=== PATIENT | female | born 1960 | race Caucasian/White ===

== ENCOUNTER → 2016-09-06 | Outpatient (CLI) | payer BC ==
[~2016-09-06] MED LIST: *PREMTA OR; AUGM500T34 PO; BACL10TA2 PO; BENT20TA OR; BUPIVACAINE HCL 0.25% 30 ML VIAL As Ordered ONE; CALC600T10 PO; CRES20TA PO; DEXILANT PO; DRIS50002 PO; ESTR3TA OR; ESTR3TA PO; EVIS1TAB PO; FLAG250T PO; FLUC10TA PO; GLUC500T3 OR; HYDR-3781 PO; ISOVUE-M 300 61% 15ML VIAL (Q9967) As Ordered ONE; LIDOCAINE 1% SDV INJ 30 ML VIAL As Ordered ONE; MAGN400T2 PO; METO10TA2 OR; OMEP40CA2 PO; ROSU10TA PO; SERT-141 PO; TOPA100T8 PO; TOPA50TA7 PO; TOPI50TA OR; TRIAMCINOLONE ACETONIDE SUSP 40 MG/ML VIAL (J3301) As Ordered ONE; TYLE325T5 PO; VICO5TAB OR; ZOLO25TA OR; diazePAM 5 MG TAB As Ordered ONE; oxyCODONE 5MG TAB As Ordered ONE
--- NOTE | 2016-09-06 17:35 | REP ---
FLUOROSCOPIC GUIDANCE: The images were reviewed with Dr. Wallace. The patient has a history of back pain. The portable C-ARM was provided in the OR by Dr. Mcghee for fluoroscopic guidance. 4 intraoperative fluoroscopic spot films were obtained for needle placement verification for left SI joint injection. The films are on the PACS system and are available for review. 9 seconds of fluoroscopic time was utilized for this procedure. Reviewed by AKBAR Meehan 09/07/2016 09:06 AEdited and Signed by Juliano Wallace MD 09/07/2016 03:18 P
--- NOTE | 2016-09-11 00:29 | ECWPNPC ---
PATIENT NAME: ANDI SEXTON : 1960 GENDER: FEMALE VISIT DATE: 09/06/2016 DISCHARGE DATE: 09/06/16 1140 VISIT LOCKED DATE TIME: PHYSICIAN: FROY PAYAN RESOURCE: FROY PAYAN REASON FOR APPOINTMENT 1. SIJ-LEFT HIP HISTORY OF PRESENT ILLNESS HISTORY OF PRESENT ILLNESS: PAIN THE PATIENT DESCRIBES THE PAIN... FALL RISK SCREENING: SCREENING :NO FALLS IN THE PAST YEAR CURRENT MEDICATIONS TAKING CRESTOR 20 MG TABLET 1 TABLET ORALLY ONCE A DAY, NOTES: 09-05-161899 TAKING PREMARIN 0.3 MG TABLET 1 TABLET ORALLY DAILY FOR THREE WEEKS, 1 WEEK OFF, NOTES: 09-06-16399 TAKING SERTRALINE HCL 50 MG TABLET 1 TABLET ORALLY ONCE A DAY, NOTES: 09-06-16399 TAKING BACLOFEN 10 MG TABLET NEEDED ORALLY THREE TIMES A DAY, NOTES: 09-06-16399 TAKING TOPIRAMATE 50 MG TABLET 1 TAB IN THE AM AND 2 TAB AT BEDTIME ORALLY TWICE A DAY, NOTES: 09-06-16399 TAKING MAXALT 10 MG TABLET 1 TABLET NEEDED ONE TIME ORALLY ONCE A DAY, NOTES: 09-05-16 1000 TAKING MAGNESIUM 400 MG CAPSULE ORALLY DAILY, NOTES: 09-05-161899 TAKING CALCIUM 1200+D3 600-40-500 MG-MG-UNIT TABLET EXTENDED RELEASE 24 HOUR ORALLY , NOTES: 09-05-161899 TAKING OMEPRAZOLE 40 MG CAPSULE DELAYED RELEASE 1 CAPSULE ORALLY TWICE A DAY, NOTES: 09-06-16399 TAKING VITAMIN D (ERGOCALCIFEROL) 36260 UNIT CAPSULE 1 CAPSULE ORALLY ONCE A MONTH, NOTES: 09-04-16 TAKING EVISTA 60 MG TABLET 1 TABLET ORALLY ONCE A DAY, NOTES: 09-05-161899 TAKING ROPINIROLE HCL 5 MG TABLET 1 TABLET ORALLY TWO TIMES A DAY, NOTES: 09-05-161899 TAKING ONDANSETRON 4 MG TABLET DISPERSIBLE 1 TABLET ON THE TONGUE AND ALLOW TO DISSOLVE ORALLY EVERY 8 HRS NEEDED, NOTES: 09-04-16 TAKING NORCO 10-325 MG TABLET 1 /2 TO 1 TABLET ORALLY EVERY 6 HRS PRN PAIN MDD=3 CHRONIC PAIN, NOTES: 09-05-16 2300 TAKING TRAMADOL HCL 50 MG TABLET 1 TAB ORALLY Q 6 HRS PRN PAIN MDD=4, NOTES: 09-05-16 0800 NOT-TAKING AMBIEN 10 MG TABLET 1 TABLET AT BEDTIME NEEDED ORALLY ONCE A DAY, NOTES: 05-22-16 PM NOT-TAKING NORCO 5-325 MG TABLET 1 TABLET NEEDED ORALLY EVERY 6 HRS, NOTES: FROM MARCH 24 ER VISIT MEDICATION LIST REVIEWED AND RECONCILED WITH THE PATIENT PAST MEDICAL HISTORY ANDREWS-MIGRAINES LEFT SHOULDER PAIN DIVERTICULOSIS- DIVERTICULITIS NUMBNESS AND TINGLING TO FINGERS AND TOES DUE TO TOPAMAX IS CONTROLLED WITH MAGNESIUM ALLERGIES COMPAZINE: BENJAMIN: ALLERGY PAMELOR: CONTRAINDICATION SURGICAL HISTORY SIGMOID COLECTOMY 01-14-16 RIGHT FOOT SURGERY KNEE SURGERY HYSTERECTOMY GALL BLADDER APPENDIX LEFT BREAST LUMPECTOMY SCOLIOSIS DEGENERATIVE DISEASE DISEASE OSTEO ARTHRITIS BUNIONECTOMY BONE FUSION RT FOOT 06-09-2016 SOCIAL HISTORY TOBACCO USE ARE YOU A:NONSMOKER LEARNING 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 NEW PATIENT PAIN DIARY TODAY'S VISITNOTES FROM 0-10, WHAT LEVEL IS YOUR PAIN TODAY?0 PAIN CLINIC PFS, CLERGY, PUBLIC HEALTH REFERRALS PFS REFERRAL NEEDED?NO CLERGY REFERRAL NEEDED?NO PUBLIC HEALTH REFERRAL NEEDED?NO WAS THE PROVIDER NOTIFIED OF ANY PERTINENT INFO?NO PFS REFERRAL NEEDED?NO CLERGY REFERRAL NEEDED?NO PUBLIC HEALTH REFERRAL NEEDED?NO WAS THE PROVIDER NOTIFIED OF ANY PERTINENT INFO?NO HOSPITALIZATION/MAJOR DIAGNOSTIC PROCEDURE DIVERTICULITIS SEVERAL TIMES 01/2017 BOWEL OBSTRUCTION REVIEW OF SYSTEMS CONSTITUTIONAL: ANY CHANGE IN YOUR MEDICAL CONDITION? NO . CHILLS NO . FEVER NO . INFECTION: DO YOU HAVE NEW INFECTIONS? NO . DO YOU HAVE HISTORY OF MRSA? NO . MUSCULOSKELETAL: ANY NEW PATTERNS OF PAIN OR NUMBNESS? NO . GASTROENTEROLOGY: ANY NEW CHANGE IN BOWEL CONTROL? NO . GENITOURINARY: ANY NEW CHANGE IN BLADDER CONTROL? NO . IS THERE A CHANCE YOU COULD BE ? NO . HEMATOLOGY/LYMPH: DO YOU TAKE ANY BLOOD THINNERS? (FOR EXAMPLE- COUMADIN, PLAVIX, AGGRENOX, PLATEL, PRADAXA, OR XARELTO) NO . WHEN WAS YOUR LAST DOSE? DATE: TIME: . NEUROLOGY: HAVE YOU FALLEN IN THE PAST 6 MONTHS? NO . ANY NEW EXTREMITY NUMBNESS OR WEAKNESS? NO . CARDIOLOGY: DO YOU HAVE A PACEMAKER OR DEFIBRILLATOR? NO . RESPIRATORY: HAVE YOU BEEN SICK IN THE PAST WEEK? NO . FEVER NO . FLU LIKE SYMPTOMS? NO . COUGH NO . INTEGUMENTARY: DO YOU HAVE ANY RASHES OR OPEN SORES? NO . ALLERGIC/IMMUNO: ARE YOU ALLERGIC TO SHELLFISH OR IV DYE? NO . ANY NEW ALLERGIES? NO . PSYCHIATRIC: DO YOU HAVE THOUGHTS OF HURTING YOURSELF OR SOMEONE ELSE? NO . ARE YOU ABUSED, NEGLECTED, OR IN AN UNSAFE ENVIRONMENT? NO . ENDOCRINOLOGY: ARE YOU DIABETIC? NO . OTHER: DO YOU NEED ANY PRESCRIPTIONS? NO . IF YES, PLEASE LIST: ____ . ANY NEW PROBLEMS WITH YOUR MEDICATIONS? NO . WHEN DID YOU LAST EAT? 0 . WHEN DID YOU LAST DRINK? 2299 . WHAT DID YOU LAST DRINK? COKE . NAME OF PERSON DRIVING YOU HOME? RODRIGUEZ . DO YOU HAVE ANY OTHER QUESTIONS OR CONCERNS NO . REVIEWED BY: PROVIDER: . VITAL SIGNS WT 105 LBS, HT 60 IN, BMI 20.50 INDEX, BP 127/60 MM HG, HR 69 /MIN, RR 16 /MIN, TEMP 97.0 F, OXYGEN SAT % 98, NA INITIALS TL 0943, REVIEWED BY: LS. ASSESSMENTS SACROILIITIS, NOT ELSEWHERE CLASSIFIED - M46.1 (PRIMARY) PROCEDURES PN SI PRE PROCEDURE DIAGNOSIS SACROILIITIS, SACROILIAC JOINT DYSFUNCTION POST PROCEDURE DIAGNOSIS SACROILIITIS, SACROILIAC JOINT DYSFUNCTION PROCEDURE LEFT SACROILIAC JOINT BLOCK SURGEON DR. 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 I EVALUATED THE PATIENT AND REVIEWED THE CHART. I WENT OVER THE RISKS, ALTERNATIVES, AND BENEFITS ASSOCIATED WITH THIS PROCEDURE. THE PATIENT WOULD LIKE TO PROCEED AND GAVE CONSENT TO PERFORM THE PROCEDURE. THE PATIENT DENIES UNEXPLAINABLE WEIGHT LOSS, FEVER, CHILLS, OR NEW CHANGES IN URINARY OR BOWEL CONTROL DESCRIPTION OF PROCEDURE THE PATIENT WAS BROUGHT TO THE PROCEDURE ROOM AND PLACED IN THE PRONE POSITION. THE LUMBOSACRAL AREA WAS CLEANED WITH CHLORAPREP SOLUTION AND DRAPED ASEPTICALLY. THE PROCEDURE WAS DONE UNDER STERILE CONDITIONS. I CHECKED LATERALITY AND THE LEVEL WHERE THE PROCEDURE WAS GOING TO BE PERFORMED WITH THE PATIENT AND THE SUPPORTING STAFF AT THE MOMENT OF THE TIME OUT IN THE PROCEDURE ROOM. UNDER FLUOROSCOPIC GUIDANCE, TARGET POINT WAS SELECTED AT THE LOWER BORDER OF THE LEFT SACROILIAC JOINT. TARGET POINT WAS SELECTED AFTER MEDIAL ROTATION AND TILT OF THE MAGNIFIER OF THE C-ARM. LIDOCAINE WAS USED TO NUMB THE SKIN AND SUBCUTANEOUS TISSUE BELOW IT. A SPINAL NEEDLE, 22-GAUGE, WAS ADVANCED UNDER FLUOROSCOPIC GUIDANCE AND FOLLOWING PATIENT FEEDBACK UNTIL THE TARGET AREA WAS TOUCHED. THE POSITION OF THE NEEDLE WAS VERIFIED WITH AP AND LATERAL VIEWS. AFTER PROPER POSITION OF THE NEEDLE WAS ACHIEVED, ISOVUE M DYE 30%, 0.25 ML, WAS INJECTED SHOWING SPREAD OF THE DYE. THEN, A SOLUTION OF 20 MG OF KENALOG WAS INJECTED IN RIGHT JOINT WITH 3 ML OF BUPIVACAINE 0.125%. THERE WAS NO EVIDENCE OF BLOOD, PARESTHESIA OR CEREBROSPINAL FLUID DURING THE PROCEDURE. THE PATIENT WAS SENT TO THE RECOVERY ROOM. THE PATIENT WAS MOVING THE EXTREMITIES AND DOING WELL. THERE WAS NO COMPLICATION DURING THE PROCEDURE. FLUOROSCOPY TIME WAS 9 SECONDS POST PROCEDURE NOTE THE PATIENT WILL BE SEEN IN A FOLLOW UP IN THE NEXT FEW WEEKS. INSTRUCTIONS WERE GIVEN, QUESTIONS WERE ANSWERED, AND THE PATIENT EXPRESSED UNDERSTANDING AND AGREED WITH THE PLAN. I, JAYME FONTENOT, DOCUMENTED THE ABOVE INFORMATION ACTING A SCRIBE FOR DR. PAYAN. I, DR. PAYAN, HAVE REVIEWED THE ABOVE DOCUMENT, SCRIBED BY JAYME FONTENOT, AND I VERIFY THAT IT IS ACCURATE DIAGNOSTIC IMAGING [facility] FLUORO GUIDANCE (PAIN)[id number] PROCEDURE CODES 48585 INJECT SACROILIAC JOINT 6045F RADXPS IN END [id number] PXD FOLLOW UP 3 WEEKS ELECTRONICALLY SIGNED BY FROY PAYAN MD ON 09/10/2016 AT 11:39 PM EST DISCLAIMER : THIS IS A VISIT SUMMARY EXTRACTED FROM THE [employer] CHART. IT IS NOT A COPY OF THE [employer] PROGRESS NOTE. MTDD
== END ==
LOC: M PAIN 09:40
PROVIDERS: ATTEND Anesthesiology
DX: M46.1 Sacroiliitis, not elsewhere classified (principal); M54.5 Low back pain; G89.29 Other chronic pain; Z79.899 Other long term (current) drug therapy; Z88.8 Allergy status to other drugs, medicaments and biological substances
CPT/HCPCS: 76000; G0260; J3301; Q9967

== ENCOUNTER → 2016-09-27 | Outpatient (CLI) | payer BC ==
[~2016-09-27] MED LIST changes: -BUPIVACAINE HCL 0.25% 30 ML VIAL As Ordered ONE; +COLE1TAB PO; +GABA-279 PO; -ISOVUE-M 300 61% 15ML VIAL (Q9967) As Ordered ONE; -LIDOCAINE 1% SDV INJ 30 ML VIAL As Ordered ONE; -TRIAMCINOLONE ACETONIDE SUSP 40 MG/ML VIAL (J3301) As Ordered ONE; -diazePAM 5 MG TAB As Ordered ONE; -oxyCODONE 5MG TAB As Ordered ONE
--- NOTE | 2016-10-14 00:20 | ECWPNPC ---
PATIENT NAME: ANDI SEXTON : 1960 GENDER: FEMALE VISIT DATE: 09/27/2016 DISCHARGE DATE: 09/27/16 1018 VISIT LOCKED DATE TIME: PHYSICIAN: LESLI CANNON RESOURCE: LESLI CANNON REASON FOR APPOINTMENT 1. POST PROCEDURE HISTORY OF PRESENT ILLNESS HISTORY OF PRESENT ILLNESS: PAIN THE PATIENT DESCRIBES THE PAIN... FALL RISK SCREENING: SCREENING :NO FALLS IN THE PAST YEAR TODAY'S VISIT: NOTES: RATES PAIN TODAY 7/10NOTES NECK FEELS BETTER BUT IS STILL HAVING PAIN IN LEFT BUTTUCK, HIP AND INTO LEFT GROIN AND LATERAL LEFT THIGH. SIJ INJECTION PRODUCED RELIEF ONLY WITH LIDO INJECTION BUT PAIN RETUNRED WHEN THIS RESOLVED WITHIN 24 HOURS. EXTREMELY PAINFUL TO SIT. ACTIONS WHERE TWISTING, OR EXTENDING OUT THE LEFT LEG ARE EXCRUITING.. CURRENT MEDICATIONS TAKING CRESTOR 20 MG TABLET 1 TABLET ORALLY ONCE A DAY TAKING PREMARIN 0.3 MG TABLET 1 TABLET ORALLY DAILY FOR THREE WEEKS, 1 WEEK OFF TAKING SERTRALINE HCL 50 MG TABLET 1 TABLET ORALLY ONCE A DAY TAKING BACLOFEN 10 MG TABLET NEEDED ORALLY THREE TIMES A DAY TAKING TOPIRAMATE 50 MG TABLET 1 TAB IN THE AM AND 2 TAB AT BEDTIME ORALLY TWICE A DAY TAKING MAXALT 10 MG TABLET 1 TABLET NEEDED ONE TIME ORALLY ONCE A DAY TAKING MAGNESIUM 400 MG CAPSULE ORALLY DAILY TAKING CALCIUM 1200+D3 600-40-500 MG-MG-UNIT TABLET EXTENDED RELEASE 24 HOUR ORALLY TAKING OMEPRAZOLE 40 MG CAPSULE DELAYED RELEASE 1 CAPSULE ORALLY TWICE A DAY TAKING VITAMIN D (ERGOCALCIFEROL) 89460 UNIT CAPSULE 1 CAPSULE ORALLY ONCE A MONTH TAKING EVISTA 60 MG TABLET 1 TABLET ORALLY ONCE A DAY TAKING ROPINIROLE HCL 5 MG TABLET 1 TABLET ORALLY TWO TIMES A DAY TAKING ONDANSETRON 4 MG TABLET DISPERSIBLE 1 TABLET ON THE TONGUE AND ALLOW TO DISSOLVE ORALLY EVERY 8 HRS NEEDED TAKING NORCO 10-325 MG TABLET 1 /2 TO 1 TABLET ORALLY EVERY 6 HRS PRN PAIN MDD=3 CHRONIC PAIN TAKING TRAMADOL HCL 50 MG TABLET 1 TAB ORALLY Q 6 HRS PRN PAIN MDD=4 TAKING COLESTIPOL HCL 1 GM TABLET 2 TABLETS ORALLY ONCE A DAY NOT-TAKING AMBIEN 10 MG TABLET 1 TABLET AT BEDTIME NEEDED ORALLY ONCE A DAY, NOTES: 19-16 PM NOT-TAKING NORCO 5-325 MG TABLET 1 TABLET NEEDED ORALLY EVERY 6 HRS, NOTES: FROM MARCH 24 ER VISIT MEDICATION LIST REVIEWED AND RECONCILED WITH THE PATIENT PAST MEDICAL HISTORY ANDREWS-MIGRAINES LEFT SHOULDER PAIN DIVERTICULOSIS- DIVERTICULITIS NUMBNESS AND TINGLING TO FINGERS AND TOES DUE TO TOPAMAX IS CONTROLLED WITH MAGNESIUM ALLERGIES COMPAZINE: JASMINEW: ALLERGY PAMELOR: CONTRAINDICATION SOCIAL HISTORY GENERAL: TOBACCO USE ARE YOU A:NONSMOKER LEARNING 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 NEW PATIENT PAIN DIARY TODAY'S VISITNOTES FROM 0-10, WHAT LEVEL IS YOUR PAIN TODAY?0 PAIN CLINIC PFS, CLERGY, PUBLIC HEALTH REFERRALS PFS REFERRAL NEEDED?NO CLERGY REFERRAL NEEDED?NO PUBLIC HEALTH REFERRAL NEEDED?NO WAS THE PROVIDER NOTIFIED OF ANY PERTINENT INFO?NO PFS REFERRAL NEEDED?NO CLERGY REFERRAL NEEDED?NO PUBLIC HEALTH REFERRAL NEEDED?NO WAS THE PROVIDER NOTIFIED OF ANY PERTINENT INFO?NO REVIEW OF SYSTEMS CONSTITUTIONAL: ANY CHANGE IN YOUR MEDICAL CONDITION? NO . CHILLS NO . FEVER NO . INFECTION: DO YOU HAVE NEW INFECTIONS? NO . DO YOU HAVE HISTORY OF MRSA? NO . MUSCULOSKELETAL: ANY NEW PATTERNS OF PAIN OR NUMBNESS? NO . GASTROENTEROLOGY: ANY NEW CHANGE IN BOWEL CONTROL? NO . GENITOURINARY: ANY NEW CHANGE IN BLADDER CONTROL? NO . IS THERE A CHANCE YOU COULD BE ? NO . HEMATOLOGY/LYMPH: DO YOU TAKE ANY BLOOD THINNERS? (FOR EXAMPLE- COUMADIN, PLAVIX, AGGRENOX, PLATEL, PRADAXA, OR XARELTO) NO . WHEN WAS YOUR LAST DOSE? DATE: TIME: . NEUROLOGY: HAVE YOU FALLEN IN THE PAST 6 MONTHS? NO . ANY NEW EXTREMITY NUMBNESS OR WEAKNESS? NO . CARDIOLOGY: DO YOU HAVE A PACEMAKER OR DEFIBRILLATOR? NO . RESPIRATORY: HAVE YOU BEEN SICK IN THE PAST WEEK? NO . FEVER NO . FLU LIKE SYMPTOMS? NO . COUGH NO . INTEGUMENTARY: DO YOU HAVE ANY RASHES OR OPEN SORES? NO . ALLERGIC/IMMUNO: ARE YOU ALLERGIC TO SHELLFISH OR IV DYE? NO . ANY NEW ALLERGIES? NO . PSYCHIATRIC: DO YOU HAVE THOUGHTS OF HURTING YOURSELF OR SOMEONE ELSE? NO . ARE YOU ABUSED, NEGLECTED, OR IN AN UNSAFE ENVIRONMENT? NO . ENDOCRINOLOGY: ARE YOU DIABETIC? NO . OTHER: DO YOU NEED ANY PRESCRIPTIONS? NO . IF YES, PLEASE LIST: ____ . ANY NEW PROBLEMS WITH YOUR MEDICATIONS? NO . WHEN DID YOU LAST EAT? ____ . WHEN DID YOU LAST DRINK? ____ . WHAT DID YOU LAST DRINK? ____ . NAME OF PERSON DRIVING YOU HOME? ____ . DO YOU HAVE ANY OTHER QUESTIONS OR CONCERNS NO . REVIEWED BY: PROVIDER: LESLI SALINAS . VITAL SIGNS WT 106 LBS, HT 60 IN, BMI 20.70 INDEX, BP 147/65 MM HG, HR 78 /MIN, RR 16 /MIN, TEMP 97.9 F, OXYGEN SAT % 99%, NA INITIALS SC 09:33, REVIEWED BY: KG. EXAMINATION GENERAL EXAMINATION: PSYCHALERT , ORIENTED X 3 , APPROPRIATE MOOD AND AFFECT . LUNGS:CLEAR TO AUSCULTATION BILATERALLY. HEART: S1, S2, , HEART RATE REGULAR. MUSCULOSKELETAL:EXQUISITE TENDERNESS OVER LUMBOSACRAL AXIS AND OVER LEFT SACRALILIAC JOINT. POSITIVE STEVEN SIGN LEFT SIDE. SLOW TO RISE TO STANDING POSITION. GAIT WIDEBASED, WITH LEFT LEG LIMP NOTED. EXQUISITE TENDERNESS WITH PALPATION OVER LEFT TROCANTER. . NEUROLOGIC EXAM:DTR'S 2+ DEA LOWER EXTREMITIES. NO SENSORY DEFICEIT. ASSESSMENTS LUMBAR DISC DISPLACEMENT WITHOUT MYELOPATHY - M51.26 (PRIMARY) LUMBAR RADICULOPATHY - M54.16 SACROILIITIS - M46.1 LEFT HIP PAIN - M25.552 TREATMENT LUMBAR DISC DISPLACEMENT WITHOUT MYELOPATHY REFILL NORCO TABLET, 10-325 MG, 1 /2 TO 1 TABLET, ORALLY, EVERY 6 HRS PRN PAIN MDD=3 CHRONIC PAIN, 30 DAY(S), 90, REFILLS 0 START GABAPENTIN CAPSULE, 100 MG, 2 CAP, ORALLY, 3 TIMES A DAY, 30 DAY(S), 180 CAPSULE, REFILLS 1 [facility] HIP WITHOUT [id number],SUSAN M 09/27/2016 10:02:58 AM > LOSS OF RANGE OF LESLI THIBODEAUX 09/27/2016 10:02:58 AM > LOSS OF RANGE OF LESLI THIBODEAUX 09/29/2016 8:30:52 AM > LEFT HIP NOTES: HAS BEEN TREATED WITH MULTIPLE TYPES OF NSAIDS, NEUROPATHIC PAIN MEDS AND OPIODS WITH CONTINUED PAIN IN LEFT HIP/TROCANTER WITH RADIATION TO GROIN ON ROTATION OF THE HIP. HAS ATTENDED PHYSICAL THERAPY FOR GREATER THAN 4 WEEKS WITHOUT IMPROVEMENT. PREVENTIVE MEDICINE PAIN CLINIC TEACHING: MEDICATIONS NEURONTIN EDUCATION PROVIDED TO PATIENT/WITH INSTRUCTIONS TO SLOWING INCREASE MED. PROCEDURE CODES FA211 ESTABILISHED PATIENT [facility] CHARGE FOLLOW UP 1 MONTH (REASON: CHECK AUTH FOR MRI OF HIP) ELECTRONICALLY SIGNED BY CLARK MERCADO ON 10/13/2016 AT 05:04 PM EST DISCLAIMER : THIS IS A VISIT SUMMARY EXTRACTED FROM THE [employer] CHART. IT IS NOT A COPY OF THE [employer] PROGRESS NOTE. [id number]
== END ==
LOC: M PAIN 09:20
PROVIDERS: ATTEND Nurse Practitioner Family
DX: Z09 Encounter for follow-up examination after completed treatment for conditions other than malignant neoplasm (principal); G89.29 Other chronic pain; M51.26 Other intervertebral disc displacement, lumbar region; M54.16 Radiculopathy, lumbar region; M46.1 Sacroiliitis, not elsewhere classified; M25.552 Pain in left hip; R51 Headache; Z88.8 Allergy status to other drugs, medicaments and biological substances; Z79.891 Long term (current) use of opiate analgesic; Z79.899 Other long term (current) drug therapy

== ENCOUNTER → 2016-09-30 | Outpatient (CLI) | payer BC ==
[~2016-09-30] MED LIST changes: -COLE1TAB PO; -GABA-279 PO
--- NOTE | 2016-10-02 11:53 | REP ---
MRI LEFT HIP WITHOUT CONTRAST: HISTORY: Left hip pain radiating to the foot. Comparison is made with images from CT study of the abdomen and pelvis dated November 11, 2015. TECHNIQUE: Axial, coronal and sagittal imaging planes are utilized for T1 and T2-weighted scans obtained in the usual fashion with without fat saturation. MRI FINDINGS: Cortical and medullary bone signal intensity is normal in both proximal femurs. There is no evidence of avascular necrosis. Visualized bony pelvic ring is intact. Minimal spurring is seen at the symphysis pubis. No inguinal or pelvic adenopathy or mass lesion is seen. No free fluid is noted. No abdominal wall defect is seen. The patient status post hysterectomy. There is no evidence of significant hip joint effusion on either side. No periarticular bursal fluid collection is seen. No cartilaginous labral tear is seen. Ligamentum teres is intact. Head and neck junction morphology is normal. No vascular abnormality is seen. There is minimal superior acetabular spurring. No other abnormality. IMPRESSION: Minimal superior acetabular spurring. There is mild superior spurring at the symphysis pubis as well. Otherwise, negative MRI study of the left hip without contrast. Signed by Nicola Mistry MD 10/02/2016 12:16 P
== END ==
LOC: M RAD 10:24
PROVIDERS: ATTEND Nurse Practitioner Family
DX: M51.26 Other intervertebral disc displacement, lumbar region (principal)

== ENCOUNTER → 2016-10-02 | Outpatient (CLI) | payer BC ==
[~2016-10-02] MED LIST changes: +E-Z-GAS II EFFERVESCENT PACKET (SODIUM BICARB./CITRIC ACID/SIMETHICONE) As Ordered ONE; +E-Z-HD 98% w/w 340GM SUSP BTL As Ordered ONE; +E-Z-PAQUE 96% w/w SUSP 176GM BTL As Ordered ONE
--- NOTE | 2016-10-02 16:33 | REP ---
UPPER GI AIR CONTRAST AND SMALL BOWEL FOLLOW-THROUGH: The procedure was performed under the direct supervision of Dr. Mistry. The images were reviewed with Dr. Mistry. The metal wire coating operator film shows no organomegaly or pathological masses. The intestinal gas pattern is nonspecific. There are surgical clips noted in the right upper quadrant. There are bowel sutures noted in the pelvis. Liquid barium and gas producing granules were given in the erect position as well as liquid barium in the prone oblique position in order to perform a double contrast upper GI examination. Additionally liquid barium was given at the end of the examination in order to perform a small bowel follow-through. The oral and pharyngeal stages of deglutition are unremarkable. Esophageal transport is prompt and efficient and there is no esophagitis, stricture or mucosal ring. There is a sliding type hiatal hernia present. There is mild gastroesophageal reflux demonstrated to below the level of the burton. The stomach mackenzie are normally outlined. The rugal folds are smooth and regular. There is no gastritis, neoplasm or ulcer disease. The duodenal mackenzie are normally outlined. The mucosal folds are smooth and regular. There is no duodenitis, pancreatitis, peptic ulcer disease, or neoplasm. The visualized portion of the proximal small bowel appears normal in course and caliber. The barium column was followed through the small bowel to the level of the terminal ileum. Small bowel transit time is approximately 90 minutes. During fluoroscopy gentle palpation shows all loops are freely movable and pliable. There are no fixed or angulated loops. The small bowel mucosal pattern is normal in course and caliber. There is no transition to suggest a partial small bowel obstruction. The cecum lies deep within the pelvis and is difficult to visualize due to overlapping bowel however there is no separation of loops. There are no fistulous tracts identified. IMPRESSION: There is a small sliding type hiatal hernia present. There is mild gastroesophageal reflux demonstrated to below the level of the burton. 3 minutes and 29 seconds of fluoroscopy time was utilized for this procedure. Reviewed by AKBAR Meehan 10/02/2016 04:56 PEdited and Signed by Nicola Mistry MD 10/02/2016 05:02 P
== END ==
LOC: M RAD 08:34
PROVIDERS: ATTEND Surgery
DX: R19.7 Diarrhea, unspecified (principal); K44.9 Diaphragmatic hernia without obstruction or gangrene

== ENCOUNTER → 2016-10-12 | Outpatient (CLI) | payer BC ==
[~2016-10-12] VITALS: Ht 152.4 cm; Wt 47.6 kg
[~2016-10-12] MED LIST changes: +COLE1TAB PO; -E-Z-GAS II EFFERVESCENT PACKET (SODIUM BICARB./CITRIC ACID/SIMETHICONE) As Ordered ONE; -E-Z-HD 98% w/w 340GM SUSP BTL As Ordered ONE; -E-Z-PAQUE 96% w/w SUSP 176GM BTL As Ordered ONE; +GABA-279 PO; +LIDOCAINE 2% INJ 100 MG/5 ML SDV (FOR ANES.) As Ordered ONE; +NS 1,000 ML IV SCH; +PROPOFOL 200 MG/20 ML VIAL As Ordered ONE
--- NOTE | 2016-10-12 12:04 | ROOR ---
Patient Name: Skip Manzo Procedure Date: 10/12/2016 11:17 AM Date of : 1960 Age: 56 Room: [facility] Gender: Female Note Status: Finalized Procedure: Upper GI endoscopy Indications: Nausea with vomiting Providers: Nacho Kan Jr, MD Referring MD: KARINE MILLAN MD Requesting Provider: Medicines: Propofol per Anesthesia Complications: No immediate complications. Procedure: Pre-Anesthesia Assessment: - Prior to the procedure, a History and Physical was performed, and patient medications and allergies were reviewed. The patient is competent. The risks and benefits of the procedure and the sedation options and risks were discussed with the patient. All questions were answered and informed consent was obtained. Patient identification and proposed procedure were verified by the physician and the nurse in the pre-procedure area and in the procedure room. Mental Status Examination: alert and oriented. Airway Examination: normal oropharyngeal airway and neck mobility. Respiratory Examination: clear to auscultation. CV Examination: normal. ASA Grade Assessment: II - A patient with mild systemic disease. After reviewing the risks and benefits, the patient was deemed in satisfactory condition to undergo the procedure. The anesthesia plan was to use moderate sedation / analgesia (conscious sedation). Immediately prior to administration of medications, the patient was re-assessed for adequacy to receive sedatives. The heart rate, respiratory rate, oxygen saturations, blood pressure, adequacy of pulmonary ventilation, and response to care were monitored throughout the procedure. The physical status of the patient was re-assessed after the procedure. The Endoscope was introduced through the mouth, and advanced to the second part of duodenum. The upper GI endoscopy was accomplished without difficulty. The patient tolerated the procedure well. Findings: The upper third of the esophagus, middle third of the esophagus and lower third of the esophagus were normal. The gastroesophageal junction was normal. The cardia, gastric fundus, gastric body, gastric antrum and pylorus were normal. Patchy mildly erythematous mucosa without bleeding was found in the prepyloric region of the stomach. Biopsies were taken with a cold forceps for histology. The duodenal bulb, first portion of the duodenum and second portion of the duodenum were normal. Impression: - Normal upper third of esophagus, middle third of esophagus and lower third of esophagus. - Normal gastroesophageal junction. - Normal cardia, gastric fundus, gastric body, antrum and pylorus. - Erythematous mucosa in the prepyloric region of the stomach. Biopsied. - Normal duodenal bulb, first portion of the duodenum and second portion of the duodenum. Recommendation: - Discharge patient to home (ambulatory). - Return to my office in 2 weeks. Nacho Kan MD Nacho Kan Jr, MD 10/12/2016 12:04:29 PM This report has been signed electronically. Number of Addenda: 0 Note Initiated On: 10/12/2016 11:17 AM Estimated Blood Loss: Estimated blood loss: none.
[2016-10-12 12:29] VITALS: BP 133/68
== END | disposition home or self-care (01) ==
LOC: M OPP 11:00
PROVIDERS: ATTEND Surgery
DX: K31.89 Other diseases of stomach and duodenum (principal); E78.00 Pure hypercholesterolemia, unspecified; I05.9 Rheumatic mitral valve disease, unspecified; K21.9 Gastro-esophageal reflux disease without esophagitis; K57.92 Diverticulitis of intestine, part unspecified, without perforation or abscess without bleeding; M19.90 Unspecified osteoarthritis, unspecified site; M51.9 Unspecified thoracic, thoracolumbar and lumbosacral intervertebral disc disorder; M41.9 Scoliosis, unspecified; M81.0 Age-related osteoporosis without current pathological fracture; F33.0 Major depressive disorder, recurrent, mild; F17.200 Nicotine dependence, unspecified, uncomplicated; F17.228 Nicotine dependence, chewing tobacco, with other nicotine-induced disorders; Z97.2 Presence of dental prosthetic device (complete) (partial); Z79.899 Other long term (current) drug therapy; Z79.891 Long term (current) use of opiate analgesic; Z79.890 Hormone replacement therapy; Z88.8 Allergy status to other drugs, medicaments and biological substances

== ENCOUNTER → 2016-10-20 | Outpatient (REF) | payer BC ==
[~2016-10-20] MED LIST changes: -LIDOCAINE 2% INJ 100 MG/5 ML SDV (FOR ANES.) As Ordered ONE; -NS 1,000 ML IV SCH; -PROPOFOL 200 MG/20 ML VIAL As Ordered ONE
[2016-10-20 11:46] LABS: MEAN CORPUSCULAR HEMOGLOBIN 30.4 pg (27.0-33.0); MEAN CORPUSCULAR HGB CONC 32.4 g/dl (32.0-36.5); MEAN CORPUSCULAR VOLUME 93.8 fl (80.0-96.0); RED CELL DISTRIBUTION WIDTH 12.6 % (11.5-14.5); WHITE BLOOD COUNT 11.3 K/mm3 (4.0-10.0)
[2016-10-20 12:12] LABS: ALBUMIN 3.5 GM/DL (3.2-5.2); ALBUMIN/GLOBULIN RATIO 1.25 (1.00-1.93); ALKALINE PHOSPHATASE 79 U/L (45-117); ALT/SGPT 17 U/L (12-78); ANION GAP 11 MEQ/L (8-16); AST/SGOT 11 U/L (15-37); BILIRUBIN,TOTAL 0.3 MG/DL (0.2-1.0); BLOOD UREA NITROGEN 4 MG/DL (7-18); CALCIUM LEVEL 9.3 MG/DL (8.5-10.1); CARBON DIOXIDE LEVEL 24 MEQ/L (21-32); CHLORIDE LEVEL 109 MEQ/L (98-107); CHOLESTEROL LEVEL 187 MG/DL (<200); CREATININE FOR GFR 0.77 MG/DL (0.55-1.02); GLOMERULAR FILTRATION RATE > 60.0 (>51); GLUCOSE, FASTING 90 MG/DL (70-105); SODIUM LEVEL 144 MEQ/L (136-145); TOTAL PROTEIN 6.3 GM/DL (6.4-8.2); TRIGLYCERIDES LEVEL 115 MG/DL (<150)
== END ==
LOC: M LABDRAW1 11:30
PROVIDERS: ATTEND Nurse Practitioner Family
DX: E78.5 Hyperlipidemia, unspecified (principal); I10 Essential (primary) hypertension; D53.9 Nutritional anemia, unspecified; E55.9 Vitamin D deficiency, unspecified

== ENCOUNTER → 2016-10-30 | Outpatient (CLI) | payer BC ==
--- NOTE | 2016-10-30 23:42 | ECWPNPC ---
PATIENT NAME: ANDI SEXTON : 1960 GENDER: FEMALE VISIT DATE: 10/30/2016 DISCHARGE DATE: 10/30/16 1436 VISIT LOCKED DATE TIME: PHYSICIAN: LESLI CANNON RESOURCE: LESLI CANNON REASON FOR APPOINTMENT 1. REVIEW MRI HISTORY OF PRESENT ILLNESS HISTORY OF PRESENT ILLNESS: PAIN THE PATIENT DESCRIBES THE PAIN... FALL RISK SCREENING: SCREENING :NO FALLS IN THE PAST YEAR TODAY'S VISIT: NOTES: RATES PAIN TODAY 02/10. PAIN REMAINS CENTERED IN LEFT HIP AND SACRUM WITH THE MOST CURRENTLY IN THE HIP. CURRENT MEDICATIONS TAKING CRESTOR 20 MG TABLET 1 TABLET ORALLY ONCE A DAY TAKING PREMARIN 0.3 MG TABLET 1 TABLET ORALLY DAILY FOR THREE WEEKS, 1 WEEK OFF TAKING SERTRALINE HCL 100 MG TABLET 1 TABLET ORALLY ONCE A DAY TAKING BACLOFEN 10 MG TABLET NEEDED ORALLY THREE TIMES A DAY TAKING TOPIRAMATE 50 MG TABLET 1 TAB ORALLY TWICE A DAY TAKING MAXALT 10 MG TABLET 1 TABLET NEEDED ONE TIME ORALLY ONCE A DAY TAKING MAGNESIUM 400 MG CAPSULE ORALLY DAILY TAKING CALCIUM 1200+D3 600-40-500 MG-MG-UNIT TABLET EXTENDED RELEASE 24 HOUR ORALLY TAKING OMEPRAZOLE 40 MG CAPSULE DELAYED RELEASE 1 CAPSULE ORALLY DAILY TAKING VITAMIN D (ERGOCALCIFEROL) 42844 UNIT CAPSULE 1 CAPSULE ORALLY ONCE A MONTH TAKING EVISTA 60 MG TABLET 1 TABLET ORALLY ONCE A DAY TAKING ROPINIROLE HCL 5 MG TABLET 1 TABLET ORALLY TWO TIMES A DAY TAKING TRAMADOL HCL 50 MG TABLET 1 TAB ORALLY Q 6 HRS PRN PAIN MDD=4 TAKING NORCO 10-325 MG TABLET 1 /2 TO 1 TABLET ORALLY EVERY 6 HRS PRN PAIN MDD=3 CHRONIC PAIN TAKING GABAPENTIN 100 MG CAPSULE 2 CAP ORALLY 3 TIMES A DAY NOT-TAKING ONDANSETRON 4 MG TABLET DISPERSIBLE 1 TABLET ON THE TONGUE AND ALLOW TO DISSOLVE ORALLY EVERY 8 HRS NEEDED NOT-TAKING COLESTIPOL HCL 1 GM TABLET 2 TABLETS ORALLY ONCE A DAY NOT-TAKING AMBIEN 10 MG TABLET 1 TABLET AT BEDTIME NEEDED ORALLY ONCE A DAY, NOTES: 05-22-16 PM NOT-TAKING NORCO 5-325 MG TABLET 1 TABLET NEEDED ORALLY EVERY 6 HRS, NOTES: FROM MARCH 24 ER VISIT MEDICATION LIST REVIEWED AND RECONCILED WITH THE PATIENT PAST MEDICAL HISTORY ANDREWS-MIGRAINES LEFT SHOULDER PAIN DIVERTICULOSIS- DIVERTICULITIS NUMBNESS AND TINGLING TO FINGERS AND TOES DUE TO TOPAMAX IS CONTROLLED WITH MAGNESIUM ALLERGIES COMPAZINE: JASMINEW: ALLERGY PAMELOR: CONTRAINDICATION SOCIAL HISTORY GENERAL: TOBACCO USE ARE YOU A:NONSMOKER LEARNING 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 NEW PATIENT PAIN DIARY TODAY'S VISITNOTES FROM 0-10, WHAT LEVEL IS YOUR PAIN TODAY?0 PAIN CLINIC PFS, CLERGY, PUBLIC HEALTH REFERRALS PFS REFERRAL NEEDED?NO CLERGY REFERRAL NEEDED?NO PUBLIC HEALTH REFERRAL NEEDED?NO WAS THE PROVIDER NOTIFIED OF ANY PERTINENT INFO?NO PFS REFERRAL NEEDED?NO CLERGY REFERRAL NEEDED?NO PUBLIC HEALTH REFERRAL NEEDED?NO WAS THE PROVIDER NOTIFIED OF ANY PERTINENT INFO?NO REVIEW OF SYSTEMS CONSTITUTIONAL: ANY CHANGE IN YOUR MEDICAL CONDITION? NO . CHILLS NO . FEVER NO . INFECTION: DO YOU HAVE NEW INFECTIONS? NO . DO YOU HAVE HISTORY OF MRSA? NO . MUSCULOSKELETAL: ANY NEW PATTERNS OF PAIN OR NUMBNESS? NO . GASTROENTEROLOGY: ANY NEW CHANGE IN BOWEL CONTROL? NO . GENITOURINARY: ANY NEW CHANGE IN BLADDER CONTROL? NO . IS THERE A CHANCE YOU COULD BE ? NO . HEMATOLOGY/LYMPH: DO YOU TAKE ANY BLOOD THINNERS? (FOR EXAMPLE- COUMADIN, PLAVIX, AGGRENOX, PLATEL, PRADAXA, OR XARELTO) NO . WHEN WAS YOUR LAST DOSE? DATE: TIME: . NEUROLOGY: HAVE YOU FALLEN IN THE PAST 6 MONTHS? NO . ANY NEW EXTREMITY NUMBNESS OR WEAKNESS? NO . CARDIOLOGY: DO YOU HAVE A PACEMAKER OR DEFIBRILLATOR? NO . RESPIRATORY: HAVE YOU BEEN SICK IN THE PAST WEEK? NO . FEVER NO . FLU LIKE SYMPTOMS? NO . COUGH NO . INTEGUMENTARY: DO YOU HAVE ANY RASHES OR OPEN SORES? NO . ALLERGIC/IMMUNO: ARE YOU ALLERGIC TO SHELLFISH OR IV DYE? NO . ANY NEW ALLERGIES? NO . PSYCHIATRIC: DO YOU HAVE THOUGHTS OF HURTING YOURSELF OR SOMEONE ELSE? NO . ARE YOU ABUSED, NEGLECTED, OR IN AN UNSAFE ENVIRONMENT? NO . ENDOCRINOLOGY: ARE YOU DIABETIC? NO . OTHER: DO YOU NEED ANY PRESCRIPTIONS? NO . IF YES, PLEASE LIST: ____ . ANY NEW PROBLEMS WITH YOUR MEDICATIONS? NO . WHEN DID YOU LAST EAT? ____ . WHEN DID YOU LAST DRINK? ____ . WHAT DID YOU LAST DRINK? ____ . NAME OF PERSON DRIVING YOU HOME? ____ . DO YOU HAVE ANY OTHER QUESTIONS OR CONCERNS NO . REVIEWED BY: PROVIDER: LESLI SALINAS . VITAL SIGNS WT 107 LBS, HT 60 IN, BMI 20.89 INDEX, BP 127/78 MM HG, HR 88 /MIN, RR 16 /MIN, TEMP 98.7 F, OXYGEN SAT % 98%, NA INITIALS SC 13:58, REVIEWED BY: KG. EXAMINATION GENERAL EXAMINATION: PSYCHALERT , ORIENTED X 3 , APPROPRIATE MOOD AND AFFECT . LUNGS:CLEAR TO AUSCULTATION BILATERALLY. HEART: S1, S2, , HEART RATE REGULAR. MUSCULOSKELETAL:EXQUISITE TENDERNESS OVER LUMBOSACRAL AXIS.POINT TENDERNESS OVER LEFT TROCANTER. NEGATIVE STEVEN SIGN TODAY. SLOW TO RISE TO STANDING POSITION. GAIT ANTALGIC.. NEUROLOGIC EXAM:DTR'S 2+ DEA LOWER EXTREMITIES. NO SENSORY DEFICEIT. DIAGNOSTIC TESTS REVIEWEDMRI OF LEFT HIP COMPLETED ON 09/30/16.DEMONSTRATES MINIMAL SUPERIOR ACETABULAR SPURRING AND MILD SUPERIOR SPURRING AT THE SYMPHYSIS PUBIS. NO EVIDENCE OF AVASCULAR NECROSISNO LARTILAGINOUS LABRAL TEAR IS SEEN.. ASSESSMENTS SACROILIITIS - M46.1 (PRIMARY) LEFT HIP PAIN - M25.552 TREATMENT SACROILIITIS REFILL NORCO TABLET, 10-325 MG, 1 /2 TO 1 TABLET, ORALLY, EVERY 6 HRS PRN PAIN MDD=3 CHRONIC PAIN, 30 DAY(S), 90, REFILLS 0 LAB: ERYTHROCYTE SEDIMENTATION RATE LAB: LUPUS TYPE ANTICOAGULANT SCREE LAB: LYME DISEASE SCRN WITH CONFIRM LAB: RHEUMATOID FACTOR QUANT LAB: HANSEL TITER & PATTERN ARTHROCENTESIS INJECTION LARGE JOINT ([id number])LESLI CANNON 10/30/2016 2:17:58 PM > LEFT HIP JOINT INJECTION NOTES: WILL REVIEW LABS AND THEN IDSCUSS REFERRAL TO RHEUMATOLOGY. WALK TOLERATED. CLINICAL NOTES: ISTOP REGISTRY REVIEWED AND DEMNOSTRATES COMPLLIANCE. BRINGS IN MEDICATIONS WHICH IS APPROPRIATE FOR WHAT WAS DISPENSED. RECENT URINE TOXICOLOGY REVIEWED. NO UNAUTHORIZED MEDICATIONS. NO ILLICIT SUBSTANCES AND PRESCRIBED MEDICATIONS WERE PRESENT. PROCEDURE CODES FA211 ESTABILISHED PATIENT [facility] CHARGE DISPOSITION & COMMUNICATION FOLLOW UP REASON: CHECK AUTH FOR LEFT HIP JOINT INJECTION ELECTRONICALLY SIGNED BY CLARK MERCADO ON 10/30/2016 AT 05:00 PM EST DISCLAIMER : THIS IS A VISIT SUMMARY EXTRACTED FROM THE [employer] CHART. IT IS NOT A COPY OF THE [employer] PROGRESS NOTE. IFTIKHAR
== END ==
LOC: M PAIN 14:00
PROVIDERS: ATTEND Nurse Practitioner Family
DX: Z09 Encounter for follow-up examination after completed treatment for conditions other than malignant neoplasm (principal); G89.29 Other chronic pain; M46.1 Sacroiliitis, not elsewhere classified; M25.552 Pain in left hip; Z86.69 Personal history of other diseases of the nervous system and sense organs; M51.26 Other intervertebral disc displacement, lumbar region; M54.16 Radiculopathy, lumbar region; M47.812 Spondylosis without myelopathy or radiculopathy, cervical region; Z88.8 Allergy status to other drugs, medicaments and biological substances; Z79.891 Long term (current) use of opiate analgesic; Z79.899 Other long term (current) drug therapy

== ENCOUNTER → 2016-10-31 | Outpatient (REF) | payer BC ==
[2016-11-03 00:06] LABS: Lyme Disease IgG/IgM Antibodie <0.91 ISR (0.00-0.90); Lyme Disease IgM Ab Quantitati <0.80 index (0.00-0.79)
== END ==
LOC: M LABDRAW1 15:34
PROVIDERS: ATTEND Nurse Practitioner Family
DX: M46.1 Sacroiliitis, not elsewhere classified (principal)

== ENCOUNTER 2016-11-12 19:20 | Emergency (ER) | payer BC ==
[~2016-11-12] VITALS: Ht 152.4 cm; Wt 48.1 kg
[~2016-11-12 19:20] MED LIST changes: -SERT-141 PO; +SERT50TA PO
[2016-11-12] MEDS ORDERED: DIVA125C5 PO (19:35)
[2016-11-12] MEDS ORDERED: ONDANSETRON 4MG/2ML VIAL (J2405) IV ONE (20:15)
[2016-11-12] MEDS ORDERED: NS 1,000 ML IV ONE (20:15)
[2016-11-12 20:58] LABS: BASO # 0.1 K/mm3 (0.0-0.2); EOS # 0.2 K/mm3 (0.0-0.50); EOS % 1.9 % (0.0-3.0); LARGE UNSTAINED CELL # 0.2 K/mm3 (0.0-0.4); LARGE UNSTAINED CELL % 1.9 % (0.0-4.0); LYMPH # 3.8 K/mm3 (1.5-4.5); LYMPH % 45.5 % (24.0-44.0); MEAN CORPUSCULAR HEMOGLOBIN 30.7 pg (27.0-33.0); MEAN CORPUSCULAR HGB CONC 32.7 g/dl (32.0-36.5); MEAN CORPUSCULAR VOLUME 93.8 fl (80.0-96.0); MONO # 0.4 K/mm3 (0.0-0.8); MONO % 5.2 % (0.0-5.0); NEUTROPHILS # 3.7 K/mm3 (1.8-7.7); NEUTROPHILS % 44.5 % (36.0-66.0); PLATELET COUNT, AUTOMATED 455 k/mm3 (150-450); RED CELL DISTRIBUTION WIDTH 12.3 % (11.5-14.5); WHITE BLOOD COUNT 8.3 K/mm3 (4.0-10.0)
[2016-11-12 21:23] LABS: ALBUMIN 3.5 GM/DL (3.2-5.2); ALBUMIN/GLOBULIN RATIO 1.21 (1.00-1.93); ALKALINE PHOSPHATASE 69 U/L (45-117); ALT/SGPT 9 U/L (12-78); ANION GAP 6 MEQ/L (8-16); AST/SGOT 12 U/L (15-37); BILIRUBIN,DIRECT < 0.1 MG/DL (0.0-0.2); BILIRUBIN,TOTAL 0.2 MG/DL (0.2-1.0); BLOOD UREA NITROGEN 6 MG/DL (7-18); CALCIUM LEVEL 8.3 MG/DL (8.5-10.1); CARBON DIOXIDE LEVEL 28 MEQ/L (21-32); CHLORIDE LEVEL 110 MEQ/L (98-107); CREATININE FOR GFR 0.77 MG/DL (0.55-1.02); GLOMERULAR FILTRATION RATE > 60.0 (>51); GLUCOSE, FASTING 99 MG/DL (70-105); SODIUM LEVEL 144 MEQ/L (136-145); TOTAL PROTEIN 6.4 GM/DL (6.4-8.2)
[2016-11-12] MEDS ORDERED: MECLIZINE 25 MG TABLET PO ONE (21:30)
[2016-11-12] MEDS ORDERED: ZOFR4TAB3 PO (22:21)
[2016-11-12] MEDS ORDERED: MECL-68 PO (22:21)
[2016-11-12 22:26] VITALS: BP 133/66
--- NOTE | 2016-11-13 12:30 | ECGEPIP ---
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
== END 2016-11-12 22:36 | disposition home or self-care (01) ==
LOC: M ED 20:37
DX: H81.399 Other peripheral vertigo, unspecified ear (principal); H93.19 Tinnitus, unspecified ear; R11.2 Nausea with vomiting, unspecified; M54.6 Pain in thoracic spine; E78.9 Disorder of lipoprotein metabolism, unspecified; M19.90 Unspecified osteoarthritis, unspecified site; G43.909 Migraine, unspecified, not intractable, without status migrainosus; R00.2 Palpitations; F32.9 Major depressive disorder, single episode, unspecified; Z87.891 Personal history of nicotine dependence; Z88.8 Allergy status to other drugs, medicaments and biological substances; Z79.899 Other long term (current) drug therapy
CPT/HCPCS: 36415; 80048; 80076; 81001; 82550; 82553; 83690; 84443; 85025; 86140; 93005; 96374; 99284; J2405

== ENCOUNTER → 2016-11-22 | Outpatient (CLI) | payer BC ==
[~2016-11-22] MED LIST changes: +BUPIVACAINE HCL 0.25% 30 ML VIAL As Ordered ONE; +CRES10TA32 PO; +DIVA125C5 PO; +ISOVUE-M 300 61% 15ML VIAL (Q9967) As Ordered ONE; +LIDOCAINE 1% SDV INJ 30 ML VIAL As Ordered ONE; +MECL-68 PO; -ROSU10TA PO; +TRIAMCINOLONE ACETONIDE SUSP 40 MG/ML VIAL (J3301) As Ordered ONE; +ZOFR4TAB3 PO; +diazePAM 5 MG TAB As Ordered ONE; +oxyCODONE 5MG TAB As Ordered ONE
--- NOTE | 2016-11-22 16:19 | REP ---
Partial left hip series: Eight views: History: Left hip injection for pain. 5 seconds of fluoroscopy time is reported. Findings: A sequence of eight fluoroscopically obtained intraprocedural spot radiographs in the lateral projection document various needle positions and contrast injections associated with hip injection procedure. Signed by Nicola Mistry MD 11/22/2016 04:33 P
--- NOTE | 2016-11-28 02:10 | ECWPNPC ---
PATIENT NAME: ANDI SEXTON : 1960 GENDER: FEMALE VISIT DATE: 11/22/2016 DISCHARGE DATE: 11/22/16 1523 VISIT LOCKED DATE TIME: PHYSICIAN: FROY PAYAN RESOURCE: FROY PAYAN REASON FOR APPOINTMENT 1. HIP INJECTION, L HIP CURRENT MEDICATIONS TAKING CRESTOR 20 MG TABLET 1 TABLET ORALLY ONCE A DAY, NOTES: 11-21-162099 TAKING PREMARIN 0.3 MG TABLET 1 TABLET ORALLY DAILY FOR THREE WEEKS, 1 WEEK OFF, NOTES: 11-21-16 AM TAKING SERTRALINE HCL 100 MG TABLET 1 TABLET ORALLY ONCE A DAY, NOTES: 11-21-16 AM TAKING BACLOFEN 10 MG TABLET NEEDED ORALLY THREE TIMES A DAY, NOTES: 11-21-162099 TAKING TOPIRAMATE 50 MG TABLET 1 TAB ORALLY TWICE A DAY, NOTES: 11-21-162099 TAKING MAXALT 10 MG TABLET 1 TABLET NEEDED ONE TIME ORALLY ONCE A DAY, NOTES: NONE TAKING MAGNESIUM 400 MG CAPSULE ORALLY DAILY, NOTES: 11-21-16 AM TAKING OMEPRAZOLE 40 MG CAPSULE DELAYED RELEASE 1 CAPSULE ORALLY DAILY, NOTES: 11-22-16 0600 TAKING VITAMIN D (ERGOCALCIFEROL) 15116 UNIT CAPSULE 1 CAPSULE ORALLY ONCE A MONTH, NOTES: NOT STARTED YET TAKING EVISTA 60 MG TABLET 1 TABLET ORALLY ONCE A DAY, NOTES: 11-21-162099 TAKING ROPINIROLE HCL 5 MG TABLET 1 TABLET ORALLY TWO TIMES A DAY, NOTES: 11-21-162099 TAKING TRAMADOL HCL 50 MG TABLET 1 TAB ORALLY Q 6 HRS PRN PAIN MDD=4, NOTES: 11-22-16 06 TAKING GABAPENTIN 100 MG CAPSULE 1 CAP ORALLY 2 TIMES A DAY, NOTES: 11-21-162099 TAKING NORCO 10-325 MG TABLET 1 /2 TO 1 TABLET ORALLY EVERY 6 HRS PRN PAIN MDD=3 CHRONIC PAIN, NOTES: 11-21-162099 TAKING MECLIZINE HCL 25 MG TABLET 1 TABLET NEEDED ORALLY Q8 HR NEEDED, NOTES: 2 DAYS AGO NOT-TAKING ONDANSETRON 4 MG TABLET DISPERSIBLE 1 TABLET ON THE TONGUE AND ALLOW TO DISSOLVE ORALLY EVERY 8 HRS NEEDED, NOTES: 11-21-16 NOT-TAKING COLESTIPOL HCL 1 GM TABLET 2 TABLETS ORALLY ONCE A DAY DISCONTINUED CALCIUM 1200+D3 600-40-500 MG-MG-UNIT TABLET EXTENDED RELEASE 24 HOUR ORALLY DISCONTINUED AMBIEN 10 MG TABLET 1 TABLET AT BEDTIME NEEDED ORALLY ONCE A DAY, NOTES: 05-22-16 PM DISCONTINUED NORCO 5-325 MG TABLET 1 TABLET NEEDED ORALLY EVERY 6 HRS, NOTES: FROM MARCH 24 ER VISIT MEDICATION LIST REVIEWED AND RECONCILED WITH THE PATIENT PAST MEDICAL HISTORY ANDREWS-MIGRAINES LEFT SHOULDER PAIN DIVERTICULOSIS- DIVERTICULITIS NUMBNESS AND TINGLING TO FINGERS AND TOES DUE TO TOPAMAX IS CONTROLLED WITH MAGNESIUM ALLERGIES COMPAZINE: LOCKJAW: ALLERGY PAMELOR: CONTRAINDICATION VITAL SIGNS WT 104.8 LBS, HT 60 IN, BMI 20.47 INDEX, BP 124/57 MM HG, HR 104 /MIN, RR 16 /MIN, TEMP 99.5 F, OXYGEN SAT % 98%, NA INITIALS [id number]. 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 TROCHANTERIC BURSITIS, LEFT HIP PREPROCEDURE DIAGNOSIS: BURSITIS AT THE LEFT GREATER TROCHANTER OF THE FEMUR. POSTPROCEDURE DIAGNOSIS: BURSITIS AT THE LEFT GREATER TROCHANTER OF THE FEMUR. PROCEDURE: INJECTION AT THE BURSA OF THE OF THE LEFT GREATER TROCHANTER OF THE FEMUR UNDER FLUOROSCOPIC GUIDANCE. SURGEON: DR. FROY PAYAN BEE ROBBER: NONEANESTHESIA: LOCAL. PREOPERATIVE NOTE: THE PATIENT HAS A HISTORY OF LEFT HIP PAIN. I EVALUATED THE PATIENT AND REVIEWED THE CHART. WE BOTH AGREE ON INJECTING OVER THE BURSA OF THE LEFT GREATER TROCHANTER OF THE FEMUR. I WENT THROUGH THE RISKS, ALTERNATIVES, AND BENEFITS ASSOCIATED WITH THIS PROCEDURE. THE PATIENT WOULD LIKE TO PROCEED AND GIVE CONSENT TO PERFORMED THE PROCEDURE. THE PATIENT DENIES UNEXPLAINABLE WEIGHT LOSS, FEVERS, CHILLS, OR CHANGES IN HIS URINARY OR BOWEL CONTROL. DESCRIPTION OF PROCEDURE: AFTER CONSENT WAS TAKEN, THE PATIENT WAS BROUGHT TO THE PROCEDURE ROOM AND PLACED IN THE RIGHT LATERAL DECUBITUS POSITION. THE LEFT HIP AREA WAS CLEANED WITH CHLORAPREP SOLUTION AND DRAPED ASEPTICALLY. THE PROCEDURE WAS DONE UNDER STERILE CONDITIONS. I CHECKED LATERALITY WITH THE PATIENT AND THE STAFF IN THE PROCEDURE ROOM AT THE MOMENT OF THE TIME OUT. UNDER FLUOROSCOPIC GUIDANCE, TARGET WAS SELECTED AT THE [DEFAULT VALUE] GREATER TROCHANTER OF THE FEMUR. LIDOCAINE WAS USED TO NUMB THE SKIN AND THE SUBCUTANEOUS TISSUE BELOW IT. SPINAL NEEDLE, 22-GAUGE WAS ADVANCED UNDER FLUOROSCOPIC GUIDANCE AND FOLLOWING PATIENT FEEDBACK UNTIL THE TARGET WAS TOUCHED. POSITION OF THE NEEDLE WAS VERIFIED WITH AP AND LATERAL VIEWS. AFTER PROPER POSITION OF THE NEEDLE WAS ACHIEVED, ISOVUE M DYE, 30%, 0.25 ML WAS INJECTED SHOWING ADEQUATE SPREAD OF THE DYE. THEN A SOLUTION OF 20 ML OF BUPIVACAINE 0.25% AND KENALOG 40 MG WAS INJECTED. THERE WAS NO EVIDENCE OF BLOOD, PARESTHESIA, OR CEREBROSPINAL FLUID. THE PATIENT WAS SENT TO THE RECOVERY ROOM. THE PATIENT WAS MOVING THE EXTREMITIES AND DOING WELL. THERE WERE NO COMPLICATIONS DURING THE PROCEDURE. FLUOROSCOPIC TIME WAS 5 SECONDS.POSTOPERATIVE NOTE: THE PATIENT WILL BE SEEN IN A FOLLOW UP IN THE NEXT FEW WEEKS. I AM LOOKING FOR LONG-LASTING PAIN RELIEF WITH THIS INTERVENTION. INSTRUCTIONS WERE GIVEN, QUESTIONS WERE ANSWERED, PATIENT REPORTS UNDERSTANDING AND AGREES WITH THE PLAN. I, MANDO URIBE, DOCUMENTED THE ABOVE INFORMATION ACTING A SCRIBE FOR DR. PAYAN. I HAVE REVIEWED THE ABOVE DOCUMENT, WRITTEN BY MANDO URIBE SCRIBE AND I VERIFY THAT IT IS ACCURATE. PROCEDURE CODES 12981 DRAIN/INJ JOINT/BURSA W/[place] [address] NEEDLE LOCALIZATION BY ARNIE [id number] RADX[employer] IN END [id number] PXD DISPOSITION & COMMUNICATION FOLLOW UP 3 WEEKS ELECTRONICALLY SIGNED BY FROY PAYAN MD ON 11/27/2016 AT 05:17 PM EDT DISCLAIMER : THIS IS A VISIT SUMMARY EXTRACTED FROM THE [employer] CHART. IT IS NOT A COPY OF THE [employer] PROGRESS NOTE. IFTIKHAR
== END ==
LOC: M PAIN 11:40
PROVIDERS: ATTEND Anesthesiology
DX: M70.62 Trochanteric bursitis, left hip (principal); Z79.891 Long term (current) use of opiate analgesic; Z79.899 Other long term (current) drug therapy; Z88.8 Allergy status to other drugs, medicaments and biological substances
CPT/HCPCS: 20610; 77002; J3301; Q9967

== ENCOUNTER → 2016-12-13 | Outpatient (CLI) | payer BC ==
[~2016-12-13] MED LIST changes: -BUPIVACAINE HCL 0.25% 30 ML VIAL As Ordered ONE; -ISOVUE-M 300 61% 15ML VIAL (Q9967) As Ordered ONE; -LIDOCAINE 1% SDV INJ 30 ML VIAL As Ordered ONE; -TRIAMCINOLONE ACETONIDE SUSP 40 MG/ML VIAL (J3301) As Ordered ONE; -diazePAM 5 MG TAB As Ordered ONE; -oxyCODONE 5MG TAB As Ordered ONE
--- NOTE | 2016-12-14 00:45 | ECWPNPC ---
PATIENT NAME: ANDI SEXTON : 1960 GENDER: FEMALE VISIT DATE: 12/13/2016 DISCHARGE DATE: 12/13/16 1259 VISIT LOCKED DATE TIME: PHYSICIAN: LESLI CANNON RESOURCE: LESLI CANNON REASON FOR APPOINTMENT 1. POST PROC HISTORY OF PRESENT ILLNESS HISTORY OF PRESENT ILLNESS: PAIN THE PATIENT DESCRIBES THE PAIN... FALL RISK SCREENING: SCREENING :NO FALLS IN THE PAST YEAR TODAY'S VISIT: NOTES: S/P LEFT HIP BURSA INJECTION COMPLETED ON 11/22/16.PAIN PRIOR TO THE INJECTION WAS 6/10 - FOLLOWING INJECTION PAIN WAS 1-3/10 X 3 WEEKS. CURRENTLY PAIN IS INCREASED WITH DAMP WEATHER. IS NOTING ALL JOINTS INCLUDING THE RIBS OVER THE RIGHT ANTERIOR CHEST WALL. TODAY ALSO IS NOTING TENDERNESS OVER LEFT SACRUM AND HIP/BUTTUCK. REPORTS TWITCHING AND TREMOR HAS RETURNED. . CURRENT MEDICATIONS TAKING CRESTOR 20 MG TABLET 1 TABLET ORALLY ONCE A DAY TAKING PREMARIN 0.3 MG TABLET 1 TABLET ORALLY DAILY FOR THREE WEEKS, 1 WEEK OFF TAKING SERTRALINE HCL 100 MG TABLET 1 TABLET ORALLY ONCE A DAY TAKING MAXALT 10 MG TABLET 1 TABLET NEEDED ONE TIME ORALLY ONCE A DAY, NOTES: NONE TAKING OMEPRAZOLE 40 MG CAPSULE DELAYED RELEASE 1 CAPSULE ORALLY DAILY TAKING VITAMIN D (ERGOCALCIFEROL) 75816 UNIT CAPSULE 1 CAPSULE ORALLY ONCE A MONTH, NOTES: NOT STARTED YET TAKING EVISTA 60 MG TABLET 1 TABLET ORALLY ONCE A DAY TAKING ROPINIROLE HCL 5 MG TABLET 1 TABLET ORALLY TWO TIMES A DAY TAKING TRAMADOL HCL 50 MG TABLET 1 TAB ORALLY Q 6 HRS PRN PAIN MDD=4 TAKING GABAPENTIN 100 MG CAPSULE 1 CAP ORALLY 3 TIMES A DAY TAKING NORCO 10-325 MG TABLET 1 /2 TO 1 TABLET ORALLY EVERY 6 HRS PRN PAIN MDD=3 CHRONIC PAIN TAKING MECLIZINE HCL 25 MG TABLET 1 TABLET NEEDED ORALLY Q8 HR NEEDED TAKING SERTRALINE HCL 100 MG TABLET 1 TABLET ORALLY ONCE A DAY TAKING TIZANIDINE HCL 2 MG TABLET 1 TABLET NEEDED ORALLY THREE TIMES A DAY NOT-TAKING BACLOFEN 10 MG TABLET NEEDED ORALLY THREE TIMES A DAY NOT-TAKING TOPIRAMATE 50 MG TABLET 1 TAB ORALLY TWICE A DAY NOT-TAKING MAGNESIUM 400 MG CAPSULE ORALLY DAILY, NOTES: 11-21-16 AM NOT-TAKING ONDANSETRON 4 MG TABLET DISPERSIBLE 1 TABLET ON THE TONGUE AND ALLOW TO DISSOLVE ORALLY EVERY 8 HRS NEEDED, NOTES: 11-21-16 NOT-TAKING COLESTIPOL HCL 1 GM TABLET 2 TABLETS ORALLY ONCE A DAY MEDICATION LIST REVIEWED AND RECONCILED WITH THE PATIENT PAST MEDICAL HISTORY ANDREWS-MIGRAINES LEFT SHOULDER PAIN DIVERTICULOSIS- DIVERTICULITIS NUMBNESS AND TINGLING TO FINGERS AND TOES DUE TO TOPAMAX IS CONTROLLED WITH MAGNESIUM ALLERGIES COMPAZINE: LOCKJAW: ALLERGY PAMELOR: CONTRAINDICATION SOCIAL HISTORY GENERAL: PAIN CLINIC PFS, CLERGY, PUBLIC HEALTH REFERRALS CLERGY REFERRAL NEEDED?NO WAS THE PROVIDER NOTIFIED OF ANY PERTINENT INFO?NO PFS REFERRAL NEEDED?NO PUBLIC HEALTH REFERRAL NEEDED?NO PATIENT: ____. REVIEW OF SYSTEMS CONSTITUTIONAL: ANY CHANGE IN YOUR MEDICAL CONDITION? NO . CHILLS NO . FEVER NO . INFECTION: DO YOU HAVE NEW INFECTIONS? NO . DO YOU HAVE HISTORY OF MRSA? NO . MUSCULOSKELETAL: ANY NEW PATTERNS OF PAIN OR NUMBNESS? NO . GASTROENTEROLOGY: ANY NEW CHANGE IN BOWEL CONTROL? NO . GENITOURINARY: ANY NEW CHANGE IN BLADDER CONTROL? NO . IS THERE A CHANCE YOU COULD BE ? NO . HEMATOLOGY/LYMPH: DO YOU TAKE ANY BLOOD THINNERS? (FOR EXAMPLE- COUMADIN, PLAVIX, AGGRENOX, PLATEL, PRADAXA, OR XARELTO) NO . WHEN WAS YOUR LAST DOSE? DATE: TIME: . NEUROLOGY: HAVE YOU FALLEN IN THE PAST 6 MONTHS? NO . ANY NEW EXTREMITY NUMBNESS OR WEAKNESS? NO . TREMOR HAS RETURNED . VERTIGO SEVERE VERTIGO AFTER NEW START OF DEPAKOTE. HAS STOPPED DEPAKOTE. USING MECLIZINE PRN . CARDIOLOGY: DO YOU HAVE A PACEMAKER OR DEFIBRILLATOR? NO . RESPIRATORY: HAVE YOU BEEN SICK IN THE PAST WEEK? NO . FEVER NO . FLU LIKE SYMPTOMS? NO . COUGH NO . INTEGUMENTARY: DO YOU HAVE ANY RASHES OR OPEN SORES? NO . ALLERGIC/IMMUNO: ARE YOU ALLERGIC TO SHELLFISH OR IV DYE? NO . ANY NEW ALLERGIES? NO . PSYCHIATRIC: DO YOU HAVE THOUGHTS OF HURTING YOURSELF OR SOMEONE ELSE? NO . ARE YOU ABUSED, NEGLECTED, OR IN AN UNSAFE ENVIRONMENT? NO . ENDOCRINOLOGY: ARE YOU DIABETIC? NO . OTHER: DO YOU NEED ANY PRESCRIPTIONS? NO . IF YES, PLEASE LIST: ____ . ANY NEW PROBLEMS WITH YOUR MEDICATIONS? NO . WHEN DID YOU LAST EAT? ____ . WHEN DID YOU LAST DRINK? ____ . WHAT DID YOU LAST DRINK? ____ . NAME OF PERSON DRIVING YOU HOME? ____ . DO YOU HAVE ANY OTHER QUESTIONS OR CONCERNS NO . REVIEWED BY: PROVIDER: LESLI SALINAS . VITAL SIGNS WT 106 LBS, HT 60 IN, BMI 20.70 INDEX, BP 152/72 MM HG, HR 111 /MIN, RR 16 /MIN, TEMP 99.6 F, OXYGEN SAT % 97%, NA INITIALS SC 12:18, REVIEWED BY: NL. EXAMINATION GENERAL EXAMINATION: PSYCHALERT , ORIENTED X 3 , APPROPRIATE MOOD AND AFFECT . LUNGS:CLEAR TO AUSCULTATION BILATERALLY. HEART:S1, S2, , HEART RATE REGULAR AND RAPID. MUSCULOSKELETAL:EXQUISITE TENDERNESS OVER LUMBOSACRAL AXIS.POINT TENDERNESS OVER LEFT TROCANTER. NEGATIVE STEVEN SIGN TODAY. SLOW TO RISE TO STANDING POSITION. GAIT ANTALGIC.. NEUROLOGIC EXAM:DTR'S 2+ DEA LOWER EXTREMITIES. NO SENSORY DEFICEIT. TWITCHES AND HIGH FREQ TREMOR NOTED IN BOTH UPPER EXTREMITIES. LAB TESTS REVIEWEDLAB REVIEWED WITH PATIENT. 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 TALK TO PRIMARY ABOUT DARK SKIN SPOTS ON BACK AND BLEEDING ONE ON ANKLE. TALK TO PRIMARY ABOUT ELAVATED PLATELETSEXERCISES FOR VERTIGO - EPPLY EXERCISES. PREVENTIVE MEDICINE DISCUSSED NARCOTIC AGREEMENT WITH PT AND SHE UNDERSTANDS EXPECTATIONS AND TOOK COPY HOME. PROCEDURE CODES FA211 ESTABILISHED PATIENT [facility] CHARGE DISPOSITION & COMMUNICATION FOLLOW UP MID FEBRUARY ELECTRONICALLY SIGNED BY CLARK MERCADO ON 12/13/2016 AT 02:18 PM EDT DISCLAIMER : THIS IS A VISIT SUMMARY EXTRACTED FROM THE [employer] CHART. IT IS NOT A COPY OF THE [employer] PROGRESS NOTE. IFTIKHAR
== END ==
LOC: M PAIN 10:40
PROVIDERS: ATTEND Nurse Practitioner Family
DX: Z09 Encounter for follow-up examination after completed treatment for conditions other than malignant neoplasm (principal); G89.29 Other chronic pain; M70.62 Trochanteric bursitis, left hip; M46.1 Sacroiliitis, not elsewhere classified; M25.552 Pain in left hip; G43.909 Migraine, unspecified, not intractable, without status migrainosus; Z88.8 Allergy status to other drugs, medicaments and biological substances; Z79.891 Long term (current) use of opiate analgesic; Z79.899 Other long term (current) drug therapy

== ENCOUNTER → 2017-03-14 | Outpatient (CLI) | payer BC ==
[~2017-03-14] MED LIST changes: -CALC600T10 PO; +CALC600T31 PO; +TOPA100T12 PO; -TOPA100T8 PO; -TOPA50TA7 PO; +TOPA50TA8 PO
--- NOTE | 2017-04-07 00:48 | ECWPNPC ---
PATIENT NAME: ANDI SEXTON : 1960 GENDER: FEMALE VISIT DATE: 03/14/2017 DISCHARGE DATE: 03/14/17 1159 VISIT LOCKED DATE TIME: PHYSICIAN: LESLI CANNON RESOURCE: LESLI CANNON REASON FOR APPOINTMENT 1. HIP/BACK HISTORY OF PRESENT ILLNESS HISTORY OF PRESENT ILLNESS: PAIN THE PATIENT DESCRIBES THE PAIN... FALL RISK SCREENING: SCREENING :NO FALLS IN THE PAST YEAR TODAY'S VISIT: NOTES: RATES PAIN TODAYA S 02/10. DESCRIBES PAIN CONSTANT, SHARP, TENDER, AND THROBBING. NOTES WORST OF PAIN IN THE CENTER LOW BACK AND LEFT BUTTUCK AND SACRUM.. CURRENT MEDICATIONS TAKING CRESTOR 20 MG TABLET 1 TABLET ORALLY ONCE A DAY TAKING PREMARIN 0.3 MG TABLET 1 TABLET ORALLY DAILY FOR THREE WEEKS, 1 WEEK OFF TAKING SERTRALINE HCL 100 MG TABLET 1 TABLET ORALLY ONCE A DAY TAKING MAXALT 10 MG TABLET 1 TABLET NEEDED ONE TIME ORALLY ONCE A DAY, NOTES: NONE TAKING OMEPRAZOLE 40 MG CAPSULE DELAYED RELEASE 1 CAPSULE ORALLY DAILY TAKING EVISTA 60 MG TABLET 1 TABLET ORALLY ONCE A DAY TAKING ROPINIROLE HCL 5 MG TABLET 1 TABLET ORALLY TWO TIMES A DAY TAKING MECLIZINE HCL 25 MG TABLET 1 TABLET NEEDED ORALLY Q8 HR NEEDED TAKING TIZANIDINE HCL 2 MG TABLET 1 TABLET NEEDED ORALLY THREE TIMES A DAY TAKING TRAMADOL HCL 50 MG TABLET 1 TAB ORALLY Q 6 HRS PRN PAIN MDD=4 TAKING NORCO 10-325 MG TABLET 1 /2 TO 1 TABLET ORALLY EVERY 6 HRS PRN PAIN MDD=3 CHRONIC PAIN TAKING ZOFRAN 4 MG TABLET 1 TAB ORALLY EVERY 4 HOURS NEEDED NOT-TAKING VITAMIN D (ERGOCALCIFEROL) 78812 UNIT CAPSULE 1 CAPSULE ORALLY ONCE A MONTH, NOTES: NOT STARTED YET NOT-TAKING BACLOFEN 10 MG TABLET NEEDED ORALLY THREE TIMES A DAY NOT-TAKING TOPIRAMATE 50 MG TABLET 1 TAB ORALLY TWICE A DAY NOT-TAKING MAGNESIUM 400 MG CAPSULE ORALLY DAILY, NOTES: 11-21-16 AM NOT-TAKING ONDANSETRON 4 MG TABLET DISPERSIBLE 1 TABLET ON THE TONGUE AND ALLOW TO DISSOLVE ORALLY EVERY 8 HRS NEEDED, NOTES: 11-21-16 NOT-TAKING COLESTIPOL HCL 1 GM TABLET 2 TABLETS ORALLY ONCE A DAY DISCONTINUED GABAPENTIN 100 MG CAPSULE 1 CAP ORALLY 3 TIMES A DAY DISCONTINUED SERTRALINE HCL 100 MG TABLET 1 TABLET ORALLY ONCE A DAY MEDICATION LIST REVIEWED AND RECONCILED WITH THE PATIENT PAST MEDICAL HISTORY ANDREWS-MIGRAINES LEFT SHOULDER PAIN DIVERTICULOSIS- DIVERTICULITIS NUMBNESS AND TINGLING TO FINGERS AND TOES DUE TO TOPAMAX IS CONTROLLED WITH MAGNESIUM ALLERGIES COMPAZINE: BENJAMIN: ALLERGY PAMELOR: CONTRAINDICATION SOCIAL HISTORY GENERAL: TOBACCO USE ARE YOU A:CURRENT SMOKER HOW MANY CIGARETTES A DAY DO YOU SMOKE? 1/2 PACK DAY PATIENT COUNSELED ON THE DANGERS OF TOBACCO USE AND URGED TO QUIT:03/14/2017 ARE YOU INTERESTED IN QUITTING?THINKING ABOUT QUITTING COUNSELED THE PATIENT ON SMOKING CESSATION, EDUCATION [id number]/12/2017 ADDITIONAL FINDINGS: TOBACCO USERMODERATE CIGARETTE SMOKER (10-19 CIGS/DAY) RECREATIONAL DRUG USE: NEVER DRUG USE? NO. CAFFEINE: YES CAFFEINE USE?YES HOW OFTEN AND HOW MUCH? DAILY BASIS LEARNING BARRIERS / SPECIAL NEEDS ABILITY TO UNDERSTAND VERBAL INSTRUCTIONS AVERAGE, ABILITY TO UNDERSTAND WRITTEN INSTRUCTIONS AVERAGE, KNOWLEDGE OF EDUCATIONAL NEEDS/TREATMENT PLAN AVERAGE, LEARNING PREFERENCE NO PREFERENCE, ORIENTED TO PLAN OF CARE: PATIENT, PAIN MANAGEMENT PATIENT. PSYCHOLOGICAL HX TREATMENT NO . NEW PATIENT PAIN DIARY DO YOU TAKE ANY BLOOD THINNERS?NO ANY CHANGE IN BOWEL OR BLADDER CONTROL?YES HAS DIARRHEA FROM DIVERTICULOSIS ARE YOU ALLERGIC TO SHELLFISH OR IV DYE?NO ARE YOU DIABETIC?NO DO YOU HAVE A PACEMAKER OR DEFIBRILLATOR?NO ANY NEW PROBLEMS WITH MEDICINES OR NEW ALLERGIESNO HAVE YOU FALLEN IN THE LAST 6 MONTHS?YES TRIPPED LAST NIGHT NOT SURE WHAT HAPPENED. SLIPPED AND FELL ONTO KNEES DO YOU USE ANY TYPE OF TOBACCO (SMOKE, SMOKELESS, CHEW, ETC.)YES ARE YOU ABUSED, NEGLECTED, OR IN AN UNSAFE ENVIRONMENT?NO DO YOU HAVE THOUGHTS OF HURTING YOURSELF OR SOMEONE ELSE?NO PAIN CLINIC PFS, CLERGY, PUBLIC HEALTH REFERRALS PFS REFERRAL NEEDED? NO , CLERGY REFERRAL NEEDED? NO , PUBLIC HEALTH REFERRAL NEEDED? NO , WAS THE PROVIDER NOTIFIED OF ANY PERTINENT INFO? NO . PATIENT: ____. ADVANCE DIRECTIVES HEALTH CARE PROXY?YES NAME OF HCP RODRIGUEZ - POWER OF MANAGER BUILDING?NO REVIEW OF SYSTEMS REVIEWED BY: PROVIDER: LESLI SALINAS . CONSTITUTIONAL: ANY CHANGE IN YOUR MEDICAL CONDITION? NO . CHILLS NO . FEVER NO . INFECTION: DO YOU HAVE NEW INFECTIONS? NO . DO YOU HAVE HISTORY OF MRSA? NO . MUSCULOSKELETAL: ANY NEW PATTERNS OF PAIN OR NUMBNESS? NO . GASTROENTEROLOGY: ANY NEW CHANGE IN BOWEL CONTROL? NO . GENITOURINARY: ANY NEW CHANGE IN BLADDER CONTROL? NO . IS THERE A CHANCE YOU COULD BE ? NO . HEMATOLOGY/LYMPH: DO YOU TAKE ANY BLOOD THINNERS? (FOR EXAMPLE- COUMADIN, PLAVIX, AGGRENOX, PLATEL, PRADAXA, OR XARELTO) NO . WHEN WAS YOUR LAST DOSE? DATE: TIME: . NEUROLOGY: HAVE YOU FALLEN IN THE PAST 6 MONTHS? NO . ANY NEW EXTREMITY NUMBNESS OR WEAKNESS? NO . CARDIOLOGY: DO YOU HAVE A PACEMAKER OR DEFIBRILLATOR? NO . RESPIRATORY: HAVE YOU BEEN SICK IN THE PAST WEEK? NO . FEVER NO . FLU LIKE SYMPTOMS? NO . COUGH NO . INTEGUMENTARY: DO YOU HAVE ANY RASHES OR OPEN SORES? NO . ALLERGIC/IMMUNO: ARE YOU ALLERGIC TO SHELLFISH OR IV DYE? NO . ANY NEW ALLERGIES? NO . PSYCHIATRIC: DO YOU HAVE THOUGHTS OF HURTING YOURSELF OR SOMEONE ELSE? NO . ARE YOU ABUSED, NEGLECTED, OR IN AN UNSAFE ENVIRONMENT? NO . ENDOCRINOLOGY: ARE YOU DIABETIC? NO . OTHER: DO YOU NEED ANY PRESCRIPTIONS? NO . IF YES, PLEASE LIST: ____ . ANY NEW PROBLEMS WITH YOUR MEDICATIONS? NO . WHEN DID YOU LAST EAT? ____ . WHEN DID YOU LAST DRINK? ____ . WHAT DID YOU LAST DRINK? ____ . NAME OF PERSON DRIVING YOU HOME? ____ . DO YOU HAVE ANY OTHER QUESTIONS OR CONCERNS NO . VITAL SIGNS WT 123.6 LBS, HT 60 IN, BMI 24.14 INDEX, BP 154/83 MM HG, HR 107 /MIN, RR 16 /MIN, TEMP 98.5 F, OXYGEN SAT % 97%, NA INITIALS TL 1120, REVIEWED BY: VD. EXAMINATION GENERAL EXAMINATION: PSYCHALERT , ORIENTED X 3 , APPROPRIATE MOOD AND AFFECT . LUNGS:CLEAR TO AUSCULTATION BILATERALLY. HEART:S1, S2, , HEART RATE REGULAR AND RAPID. MUSCULOSKELETAL:EXQUISITE TENDERNESS OVER LUMBOSACRAL AXIS.POINT TENDERNESS OVER LEFT TROCANTER. SLOW TO RISE TO STANDING POSITION. GAIT ANTALGIC.. NEUROLOGIC EXAM:DTR'S 2+ DEA LOWER EXTREMITIES. NO SENSORY DEFICEIT. TWITCHES AND HIGH FREQ TREMOR NOTED IN BOTH UPPER EXTREMITIES. 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 HOLD ON CHIROPRACTIC FOR 2 WEEKS. OTHERS NOTES: SEE DERMATOLOGY SCHEDULED. POINT OUT SKIN LESIONS ON ARMS. KEEP APPOINTMENT WITH Poppy MILLAN SCHEDULED. LAST PLATELET COUNT WAS 500. PROCEDURE CODES FA211 ESTABILISHED PATIENT [facility] CHARGE DISPOSITION & COMMUNICATION FOLLOW UP LAST WEEK IN APRIL (REASON: BACK/HIP PAIN) ELECTRONICALLY SIGNED BY CLARK MERCADO ON 04/06/2017 AT 05:23 PM EDT DISCLAIMER : THIS IS A VISIT SUMMARY EXTRACTED FROM THE [employer] CHART. IT IS NOT A COPY OF THE [employer] PROGRESS NOTE. IFTIKHAR
== END ==
LOC: M PAIN 11:20
PROVIDERS: ATTEND Nurse Practitioner Family
DX: M47.892 Other spondylosis, cervical region (principal); M46.1 Sacroiliitis, not elsewhere classified; M70.62 Trochanteric bursitis, left hip; Z79.891 Long term (current) use of opiate analgesic; Z79.899 Other long term (current) drug therapy; Z88.8 Allergy status to other drugs, medicaments and biological substances; F17.210 Nicotine dependence, cigarettes, uncomplicated

== ENCOUNTER → 2017-03-30 | Outpatient (REF) | payer BC ==
[2017-03-30 11:36] LABS: BASO # 0.1 K/mm3 (0.0-0.2); EOS # 0.2 K/mm3 (0.0-0.50); EOS % 2.1 % (0.0-3.0); LARGE UNSTAINED CELL # 0.1 K/mm3 (0.0-0.4); LARGE UNSTAINED CELL % 1.2 % (0.0-4.0); LYMPH # 2.8 K/mm3 (1.5-4.5); LYMPH % 34.4 % (24.0-44.0); MEAN CORPUSCULAR HEMOGLOBIN 30.1 pg (27.0-33.0); MEAN CORPUSCULAR HGB CONC 32.8 g/dl (32.0-36.5); MEAN CORPUSCULAR VOLUME 91.6 fl (80.0-96.0); MONO # 0.3 K/mm3 (0.0-0.8); MONO % 4.3 % (0.0-5.0); NEUTROPHILS # 4.5 K/mm3 (1.8-7.7); PLATELET COUNT, AUTOMATED 454 k/mm3 (150-450); WHITE BLOOD COUNT 7.9 K/mm3 (4.0-10.0)
[2017-03-30 12:23] LABS: ALBUMIN 3.5 GM/DL (3.2-5.2); ALKALINE PHOSPHATASE 85 U/L (45-117); ALT/SGPT 19 U/L (12-78); ANION GAP 11 MEQ/L (8-16); AST/SGOT 20 U/L (15-37); BILIRUBIN,TOTAL 0.4 MG/DL (0.2-1.0); BLOOD UREA NITROGEN 6 MG/DL (7-18); CALCIUM LEVEL 8.6 MG/DL (8.5-10.1); CARBON DIOXIDE LEVEL 26 MEQ/L (21-32); CHLORIDE LEVEL 104 MEQ/L (98-107); CHOLESTEROL LEVEL 199 MG/DL (<200); CREATININE FOR GFR 0.81 MG/DL (0.55-1.02); FREE T4 1.03 NG/DL (0.76-1.46); GLOMERULAR FILTRATION RATE > 60.0 (>51); GLUCOSE, FASTING 97 MG/DL (70-105); POTASSIUM SERUM 4.1 MEQ/L (3.5-5.1); SODIUM LEVEL 141 MEQ/L (136-145); TOTAL PROTEIN 6.2 GM/DL (6.4-8.2); TRIGLYCERIDES LEVEL 143 MG/DL (<150)
== END ==
LOC: M LABDRAW1 11:03
PROVIDERS: ATTEND Nurse Practitioner Family
DX: E55.9 Vitamin D deficiency, unspecified (principal); E83.51 Hypocalcemia; E78.5 Hyperlipidemia, unspecified; Z79.899 Other long term (current) drug therapy

== ENCOUNTER → 2017-05-01 | Outpatient (CLI) | payer BC ==
--- NOTE | 2017-05-11 01:32 | ECWPNPC ---
PATIENT NAME: ANDI SEXTON : 1960 GENDER: FEMALE VISIT DATE: 05/01/2017 DISCHARGE DATE: 05/01/17913 VISIT LOCKED DATE TIME: PHYSICIAN: LESLI CANNON RESOURCE: LESLI CANNON REASON FOR APPOINTMENT 1. HIPS HISTORY OF PRESENT ILLNESS HISTORY OF PRESENT ILLNESS: PAIN THE PATIENT DESCRIBES THE PAIN... FALL RISK SCREENING: SCREENING :NO FALLS IN THE PAST YEAR TODAY'S VISIT: NOTES: RATES PAIN TODAY 6/10, NOTES PAIN IS CONSTANT, ACHING, AND SHARP. SAW Poppy BARKER PA-C AT [facility] AND SHE HAS DIAGNOSED HER WITH NEUROLOGY. . CURRENT MEDICATIONS TAKING CRESTOR 20 MG TABLET 1 TABLET ORALLY ONCE A DAY TAKING PREMARIN 0.3 MG TABLET 1 TABLET ORALLY DAILY FOR THREE WEEKS, 1 WEEK OFF TAKING SERTRALINE HCL 100 MG TABLET 1 TABLET ORALLY ONCE A DAY TAKING MAXALT 10 MG TABLET 1 TABLET NEEDED ONE TIME ORALLY ONCE A DAY, NOTES: NONE TAKING OMEPRAZOLE 40 MG CAPSULE DELAYED RELEASE 1 CAPSULE ORALLY DAILY TAKING EVISTA 60 MG TABLET 1 TABLET ORALLY ONCE A DAY TAKING ROPINIROLE HCL 5 MG TABLET 1 TABLET ORALLY TWO TIMES A DAY TAKING MECLIZINE HCL 25 MG TABLET 1 TABLET NEEDED ORALLY Q8 HR NEEDED TAKING TIZANIDINE HCL 2 MG TABLET 1 TABLET NEEDED ORALLY THREE TIMES A DAY TAKING TRAMADOL HCL 50 MG TABLET 1 TAB ORALLY Q 6 HRS PRN PAIN MDD=4 TAKING ZOFRAN 4 MG TABLET 1 TAB ORALLY EVERY 4 HOURS NEEDED TAKING INDOMETHACIN 50 MG CAPSULE 1 CAPSULE WITH FOOD OR MILK ORALLY TWICE A DAY TAKING NORCO 10-325 MG TABLET 1 /2 TO 1 TABLET ORALLY EVERY 6 HRS PRN PAIN MDD=3 CHRONIC PAIN TAKING GABAPENTIN 300 MG CAPSULE 1 CAPSULE ORALLY THREE TIMES A DAY TAKING CLOBETASOL PROPIONATE 0.05 % SOLUTION 1 APPLICATION TO AFFECTED AREA EXTERNALLY TWICE A DAY NOT-TAKING VITAMIN D (ERGOCALCIFEROL) 41260 UNIT CAPSULE 1 CAPSULE ORALLY ONCE A MONTH, NOTES: NOT STARTED YET NOT-TAKING BACLOFEN 10 MG TABLET NEEDED ORALLY THREE TIMES A DAY NOT-TAKING TOPIRAMATE 50 MG TABLET 1 TAB ORALLY TWICE A DAY NOT-TAKING MAGNESIUM 400 MG CAPSULE ORALLY DAILY, NOTES: 11-21-16 AM NOT-TAKING ONDANSETRON 4 MG TABLET DISPERSIBLE 1 TABLET ON THE TONGUE AND ALLOW TO DISSOLVE ORALLY EVERY 8 HRS NEEDED, NOTES: 11-21-16 NOT-TAKING COLESTIPOL HCL 1 GM TABLET 2 TABLETS ORALLY BEFORE BEDTIME MEDICATION LIST REVIEWED AND RECONCILED WITH THE PATIENT PAST MEDICAL HISTORY ANDREWS-MIGRAINES LEFT SHOULDER PAIN DIVERTICULOSIS- DIVERTICULITIS NUMBNESS AND TINGLING TO FINGERS AND TOES DUE TO TOPAMAX IS CONTROLLED WITH 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 1/2 PACK DAY PATIENT COUNSELED ON THE DANGERS OF TOBACCO USE AND URGED TO QUIT:03/14/2017 ARE YOU INTERESTED IN QUITTING?THINKING ABOUT QUITTING COUNSELED THE PATIENT ON SMOKING CESSATION, EDUCATION [id number]/12/2017 ADDITIONAL FINDINGS: TOBACCO USERMODERATE CIGARETTE SMOKER (10-19 CIGS/DAY) RECREATIONAL DRUG USE: NEVER DRUG USE? NO. CAFFEINE: YES CAFFEINE USE?YES HOW OFTEN AND HOW MUCH? DAILY BASIS LEARNING BARRIERS / SPECIAL NEEDS ABILITY TO UNDERSTAND VERBAL INSTRUCTIONS AVERAGE, ABILITY TO UNDERSTAND WRITTEN INSTRUCTIONS AVERAGE, KNOWLEDGE OF EDUCATIONAL NEEDS/TREATMENT PLAN AVERAGE, LEARNING PREFERENCE NO PREFERENCE, ORIENTED TO PLAN OF CARE: PATIENT, PAIN MANAGEMENT PATIENT. PSYCHOLOGICAL HX TREATMENT NO . NEW PATIENT PAIN DIARY DO YOU TAKE ANY BLOOD THINNERS?NO ANY CHANGE IN BOWEL OR BLADDER CONTROL?YES HAS DIARRHEA FROM DIVERTICULOSIS ARE YOU ALLERGIC TO SHELLFISH OR IV DYE?NO ARE YOU DIABETIC?NO DO YOU HAVE A PACEMAKER OR DEFIBRILLATOR?NO ANY NEW PROBLEMS WITH MEDICINES OR NEW ALLERGIESNO HAVE YOU FALLEN IN THE LAST 6 MONTHS?YES TRIPPED LAST NIGHT NOT SURE WHAT HAPPENED. SLIPPED AND FELL ONTO KNEES DO YOU USE ANY TYPE OF TOBACCO (SMOKE, SMOKELESS, CHEW, ETC.)YES ARE YOU ABUSED, NEGLECTED, OR IN AN UNSAFE ENVIRONMENT?NO DO YOU HAVE THOUGHTS OF HURTING YOURSELF OR SOMEONE ELSE?NO PAIN CLINIC PFS, CLERGY, PUBLIC HEALTH REFERRALS PFS REFERRAL NEEDED? NO , CLERGY REFERRAL NEEDED? NO , PUBLIC HEALTH REFERRAL NEEDED? NO , WAS THE PROVIDER NOTIFIED OF ANY PERTINENT INFO? NO . PATIENT: ____. ADVANCE DIRECTIVES HEALTH CARE PROXY?YES NAME OF HCP RODRIGUEZ - POWER OF VEHICLE BODY MAKER?NO HOSPITALIZATION/MAJOR DIAGNOSTIC PROCEDURE DIVERTICULITIS SEVERAL TIMES 01/2017 BOWEL OBSTRUCTION REVIEW OF SYSTEMS REVIEWED BY: PROVIDER: LESLI CANNON SAND SHOVELER . CONSTITUTIONAL: ANY CHANGE IN YOUR MEDICAL CONDITION? YES, RECENTLY DX WITH FIBROMYALGIA BY NEUROLOGIST AND NEWLY DX'D SKIN CONDITIONS ABOVE&NBSP;. CHILLS &NBSP;&NBSP; NO&NBSP;. FEVER &NBSP;&NBSP; NO&NBSP;. INFECTION: DO YOU HAVE NEW INFECTIONS? NO . DO YOU HAVE HISTORY OF MRSA? NO . MUSCULOSKELETAL: ANY NEW PATTERNS OF PAIN OR NUMBNESS? NO . GASTROENTEROLOGY: ANY NEW CHANGE IN BOWEL CONTROL? NO . GENITOURINARY: ANY NEW CHANGE IN BLADDER CONTROL? NO . IS THERE A CHANCE YOU COULD BE ? NO . HEMATOLOGY/LYMPH: DO YOU TAKE ANY BLOOD THINNERS? (FOR EXAMPLE- COUMADIN, PLAVIX, AGGRENOX, PLATEL, PRADAXA, OR XARELTO) NO . WHEN WAS YOUR LAST DOSE? DATE: TIME: . NEUROLOGY: HAVE YOU FALLEN IN THE PAST 6 MONTHS? YES, PT STATES SHE LOST BALANCE AND FELL OVER COFFEE TABLE, PT DENIES MAJOR INJURIES REQUIRING MEDICAL [place] . ANY NEW EXTREMITY NUMBNESS OR WEAKNESS? NO . DIZZINESS NEW ONSET WITH POSITION CHANGE . CARDIOLOGY: DO YOU HAVE A PACEMAKER OR DEFIBRILLATOR? NO . RESPIRATORY: HAVE YOU BEEN SICK IN THE PAST WEEK? NO . FEVER NO . FLU LIKE SYMPTOMS? NO . COUGH NO . INTEGUMENTARY: DO YOU HAVE ANY RASHES OR OPEN SORES? YES, MOLES REMOVED YESTERDAY FROM RIGHT LOWER LEG AND RIGHT NARES . ALLERGIC/IMMUNO: ARE YOU ALLERGIC TO SHELLFISH OR IV DYE? NO . ANY NEW ALLERGIES? NO . PSYCHIATRIC: DO YOU HAVE THOUGHTS OF HURTING YOURSELF OR SOMEONE ELSE? NO . ARE YOU ABUSED, NEGLECTED, OR IN AN UNSAFE ENVIRONMENT? NO . ENDOCRINOLOGY: ARE YOU DIABETIC? NO . OTHER: DO YOU NEED ANY PRESCRIPTIONS? NO . IF YES, PLEASE LIST: ____ . ANY NEW PROBLEMS WITH YOUR MEDICATIONS? NO . WHEN DID YOU LAST EAT? ____ . WHEN DID YOU LAST DRINK? ____ . WHAT DID YOU LAST DRINK? ____ . NAME OF PERSON DRIVING YOU HOME? ____ . DO YOU HAVE ANY OTHER QUESTIONS OR CONCERNS NO . VITAL SIGNS WT 131 LBS, HT 60 IN, BMI 25.58 INDEX, BP 168/81 MM HG, HR 77 /MIN, RR 18 /MIN, TEMP 98.7 F, OXYGEN SAT % 99, REVIEWED BY: ARTIS. EXAMINATION GENERAL EXAMINATION: PSYCHALERT , ORIENTED X 3 , APPROPRIATE MOOD AND AFFECT . LUNGS:CLEAR TO AUSCULTATION BILATERALLY. HEART:S1, S2, , HEART RATE REGULAR AND RAPID. MUSCULOSKELETAL:EXQUISITE TENDERNESS OVER LUMBOSACRAL AXIS.POINT TENDERNESS OVER LEFT TROCANTER. SLOW TO RISE TO STANDING POSITION. GAIT ANTALGIC.. EXTREMITIES:SMALL PETECHAEI NOTED OVER SMALL LEFT FOREARM. NEUROLOGIC EXAM:DTR'S 2+ DEA LOWER EXTREMITIES. NO SENSORY DEFICEIT. TWITCHES AND HIGH FREQ TREMOR NOTED IN BOTH UPPER EXTREMITIES. 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 USE ICE/HEAT NEEDED TO LEFT HIP/LEG AREA. CALL IF SCRIPTS NEEDED. PROCEDURE CODES FA211 ESTABILISHED PATIENT [facility] CHARGE DISPOSITION & COMMUNICATION FOLLOW UP 2 MONTH (REASON: BACK/LEG PAIN) ELECTRONICALLY SIGNED BY CLARK MERCADO ON 05/10/2017 AT 09:42 AM EDT DISCLAIMER : THIS IS A VISIT SUMMARY EXTRACTED FROM THE [employer] CHART. IT IS NOT A COPY OF THE [employer] PROGRESS NOTE. IFTIKHAR
== END ==
LOC: M PAIN 08:40
PROVIDERS: ATTEND Nurse Practitioner Family
DX: M47.892 Other spondylosis, cervical region (principal); M46.1 Sacroiliitis, not elsewhere classified; M70.62 Trochanteric bursitis, left hip; M79.7 Fibromyalgia; F17.210 Nicotine dependence, cigarettes, uncomplicated; Z79.891 Long term (current) use of opiate analgesic; Z79.899 Other long term (current) drug therapy; Z88.8 Allergy status to other drugs, medicaments and biological substances

== ENCOUNTER → 2017-05-21 | Outpatient (REF) | payer BC ==
[2017-05-21 10:29] LABS: INR 0.91
== END ==
LOC: M LAB REF 10:09
PROVIDERS: ATTEND Internal Medicine Medical Oncology
DX: D68.9 Coagulation defect, unspecified (principal)

== ENCOUNTER → 2017-07-02 | Outpatient (CLI) | payer BC ==
--- NOTE | 2017-07-03 01:42 | ECWPNPC ---
PATIENT NAME: ANDI SEXTON : 1960 GENDER: FEMALE VISIT DATE: 07/02/2017 DISCHARGE DATE: 07/02/17 1134 VISIT LOCKED DATE TIME: PHYSICIAN: LESLI CANNON RESOURCE: LESLI CANNON REASON FOR APPOINTMENT 1. BACK/LEG PAIN HISTORY OF PRESENT ILLNESS HISTORY OF PRESENT ILLNESS: PAIN THE PATIENT DESCRIBES THE PAIN... FALL RISK SCREENING: SCREENING :NO FALLS IN THE PAST YEAR TODAY'S VISIT: NOTES: RATES PAIN LEVEL TODAYA S 03/12. DESCRIBES PAIN CONSTANT, THROBBING, AND STABBING. GABAPENTIN INCREASE HAS HELPED OVERALL. HAS CERVICAL MRI WHICH DEMONSTRATES NERVE BLOCAGE. OCCIPITAL INJECTIONS WERE HELPFUL. . CURRENT MEDICATIONS TAKING CRESTOR 20 MG TABLET 1 TABLET ORALLY ONCE A DAY TAKING SERTRALINE HCL 100 MG TABLET 1 TABLET ORALLY ONCE A DAY TAKING MAXALT 10 MG TABLET 1 TABLET NEEDED ONE TIME ORALLY ONCE A DAY, NOTES: NONE TAKING OMEPRAZOLE 40 MG CAPSULE DELAYED RELEASE 1 CAPSULE ORALLY DAILY TAKING EVISTA 60 MG TABLET 1 TABLET ORALLY ONCE A DAY TAKING ROPINIROLE HCL 5 MG TABLET 1 TABLET ORALLY TWO TIMES A DAY TAKING MECLIZINE HCL 25 MG TABLET 1 TABLET NEEDED ORALLY Q8 HR NEEDED TAKING TIZANIDINE HCL 2 MG TABLET 1 TABLET NEEDED ORALLY THREE TIMES A DAY TAKING ZOFRAN 4 MG TABLET 1 TAB ORALLY EVERY 4 HOURS NEEDED TAKING GABAPENTIN 600 MG TABLET 1 CAPSULE ORALLY THREE TIMES A DAY TAKING NORCO 10-325 MG TABLET 1 /2 TO 1 TABLET ORALLY EVERY 6 HRS PRN PAIN MDD=3 CHRONIC PAIN TAKING TRAMADOL HCL 50 MG TABLET 1 TAB ORALLY Q 6 HRS PRN PAIN MDD=4 TAKING VITAMIN D (ERGOCALCIFEROL) 75626 UNIT CAPSULE 1 CAPSULE ORALLY ONCE A MONTH, NOTES: NOT STARTED YET DISCONTINUED PREMARIN 0.3 MG TABLET 1 TABLET ORALLY DAILY FOR THREE WEEKS, 1 WEEK OFF DISCONTINUED INDOMETHACIN 50 MG CAPSULE 1 CAPSULE WITH FOOD OR MILK ORALLY TWICE A DAY DISCONTINUED CLOBETASOL PROPIONATE 0.05 % SOLUTION 1 APPLICATION TO AFFECTED AREA EXTERNALLY TWICE A DAY DISCONTINUED BACLOFEN 10 MG TABLET NEEDED ORALLY THREE TIMES A DAY DISCONTINUED TOPIRAMATE 50 MG TABLET 1 TAB ORALLY TWICE A DAY DISCONTINUED MAGNESIUM 400 MG CAPSULE ORALLY DAILY DISCONTINUED ONDANSETRON 4 MG TABLET DISPERSIBLE 1 TABLET ON THE TONGUE AND ALLOW TO DISSOLVE ORALLY EVERY 8 HRS NEEDED DISCONTINUED COLESTIPOL HCL 1 GM TABLET 2 TABLETS ORALLY BEFORE BEDTIME MEDICATION LIST REVIEWED AND RECONCILED WITH THE PATIENT PAST MEDICAL HISTORY ANDREWS-MIGRAINES LEFT SHOULDER PAIN DIVERTICULOSIS- DIVERTICULITIS NUMBNESS AND TINGLING TO FINGERS AND TOES DUE TO TOPAMAX IS CONTROLLED WITH 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 FIBROMYALGIA ALLERGIES COMPAZINE: JASMINEW: ALLERGY PAMELOR: CONTRAINDICATION SOCIAL HISTORY GENERAL: TOBACCO USE ARE YOU A:CURRENT SMOKER HOW MANY CIGARETTES A DAY DO YOU SMOKE?6-10 1/2 PACK DAY PATIENT COUNSELED ON THE DANGERS OF TOBACCO USE AND URGED TO QUIT:07/02/2017 ARE YOU INTERESTED IN QUITTING?THINKING ABOUT QUITTING COUNSELED THE PATIENT ON SMOKING CESSATION, EDUCATION [id number]/30/2017 ADDITIONAL FINDINGS: TOBACCO USERMODERATE CIGARETTE SMOKER (10-19 CIGS/DAY) SMOKING CESSATION INFORMATION GIVEN07/02/2017 PATIENT ALREADY HAS INFORMATION HOW SOON AFTER YOU WAKE UP DO YOU SMOKE YOUR FIRST CIGARETTE?6-30 MIN HOW OFTEN DO YOU SMOKE CIGARETTES?EVERY DAY PREVIOUS QUIT ATTEMPTS?NO. VAPORNO E-CIGARETTENO ASSIST (PHARMACOTHERAPY AND COUNSELING)PATIENT WAS COUNSELLED ON PROPER USE AND SIDE EFFECTS. RECREATIONAL DRUG USE: NEVER DRUG USE? NO. CAFFEINE: YES CAFFEINE USE?YES HOW OFTEN AND HOW MUCH? DAILY BASIS LEARNING BARRIERS / SPECIAL NEEDS ABILITY TO UNDERSTAND VERBAL INSTRUCTIONS AVERAGE, ABILITY TO UNDERSTAND WRITTEN INSTRUCTIONS AVERAGE, KNOWLEDGE OF EDUCATIONAL NEEDS/TREATMENT PLAN AVERAGE, LEARNING PREFERENCE NO PREFERENCE, ORIENTED TO PLAN OF CARE: PATIENT, PAIN MANAGEMENT PATIENT. PSYCHOLOGICAL HX TREATMENT NO . NEW PATIENT PAIN DIARY DO YOU TAKE ANY BLOOD THINNERS?NO ANY CHANGE IN BOWEL OR BLADDER CONTROL?YES HAS DIARRHEA FROM DIVERTICULOSIS ARE YOU ALLERGIC TO SHELLFISH OR IV DYE?NO ARE YOU DIABETIC?NO DO YOU HAVE A PACEMAKER OR DEFIBRILLATOR?NO ANY NEW PROBLEMS WITH MEDICINES OR NEW ALLERGIESNO HAVE YOU FALLEN IN THE LAST 6 MONTHS?YES TRIPPED LAST NIGHT NOT SURE WHAT HAPPENED. SLIPPED AND FELL ONTO KNEES DO YOU USE ANY TYPE OF TOBACCO (SMOKE, SMOKELESS, CHEW, ETC.)YES ARE YOU ABUSED, NEGLECTED, OR IN AN UNSAFE ENVIRONMENT?NO DO YOU HAVE THOUGHTS OF HURTING YOURSELF OR SOMEONE ELSE?NO PAIN CLINIC PFS, CLERGY, PUBLIC HEALTH REFERRALS HAS THE PATIENT BEEN EDUCATED REGARDING HIS/HER PLAN OF CARE?YES HAS THE PATIENT BEEN EDUCATED REGARDING PAIN, THE RISK FOR PAIN, THE IMPORTANCE OF EFFECTIVE PAIN MANAGEMENT, AND THE PAIN ASSESSMENT PROCESS?YES PATIENT: ____. ADVANCE DIRECTIVES HEALTH CARE PROXY?YES NAME OF HCP RODRIGUEZ - POWER OF PATTERN DUPLICATOR?NO REVIEW OF SYSTEMS REVIEWED BY: PROVIDER: LESLI SALINAS . CONSTITUTIONAL: ANY CHANGE IN YOUR MEDICAL CONDITION? NO . CHILLS NO . FEVER NO . INFECTION: DO YOU HAVE NEW INFECTIONS? NO . DO YOU HAVE HISTORY OF MRSA? NO . MUSCULOSKELETAL: ANY NEW PATTERNS OF PAIN OR NUMBNESS? NO . GASTROENTEROLOGY: ANY NEW CHANGE IN BOWEL CONTROL? NO . GENITOURINARY: ANY NEW CHANGE IN BLADDER CONTROL? NO . IS THERE A CHANCE YOU COULD BE ? NO . HEMATOLOGY/LYMPH: DO YOU TAKE ANY BLOOD THINNERS? (FOR EXAMPLE- COUMADIN, PLAVIX, AGGRENOX, PLATEL, PRADAXA, OR XARELTO) NO . WHEN WAS YOUR LAST DOSE? DATE: TIME: . NEUROLOGY: HAVE YOU FALLEN IN THE PAST 6 MONTHS? NO . ANY NEW EXTREMITY NUMBNESS OR WEAKNESS? NO . CARDIOLOGY: DO YOU HAVE A PACEMAKER OR DEFIBRILLATOR? NO . RESPIRATORY: HAVE YOU BEEN SICK IN THE PAST WEEK? NO . FEVER NO . FLU LIKE SYMPTOMS? NO . COUGH NO . INTEGUMENTARY: DO YOU HAVE ANY RASHES OR OPEN SORES? NO . ALLERGIC/IMMUNO: ARE YOU ALLERGIC TO SHELLFISH OR IV DYE? NO . ANY NEW ALLERGIES? NO . PSYCHIATRIC: DO YOU HAVE THOUGHTS OF HURTING YOURSELF OR SOMEONE ELSE? NO . ARE YOU ABUSED, NEGLECTED, OR IN AN UNSAFE ENVIRONMENT? NO . ENDOCRINOLOGY: ARE YOU DIABETIC? NO . OTHER: DO YOU NEED ANY PRESCRIPTIONS? YES . IF YES, PLEASE LIST: HYDROCODONE 10/325MG . ANY NEW PROBLEMS WITH YOUR MEDICATIONS? NO . WHEN DID YOU LAST EAT? ____ . WHEN DID YOU LAST DRINK? ____ . WHAT DID YOU LAST DRINK? ____ . NAME OF PERSON DRIVING YOU HOME? ____ . DO YOU HAVE ANY OTHER QUESTIONS OR CONCERNS NO . VITAL SIGNS WT 130.0 LBS, HT 60 IN, BMI 25.39 INDEX, BP 146/68 MM HG, HR 85 /MIN, RR 16 /MIN, TEMP 98.0 F, OXYGEN SAT % 98%, NA INITIALS TL 1036, REVIEWED BY: CM. EXAMINATION GENERAL EXAMINATION: PSYCHALERT , ORIENTED X 3 , APPROPRIATE MOOD AND AFFECT . LUNGS:CLEAR TO AUSCULTATION BILATERALLY. HEART:S1, S2, , HEART RATE REGULAR AND RAPID. MUSCULOSKELETAL:EXQUISITE TENDERNESS OVER LUMBOSACRAL AXIS.POINT TENDERNESS OVER LEFT TROCANTER. SLOW TO RISE TO STANDING POSITION. GAIT ANTALGIC.. NEUROLOGIC EXAM:DTR'S 2+ DEA LOWER EXTREMITIES. NO SENSORY DEFICEIT. TWITCHES AND HIGH FREQ TREMOR NOTED IN BOTH UPPER EXTREMITIES. 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 PROCEDURE CODES FA211 ESTABILISHED PATIENT [facility] FACILITY CHARGE DISPOSITION & COMMUNICATION FOLLOW UP 1 MONTH (REASON: BACK/LEG PAIN) ELECTRONICALLY SIGNED BY CLARK MERCADO ON 07/02/2017 AT 10:33 PM EDT DISCLAIMER : THIS IS A VISIT SUMMARY EXTRACTED FROM THE [employer] CHART. IT IS NOT A COPY OF THE [employer] PROGRESS NOTE. [id number]
== END ==
LOC: M PAIN 10:30
PROVIDERS: ATTEND Nurse Practitioner Family
DX: G89.29 Other chronic pain (principal); M47.892 Other spondylosis, cervical region; M46.1 Sacroiliitis, not elsewhere classified; M70.62 Trochanteric bursitis, left hip; M79.7 Fibromyalgia; G43.909 Migraine, unspecified, not intractable, without status migrainosus; F17.210 Nicotine dependence, cigarettes, uncomplicated; Z88.8 Allergy status to other drugs, medicaments and biological substances; Z79.891 Long term (current) use of opiate analgesic; Z79.899 Other long term (current) drug therapy

== ENCOUNTER → 2017-08-07 | Outpatient (REF) | payer BC ==
[~2017-08-07] MED LIST changes: +MAXA10TA14 PO; +TIZA2CAP3 PO; +TRAM50TA2 PO
== END ==
LOC: M LAB REF 13:47
PROVIDERS: ATTEND Internal Medicine Medical Oncology
DX: D68.9 Coagulation defect, unspecified (principal)

== ENCOUNTER 2017-08-14 12:13 | Emergency (ER) | payer BC ==
[~2017-08-14] VITALS: Ht 152.4 cm; Wt 57.3 kg
[2017-08-14 12:13] VITALS: BP 137/82
[~2017-08-14 12:13] MED LIST changes: -MAXA10TA14 PO; -TIZA2CAP3 PO; -TRAM50TA2 PO
[2017-08-14] MEDS ORDERED: TRAM50TA2 PO (12:22)
[2017-08-14] MEDS ORDERED: MAXA10TA14 PO (12:22)
[2017-08-14] MEDS ORDERED: TIZA2CAP3 PO (12:22)
== END 2017-08-14 13:14 | disposition home or self-care (01) ==
LOC: M ED 12:13
DX: G89.29 Other chronic pain (principal); F33.9 Major depressive disorder, recurrent, unspecified; M79.7 Fibromyalgia; M25.531 Pain in right wrist; M25.532 Pain in left wrist; Z79.899 Other long term (current) drug therapy; Z88.8 Allergy status to other drugs, medicaments and biological substances; F17.210 Nicotine dependence, cigarettes, uncomplicated

== ENCOUNTER → 2017-08-21 | Outpatient (CLI) | payer BC ==
[~2017-08-21] MED LIST changes: +MAXA10TA14 PO; +TIZA2CAP3 PO; +TRAM50TA2 PO
--- NOTE | 2017-08-23 00:18 | ECWPNPC ---
PATIENT NAME: ANDI SEXTON : 1960 GENDER: FEMALE VISIT DATE: 08/21/2017 DISCHARGE DATE: 08/21/17 1440 VISIT LOCKED DATE TIME: PHYSICIAN: LESLI CANNON RESOURCE: LESLI CANNON REASON FOR APPOINTMENT 1. BACK/LEG PAIN HISTORY OF PRESENT ILLNESS HISTORY OF PRESENT ILLNESS: PAIN THE PATIENT DESCRIBES THE PAIN... FALL RISK SCREENING: SCREENING :NO FALLS IN THE PAST YEAR TODAY'S VISIT: NOTES: RATES PAIN TODAY 6/10. DESCRIBES PAIN CONSTANT, ACHING, TENDER, SHARP AND STABBING. PAIN IS CENTERED IN LOW BACK WITH RADIATION TO LEFT HIP. IS CONTINUING TO HAVE ISSUES WITH BOWEL AND BLADDER CONTROL. NO FALLS SINCE LAST VISIT. SLEEP IS VERY POOR - DISRUPTED. . CURRENT MEDICATIONS TAKING SERTRALINE HCL 100 MG TABLET 1 TABLET ORALLY ONCE A DAY TAKING MAXALT 10 MG TABLET 1 TABLET NEEDED ONE TIME ORALLY ONCE A DAY, NOTES: NONE TAKING OMEPRAZOLE 40 MG CAPSULE DELAYED RELEASE 1 CAPSULE ORALLY DAILY TAKING EVISTA 60 MG TABLET 1 TABLET ORALLY ONCE A DAY TAKING ROPINIROLE HCL 5 MG TABLET 1 TABLET ORALLY TWO TIMES A DAY TAKING MECLIZINE HCL 25 MG TABLET 1 TABLET NEEDED ORALLY Q8 HR NEEDED TAKING TIZANIDINE HCL 2 MG TABLET 1 TABLET NEEDED ORALLY THREE TIMES A DAY TAKING ZOFRAN 4 MG TABLET 1 TAB ORALLY EVERY 4 HOURS NEEDED TAKING GABAPENTIN 600 MG TABLET 1 CAPSULE ORALLY THREE TIMES A DAY TAKING TRAMADOL HCL 50 MG TABLET 1 TAB ORALLY Q 6 HRS PRN PAIN MDD=4 TAKING VITAMIN D (ERGOCALCIFEROL) 33292 UNIT CAPSULE 1 CAPSULE ORALLY ONCE A MONTH, NOTES: NOT STARTED YET TAKING NORCO 10-325 MG TABLET 1 /2 TO 1 TABLET ORALLY EVERY 6 HRS PRN PAIN MDD=3 CHRONIC PAIN NOT-TAKING CRESTOR 20 MG TABLET 1 TABLET ORALLY ONCE A DAY MEDICATION LIST REVIEWED AND RECONCILED WITH THE PATIENT PAST MEDICAL HISTORY ANDREWS-MIGRAINES LEFT SHOULDER PAIN DIVERTICULOSIS- DIVERTICULITIS NUMBNESS AND TINGLING TO FINGERS AND TOES DUE TO TOPAMAX 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 1/2 PACK DAY PATIENT COUNSELED ON THE DANGERS OF TOBACCO USE AND URGED TO QUIT:08/21/2017 ADDITIONAL FINDINGS: TOBACCO USERMODERATE CIGARETTE SMOKER (10-19 CIGS/DAY) ALCOHOL SCREENING POINTS0 INTERPRETATIONNEGATIVE RECREATIONAL DRUG USE: NEVER DRUG USE? NO. CAFFEINE: YES CAFFEINE USE?YES HOW OFTEN AND HOW MUCH? DAILY [employer] [id number] ANGLICAN LEARNING BARRIERS / SPECIAL NEEDS ABILITY TO UNDERSTAND VERBAL INSTRUCTIONS AVERAGE, ABILITY TO UNDERSTAND WRITTEN INSTRUCTIONS AVERAGE, KNOWLEDGE OF EDUCATIONAL NEEDS/TREATMENT PLAN AVERAGE, LEARNING PREFERENCE NO PREFERENCE, ORIENTED TO PLAN OF CARE: PATIENT, PAIN MANAGEMENT PATIENT. PSYCHOLOGICAL HX TREATMENT NO . NEW PATIENT PAIN DIARY DO YOU TAKE ANY BLOOD THINNERS?NO ANY CHANGE IN BOWEL OR BLADDER CONTROL?YES HAS DIARRHEA FROM DIVERTICULOSIS ARE YOU ALLERGIC TO SHELLFISH OR IV DYE?NO ARE YOU DIABETIC?NO DO YOU HAVE A PACEMAKER OR DEFIBRILLATOR?NO ANY NEW PROBLEMS WITH MEDICINES OR NEW ALLERGIESNO HAVE YOU FALLEN IN THE LAST 6 MONTHS?YES TRIPPED LAST NIGHT NOT SURE WHAT HAPPENED. SLIPPED AND FELL ONTO KNEES DO YOU USE ANY TYPE OF TOBACCO (SMOKE, SMOKELESS, CHEW, ETC.)YES ARE YOU ABUSED, NEGLECTED, OR IN AN UNSAFE ENVIRONMENT?NO DO YOU HAVE THOUGHTS OF HURTING YOURSELF OR SOMEONE ELSE?NO PAIN CLINIC PFS, CLERGY, PUBLIC HEALTH REFERRALS HAS THE PATIENT BEEN EDUCATED REGARDING HIS/HER PLAN OF CARE?YES HAS THE PATIENT BEEN EDUCATED REGARDING PAIN, THE RISK FOR PAIN, THE IMPORTANCE OF EFFECTIVE PAIN MANAGEMENT, AND THE PAIN ASSESSMENT PROCESS?YES PATIENT: ____. ADVANCE DIRECTIVES HEALTH CARE PROXY?YES NAME OF HCP RODRIGUEZ - CONTACT # FOR HCP [phone] DO YOU HAVE A DNR?NO WOULD YOU LIKE MORE INFORMATION?NO LIVING WILL?NO WOULD YOU LIKE MORE INFORMATION?NO POWER OF FARM AGENT?NO WOULD YOU LIKE MORE INFORMATION?NO HOSPITALIZATION/MAJOR DIAGNOSTIC PROCEDURE DIVERTICULITIS SEVERAL TIMES 01/2017 BOWEL OBSTRUCTION REVIEW OF SYSTEMS FOLLOW-UP ROS: PSYCHOLOGY: POSITIVE FOR, DEPRESSED MOOD. DENIES ACTIVE SUICIDAL THOUGHTS BUT DOES STATE SHE FEELS WORTHLESS AT HOME AND THAT SHE IS A BURDEN TO HER FAMILY. HAS APPT WITH [facility] 09/04/17. HAS CRISIS INTERVENTION NUMBER. STATES SHE HAS A POSITIVE SUPPORT SYTEM . REVIEWED BY: PROVIDER: . CONSTITUTIONAL: ANY CHANGE IN YOUR MEDICAL CONDITION? NO . CHILLS NO . FEVER NO . INFECTION: DO YOU HAVE NEW INFECTIONS? NO . DO YOU HAVE HISTORY OF MRSA? NO . MUSCULOSKELETAL: ANY NEW PATTERNS OF PAIN OR NUMBNESS? NO . GASTROENTEROLOGY: ANY NEW CHANGE IN BOWEL CONTROL? NO . GENITOURINARY: ANY NEW CHANGE IN BLADDER CONTROL? NO . IS THERE A CHANCE YOU COULD BE ? NO . HEMATOLOGY/LYMPH: DO YOU TAKE ANY BLOOD THINNERS? (FOR EXAMPLE- COUMADIN, PLAVIX, AGGRENOX, PLATEL, PRADAXA, OR XARELTO) NO . WHEN WAS YOUR LAST DOSE? DATE: TIME: . NEUROLOGY: HAVE YOU FALLEN IN THE PAST 6 MONTHS? NO . ANY NEW EXTREMITY NUMBNESS OR WEAKNESS? NO . CARDIOLOGY: DO YOU HAVE A PACEMAKER OR DEFIBRILLATOR? NO . RESPIRATORY: HAVE YOU BEEN SICK IN THE PAST WEEK? NO . FEVER NO . FLU LIKE SYMPTOMS? NO . COUGH NO . INTEGUMENTARY: DO YOU HAVE ANY RASHES OR OPEN SORES? NO . ALLERGIC/IMMUNO: ARE YOU ALLERGIC TO SHELLFISH OR IV DYE? NO . ANY NEW ALLERGIES? NO . PSYCHIATRIC: DO YOU HAVE THOUGHTS OF HURTING YOURSELF OR SOMEONE ELSE? NO . ARE YOU ABUSED, NEGLECTED, OR IN AN UNSAFE ENVIRONMENT? NO . ENDOCRINOLOGY: ARE YOU DIABETIC? NO . OTHER: DO YOU NEED ANY PRESCRIPTIONS? YES . IF YES, PLEASE LIST: ____ . ANY NEW PROBLEMS WITH YOUR MEDICATIONS? NO . WHEN DID YOU LAST EAT? ____ . WHEN DID YOU LAST DRINK? ____ . WHAT DID YOU LAST DRINK? ____ . NAME OF PERSON DRIVING YOU HOME? ____ . DO YOU HAVE ANY OTHER QUESTIONS OR CONCERNS NO . VITAL SIGNS WT 132 LBS, HT 60 IN, BMI 25.78 INDEX, BP 145/71 MM HG, HR 98 /MIN, RR 18 /MIN, TEMP 97.8 F, OXYGEN SAT % 98%, NA INITIALS SC 13:15, REVIEWED BY: ARDEN. EXAMINATION GENERAL EXAMINATION: PSYCHALERT , ORIENTED X 3 , AFFECT FLAT, GOOD EYE CONTACT, APPEARS SAD. LUNGS:CLEAR TO AUSCULTATION BILATERALLY. HEART:HEART RATE REGULAR. MUSCULOSKELETAL:EXQUISITE TENDERNESS OVER LEFT PIRIFORMIS AND LEFT SACRALCOCCYGEAL LIGAMNET . TENDER TO PALPATION OVER LUMOSACRAL AXIS. SLOW TO RISE TO STANDING POSIITON. LEFT LEG LIMP NOTED. MINIMAL TENDERNESS OVER LEFT TROCANTERIC BURSA. EXTREMITIES:NO EDEMA. 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 NARCOTIC AGREEMENT TODAY. KEEP CARTHAGE APPOINTMENT Sep. CLINICAL NOTES: ISTOP REGISTRY REVIEWED AND DEMNOSTRATES COMPLLIANCE. (REF #[id number]). , RISKS AND BENEFITS OF NARCOTIC/OPIOD MEDICATIONS WERE REVIEWED WITH PATIENT - THIS INCLUDES BUT IS NOT LIMITED TO RISK OF DEPENDANCE/DEVELOPMENT OF ADDICTION, MOOD DISTURBANCE AND DEPRESSION, OSTEOPOROSIS, HORMONAL AND LABIDAL CHANGES, RESPIRATORY DEPRESSION AND . PATIENT IS ADVISED NOT TO DRIVE WHILE ON THESE MEDICATIONS. PROCEDURE CODES FA211 ESTABILISHED PATIENT [facility] FACILITY CHARGE DISPOSITION & COMMUNICATION FOLLOW UP AFTER INJECTION (REASON: JANE DR BLACKMAN'S NOTES FROM JUL - AUG. CHECK AUTH FOR SACRAL COCCYGEAL LIGAMENT INJ LEFT) ELECTRONICALLY SIGNED BY CLARK MERCADO ON 08/22/2017 AT 06:33 PM EST DISCLAIMER : THIS IS A VISIT SUMMARY EXTRACTED FROM THE [employer] CHART. IT IS NOT A COPY OF THE [employer] PROGRESS NOTE. MTDD
== END ==
LOC: M PAIN 13:15
PROVIDERS: ATTEND Nurse Practitioner Family
DX: G89.29 Other chronic pain (principal); M47.892 Other spondylosis, cervical region; M46.1 Sacroiliitis, not elsewhere classified; M70.62 Trochanteric bursitis, left hip; M79.7 Fibromyalgia; G43.909 Migraine, unspecified, not intractable, without status migrainosus; F17.210 Nicotine dependence, cigarettes, uncomplicated; Z88.8 Allergy status to other drugs, medicaments and biological substances; F32.9 Major depressive disorder, single episode, unspecified; Z79.891 Long term (current) use of opiate analgesic; Z79.899 Other long term (current) drug therapy

== ENCOUNTER → 2017-09-12 | Outpatient (CLI) | payer BC ==
[~2017-09-12] MED LIST changes: -*PREMTA OR; -AUGM500T34 PO; -BACL10TA2 PO; -BENT20TA OR; +BUPIVACAINE HCL 0.25% 30 ML VIAL As Ordered; -CALC600T31 PO; -COLE1TAB PO; -CRES10TA32 PO; -CRES20TA PO; -DEXILANT PO; -DIVA125C5 PO; -DRIS50002 PO; -ESTR3TA OR; -ESTR3TA PO; -EVIS1TAB PO; -FLAG250T PO; -FLUC10TA PO; -GABA-279 PO; -GLUC500T3 OR; -HYDR-3781 PO; +ISOVUE-M 300 61% 15ML VIAL (Q9967) As Ordered; +LIDOCAINE 1% SDV INJ 30 ML VIAL As Ordered; -MAGN400T2 PO; -MAXA10TA14 PO; -MECL-68 PO; -METO10TA2 OR; -OMEP40CA2 PO; -SERT50TA PO; -TIZA2CAP3 PO; -TOPA100T12 PO; -TOPA50TA8 PO; -TOPI50TA OR; -TRAM50TA2 PO; +TRIAMCINOLONE ACETONIDE SUSP 40 MG/ML VIAL (J3301) As Ordered; -TYLE325T5 PO; -VICO5TAB OR; -ZOFR4TAB3 PO; -ZOLO25TA OR; +diazePAM 5 MG TAB As Ordered; +oxyCODONE 5MG TAB As Ordered
== END ==
LOC: M PAIN 10:45
DX: M70.62 Trochanteric bursitis, left hip (principal); G43.909 Migraine, unspecified, not intractable, without status migrainosus; M79.7 Fibromyalgia; Z88.8 Allergy status to other drugs, medicaments and biological substances; Z79.891 Long term (current) use of opiate analgesic; Z79.899 Other long term (current) drug therapy
CPT/HCPCS: J3301

== ENCOUNTER → 2017-09-28 | Outpatient (CLI) | payer BC | LOC: M PAIN 09:00 | DX: M70.61 Trochanteric bursitis, right hip (principal); M70.62 Trochanteric bursitis, left hip; M47.892 Other spondylosis, cervical region; G43.909 Migraine, unspecified, not intractable, without status migrainosus; L28.1 Prurigo nodularis; F17.210 Nicotine dependence, cigarettes, uncomplicated; Z88.8 Allergy status to other drugs, medicaments and biological substances; Z79.891 Long term (current) use of opiate analgesic; Z79.899 Other long term (current) drug therapy | CPT/HCPCS: G0463 ==

== ENCOUNTER → 2017-10-16 | Outpatient (CLI) | payer BC | LOC: M PAIN 10:15 | DX: M70.62 Trochanteric bursitis, left hip (principal); G43.909 Migraine, unspecified, not intractable, without status migrainosus; L28.1 Prurigo nodularis; M79.7 Fibromyalgia; F17.210 Nicotine dependence, cigarettes, uncomplicated; Z79.891 Long term (current) use of opiate analgesic; Z79.899 Other long term (current) drug therapy; Z88.8 Allergy status to other drugs, medicaments and biological substances | CPT/HCPCS: J3301 ==

== ENCOUNTER → 2017-11-21 | Outpatient (CLI) | payer BC | LOC: M PAIN 10:00 | DX: M70.62 Trochanteric bursitis, left hip (principal); M47.892 Other spondylosis, cervical region; G57.02 Lesion of sciatic nerve, left lower limb; F17.210 Nicotine dependence, cigarettes, uncomplicated; Z79.891 Long term (current) use of opiate analgesic; Z79.899 Other long term (current) drug therapy; Z88.8 Allergy status to other drugs, medicaments and biological substances | CPT/HCPCS: G0463 ==

== ENCOUNTER → 2017-12-18 | Outpatient (CLI) | payer BC | LOC: M PAIN 10:00 | DX: G57.02 Lesion of sciatic nerve, left lower limb (principal); M51.26 Other intervertebral disc displacement, lumbar region; G43.909 Migraine, unspecified, not intractable, without status migrainosus; M79.7 Fibromyalgia; F17.210 Nicotine dependence, cigarettes, uncomplicated; Z79.891 Long term (current) use of opiate analgesic; Z79.899 Other long term (current) drug therapy; Z88.8 Allergy status to other drugs, medicaments and biological substances | CPT/HCPCS: G0463 ==

== ENCOUNTER → 2018-01-01 | Outpatient (CLI) | payer BC ==
[~2018-01-01] MED LIST changes: -BUPIVACAINE HCL 0.25% 30 ML VIAL As Ordered; -TRIAMCINOLONE ACETONIDE SUSP 40 MG/ML VIAL (J3301) As Ordered; +methylPREDNISolone SUSP 40 MG/ML (DEPO-medrol) VIAL (J1030) As Ordered
== END ==
LOC: M PAIN 08:45
DX: G89.29 Other chronic pain (principal); M51.16 Intervertebral disc disorders with radiculopathy, lumbar region; G43.909 Migraine, unspecified, not intractable, without status migrainosus; M25.512 Pain in left shoulder; M79.7 Fibromyalgia; L28.1 Prurigo nodularis; F17.210 Nicotine dependence, cigarettes, uncomplicated; M41.9 Scoliosis, unspecified; Z79.891 Long term (current) use of opiate analgesic; Z79.899 Other long term (current) drug therapy; Z88.8 Allergy status to other drugs, medicaments and biological substances; Z85.828 Personal history of other malignant neoplasm of skin
CPT/HCPCS: J1030

== ENCOUNTER → 2018-01-15 | Outpatient (CLI) | payer BC | LOC: M PAIN 09:00 | DX: G57.02 Lesion of sciatic nerve, left lower limb (principal); M51.26 Other intervertebral disc displacement, lumbar region; M46.1 Sacroiliitis, not elsewhere classified; G43.909 Migraine, unspecified, not intractable, without status migrainosus; M19.90 Unspecified osteoarthritis, unspecified site; M41.9 Scoliosis, unspecified; F17.210 Nicotine dependence, cigarettes, uncomplicated; L28.1 Prurigo nodularis; Z79.891 Long term (current) use of opiate analgesic; Z79.899 Other long term (current) drug therapy | CPT/HCPCS: G0463 ==

== ENCOUNTER → 2018-01-29 | Outpatient (CLI) | payer BC ==
[~2018-01-29] MED LIST changes: +BUPIVACAINE HCL 0.25% 30 ML VIAL As Ordered; +TRIAMCINOLONE ACETONIDE SUSP 40 MG/ML VIAL (J3301) As Ordered; -methylPREDNISolone SUSP 40 MG/ML (DEPO-medrol) VIAL (J1030) As Ordered
== END ==
LOC: M PAIN 08:45
DX: G89.29 Other chronic pain (principal); M46.1 Sacroiliitis, not elsewhere classified; M53.88 Other specified dorsopathies, sacral and sacrococcygeal region; G43.909 Migraine, unspecified, not intractable, without status migrainosus; M79.7 Fibromyalgia; M19.90 Unspecified osteoarthritis, unspecified site; F17.210 Nicotine dependence, cigarettes, uncomplicated; Z79.891 Long term (current) use of opiate analgesic; Z79.899 Other long term (current) drug therapy; Z88.8 Allergy status to other drugs, medicaments and biological substances
CPT/HCPCS: J3301

== ENCOUNTER → 2018-02-13 | Outpatient (CLI) | payer BC | LOC: M PAIN 10:15 | DX: G57.02 Lesion of sciatic nerve, left lower limb (principal); M51.26 Other intervertebral disc displacement, lumbar region; M46.1 Sacroiliitis, not elsewhere classified; G43.909 Migraine, unspecified, not intractable, without status migrainosus; F17.210 Nicotine dependence, cigarettes, uncomplicated; Z79.891 Long term (current) use of opiate analgesic; Z79.899 Other long term (current) drug therapy; Z88.8 Allergy status to other drugs, medicaments and biological substances | CPT/HCPCS: G0463 ==

== ENCOUNTER → 2018-02-27 | Outpatient (CLI) | payer BC | LOC: M RAD 14:40 | DX: M48.061 Spinal stenosis, lumbar region without neurogenic claudication (principal); M51.36 Other intervertebral disc degeneration, lumbar region | CPT/HCPCS: 72148 ==

== ENCOUNTER → 2018-03-18 | Outpatient (CLI) | payer BC | LOC: M PAIN 09:45 | DX: G57.02 Lesion of sciatic nerve, left lower limb (principal); M51.26 Other intervertebral disc displacement, lumbar region; G43.909 Migraine, unspecified, not intractable, without status migrainosus; L28.1 Prurigo nodularis; M79.7 Fibromyalgia; M41.9 Scoliosis, unspecified; M19.90 Unspecified osteoarthritis, unspecified site; K57.90 Diverticulosis of intestine, part unspecified, without perforation or abscess without bleeding; M25.512 Pain in left shoulder; F17.210 Nicotine dependence, cigarettes, uncomplicated; Z79.891 Long term (current) use of opiate analgesic; Z85.828 Personal history of other malignant neoplasm of skin; Z79.899 Other long term (current) drug therapy; Z90.49 Acquired absence of other specified parts of digestive tract; Z88.8 Allergy status to other drugs, medicaments and biological substances | CPT/HCPCS: G0463 ==

== ENCOUNTER → 2018-03-20 | Outpatient (CLI) | payer BC ==
[~2018-03-20] MED LIST changes: -BUPIVACAINE HCL 0.25% 30 ML VIAL As Ordered; -TRIAMCINOLONE ACETONIDE SUSP 40 MG/ML VIAL (J3301) As Ordered; +methylPREDNISolone SUSP 40 MG/ML (DEPO-medrol) VIAL (J1030) As Ordered
== END ==
LOC: M PAIN 10:45
DX: G89.29 Other chronic pain (principal); M51.16 Intervertebral disc disorders with radiculopathy, lumbar region; G43.909 Migraine, unspecified, not intractable, without status migrainosus; M79.7 Fibromyalgia; L28.1 Prurigo nodularis; Z79.891 Long term (current) use of opiate analgesic; Z79.899 Other long term (current) drug therapy; Z88.8 Allergy status to other drugs, medicaments and biological substances
CPT/HCPCS: J1030

== ENCOUNTER → 2018-04-04 | Outpatient (CLI) | payer BC | LOC: M PAIN 10:30 | DX: G57.02 Lesion of sciatic nerve, left lower limb (principal); M51.26 Other intervertebral disc displacement, lumbar region; G43.909 Migraine, unspecified, not intractable, without status migrainosus; M79.7 Fibromyalgia; M19.90 Unspecified osteoarthritis, unspecified site; F17.210 Nicotine dependence, cigarettes, uncomplicated; Z79.891 Long term (current) use of opiate analgesic; Z79.899 Other long term (current) drug therapy; Z88.8 Allergy status to other drugs, medicaments and biological substances | CPT/HCPCS: G0463 ==

== ENCOUNTER → 2018-05-07 | Outpatient (CLI) | payer BC | LOC: M PAIN 10:30 | DX: G57.02 Lesion of sciatic nerve, left lower limb (principal); M51.26 Other intervertebral disc displacement, lumbar region; G43.909 Migraine, unspecified, not intractable, without status migrainosus; M79.7 Fibromyalgia; M19.90 Unspecified osteoarthritis, unspecified site; M41.9 Scoliosis, unspecified; Z79.891 Long term (current) use of opiate analgesic; Z79.899 Other long term (current) drug therapy; Z88.8 Allergy status to other drugs, medicaments and biological substances; Z87.891 Personal history of nicotine dependence | CPT/HCPCS: G0463 ==

== ENCOUNTER → 2018-08-14 | Outpatient (CLI) | payer BC ==
[~2018-08-14] MED LIST changes: +*PREMTA OR; +AUGM500T34 PO; +BACL10TA2 PO; +BENT20TA OR; +CALC600T31 PO; +COLE1TAB PO; +CRES10TA32 PO; +CRES20TA PO; +DEXILANT PO; +DIVA1CAP PO; +DRIS50003 PO; +ESTR3TA OR; +ESTR3TA PO; +EVIS1TAB PO; +FLAG250T PO; +FLUC10TA PO; +GABA-1171 PO; +GLUC500T3 OR; +HYDR-3781 PO; -ISOVUE-M 300 61% 15ML VIAL (Q9967) As Ordered; -LIDOCAINE 1% SDV INJ 30 ML VIAL As Ordered; +MAGN400T2 PO; +MAXA10TA14 PO; +MECL-68 PO; +METO10TA2 OR; +OMEP40CA2 PO; +SERT50TA PO; +TIZA2CAP PO; +TOPA100T12 PO; +TOPA50TA8 PO; +TOPI50TA OR; +TRAM50TA2 PO; +TYLE325T5 PO; +VICO5TAB OR; +ZOFR4TAB14 PO; +ZOLO25TA OR; -diazePAM 5 MG TAB As Ordered; -methylPREDNISolone SUSP 40 MG/ML (DEPO-medrol) VIAL (J1030) As Ordered; -oxyCODONE 5MG TAB As Ordered
--- NOTE | 2018-09-05 00:53 | ECWPNPC ---
PATIENT NAME: ANDI SEXTON : 1960 GENDER: FEMALE VISIT DATE: 08/14/2018 DISCHARGE DATE: 08/14/18 1551 VISIT LOCKED DATE TIME: PHYSICIAN: LINDA KRAFT RESOURCE: LINDA KRAFT REASON FOR APPOINTMENT 1. SW PT. BACK/SCIATIC PAIN HISTORY OF PRESENT ILLNESS DEPRESSION SCREENING: PHQ-2 IN LAST TWO WEEKS HAVE YOU BEEN BOTHERED BY LITTLE INTEREST OR PLEASURE IN DOING THINGSNO FEELING DOWN, DEPRESSED, OR HOPELESSNO HISTORY OF PRESENT ILLNESS: HERE FOR F/U OF CHRONIC LOW BACK PAIN AND NECK PAIN.HAD LOW BACK SURGERY IN JUNE AND IS DOING WELL.STATES LOW /CENTRAL LOW BACK PAIN IS BETTER.WORSE AREA OF PAIN IS SACRAL REGION WITH RADIATION INTO THIGHS.CURRENTLY USING TRAMADOL 50MG PRN FOR SEVERE PAIN AND THIS DOESNT SEEM TO BE EFFECTIVE ANYMORE.DISCUSSED MEDICATION. PAIN THE PATIENT DESCRIBES THE PAIN... FALL RISK SCREENING: SCREENING :NO FALLS IN THE PAST YEAR CURRENT MEDICATIONS TAKING MAXALT 10 MG TABLET 1 TABLET NEEDED ONE TIME ORALLY ONCE A DAY TAKING OMEPRAZOLE 40 MG CAPSULE DELAYED RELEASE 1 CAPSULE ORALLY DAILY TAKING ROPINIROLE HCL 5 MG TABLET 1 TABLET ORALLY TWO TIMES A DAY TAKING MECLIZINE HCL 25 MG TABLET 1 TABLET NEEDED ORALLY Q8 HR NEEDED TAKING TIZANIDINE HCL 2 MG TABLET 1 TABLET NEEDED ORALLY THREE TIMES A DAY TAKING ZOFRAN 4 MG TABLET 1 TAB ORALLY EVERY 4 HOURS NEEDED TAKING GABAPENTIN 600 MG TABLET 1 CAPSULE ORALLY THREE TIMES A DAY TAKING SERTRALINE HCL 100 MG TABLET 2 TABLET ORALLY ONCE A DAY TAKING HYDROXYZINE HCL 50 MG TABLET -2 TABLET ORALLY BEFORE BEDTIME PRN TAKING MAY USE [facility] DAILY TAKING HYDROCODONE-ACETAMINOPHEN 10-325 MG TABLET 1 TABLET NEEDED ORALLY EVERY 8 HRS PRN PAIN MDD=3 TAKING TRAMADOL HCL 50 MG TABLET 1 TAB ORALLY Q 6 HRS PRN PAIN MDD=4 TAKING VITAMIN D (ERGOCALCIFEROL) 50159 UNIT CAPSULE 1 CAPSULE ORALLY TAKING WELLBUTRIN XL 150 MG TABLET EXTENDED RELEASE 24 HOUR 1 TABLET IN THE MORNING ORALLY ONCE A DAY NOT-TAKING MELOXICAM 15 MG TABLET 1 TABLET ORALLY ONCE A DAY MEDICATION LIST REVIEWED AND RECONCILED WITH THE PATIENT PAST MEDICAL HISTORY ANDREWS-MIGRAINES LEFT SHOULDER PAIN DIVERTICULOSIS- DIVERTICULITIS NUMBNESS AND TINGLING TO FINGERS AND TOES DUE TO TOPAMAX 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 SOCIAL HISTORY GENERAL: TOBACCO USE ARE YOU A:FORMER SMOKER HOW LONG HAS IT BEEN SINCE YOU LAST SMOKED?3-6 MONTHS APRIL 19, 2018 ALCOHOL SCREENING DID YOU HAVE A DRINK CONTAINING ALCOHOL IN THE PAST YEAR?NO POINTS0 INTERPRETATIONNEGATIVE RECREATIONAL DRUG USE: NEVER DRUG USE? NO. CAFFEINE: YES CAFFEINE USE?YES HOW OFTEN AND HOW MUCH? 2 CUPS COFFEE, 2 LITERS COKE/DAY EPISCOPAL [id number] [employer] LANGUAGE LANGUAGES SPOKEN:KHMER LEARNING BARRIERS / SPECIAL NEEDS ABILITY TO UNDERSTAND VERBAL INSTRUCTIONS AVERAGE, ABILITY TO UNDERSTAND WRITTEN INSTRUCTIONS AVERAGE, KNOWLEDGE OF EDUCATIONAL NEEDS/TREATMENT PLAN AVERAGE, LEARNING PREFERENCE NO PREFERENCE, ORIENTED TO PLAN OF CARE: PATIENT, PAIN MANAGEMENT PATIENT. DOMESTIC VIOLENCE DO YOU FEEL SAFE IN YOUR ENVIRONMENT?YES NEW PATIENT PAIN DIARY DO YOU TAKE ANY BLOOD THINNERS?NO ANY CHANGE IN BOWEL OR BLADDER CONTROL?YES HAS DIARRHEA FROM DIVERTICULOSIS ARE YOU ALLERGIC TO SHELLFISH OR IV DYE?NO ARE YOU DIABETIC?NO DO YOU HAVE A PACEMAKER OR DEFIBRILLATOR?NO ANY NEW PROBLEMS WITH MEDICINES OR NEW ALLERGIESNO HAVE YOU FALLEN IN THE LAST 6 MONTHS?YES TRIPPED LAST NIGHT NOT SURE WHAT HAPPENED. SLIPPED AND FELL ONTO KNEES DO YOU USE ANY TYPE OF TOBACCO (SMOKE, SMOKELESS, CHEW, ETC.)YES ARE YOU ABUSED, NEGLECTED, OR IN AN UNSAFE ENVIRONMENT?NO DO YOU HAVE THOUGHTS OF HURTING YOURSELF OR SOMEONE ELSE?NO PAIN CLINIC PFS, CLERGY, PUBLIC HEALTH REFERRALS PFS REFERRAL NEEDED?NO CLERGY REFERRAL NEEDED?NO PUBLIC HEALTH REFERRAL NEEDED?NO HAS THE PATIENT BEEN EDUCATED REGARDING HIS/HER PLAN OF CARE?YES HAS THE PATIENT BEEN EDUCATED REGARDING PAIN, THE RISK FOR PAIN, THE IMPORTANCE OF EFFECTIVE PAIN MANAGEMENT, AND THE PAIN ASSESSMENT PROCESS?YES ADVANCE DIRECTIVE ADVANCE DIRECTIVE DISCUSSED WITH PATIENT:YES HCP-- , RODRIGUEZ REVIEWED WITH PT 08/14/18 1525 LAS. HOSPITALIZATION/MAJOR DIAGNOSTIC PROCEDURE DIVERTICULITIS SEVERAL TIMES 01/2017 BOWEL OBSTRUCTION BACK SURGERY 06/20 REVIEW OF SYSTEMS REVIEWED BY: PROVIDER: LINDA SALINAS . CONSTITUTIONAL: ANY CHANGE IN YOUR MEDICAL CONDITION? NO . CHILLS NO . FEVER NO . INFECTION: DO YOU HAVE NEW INFECTIONS? NO . DO YOU HAVE HISTORY OF MRSA? NO . MUSCULOSKELETAL: ANY NEW PATTERNS OF PAIN OR NUMBNESS? NO . GASTROENTEROLOGY: ANY NEW CHANGE IN BOWEL CONTROL? NO . GENITOURINARY: ANY NEW CHANGE IN BLADDER CONTROL? NO . IS THERE A CHANCE YOU COULD BE ? NO . HEMATOLOGY/LYMPH: DO YOU TAKE ANY BLOOD THINNERS? (FOR EXAMPLE- COUMADIN, PLAVIX, AGGRENOX, PLATEL, PRADAXA, OR XARELTO) NO . WHEN WAS YOUR LAST DOSE? DATE: TIME: . NEUROLOGY: HAVE YOU FALLEN IN THE PAST 6 MONTHS? YES PT REPORTS SHE SLIPPED ON TILE IN BATHROOM, FELL RIGHT ONTO HER BACK/HEAD. REPORTS LOSS OF CONSCIOUSNESS, UNKNOWN FOR HOW LONG. DID NOT GO TO ER, DID CALL HER BACK SURGEON, HAD XRAYS LATER THAT WEEK AT [facility] PER PT. . ANY NEW EXTREMITY NUMBNESS OR WEAKNESS? NO . CARDIOLOGY: DO YOU HAVE A PACEMAKER OR DEFIBRILLATOR? NO . RESPIRATORY: HAVE YOU BEEN SICK IN THE PAST WEEK? NO . FEVER NO . FLU LIKE SYMPTOMS? NO . COUGH NO . INTEGUMENTARY: DO YOU HAVE ANY RASHES OR OPEN SORES? NO . ALLERGIC/IMMUNO: ARE YOU ALLERGIC TO SHELLFISH OR IV DYE? NO . ANY NEW ALLERGIES? NO . PSYCHIATRIC: DO YOU HAVE THOUGHTS OF HURTING YOURSELF OR SOMEONE ELSE? NO . ARE YOU ABUSED, NEGLECTED, OR IN AN UNSAFE ENVIRONMENT? NO . ENDOCRINOLOGY: ARE YOU DIABETIC? NO . OTHER: DO YOU NEED ANY PRESCRIPTIONS? YES . IF YES, PLEASE LIST: ____HYDROCODONE . ANY NEW PROBLEMS WITH YOUR MEDICATIONS? NO . WHEN DID YOU LAST EAT? ____ . WHEN DID YOU LAST DRINK? ____ . WHAT DID YOU LAST DRINK? ____ . NAME OF PERSON DRIVING YOU HOME? ____ . DO YOU HAVE ANY OTHER QUESTIONS OR CONCERNS NO . VITAL SIGNS WT 134.6 LBS, HT 60 IN, BMI 26.28 INDEX, BP 140/76 MM HG, HR 113 /MIN, RR 18 /MIN, TEMP 97.8 F, OXYGEN SAT % 97%, NA INITIALS SC 14:53. EXAMINATION GENERAL EXAMINATION: GENERAL APPEARANCE:AWAKE,ALERT ,PLEAASANT . PSYCHAFFECT NORMAL . LUNGS:LUNG BERMUDEZ ARE CLEAR TO AUSCULTATION BILATERALLY. GOOD MOVEMENT OF AIR . HEART:S1, S2 IN A REGULAR RATE AND RHYTHM. NO SIGNIFICANT MURMURS, RUBS OR GALLOPS NOTED . ASSESSMENTS LUMBAR DISC DISPLACEMENT WITHOUT MYELOPATHY - M51.26 (PRIMARY) TREATMENT LUMBAR DISC DISPLACEMENT WITHOUT MYELOPATHY REFILL HYDROCODONE-ACETAMINOPHEN TABLET, 10-325 MG, 1 TABLET NEEDED, ORALLY, Q8H PRN MDD3 #45 TAB SHOULD LAST 30 DAYS, 30 DAY(S), 45, REFILLS 0 STOP TRAMADOL HCL TABLET, 50 MG, 1 TAB, ORALLY, Q 6 HRS PRN PAIN MDD=4 NOTES: ISTOP REGISTRY REVIEWED AND DEMONSTRATES COMPLLIANCE. (REF #[id number] ) RECENT URINE TOXICOLOGY REVIEWED. NO UNAUTHORIZED MEDICATIONS. NO ILLICIT SUBSTANCES AND PRESCRIBED MEDICATIONS WERE PRESENT. , RISKS AND BENEFITS OF NARCOTIC/OPIOD MEDICATIONS WERE REVIEWED WITH PATIENT - THIS INCLUDES BUT IS NOT LIMITED TO RISK OF DEPENDANCE/DEVELOPMENT OF ADDICTION, MOOD DISTURBANCE AND DEPRESSION, OSTEOPOROSIS, HORMONAL AND LABIDAL CHANGES, RESPIRATORY DEPRESSION AND . PATIENT IS ADVISED NOT TO DRIVE OR DRINK ALCOHOL WHILE ON THESE MEDICATIONS. PREVENTIVE MEDICINE PAIN CLINIC TEACHING: MEDICATIONS MEDICATION CHANGES REVIEWED WITH PT, PT VERBALIZES UNDERSTANDING. [facility] 08/14/18 1550. DISPOSITION & COMMUNICATION FOLLOW UP 2 MONTHS ELECTRONICALLY SIGNED BY BRAD BERTRAND ON 09/04/2018 AT 04:27 PM EST DISCLAIMER : THIS IS A VISIT SUMMARY EXTRACTED FROM THE [employer] CHART. IT IS NOT A COPY OF THE [employer] PROGRESS NOTE. IFTIKHAR
== END ==
LOC: M PAIN 14:45
PROVIDERS: ATTEND Nurse Practitioner Family
DX: M51.26 Other intervertebral disc displacement, lumbar region (principal); G43.909 Migraine, unspecified, not intractable, without status migrainosus; M25.512 Pain in left shoulder; K57.90 Diverticulosis of intestine, part unspecified, without perforation or abscess without bleeding; M79.7 Fibromyalgia; L28.1 Prurigo nodularis; Z85.828 Personal history of other malignant neoplasm of skin; M41.9 Scoliosis, unspecified; M19.90 Unspecified osteoarthritis, unspecified site; Z87.891 Personal history of nicotine dependence; Z90.49 Acquired absence of other specified parts of digestive tract; Z98.1 Arthrodesis status; Z79.899 Other long term (current) drug therapy; Z88.8 Allergy status to other drugs, medicaments and biological substances

== ENCOUNTER → 2018-10-01 | Outpatient (CLI) | payer BC ==
[~2018-10-01] MED LIST changes: -HYDR-3781 PO; +HYDR2.5T34 PO
--- NOTE | 2018-10-01 15:45 | REP ---
CAROTID ULTRASOUND: Real-time ultrasound evaluation and duplex Doppler interrogation of the extracranial carotid vasculature is performed. There is mild plaquing and narrowing in both carotid bulbs extending into the internal and external carotid arteries. Luminal narrowing is less than 50%. There is no evidence of hemodynamically significant stenosis of either internal carotid artery. Normal flow velocities are seen. The vertebral arteries demonstrate normal direction of flow. RIGHT LEFT Peak systolic velocity ICA 78.1 cm/s 84.8 cm/s End diastolic velocity ICA 31.8 cm/s 28.3 cm/s Peak systolic velocity CCA 160 cm/s 132.5 cm/s Peak systolic velocity ECA 75.6 cm/s 142.8 cm/s ICA/CCA ratio 0.49 0.64 IMPRESSION: Bilateral luminal narrowing of the internal carotid arteries less than 50%. No evidence of hemodynamically significant stenosis. Electronically Signed by Juliano Wallace MD 10/01/2018 03:37 P
== END ==
LOC: M RAD 14:28
PROVIDERS: ATTEND Physician Assistant Medical
DX: H53.8 Other visual disturbances (principal); R42 Dizziness and giddiness; I65.23 Occlusion and stenosis of bilateral carotid arteries

== ENCOUNTER → 2018-10-12 | Outpatient (CLI) | payer BC ==
[~2018-10-12] MED LIST changes: +BUPR15TA PO
--- NOTE | 2018-10-14 12:29 | REP ---
MR CERVICAL SPINE WITHOUT CONTRAST: HISTORY: Cervicalgia. Facet hypertrophy is present on the right at the C3-4 level. This produces mild narrowing of the right C4 neural foramen. The left C3 neural foramen is patent. A disc bulge with associate osteophyte formation is present at the C4-5 level. There is mild effacement of the thecal sac without spinal cord compression. Left uncinate process and right facet hypertrophy are present. These findings produce minimal and moderate narrowing of the right and left C4 neural foramina, respectively. A disc bulge with associate osteophyte formation is present at the C5-6 level. There is moderate effacement of the thecal sac without spinal cord compression. Bilateral uncinate process hypertrophy is present. This produces moderate narrowing of the C5 neural foramina. A disc bulge with associate osteophyte formation is present at the C6-7 level. There is moderate effacement of the thecal sac without spinal cord compression. Bilateral uncinate process hypertrophy is present. This produces moderate narrowing of the C6 neural foramina. There is no other disc bulge or herniation. The remaining neural foramina are patent. The spinal cord is normal is signal intensity. The C4-5 through C6-7 intervertebral discs are decreased in height consistent with disc degeneration. Normal signal intensity is present in the cervical vertebral bodies. IMPRESSION: There is cervical spondylosis at the C3-4 through C6-7 levels without spinal cord compression. Electronically Signed by Bobby Cannon MD 10/14/2018 12:33 P
== END ==
LOC: M RAD 13:07
PROVIDERS: ATTEND Physician Assistant Medical
DX: M50.221 Other cervical disc displacement at C4-C5 level (principal); M47.892 Other spondylosis, cervical region; R20.2 Paresthesia of skin; M50.222 Other cervical disc displacement at C5-C6 level; M50.223 Other cervical disc displacement at C6-C7 level

== ENCOUNTER → 2018-10-22 | Outpatient (CLI) | payer BC ==
--- NOTE | 2018-11-04 01:01 | ECWPNPC ---
PATIENT NAME: ANDI SEXTON : 1960 GENDER: FEMALE VISIT DATE: 10/22/2018 DISCHARGE DATE: 10/22/18 1542 VISIT LOCKED DATE TIME: PHYSICIAN: LINDA KRAFT RESOURCE: LINDA KRAFT REASON FOR APPOINTMENT 1. BACK/SCIATIC PAIN HISTORY OF PRESENT ILLNESS HISTORY OF PRESENT ILLNESS: HERE FOR F/U OF CHRONIC LOW BACK PAIN WITH HISTORY OF LUMBAR SURGERY JUNE 2018.CONTINUES WITH EPISODES OF SEVERE LOW BACK PAIN ECSPECIALLY AFTER EXCERSISING.FINDS HYDROCODONE SOMEWHAT HELPFUL.WORSE AREA OF PAIN IS LOW BACK AND BILATERAL HIPS L>R. PAIN THE PATIENT DESCRIBES THE PAIN... FALL RISK SCREENING: SCREENING : NO FALLS IN THE PAST YEAR. CURRENT MEDICATIONS TAKING MAXALT 10 MG TABLET 1 TABLET NEEDED ONE TIME ORALLY ONCE A DAY TAKING OMEPRAZOLE 40 MG CAPSULE DELAYED RELEASE 1 CAPSULE ORALLY DAILY TAKING ROPINIROLE HCL 5 MG TABLET 1 TABLET ORALLY TWO TIMES A DAY TAKING MECLIZINE HCL 25 MG TABLET 1 TABLET NEEDED ORALLY Q8 HR NEEDED TAKING TIZANIDINE HCL 2 MG TABLET 1 TABLET NEEDED ORALLY THREE TIMES A DAY TAKING ZOFRAN 4 MG TABLET 1 TAB ORALLY EVERY 4 HOURS NEEDED TAKING GABAPENTIN 600 MG TABLET 1 CAPSULE ORALLY THREE TIMES A DAY TAKING SERTRALINE HCL 100 MG TABLET 2 TABLET ORALLY ONCE A DAY TAKING HYDROXYZINE HCL 50 MG TABLET -2 TABLET ORALLY BEFORE BEDTIME PRN TAKING MAY USE [facility] DAILY TAKING VITAMIN D (ERGOCALCIFEROL) 77754 UNIT CAPSULE 1 CAPSULE ORALLY TAKING WELLBUTRIN XL 150 MG TABLET EXTENDED RELEASE 24 HOUR 1 TABLET IN THE MORNING ORALLY ONCE A DAY TAKING HYDROCODONE-ACETAMINOPHEN 10-325 MG TABLET 1 TABLET NEEDED ORALLY Q8H PRN MDD3 #45 TAB SHOULD LAST 30 DAYS TAKING TRAMADOL HCL 50 MG TABLET ORALLY DAILY NOT-TAKING MELOXICAM 15 MG TABLET 1 TABLET ORALLY ONCE A DAY MEDICATION LIST REVIEWED AND RECONCILED WITH THE PATIENT PAST MEDICAL HISTORY ANDREWS-MIGRAINES LEFT SHOULDER PAIN DIVERTICULOSIS- DIVERTICULITIS NUMBNESS AND TINGLING TO FINGERS AND TOES DUE TO TOPAMAX 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 SOCIAL HISTORY GENERAL: TOBACCO USE ARE YOU A:FORMER SMOKER HOW LONG HAS IT BEEN SINCE YOU LAST SMOKED?3-6 MONTHS APRIL 19, 2018 ALCOHOL SCREENING DID YOU HAVE A DRINK CONTAINING ALCOHOL IN THE PAST YEAR?NO POINTS0 INTERPRETATIONNEGATIVE RECREATIONAL DRUG USE: NEVER DRUG USE? NO. CAFFEINE: YES CAFFEINE USE?YES HOW OFTEN AND HOW MUCH? 2 CUPS COFFEE, 2 LITERS COKE/DAY BUDDHIST [id number] YAZIDISM LANGUAGE LANGUAGES SPOKEN:TONGAN LEARNING BARRIERS / SPECIAL NEEDS ABILITY TO UNDERSTAND VERBAL INSTRUCTIONS AVERAGE, ABILITY TO UNDERSTAND WRITTEN INSTRUCTIONS AVERAGE, KNOWLEDGE OF EDUCATIONAL NEEDS/TREATMENT PLAN AVERAGE, LEARNING PREFERENCE NO PREFERENCE, ORIENTED TO PLAN OF CARE: PATIENT, PAIN MANAGEMENT PATIENT. DOMESTIC VIOLENCE DO YOU FEEL SAFE IN YOUR ENVIRONMENT?YES NEW PATIENT PAIN DIARY DO YOU TAKE ANY BLOOD THINNERS?NO ANY CHANGE IN BOWEL OR BLADDER CONTROL?YES HAS DIARRHEA FROM DIVERTICULOSIS ARE YOU ALLERGIC TO SHELLFISH OR IV DYE?NO ARE YOU DIABETIC?NO DO YOU HAVE A PACEMAKER OR DEFIBRILLATOR?NO ANY NEW PROBLEMS WITH MEDICINES OR NEW ALLERGIESNO HAVE YOU FALLEN IN THE LAST 6 MONTHS?YES TRIPPED LAST NIGHT NOT SURE WHAT HAPPENED. SLIPPED AND FELL ONTO KNEES DO YOU USE ANY TYPE OF TOBACCO (SMOKE, SMOKELESS, CHEW, ETC.)YES ARE YOU ABUSED, NEGLECTED, OR IN AN UNSAFE ENVIRONMENT?NO DO YOU HAVE THOUGHTS OF HURTING YOURSELF OR SOMEONE ELSE?NO PAIN CLINIC PFS, CLERGY, PUBLIC HEALTH REFERRALS PFS REFERRAL NEEDED?NO CLERGY REFERRAL NEEDED?NO PUBLIC HEALTH REFERRAL NEEDED?NO HAS THE PATIENT BEEN EDUCATED REGARDING HIS/HER PLAN OF CARE?YES HAS THE PATIENT BEEN EDUCATED REGARDING PAIN, THE RISK FOR PAIN, THE IMPORTANCE OF EFFECTIVE PAIN MANAGEMENT, AND THE PAIN ASSESSMENT PROCESS?YES REVIEWED WITH PT 08/14/18 7768 LAS. HOSPITALIZATION/MAJOR DIAGNOSTIC PROCEDURE DIVERTICULITIS SEVERAL TIMES 01/2017 BOWEL OBSTRUCTION BACK SURGERY 06/20 REVIEW OF SYSTEMS REVIEWED BY: PROVIDER: LINDA SALINAS . CONSTITUTIONAL: ANY CHANGE IN YOUR MEDICAL CONDITION? NO . CHILLS NO . FEVER NO . INFECTION: DO YOU HAVE NEW INFECTIONS? NO . DO YOU HAVE HISTORY OF MRSA? NO . MUSCULOSKELETAL: ANY NEW PATTERNS OF PAIN OR NUMBNESS? NO . GASTROENTEROLOGY: ANY NEW CHANGE IN BOWEL CONTROL? NO . GENITOURINARY: ANY NEW CHANGE IN BLADDER CONTROL? NO . IS THERE A CHANCE YOU COULD BE ? NO . HEMATOLOGY/LYMPH: DO YOU TAKE ANY BLOOD THINNERS? (FOR EXAMPLE- COUMADIN, PLAVIX, AGGRENOX, PLATEL, PRADAXA, OR XARELTO) NO . WHEN WAS YOUR LAST DOSE? DATE: TIME: . NEUROLOGY: HAVE YOU FALLEN IN THE PAST 12 MONTHS? YES, PRIOR TO LAST VISIT . ANY NEW EXTREMITY NUMBNESS OR WEAKNESS? NO . CARDIOLOGY: DO YOU HAVE A PACEMAKER OR DEFIBRILLATOR? NO . RESPIRATORY: HAVE YOU BEEN SICK IN THE PAST WEEK? YES . FEVER NO . FLU LIKE SYMPTOMS? NO . COUGH YES, NON-PRODUCTIVE . INTEGUMENTARY: DO YOU HAVE ANY RASHES OR OPEN SORES? NO . ALLERGIC/IMMUNO: ARE YOU ALLERGIC TO IV DYE? NO . ANY NEW ALLERGIES? NO . PSYCHIATRIC: DO YOU HAVE THOUGHTS OF HURTING YOURSELF OR SOMEONE ELSE? NO . ARE YOU ABUSED, NEGLECTED, OR IN AN UNSAFE ENVIRONMENT? NO . ENDOCRINOLOGY: ARE YOU DIABETIC? NO . OTHER: DO YOU NEED ANY PRESCRIPTIONS? YES, NORCO . IF YES, PLEASE LIST: ____ . ANY NEW PROBLEMS WITH YOUR MEDICATIONS? NO . WHEN DID YOU LAST EAT? ____ . WHEN DID YOU LAST DRINK? ____ . WHAT DID YOU LAST DRINK? ____ . NAME OF PERSON DRIVING YOU HOME? ____ . DO YOU HAVE ANY OTHER QUESTIONS OR CONCERNS NO . VITAL SIGNS WT 142 LBS, HT 60 IN, BMI 27.73 INDEX, BP 117/80 MM HG, HR 83 /MIN, RR 16 /MIN, TEMP 98.8 F, OXYGEN SAT % 97, REVIEWED BY: EM. EXAMINATION GENERAL EXAMINATION: GENERAL APPEARANCE:AWAKE,ALERT ,PLEAASANT . PSYCHAFFECT NORMAL . LUNGS:LUNG BERMUDEZ ARE CLEAR TO AUSCULTATION BILATERALLY. GOOD MOVEMENT OF AIR . HEART:S1, S2 IN A REGULAR RATE AND RHYTHM. NO SIGNIFICANT MURMURS, RUBS OR GALLOPS NOTED . HIP / THIGH: HIP:BILATERAL. INSPECTION:NO EFFUSION, ECCHYMOSIS OR DEFORMITIES. PALPATION:TENDERNESS OVER TROCHANTERIC BURSA. ASSESSMENTS LUMBAR DISC DISPLACEMENT WITHOUT MYELOPATHY - M51.26 (PRIMARY) TREATMENT LUMBAR DISC DISPLACEMENT WITHOUT MYELOPATHY REFILL HYDROCODONE-ACETAMINOPHEN TABLET, 10-325 MG, 1 TABLET NEEDED, ORALLY, Q8H PRN MDD3 #45 TAB SHOULD LAST 30 DAYS, 30 DAY(S), 45, REFILLS 0 CONTINUE TRAMADOL HCL TABLET, 50 MG, ORALLY, DAILY MARIBEL HIPS BILAT 2VIEW W/AP [id number] NOTES: ISTOP REGISTRY REVIEWED AND DEMONSTRATES COMPLLIANCE. BRINGS IN MEDICATIONS WHICH IS APPROPRIATE FOR WHAT WAS DISPENSED. RECENT URINE TOXICOLOGY REVIEWED. NO UNAUTHORIZED MEDICATIONS. NO ILLICIT SUBSTANCES AND PRESCRIBED MEDICATIONS WERE PRESENT. , RISKS AND BENEFITS OF NARCOTIC/OPIOD MEDICATIONS WERE REVIEWED WITH PATIENT - THIS INCLUDES BUT IS NOT LIMITED TO RISK OF DEPENDANCE/DEVELOPMENT OF ADDICTION, MOOD DISTURBANCE AND DEPRESSION, OSTEOPOROSIS, HORMONAL AND LABIDAL CHANGES, RESPIRATORY DEPRESSION AND . PATIENT IS ADVISED NOT TO DRIVE OR DRINK ALCOHOL WHILE ON THESE MEDICATIONS. PROCEDURE CODES FA211 ESTABILISHED PATIENT [facility] CHARGE DISPOSITION & COMMUNICATION FOLLOW UP 2 MONTHS ELECTRONICALLY SIGNED BY LINDA SALINAS, BRAD ON 11/03/2018 AT 04:13 PM EST DISCLAIMER : THIS IS A VISIT SUMMARY EXTRACTED FROM THE [employer] CHART. IT IS NOT A COPY OF THE [employer] [place] PROGRESS NOTE. IFTIKHAR
== END ==
LOC: M PAIN 14:15
PROVIDERS: ATTEND Nurse Practitioner Family
DX: M51.26 Other intervertebral disc displacement, lumbar region (principal); G43.909 Migraine, unspecified, not intractable, without status migrainosus; M25.512 Pain in left shoulder; K57.90 Diverticulosis of intestine, part unspecified, without perforation or abscess without bleeding; Z85.820 Personal history of malignant melanoma of skin; L28.1 Prurigo nodularis; M79.7 Fibromyalgia; M41.9 Scoliosis, unspecified; M19.90 Unspecified osteoarthritis, unspecified site; Z90.49 Acquired absence of other specified parts of digestive tract; Z98.1 Arthrodesis status; Z87.891 Personal history of nicotine dependence; Z79.899 Other long term (current) drug therapy; Z88.8 Allergy status to other drugs, medicaments and biological substances

== ENCOUNTER → 2018-11-26 | Outpatient (CLI) | payer BC ==
[~2018-11-26] MED LIST changes: +ROPI1TAB PO; +SERT-138 PO; +VITA50005 PO
--- NOTE | 2018-11-26 11:52 | REP ---
BILATERAL HIP STUDY: Five views. HISTORY: Lumbar disc displacement without myelopathy. Comparison radiographs are from February 10, 2004. FINDINGS: The patient is status post lumbosacral spine fusion. Anastomotic sutures are seen in the central pelvis. The bony pelvic ring is intact. Minimal degenerative sclerosis is seen at the SI joints. Femoral heads are smooth and rounded bilaterally. Hip joint spaces are preserved. Periarticular soft tissues are unremarkable. IMPRESSION: Negative radiographs of the hips bilaterally. No evidence of arthropathy. Status post lumbar spine fusion. Electronically Signed by Nicola Mistry MD 11/26/2018 02:59 P
== END ==
LOC: M RAD 08:22
PROVIDERS: ATTEND Nurse Practitioner Family
DX: M51.26 Other intervertebral disc displacement, lumbar region (principal); Z98.1 Arthrodesis status

== ENCOUNTER → 2018-11-26 | Outpatient (CLI) | payer BC ==
--- NOTE | 2018-11-26 13:49 | REP ---
BILATERAL HAND SERIES: Nine views. HISTORY: Question rheumatoid arthritis. FINDINGS: There is diffuse osteopenia. There are osteoarthritic changes at the 1st carpometacarpal articulation on the right side. There is mild osteoarthritic narrowing and spur formation at the DIP joints of the index and small finger on the right well as the long finger DIP. No erosive change i seen. On the left, there is moderate osteoarthritis at the first carpometacarpal articulation as well. Osteoarthritic spurs are seen at the index DIP, the long finger DIP, and spurring and joint space narrowing are seen at the small finger DIP. There is soft tissue swelling about the DIP joint of the small finger. Some central erosions are seen at the DIP joint of the small finger consistent with erosive osteoarthritis. No marginal erosions are seen. IMPRESSION: Osteoporosis. Osteoarthritic changes as noted above. There are erosive osteoarthritic changes involving the DIP joint and the small finger on the left. No compelling evidence of rheumatoid arthritis. Electronically Signed by Nicola Mistry MD 11/26/2018 03:04 P
== END ==
LOC: M RAD 08:16
PROVIDERS: ATTEND Internal Medicine Hematology & Oncology
DX: D47.3 Essential (hemorrhagic) thrombocythemia (principal); M19.041 Primary osteoarthritis, right hand; M19.042 Primary osteoarthritis, left hand; M81.0 Age-related osteoporosis without current pathological fracture; M85.841 Other specified disorders of bone density and structure, right hand; M85.842 Other specified disorders of bone density and structure, left hand

== ENCOUNTER → 2018-12-02 | Outpatient (CLI) | payer BC ==
--- NOTE | 2018-12-02 10:34 | REP ---
Noncontrast chest CT: Low-dose screening exam. History: Tobacco use. [place] chest CT images are from August 24, 2015. Findings: There are a few peripheral bullae in the right lung apex which are unchanged. There is a stable 5 mm pleural-based nodule in the right lower lobe on page 67 of 103 of today's study. No new solid nodule is seen. There are however two new ground-glass opacities. One is an elongate ground-glass opacity in the left lower lobe measuring 21 by 6 mm. This is seen on page 49. The other ground-glass opacity is in the posterior segment right upper lobe seen on page 29. This measures 11 mm in greatest diameter. There is a tiny granulomatous calcification in the right lower lobe on page 44 which is unchanged. No other significant pulmonary opacity is seen. No other significant finding. Impression: Lung RADS category three screening study. 6-month follow-up CT study recommended. Two new ground-glass opacities one of which measures greater than 20 mm. Electronically Signed by Nicloa Mistry MD 12/02/2018 11:04 A
== END ==
LOC: M RAD 08:56
PROVIDERS: ATTEND Internal Medicine Hematology & Oncology
DX: D69.6 Thrombocytopenia, unspecified (principal); R41.840 Attention and concentration deficit; F17.210 Nicotine dependence, cigarettes, uncomplicated

== ENCOUNTER → 2018-12-20 | Outpatient (CLI) | payer BC, MEDICARE ==
[~2018-12-20] MED LIST changes: +CRES10TA PO; -CRES10TA32 PO; -CRES20TA PO; +CRES20TA2 PO; +GABA600T4 PO; +SERT-141 PO; -SERT50TA PO
--- NOTE | 2019-01-08 01:37 | ECWPNPC ---
PATIENT NAME: ANDI SEXTON : 1960 GENDER: FEMALE VISIT DATE: 12/20/2018 DISCHARGE DATE: 12/20/18 1021 VISIT LOCKED DATE TIME: PHYSICIAN: LINDA KRAFT RESOURCE: LINDA KRAFT REASON FOR APPOINTMENT 1. BACK/SCIATIC PAIN HISTORY OF PRESENT ILLNESS HISTORY OF PRESENT ILLNESS: HERE FOR F/U OF CHRONIC LOW BACK PAIN WITH RADIATION INTO LEFT POSTERIOR THIGH.TODAY SHE REPORTS THAT SHE HAS BEEN HAVING EPISODES OF URINARY AND BOWEL INCONTINENCE OVER THE PAST 6 MONTHS.DENIES WEIGHT LOSS .FOLLOWS WITH ONCOLOGY FOR ELEVATED WHITE COUNT.CURRENTLY WITHOUT PRIMARY CARE PROVIDER.RATING PAIN VAS 5/10. PAIN THE PATIENT DESCRIBES THE PAIN... FALL RISK SCREENING: SCREENING :NO FALLS REPORTED IN THE LAST YEAR CURRENT MEDICATIONS TAKING MAXALT 10 MG TABLET 1 TABLET NEEDED ONE TIME ORALLY ONCE A DAY TAKING OMEPRAZOLE 40 MG CAPSULE DELAYED RELEASE 1 CAPSULE ORALLY DAILY TAKING ROPINIROLE HCL 5 MG TABLET 1 TABLET ORALLY TWO TIMES A DAY TAKING MECLIZINE HCL 25 MG TABLET 1 TABLET NEEDED ORALLY Q8 HR NEEDED TAKING TIZANIDINE HCL 2 MG TABLET 1 TABLET NEEDED ORALLY THREE TIMES A DAY TAKING ZOFRAN 4 MG TABLET 1 TAB ORALLY EVERY 4 HOURS NEEDED TAKING GABAPENTIN 600 MG TABLET 1 CAPSULE ORALLY THREE TIMES A DAY TAKING SERTRALINE HCL 100 MG TABLET 2 TABLET ORALLY ONCE A DAY TAKING HYDROXYZINE HCL 50 MG TABLET -2 TABLET ORALLY BEFORE BEDTIME PRN TAKING MAY USE [facility]ICAL [facility] DAILY TAKING VITAMIN D (ERGOCALCIFEROL) 19942 UNIT CAPSULE 1 CAPSULE ORALLY TAKING WELLBUTRIN XL 150 MG TABLET EXTENDED RELEASE 24 HOUR 1 TABLET IN THE MORNING ORALLY ONCE A DAY TAKING HYDROCODONE-ACETAMINOPHEN 10-325 MG TABLET 1 TABLET NEEDED ORALLY Q8H PRN MDD3 #45 TAB SHOULD LAST 30 DAYS TAKING TRAMADOL HCL 50 MG TABLET ORALLY DAILY NOT-TAKING MELOXICAM 15 MG TABLET 1 TABLET ORALLY ONCE A DAY MEDICATION LIST REVIEWED AND RECONCILED WITH THE PATIENT PAST MEDICAL HISTORY ANDREWS-MIGRAINES LEFT SHOULDER PAIN DIVERTICULOSIS- DIVERTICULITIS NUMBNESS AND TINGLING TO FINGERS AND TOES DUE TO TOPAMAX 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 SOCIAL HISTORY GENERAL: TOBACCO USE ARE YOU A:FORMER SMOKER HOW LONG HAS IT BEEN SINCE YOU LAST SMOKED?3-6 MONTHS APRIL 19, 2018 LATEX QUESTIONNAIRE LATEX ALLERGY : HAVE YOU EVER DEVELOPED ANY TYPE OF REACTION AFTER HANDLING LATEX PRODUCTS SUCH RUBBER GLOVES, CONDOMS, DIAPHRAGMS, BALLOONS, SOCKS, OR UNDERWEAR?NO LATEX ALLERGY : HAVE YOU EVER DEVELOPED ANY TYPE OF REACTION DURING OR AFTER DENTAL APPOINTMENT, VAGINAL/RECTAL EXAMINATION, SURGICAL PROCEDURE, OR ANY OTHER EXPOSURE?NO LATEX RISK : HAVE YOU EVER HAD ANY DIFFICULTY BREATHING OR HIVES AFTER EATING OR HANDLING ANY FRUITS, OR VEGETABLES; SUCH KIWI, BANANAS, STONE FRUITS, OR CHESTNUTSNO LATEX RISK : DO YOU HAVE A PREVIOUS PERSONAL HISTORY OF MORE THAN NINE SURGERIES, SPINA BIFIDA, OR REPEATED CATHERTIZATIONS? YES - PLEASE INDICATE : > 9 SURGERIES LATEX RISK : ARE YOU FREQUENTLY EXPOSED TO LATEX PRODUCTS IN YOUR OCCUPATION?NO DATE ASKED : 12/20/2018 ALCOHOL SCREENING DID YOU HAVE A DRINK CONTAINING ALCOHOL IN THE PAST YEAR?NO POINTS0 INTERPRETATIONNEGATIVE RECREATIONAL DRUG USE: NEVER DRUG USE? NO. CAFFEINE: YES CAFFEINE USE?YES HOW OFTEN AND HOW MUCH? 2 CUPS COFFEE, 2 LITERS COKE/DAY RELIGIOUS [id number] YAZIDISM LANGUAGE LANGUAGES SPOKEN:MALTESE LEARNING BARRIERS / SPECIAL NEEDS ABILITY TO UNDERSTAND VERBAL INSTRUCTIONS AVERAGE, ABILITY TO UNDERSTAND WRITTEN INSTRUCTIONS AVERAGE, KNOWLEDGE OF EDUCATIONAL NEEDS/TREATMENT PLAN AVERAGE, LEARNING PREFERENCE NO PREFERENCE, ORIENTED TO PLAN OF CARE: PATIENT, PAIN MANAGEMENT PATIENT. DOMESTIC VIOLENCE DO YOU FEEL SAFE IN YOUR ENVIRONMENT?YES NEW PATIENT PAIN DIARY DO YOU TAKE ANY BLOOD THINNERS?NO ANY CHANGE IN BOWEL OR BLADDER CONTROL?YES HAS DIARRHEA FROM DIVERTICULOSIS ARE YOU ALLERGIC TO SHELLFISH OR IV DYE?NO ARE YOU DIABETIC?NO DO YOU HAVE A PACEMAKER OR DEFIBRILLATOR?NO ANY NEW PROBLEMS WITH MEDICINES OR NEW ALLERGIESNO HAVE YOU FALLEN IN THE LAST 6 MONTHS?YES TRIPPED LAST NIGHT NOT SURE WHAT HAPPENED. SLIPPED AND FELL ONTO KNEES DO YOU USE ANY TYPE OF TOBACCO (SMOKE, SMOKELESS, CHEW, ETC.)YES ARE YOU ABUSED, NEGLECTED, OR IN AN UNSAFE ENVIRONMENT?NO DO YOU HAVE THOUGHTS OF HURTING YOURSELF OR SOMEONE ELSE?NO PAIN CLINIC PFS, CLERGY, PUBLIC HEALTH REFERRALS PFS REFERRAL NEEDED?NO CLERGY REFERRAL NEEDED?NO PUBLIC HEALTH REFERRAL NEEDED?NO WAS THE PROVIDER NOTIFIED OF ANY PERTINENT INFO?YES HAS THE PATIENT BEEN EDUCATED REGARDING HIS/HER PLAN OF CARE?YES HAS THE PATIENT BEEN EDUCATED REGARDING PAIN, THE RISK FOR PAIN, THE IMPORTANCE OF EFFECTIVE PAIN MANAGEMENT, AND THE PAIN ASSESSMENT PROCESS?YES ADVANCE DIRECTIVE ADVANCE DIRECTIVE DISCUSSED WITH PATIENT:YES HCP-- , RODRIGUEZ REVIEWED WITH PT 08/14/18 1525 LAS. HOSPITALIZATION/MAJOR DIAGNOSTIC PROCEDURE DIVERTICULITIS SEVERAL TIMES 01/2017 BOWEL OBSTRUCTION BACK SURGERY 06/20 REVIEW OF SYSTEMS REVIEWED BY: PROVIDER: LINDA SALINAS . CONSTITUTIONAL: ANY CHANGE IN YOUR MEDICAL CONDITION? NO . CHILLS NO . FEVER NO . INFECTION: DO YOU HAVE NEW INFECTIONS? NO . DO YOU HAVE HISTORY OF MRSA? YES . MUSCULOSKELETAL: ANY NEW PATTERNS OF PAIN OR NUMBNESS? NO . GASTROENTEROLOGY: ANY NEW CHANGE IN BOWEL CONTROL? YES, PT FEELS IT IS RELATED TO SCIATIC PAIN . GENITOURINARY: ANY NEW CHANGE IN BLADDER CONTROL? YES . IS THERE A CHANCE YOU COULD BE ? NO . HEMATOLOGY/LYMPH: DO YOU TAKE ANY BLOOD THINNERS? (FOR EXAMPLE- COUMADIN, PLAVIX, AGGRENOX, PLATEL, PRADAXA, OR XARELTO) NO . WHEN WAS YOUR LAST DOSE? DATE: TIME: . NEUROLOGY: HAVE YOU FALLEN IN THE PAST 12 MONTHS? YES, PT STATES THAT SHE WAS HOME, HIT HEAD, LOST CONSCIOUSNESS, DID NOT REPORT TO ED. HAS DONE TESTING MRI/MRA SINCE FALL, NO NOTED ISSUES. DS . ANY NEW EXTREMITY NUMBNESS OR WEAKNESS? NO . CARDIOLOGY: DO YOU HAVE A PACEMAKER OR DEFIBRILLATOR? NO . RESPIRATORY: HAVE YOU BEEN SICK IN THE PAST WEEK? NO . FEVER NO . FLU LIKE SYMPTOMS? NO . COUGH NO . INTEGUMENTARY: DO YOU HAVE ANY RASHES OR OPEN SORES? NO . ALLERGIC/IMMUNO: ARE YOU ALLERGIC TO IV DYE? NO . ANY NEW ALLERGIES? NO . PSYCHIATRIC: DO YOU HAVE THOUGHTS OF HURTING YOURSELF OR SOMEONE ELSE? NO . ARE YOU ABUSED, NEGLECTED, OR IN AN UNSAFE ENVIRONMENT? NO . ENDOCRINOLOGY: ARE YOU DIABETIC? NO . OTHER: DO YOU NEED ANY PRESCRIPTIONS? YES, HYDROCODONE . IF YES, PLEASE LIST: ____ . ANY NEW PROBLEMS WITH YOUR MEDICATIONS? NO . WHEN DID YOU LAST EAT? ____ . WHEN DID YOU LAST DRINK? ____ . WHAT DID YOU LAST DRINK? ____ . NAME OF PERSON DRIVING YOU HOME? ____ . DO YOU HAVE ANY OTHER QUESTIONS OR CONCERNS NO . VITAL SIGNS WT 138 LBS, HT 60 IN, BMI 26.95 INDEX, BP 147/85 MM HG, HR 86 /MIN, RR 16 /MIN, TEMP 98.3 F, OXYGEN SAT % 98%, SAFE IN ENV? (Y/N) Y, NA INITIALS AW 0926, REVIEWED BY: SUBHASH. EXAMINATION GENERAL EXAMINATION: GENERAL APPEARANCE:AWAKE,ALERT ,PLEAASANT . PSYCHAFFECT NORMAL . LUNGS:LUNG BERMUDEZ ARE CLEAR TO AUSCULTATION BILATERALLY. GOOD MOVEMENT OF AIR . HEART:S1, S2 IN A REGULAR RATE AND RHYTHM. NO SIGNIFICANT MURMURS, RUBS OR GALLOPS NOTED . MUSCULOSKELETAL:WEAK OVER RIGHT LEG. LUMBAR SACRAL SPINEPALPATION: + FOR PAIN OVER L/S SPINE. + FOR PAIN OVER L/S PARASPINALS. NEUROLOGIC EXAM:NORMAL SENSATION LIGHT TOUCH BILAT. LOWER EXTREMITIES. ASSESSMENTS LUMBAR DISC DISPLACEMENT WITHOUT MYELOPATHY - M51.26 (PRIMARY) TREATMENT LUMBAR DISC DISPLACEMENT WITHOUT MYELOPATHY CONTINUE TIZANIDINE HCL TABLET, 2 MG, 1 TABLET NEEDED, ORALLY, THREE TIMES A DAY REFILL HYDROCODONE-ACETAMINOPHEN TABLET, 10-325 MG, 1 TABLET NEEDED, ORALLY, Q8H PRN MDD3 #45 TAB SHOULD LAST 30 DAYS, 30 DAY(S), 45, REFILLS 0 REFILL TRAMADOL HCL TABLET, 50 MG, 1 CAP, ORALLY, Q6H PRN PAIN MDD4, 30 DAY(S), 100, REFILLS 2 CONTINUE MELOXICAM TABLET, 15 MG, 1 TABLET, ORALLY, ONCE A DAY [facility] MRI SPINE, L.S. WITHOUT [id number] NOTES: ISTOP REGISTRY REVIEWED AND DEMONSTRATES COMPLLIANCE. BRINGS IN MEDICATIONS WHICH IS APPROPRIATE FOR WHAT WAS DISPENSED. RECENT URINE TOXICOLOGY REVIEWED. NO UNAUTHORIZED MEDICATIONS. NO ILLICIT SUBSTANCES AND PRESCRIBED MEDICATIONS WERE PRESENT. PROCEDURE CODES FA211 ESTABILISHED PATIENT [facility] CHARGE DISPOSITION & COMMUNICATION FOLLOW UP 2 MONTHS ELECTRONICALLY SIGNED BY BRAD BERTRAND ON 01/06/2019 AT 09:10 AM EDT DISCLAIMER : THIS IS A VISIT SUMMARY EXTRACTED FROM THE [employer] CHART. IT IS NOT A COPY OF THE [employer] PROGRESS NOTE. IFTIKHAR
== END ==
LOC: M PAIN 09:00
PROVIDERS: ATTEND Nurse Practitioner Family
DX: M51.26 Other intervertebral disc displacement, lumbar region (principal); G89.29 Other chronic pain; G43.909 Migraine, unspecified, not intractable, without status migrainosus; M79.7 Fibromyalgia; M19.90 Unspecified osteoarthritis, unspecified site; Z87.891 Personal history of nicotine dependence; Z88.8 Allergy status to other drugs, medicaments and biological substances; Z86.14 Personal history of Methicillin resistant Staphylococcus aureus infection; Z79.891 Long term (current) use of opiate analgesic; Z79.899 Other long term (current) drug therapy

== ENCOUNTER → 2018-12-27 | Outpatient (CLI) | payer BC, MEDICARE ==
[~2018-12-27] MED LIST changes: +PROHANCE 279.3MG/ML 15ML VIAL (A9576) As Ordered ONE
--- NOTE | 2018-12-27 10:35 | REP ---
MR LUMBAR SPINE WITHOUT AND WITH CONTRAST: HISTORY: Disc displacement. CONTRAST: ProHance 12.4 mL. Comparison: 02/27/2018 The examination is limited due to artifact from metal hardware. The posterior vertebral bodies, neural foramina, spinal canal, and neural arch are not seen from L3 to L5. The patient is status post L3-S1 posterior spinal fusion and L4-5 laminectomy. Decreased signal intensity on T2-weighted images is present in the L2-3 through L5-S1 intervertebral disc. The disc is decreased in height. These findings are consistent with disc degeneration. There is no disc bulge or herniation at the L1-2 level. The L1 nerves exit the neural foramina without compression. A diffuse disc bulge is present at the L2-3 level. There is hypertrophy of the ligamenta flava and posterior articulating facets. These findings produce minimal central canal stenosis. The L2 nerves exit the neural foramina without compression. There is no disc bulge or herniation at the L4-5 level. The neural foramina are not seen. A diffuse disc bulge and small central disc extrusion are present at the L5-S1 level. The disc extrusion abuts the thecal sac. The L5 nerves exit the neural foramina without compression. The conus medullaris is normal in appearance terminating at the level of the L1-2 intervertebral disc. A hemangioma is present in the L1 vertebral body. Normal signal intensity is present in the remaining visualized lumbar vertebral bodies. IMPRESSION: 1. Minimal central canal stenosis at the L2-3 level secondary to disc bulge, ligamentous, and facet hypertrophy. This is a new finding. 2. The patient is status post L3 to S1 posterior spinal fusion and L4-5 laminectomy. There is anatomic alignment. This is a new finding. 3. Diffuse disc bulge and small central disc extrusion at the L5-S1 level. The disc extrusion abuts the thecal sac. There is no other significant change. Electronically Signed by Bobby Cannon MD 12/27/2018 10:48 A
== END ==
LOC: M RAD 08:37
PROVIDERS: ATTEND Nurse Practitioner Family
DX: M51.26 Other intervertebral disc displacement, lumbar region (principal); M51.27 Other intervertebral disc displacement, lumbosacral region; Z98.1 Arthrodesis status; M48.061 Spinal stenosis, lumbar region without neurogenic claudication
CPT/HCPCS: 72158; A9576

== ENCOUNTER → 2019-01-14 | Outpatient (REF) | payer BC ==
[~2019-01-14] MED LIST changes: +HYDR-4517 PO; -PROHANCE 279.3MG/ML 15ML VIAL (A9576) As Ordered ONE
[2019-01-14 12:26] LABS: BASO # 0.1 10^3/uL (0.0-0.2); EOS # 0.2 10^3/uL (0.0-0.50); EOS % 2.8 % (0.0-3.0); HEMOGLOBIN 12.2 g/dl (12.0-15.5); LYMPH # 2.8 10^3/uL (1.5-4.5); LYMPH % 33.7 % (24.0-44.0); MEAN CORPUSCULAR HEMOGLOBIN 26.2 pg (27.0-33.0); MEAN CORPUSCULAR HGB CONC 32.1 g/dl (32.0-36.5); MEAN CORPUSCULAR VOLUME 81.5 fl (80.0-96.0); MONO # 0.5 10^3/uL (0.0-0.8); MONO % 6.1 % (0.0-5.0); NEUTROPHILS # 4.6 10^3/uL (1.8-7.7); PLATELET COUNT, AUTOMATED 509 10^3/uL (150-450); RED BLOOD COUNT 4.66 10^6/uL (4.00-5.40); WHITE BLOOD COUNT 8.2 10^3/uL (4.0-10.0)
[2019-01-14 13:03] LABS: ALBUMIN 3.4 GM/DL (3.2-5.2); ALT/SGPT 14 U/L (12-78); BILIRUBIN,TOTAL 0.1 MG/DL (0.2-1.0); BLOOD UREA NITROGEN 8 MG/DL (7-18); CALCIUM LEVEL 9.2 MG/DL (8.8-10.2); CARBON DIOXIDE LEVEL 27 MEQ/L (21-32); CHLORIDE LEVEL 105 MEQ/L (98-107); CHOLESTEROL LEVEL 321 MG/DL (<200); CHOLESTEROL RISK RATIO 8.025 (<5); CREATININE FOR GFR 0.91 MG/DL (0.55-1.30); FREE T4 0.83 NG/DL (0.76-1.46); GLOMERULAR FILTRATION RATE > 60.0 (>45); GLUCOSE, FASTING 90 MG/DL (70-100); HDL CHOLESTEROL 40 MG/DL (>40); LDL CHOLESTEROL 210 MG/DL (<100); NON-HDL-C 281 MG/DL; POTASSIUM SERUM 4.3 MEQ/L (3.5-5.1); PTH INTACT 56.7 PG/ML (18.5-88.0); SODIUM LEVEL 138 MEQ/L (136-145); TOTAL 25(OH) VITAMIN D 23.7 NG/ML (30.0-100.0); TOTAL PROTEIN 7.1 GM/DL (6.4-8.2); TRIGLYCERIDES LEVEL 354 MG/DL (<150)
== END ==
LOC: M LABDRAW1 11:50
PROVIDERS: ATTEND Physician Assistant Medical
DX: Z13.220 Encounter for screening for lipoid disorders (principal); K21.9 Gastro-esophageal reflux disease without esophagitis; E55.9 Vitamin D deficiency, unspecified; F33.0 Major depressive disorder, recurrent, mild

== ENCOUNTER → 2019-01-17 | Outpatient (CLI) | payer BC ==
--- NOTE | 2019-01-17 15:50 | REPMRS ---
Patient History The patient states she has not had a clinical breast exam in over a year. Patient is postmenopausal and has history of cervical cancer at age 20. Family history of breast cancer under age 50 in maternal aunt, breast cancer under age 50 in maternal aunt. Benign excisional biopsy of the left breast, 2007. Digital Woman Screen Mammo: January 17, 2019 - Exam #: [id number] Bilateral CC and MLO view(s) were taken. Technologist: Marline Fraser, Technologist Prior study comparison: 2016, bilateral digital mammo screening bilat, performed at [facility]. January 29, 2015, bilateral digital woman screen mammo, performed at [facility]. December 08, 2011, bilateral digital woman screen mammo, performed at [facility]. FINDINGS: The breast tissue is heterogeneously dense. This may lower the sensitivity of mammography. There is a moderate amount of heterogeneously dense fibroglandular tissue which is fairly symmetric. There is no interval development of dominant mass, architectural distortion, or clustered microcalcification typical of malignancy. There has been no change in the appearance of the mammogram from the prior studies. 3-D tomosynthesis shows no additional findings. Assessment: BI-RADS/ACR category 1 mammogram. Negative Mammogram. Recommendation Routine screening mammogram of both breasts in 1 year (for women over age 40). This patient's Lifetime Breast Cancer RIsk is estimated at 3.7 %. This mammogram was interpreted with the aid of an FDA-approved computer-aided dectection system. Electronically Signed By: Chong Mistry MD 01/17/19 [id number]
== END ==
LOC: M WHC 10:49
PROVIDERS: ATTEND Physician Assistant Medical
DX: Z12.31 Encounter for screening mammogram for malignant neoplasm of breast (principal); Z78.0 Asymptomatic menopausal state; Z85.41 Personal history of malignant neoplasm of cervix uteri

== ENCOUNTER 2019-02-13 08:46 | Day surgery (SDC) | payer BC ==
[~2019-02-13] VITALS: Ht 152.4 cm; Wt 60.3 kg
[~2019-02-13 08:46] MED LIST changes: +CBD OIL; +CVS2500C PO; +LIPI10TA PO; +NICO14DI3 TD; +NS 1,000 ML IV ONE; +ZOFR4TAB16 PO
[2019-02-13] MEDS ORDERED: LIDOCAINE 2% INJ 100 MG/5 ML SDV (FOR ANES.) As Ordered ONE (10:10)
[2019-02-13] MEDS ORDERED: PROPOFOL 200 MG/20 ML VIAL As Ordered ONE (10:10)
--- NOTE | 2019-02-13 10:19 | ROOR ---
Patient Name: Skip Manzo Procedure Date: 02/13/2019 10:07 AM Date of : 1960 Age: 58 Room: [facility], [facility] Gender: Female Note Status: Finalized Procedure: Upper GI endoscopy Indications: Suspected esophageal reflux Providers: Nacho Kan Jr, MD Referring MD: KARINE MILLAN NP Requesting Provider: Medicines: Propofol per Anesthesia Complications: No immediate complications. Procedure: Pre-Anesthesia Assessment: - Prior to the procedure, a History and Physical was performed, and patient medications and allergies were reviewed. The patient is competent. The risks and benefits of the procedure and the sedation options and risks were discussed with the patient. All questions were answered and informed consent was obtained. Patient identification and proposed procedure were verified by the physician and the nurse in the pre-procedure area and in the procedure room. Mental Status Examination: alert and oriented. Airway Examination: normal oropharyngeal airway and neck mobility. Respiratory Examination: clear to auscultation. CV Examination: normal. ASA Grade Assessment: II - A patient with mild systemic disease. After reviewing the risks and benefits, the patient was deemed in satisfactory condition to undergo the procedure. The anesthesia plan was to use moderate sedation / analgesia (conscious sedation). Immediately prior to administration of medications, the patient was re-assessed for adequacy to receive sedatives. The heart rate, respiratory rate, oxygen saturations, blood pressure, adequacy of pulmonary ventilation, and response to care were monitored throughout the procedure. The physical status of the patient was re-assessed after the procedure. The Endoscope was introduced through the mouth, and advanced to the second part of duodenum. The upper GI endoscopy was accomplished without difficulty. The patient tolerated the procedure well. Findings: The upper third of the esophagus, middle third of the esophagus and lower third of the esophagus were normal. A small hiatal hernia was present. The cardia, gastric fundus, gastric body, gastric antrum, prepyloric region of the stomach and pylorus were normal. The duodenal bulb, first portion of the duodenum and second portion of the duodenum were normal. Impression: - Normal upper third of esophagus, middle third of esophagus and lower third of esophagus. - Small hiatal hernia. - Normal cardia, gastric fundus, gastric body, antrum, prepyloric region of the stomach and pylorus. - Normal duodenal bulb, first portion of the duodenum and second portion of the duodenum. - No specimens collected. Recommendation: - Discharge patient to home (ambulatory). - Return to my office as previously scheduled. Nacho Kan MD Nacho Kan Jr, MD 02/13/2019 10:18:54 AM Electronically signed by Nacho Kan Jr, MD Number of Addenda: 0 Note Initiated On: 02/13/2019 10:07 AM Estimated Blood Loss: Estimated blood loss: none.
--- NOTE | 2019-02-13 10:46 | ROOR ---
Patient Name: Skip Manzo Procedure Date: 02/13/2019 10:08 AM Date of : 1960 Age: 58 Room: [facility] Gender: Female Note Status: Finalized Procedure: Colonoscopy Indications: Clinically significant diarrhea of unexplained origin Providers: Nacho Kan Jr, MD Referring MD: KARINE MILLAN NP Requesting Provider: Medicines: Propofol per Anesthesia Complications: No immediate complications. Procedure: Pre-Anesthesia Assessment: - Prior to the procedure, a History and Physical was performed, and patient medications and allergies were reviewed. The patient is competent. The risks and benefits of the procedure and the sedation options and risks were discussed with the patient. All questions were answered and informed consent was obtained. Patient identification and proposed procedure were verified by the physician and the nurse in the pre-procedure area and in the procedure room. Mental Status Examination: alert and oriented. Airway Examination: normal oropharyngeal airway and neck mobility. Respiratory Examination: clear to auscultation. CV Examination: normal. ASA Grade Assessment: II - A patient with mild systemic disease. After reviewing the risks and benefits, the patient was deemed in satisfactory condition to undergo the procedure. The anesthesia plan was to use moderate sedation / analgesia (conscious sedation). Immediately prior to administration of medications, the patient was re-assessed for adequacy to receive sedatives. The heart rate, respiratory rate, oxygen saturations, blood pressure, adequacy of pulmonary ventilation, and response to care were monitored throughout the procedure. The physical status of the patient was re-assessed after the procedure. The Colonoscope was introduced through the anus and advanced to the cecum, identified by appendiceal orifice and ileocecal valve. The colonoscopy was performed without difficulty. The patient tolerated the procedure well. The quality of the bowel preparation was adequate. Findings: The rectum, descending colon and anastomosis appeared normal. A few small and large-mouthed diverticula were found in the anastomosis. Six polyps were found in the transverse colon, ascending colon and cecum. The polyps were small in size. These polyps were removed with a hot snare. Resection was complete, but the polyp tissue was only partially retrieved. A medium polyp was found in the cecum. The polyp was sessile. The polyp was removed with a hot snare. Resection was complete, but the polyp tissue was only partially retrieved. Impression: - The rectum, descending colon and colonic anastomosis are normal. - Diverticulosis at the colonic anastomosis. - Six small polyps in the transverse colon, in the ascending colon and in the cecum, removed with a hot snare. Complete resection. Partial retrieval. - One medium polyp in the cecum, removed with a hot snare. Complete resection. Partial retrieval. Recommendation: - Repeat colonoscopy in 3 years for surveillance. Nacho Kan MD Nacho Kan Jr, MD 02/13/2019 10:45:59 AM Electronically signed by Nacho Kan Jr, MD Number of Addenda: 0 Note Initiated On: 02/13/2019 10:08 AM Estimated Blood Loss: Estimated blood loss: none.
[2019-02-13 11:14] VITALS: BP 131/67
[2019-02-26] MEDS ORDERED: PROBCAP14 PO (08:49)
== END 2019-02-13 12:07 | disposition home or self-care (01) ==
LOC: M OPP 08:46
PROVIDERS: ATTEND Surgery
DX: D12.0 Benign neoplasm of cecum (principal); D12.2 Benign neoplasm of ascending colon; D12.3 Benign neoplasm of transverse colon; K57.30 Diverticulosis of large intestine without perforation or abscess without bleeding; R19.7 Diarrhea, unspecified; K44.9 Diaphragmatic hernia without obstruction or gangrene; Z98.0 Intestinal bypass and anastomosis status

== ENCOUNTER → 2019-02-27 | Outpatient (CLI) | payer BC ==
[~2019-02-27] MED LIST changes: +BUPIVACAINE HCL 0.25% 30 ML VIAL As Ordered ONE; +ISOVUE-M 300 61% 15ML VIAL (Q9967) As Ordered ONE; +LIDOCAINE 1% SDV INJ 30 ML VIAL As Ordered ONE; +MIDAZOLAM INJ 2 MG/2 ML VIAL (J2250) As Ordered ONE; -NS 1,000 ML IV ONE; +PROBCAP14 PO; +TRIAMCINOLONE ACETONIDE SUSP 40 MG/ML VIAL (J3301) As Ordered ONE; +diazePAM 5 MG TAB As Ordered ONE; +oxyCODONE 5MG TAB As Ordered ONE
--- NOTE | 2019-02-27 16:18 | REP ---
Cervical spine: Limited study two views. History: Bilateral cervical facet block for pain. 9 seconds of fluoroscopy time is reported. Findings: A sequence of two last image fluoroscopically obtained spot radiographs of the cervical spine document various needle positions and contrast injections associated with bilateral cervical spine injection procedure. Electronically Signed by Nicola Mistry MD 02/27/2019 04:43 P
--- NOTE | 2019-03-06 00:51 | ECWPNPC ---
PATIENT NAME: ANDI SEXTON : 1960 GENDER: FEMALE VISIT DATE: 02/27/2019 DISCHARGE DATE: 02/27/19 1229 VISIT LOCKED DATE TIME: PHYSICIAN: FROY PAYAN MD RESOURCE: FROY PAYAN MD REASON FOR APPOINTMENT 1. BILAT CFB THERAPEUTIC HISTORY OF PRESENT ILLNESS HISTORY OF PRESENT ILLNESS: PAIN THE PATIENT DESCRIBES THE PAIN... FALL RISK SCREENING: SCREENING :NO FALLS REPORTED IN THE LAST YEAR CURRENT MEDICATIONS TAKING PROBIOTIC - CAPSULE DIRECTED ORALLY , NOTES: 02-26-19899 TAKING VITAMIN B 12 100 MCG LOZENGE DIRECTED ORALLY TAKING SERTRALINE HCL 100 MG TABLET 2 TABLET ORALLY ONCE A DAY, NOTES: 02-26-19799 TAKING HYDROXYZINE HCL 50 MG TABLET -2 TABLET ORALLY BEFORE BEDTIME PRN, NOTES: 02-25-19899 TAKING WELLBUTRIN XL 150 MG TABLET EXTENDED RELEASE 24 HOUR 1 TABLET IN THE MORNING ORALLY ONCE A DAY, NOTES: 02-26-19799 TAKING DRISDOL 99107 UNIT CAPSULE 1 CAPSULE ORALLY EVERY OTHER WEEK, NOTES: SUNDAY TAKING ATORVASTATIN CALCIUM 40 MG TABLET 1 TABLET ORALLY ONCE A DAY, NOTES: 02-26-192099 TAKING OMEPRAZOLE 40 MG CAPSULE DELAYED RELEASE 1 CAPSULE ORALLY BID, NOTES: 599 TAKING ZOFRAN 4 MG TABLET 1 TABLET ORALLY ONCE A DAY, NOTES: 02-26-19899 TAKING MAXALT 10 MG TABLET 1 TABLET NEEDED ONE TIME ORALLY ONCE A DAY, NOTES: NOT LATELY TAKING ROPINIROLE HCL 5 MG TABLET 1 TABLET ORALLY TWO TIMES A DAY, NOTES: 02-26-192099 TAKING MECLIZINE HCL 25 MG TABLET 1 TABLET NEEDED ORALLY Q8 HR NEEDED, NOTES: NOT LATELY TAKING GABAPENTIN 600 MG TABLET 1 CAPSULE ORALLY THREE TIMES A DAY, NOTES: 02-26-192099 TAKING MAY USE MEDICAL MARAJUANA DAILY, NOTES: 02-26-19799 TAKING TIZANIDINE HCL 2 MG TABLET 1 TABLET NEEDED ORALLY THREE TIMES A DAY, NOTES: 02-26-192099 TAKING HYDROCODONE-ACETAMINOPHEN 10-325 MG TABLET 1 TABLET NEEDED ORALLY Q8H PRN MDD3 #45 TAB SHOULD LAST 30 DAYS, NOTES: 02-26-19899 TAKING TRAMADOL HCL 50 MG TABLET 1 CAP ORALLY Q6H PRN PAIN MDD4, NOTES: 02-26-19 0800 TAKING CALCIUM + D3 600-800 MG-UNIT TABLET 1 TABLET WITH A MEAL ORALLY BID, NOTES: 02-26-19 NOT-TAKING NICODERM CQ 14 MG/24HR PATCH 24 HOUR 1 PATCH TO SKIN TRANSDERMAL ONCE A DAY, NOTES: NOT ON NOT-TAKING ZOFRAN 4 MG TABLET 1 TAB ORALLY EVERY 4 HOURS NEEDED NOT-TAKING VITAMIN D (ERGOCALCIFEROL) 89871 UNIT CAPSULE 1 CAPSULE ORALLY EVERY OTHER WEEK MEDICATION LIST REVIEWED AND RECONCILED WITH THE PATIENT PAST MEDICAL HISTORY ANDREWS-MIGRAINES H/O DIVERTICULOSIS- DIVERTICULITIS NUMBNESS AND TINGLING TO FINGERS AND TOES DUE TO TOPAMAX 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 ARTHROSCOPIC TWICE ON L HYSTERECTOMY, PARTIAL & TOTAL; BLADDER REPAIR C 1ST ONE S/P LAP. CHOLECYSTECTOMY() S/P APPENDECTOMY BUNIONECTOMY BONE FUSION ON RT. 06-09-2016 LUMBAR SPINE FUSION S1-T12 06/17/18 S/P LUMPECTOMY LEFT BREAST 1995 MULTIPLE D&C'S, LAPAROSCOPIES FOR ENDOMETRIOSIS FAMILY HISTORY FATHER: ALIVE, DIAGNOSED WITH STROKE, HYPERTENSION MOTHER: ALIVE, DIABETES 2 SON(S) - HEALTHY. HOSPITALIZATION/MAJOR DIAGNOSTIC PROCEDURE DIVERTICULITIS SEVERAL TIMES 01/2017 BOWEL OBSTRUCTION BACK SURGERY 06/20 REVIEW OF SYSTEMS REVIEWED BY: PROVIDER: . CONSTITUTIONAL: ANY CHANGE IN YOUR MEDICAL CONDITION? NO . CHILLS NO . FEVER NO . INFECTION: DO YOU HAVE NEW INFECTIONS? NO . DO YOU HAVE HISTORY OF MRSA? YES . MUSCULOSKELETAL: ANY NEW PATTERNS OF PAIN OR NUMBNESS? NO . GASTROENTEROLOGY: ANY NEW CHANGE IN BOWEL CONTROL? NO . GENITOURINARY: ANY NEW CHANGE IN BLADDER CONTROL? NO . IS THERE A CHANCE YOU COULD BE ? NO . HEMATOLOGY/LYMPH: DO YOU TAKE ANY BLOOD THINNERS? (FOR EXAMPLE- COUMADIN, PLAVIX, AGGRENOX, PLATEL, PRADAXA, OR XARELTO) NO . WHEN WAS YOUR LAST DOSE? DATE: TIME: . NEUROLOGY: HAVE YOU FALLEN IN THE PAST 12 MONTHS? YES . ANY NEW EXTREMITY NUMBNESS OR WEAKNESS? NO . CARDIOLOGY: DO YOU HAVE A PACEMAKER OR DEFIBRILLATOR? NO . RESPIRATORY: HAVE YOU BEEN SICK IN THE PAST WEEK? NO . FEVER NO . FLU LIKE SYMPTOMS? NO . COUGH NO . INTEGUMENTARY: DO YOU HAVE ANY RASHES OR OPEN SORES? NO . ALLERGIC/IMMUNO: ARE YOU ALLERGIC TO IV DYE? NO . ANY NEW ALLERGIES? NO . PSYCHIATRIC: DO YOU HAVE THOUGHTS OF HURTING YOURSELF OR SOMEONE ELSE? NO . ARE YOU ABUSED, NEGLECTED, OR IN AN UNSAFE ENVIRONMENT? NO . ENDOCRINOLOGY: ARE YOU DIABETIC? NO . OTHER: DO YOU NEED ANY PRESCRIPTIONS? NO . IF YES, PLEASE LIST: ____ . ANY NEW PROBLEMS WITH YOUR MEDICATIONS? NO . WHEN DID YOU LAST EAT? ____LAST NIGHT 7 PM . WHEN DID YOU LAST DRINK? ____THIS MORNING AT 6 AM . WHAT DID YOU LAST DRINK? ____WATER . NAME OF PERSON DRIVING YOU HOME? ____JUNG MARQUES . DO YOU HAVE ANY OTHER QUESTIONS OR CONCERNS NO . VITAL SIGNS WT 134.4 LBS, HT 60 IN, BMI 26.25 INDEX, BP 142/79 MM HG, HR 74 /MIN, RR 18 /MIN, TEMP 98.4 F, OXYGEN SAT % 97%, NA INITIALS SC 10:51. ASSESSMENTS SPONDYLOSIS OF CERVICAL REGION WITHOUT MYELOPATHY OR RADICULOPATHY - M47.812 (PRIMARY) PROCEDURES PN CERVICAL FACET BLOCK LOW BILATERAL CERVICAL PRE PROCEDURE DIAGNOSIS CERVICAL SPONDYLOSIS POST PROCEDURE DIAGNOSIS CERVICAL SPONDYLOSIS PROCEDURE BILATERAL C2-C3 AND BILATERAL C3-C4 CERVICAL FACET BLOCK SURGEON DR. 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 I EVALUATE THE PATIENT AND REVIEWED THE CHART. I WENT OVER THE RISKS, ALTERNATIVES, AND BENEFITS ASSOCIATED WITH THIS PROCEDURE. THE PATIENT WOULD LIKE TO PROCEED AND GIVE CONSENT TO PERFORMED THE PROCEDURE. THE PATIENT DENIES UNEXPLAINABLE WEIGHT LOSS, FEVER, CHILLS, OR NEW CHANGES IN URINARY OR BOWEL CONTROL. DESCRIPTION OF PROCEDURE THE PATIENT WAS BROUGHT TO THE PROCEDURE ROOM AND PLACED IN THE PRONE POSITION. THE CERVICOTHORACIC AREA WAS CLEANED WITH CHLORAPREP SOLUTION AND DRAPED ASEPTICALLY. THE PROCEDURE WAS DONE UNDER STERILE CONDITIONS. I CHECKED LATERALITY AND THE LEVEL WHERE THE PROCEDURE WAS GOING TO BE PERFORMED WITH THE PATIENT AND THE SUPPORTING STAFF AT THE MOMENT OF THE TIME OUT IN THE PROCEDURE ROOM. UNDER FLUOROSCOPIC GUIDANCE, TARGET POINT WAS SELECTED AT THE RIGHT AND LEFT C2-C3 AND RIGHT AND LEFT C3-C4 CERVICAL FACET JOINT. TARGET POINTS WERE SELECTED AFTER LATERAL ROTATION AND TILT OF THE MAGNIFIER OF THE C-ARM. LIDOCAINE 0.5% WAS USED TO NUMB THE SKIN AND THE SUBCUTANEOUS TISSUE BELOW IT. SPINAL NEEDLES, 22-GAUGE, WERE ADVANCED UNDER FLUOROSCOPIC GUIDANCE AND FOLLOWING PATIENT FEEDBACK UNTIL THE TARGETS WERE TOUCHED. THE POSITION OF THE NEEDLES WAS VERIFIED WITH AP AND LATERAL VIEWS. AFTER PROPER POSITION OF THE NEEDLES WAS ACHIEVED, ISOVUE M DYE 30, 0.1 ML WAS INJECTED SHOWING SPREAD OF THE DYE. THEN A SOLUTION OF 0.9 ML OF BUPIVACAINE 0.125% AND KENALOG 10 MG WAS INJECTED AT EACH SITE. THERE WAS NO EVIDENCE OF BLOOD, PARESTHESIA OR CEREBROSPINAL FLUID DURING THE PROCEDURE. THE PATIENT WAS SENT TO THE RECOVERY ROOM. THE PATIENT WAS MOVING THE EXTREMITIES AND DOING WELL. THERE WAS NO COMPLICATION DURING THE PROCEDURE. FLUOROSCOPY TIME WAS 9 SECONDS POST PROCEDURE NOTE THE PATIENT WILL BE SEEN IN A FOLLOW UP IN THE NEXT FEW WEEKS. INSTRUCTIONS WERE GIVEN, QUESTIONS WERE ANSWERED, AND THE PATIENT EXPRESSED UNDERSTANDING AND AGREES WITH THE PLAN. I, MILI DONATO, DOCUMENTED THE ABOVE INFORMATION ACTING A SCRIBE FOR DR. PAYAN. I HAVE REVIEWED THE ABOVE DOCUMENT, WRITTEN BY MILI MANUEL AND I VERIFY THAT IT IS ACCURATE. DIAGNOSTIC IMAGING [facility] FACET BLOCK (PAIN)[id number] PROCEDURE CODES 6045F RADXPS IN END [id number] PXD 97771 INJ PARAVERT F JNT C/T 1 LEV, MODIFIERS: 50 07009 INJ PARAVERT F JNT C/T 2 LEV, MODIFIERS: 50 DISPOSITION & COMMUNICATION FOLLOW UP 3 WEEKS ELECTRONICALLY SIGNED BY FROY PAYAN MD, MD ON 03/05/2019 AT 01:20 PM EDT DISCLAIMER : THIS IS A VISIT SUMMARY EXTRACTED FROM THE [facility] CHART. IT IS NOT A COPY OF THE [facility] PROGRESS NOTE. MTDD
== END ==
LOC: M PAIN 10:45
PROVIDERS: ATTEND Anesthesiology
DX: M47.812 Spondylosis without myelopathy or radiculopathy, cervical region (principal); G43.909 Migraine, unspecified, not intractable, without status migrainosus; R20.0 Anesthesia of skin; M79.7 Fibromyalgia; M41.9 Scoliosis, unspecified; L28.1 Prurigo nodularis; K21.9 Gastro-esophageal reflux disease without esophagitis; F32.9 Major depressive disorder, single episode, unspecified; M81.0 Age-related osteoporosis without current pathological fracture; J43.9 Emphysema, unspecified; Z85.828 Personal history of other malignant neoplasm of skin; Z88.8 Allergy status to other drugs, medicaments and biological substances; Z79.891 Long term (current) use of opiate analgesic; Z79.899 Other long term (current) drug therapy
CPT/HCPCS: 64490; 64491; J3301; Q9967

== ENCOUNTER 2019-04-25 13:26 | Emergency (ER) | payer BC, MEDICARE ==
[~2019-04-25] VITALS: Ht 152.4 cm; Wt 55.5 kg
[~2019-04-25 13:26] MED LIST changes: -BUPIVACAINE HCL 0.25% 30 ML VIAL As Ordered ONE; -ISOVUE-M 300 61% 15ML VIAL (Q9967) As Ordered ONE; -LIDOCAINE 1% SDV INJ 30 ML VIAL As Ordered ONE; -MIDAZOLAM INJ 2 MG/2 ML VIAL (J2250) As Ordered ONE; -TRIAMCINOLONE ACETONIDE SUSP 40 MG/ML VIAL (J3301) As Ordered ONE; -diazePAM 5 MG TAB As Ordered ONE; -oxyCODONE 5MG TAB As Ordered ONE
[2019-04-25] MEDS ORDERED: METR-265 (13:43)
[2019-04-25] MEDS ORDERED: KLOR10TA76 PO (13:43)
[2019-04-25] MEDS ORDERED: CIPR500T3 (13:43)
[2019-04-25] MEDS ORDERED: NS 1,000 ML IV ONE (15:15)
[2019-04-25] MEDS ORDERED: ONDANSETRON 4MG/2ML VIAL (J2405) IV ONE (15:15)
[2019-04-25 16:45] LABS: BASO # 0.1 10^3/uL (0.0-0.2); EOS # 0.2 10^3/uL (0.0-0.50); EOS % 1.8 % (0.0-3.0); HEMOGLOBIN 13.3 g/dl (12.0-15.5); LYMPH # 3.3 10^3/uL (1.5-4.5); LYMPH % 36.9 % (24.0-44.0); MEAN CORPUSCULAR HEMOGLOBIN 28.5 pg (27.0-33.0); MEAN CORPUSCULAR HGB CONC 33.3 g/dl (32.0-36.5); MEAN CORPUSCULAR VOLUME 85.8 fl (80.0-96.0); MONO # 0.6 10^3/uL (0.0-0.8); NEUTROPHILS # 4.7 10^3/uL (1.8-7.7); NEUTROPHILS % 52.6 % (36.0-66.0); PLATELET COUNT, AUTOMATED 451 10^3/uL (150-450); RED BLOOD COUNT 4.66 10^6/uL (4.00-5.40); WHITE BLOOD COUNT 8.9 10^3/uL (4.0-10.0)
[2019-04-25 17:05] VITALS: BP 133/63
[2019-04-25 17:06] LABS: ALBUMIN 3.1 GM/DL (3.2-5.2); ALT/SGPT 34 U/L (12-78); AMYLASE 35 U/L (25-115); BILIRUBIN,DIRECT < 0.1 MG/DL (0.0-0.2); BILIRUBIN,TOTAL 0.2 MG/DL (0.2-1.0); BLOOD UREA NITROGEN 6 MG/DL (7-18); CALCIUM LEVEL 8.3 MG/DL (8.8-10.2); CARBON DIOXIDE LEVEL 26 MEQ/L (21-32); CHLORIDE LEVEL 106 MEQ/L (98-107); CREATININE FOR GFR 0.82 MG/DL (0.55-1.30); GLOMERULAR FILTRATION RATE > 60.0 (>45); GLUCOSE, FASTING 112 MG/DL (70-100); LIPASE 247 U/L (73-393); POTASSIUM SERUM 3.1 MEQ/L (3.5-5.1); SODIUM LEVEL 141 MEQ/L (136-145); TOTAL PROTEIN 5.8 GM/DL (6.4-8.2)
[2019-04-25] MEDS ORDERED: VANC125C3 PO (17:35)
[2019-04-25] MEDS ORDERED: PEPC1TAB5 PO (17:54)
[2019-04-25] MEDS ORDERED: HYDR25OIN TOP (17:54)
[2019-04-25] MEDS ORDERED: POTA20TA6 PO (17:56)
--- NOTE | 2019-04-25 23:49 | ECGEPIP ---
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 Order Number: [id number] Reading MD: Aleksandr French Measurements Intervals Ong Rate: 77 P: 46 OR: 137 QRS: 24 QRSD: 89 T: -37 QT: 427 QTc: 486 Interpretive Statements SINUS RHYTHM WITH SINUS ARRHYTHMIA LEFT VENTRICULAR HYPERTROPHY AND ST-T CHANGE Prolonged QTc interval Electronically Signed on 04-25-2019 23:48:44 EDT by Aleksandr French
== END 2019-04-25 18:17 | disposition home or self-care (01) ==
LOC: M ED 13:26
DX: A04.72 Enterocolitis due to Clostridium difficile, not specified as recurrent (principal); R21 Rash and other nonspecific skin eruption; Z72.0 Tobacco use; R51 Headache; R07.9 Chest pain, unspecified; E78.00 Pure hypercholesterolemia, unspecified; J44.9 Chronic obstructive pulmonary disease, unspecified; J43.9 Emphysema, unspecified; K21.9 Gastro-esophageal reflux disease without esophagitis; K57.32 Diverticulitis of large intestine without perforation or abscess without bleeding; Z87.442 Personal history of urinary calculi; Z87.448 Personal history of other diseases of urinary system; M54.9 Dorsalgia, unspecified; M81.0 Age-related osteoporosis without current pathological fracture; F32.9 Major depressive disorder, single episode, unspecified
CPT/HCPCS: 36415; 80048; 80076; 82150; 83690; 85025; 93005; 96361; 96374; 99284; J2405

== ENCOUNTER → 2019-04-28 | Outpatient (REF) | payer BC, MEDICARE ==
[~2019-04-28] MED LIST changes: +CIPR500T3; +DITR5TAB PO; +HYDR25OIN TOP; +KLOR10TA76 PO; -MECL-68 PO; +MECL1TAB31 PO; +METR-265; -OMEP40CA2 PO; +OMEP40CA97 PO; +PEPC1TAB5 PO; +POTA20TA6 PO; +VANC125C3 PO
[2019-04-28 17:41] LABS: BASO # 0.1 10^3/uL (0.0-0.2); BASO % 0.8 % (0.0-1.0); EOS # 0.2 10^3/uL (0.0-0.50); EOS % 1.9 % (0.0-3.0); HEMATOCRIT 45.9 % (36.0-47.0); HEMOGLOBIN 15.1 g/dl (12.0-15.5); LYMPH # 3.9 10^3/uL (1.5-4.5); LYMPH % 40.7 % (24.0-44.0); MEAN CORPUSCULAR HEMOGLOBIN 28.8 pg (27.0-33.0); MEAN CORPUSCULAR HGB CONC 32.9 g/dl (32.0-36.5); MEAN CORPUSCULAR VOLUME 87.6 fl (80.0-96.0); MONO # 0.5 10^3/uL (0.0-0.8); MONO % 5.5 % (0.0-5.0); NEUTROPHILS # 4.8 10^3/uL (1.8-7.7); NEUTROPHILS % 50.6 % (36.0-66.0); PLATELET COUNT, AUTOMATED 551 10^3/uL (150-450); RED BLOOD COUNT 5.24 10^6/uL (4.00-5.40); WHITE BLOOD COUNT 9.5 10^3/uL (4.0-10.0)
[2019-04-28 17:58] LABS: ALBUMIN 3.8 GM/DL (3.2-5.2); ALT/SGPT 26 U/L (12-78); BILIRUBIN,TOTAL 0.3 MG/DL (0.2-1.0); BLOOD UREA NITROGEN 5 MG/DL (7-18); CALCIUM LEVEL 9.6 MG/DL (8.8-10.2); CARBON DIOXIDE LEVEL 31 MEQ/L (21-32); CHLORIDE LEVEL 104 MEQ/L (98-107); CREATININE FOR GFR 0.77 MG/DL (0.55-1.30); GLOMERULAR FILTRATION RATE > 60.0 (>45); GLUCOSE, FASTING 85 MG/DL (70-100); POTASSIUM SERUM 4.3 MEQ/L (3.5-5.1); SODIUM LEVEL 140 MEQ/L (136-145); TOTAL PROTEIN 7.2 GM/DL (6.4-8.2)
== END ==
LOC: M SFHCPLAZ 15:34
PROVIDERS: ATTEND Physician Assistant Medical
DX: A04.72 Enterocolitis due to Clostridium difficile, not specified as recurrent (principal)

== ENCOUNTER → 2019-05-08 | Outpatient (REF) | payer BC, MEDICARE ==
[2019-05-08 13:28] LABS: ALBUMIN 3.9 GM/DL (3.2-5.2); ALT/SGPT 19 U/L (12-78); BILIRUBIN,TOTAL 0.3 MG/DL (0.2-1.0); BLOOD UREA NITROGEN 6 MG/DL (7-18); CALCIUM LEVEL 10.3 MG/DL (8.8-10.2); CARBON DIOXIDE LEVEL 28 MEQ/L (21-32); CHLORIDE LEVEL 103 MEQ/L (98-107); GLOMERULAR FILTRATION RATE > 60.0 (>45); GLUCOSE, FASTING 89 MG/DL (70-100); POTASSIUM SERUM 4.1 MEQ/L (3.5-5.1); SODIUM LEVEL 139 MEQ/L (136-145); TOTAL PROTEIN 7.7 GM/DL (6.4-8.2)
== END ==
LOC: M SFHCPLAZ 09:10
PROVIDERS: ATTEND Physician Assistant Medical
DX: A04.72 Enterocolitis due to Clostridium difficile, not specified as recurrent (principal)

== ENCOUNTER → 2019-05-21 | Outpatient (REF) | payer BC, MEDICARE ==
[~2019-05-21] MED LIST changes: -DITR5TAB PO; +MECL-68 PO; -MECL1TAB31 PO; +OMEP40CA2 PO; -OMEP40CA97 PO
== END ==
LOC: M SFHCPLAZ 05-20 11:27
PROVIDERS: ATTEND Physician Assistant Medical
DX: A04.72 Enterocolitis due to Clostridium difficile, not specified as recurrent (principal)

== ENCOUNTER → 2019-05-28 | Outpatient (CLI) | payer BC, MEDICARE ==
[~2019-05-28] MED LIST changes: +DITR5TAB PO; -MECL-68 PO; +MECL1TAB31 PO; -OMEP40CA2 PO; +OMEP40CA97 PO
--- NOTE | 2019-06-23 11:37 | ECWPNPC ---
PATIENT NAME: ANDI SEXTON : 1960 GENDER: FEMALE VISIT DATE: 05/28/2019 DISCHARGE DATE: 05/28/19 1154 VISIT LOCKED DATE TIME: PHYSICIAN: LINDA KRAFT RESOURCE: LINDA KRAFT REASON FOR APPOINTMENT 1. POST PROC HISTORY OF PRESENT ILLNESS HISTORY OF PRESENT ILLNESS: HERE FOR F/U OF CHRONIC NECK AND LBP.HAD BILAT.CFBT ON 02/27/19,REPORTING APPROX 1 WEEK IMPROVEMENT.WORSE AREA OF PAIN IS LOW BACK AND GROIN.HX OF SCOLIOSIS AND LUMBAR FUSION W HARDWARE 2018.RATING PAIN VAS 6-8/10.REPORTING POOR SLEEP DUE TO PAIN. PAIN THE PATIENT DESCRIBES THE PAIN... FALL RISK SCREENING: SCREENING :NO FALLS REPORTED IN THE LAST YEAR CURRENT MEDICATIONS TAKING PROBIOTIC - CAPSULE DIRECTED ORALLY TAKING VITAMIN B 12 100 MCG LOZENGE DIRECTED ORALLY TAKING SERTRALINE HCL 100 MG TABLET 2 TABLET ORALLY ONCE A DAY TAKING ZOFRAN 4 MG TABLET 1 TABLET ORALLY ONCE A DAY TAKING MAXALT 10 MG TABLET 1 TABLET NEEDED ONE TIME ORALLY ONCE A DAY TAKING ROPINIROLE HCL 5 MG TABLET 1 TABLET ORALLY TWO TIMES A DAY TAKING MECLIZINE HCL 25 MG TABLET 1 TABLET NEEDED ORALLY Q8 HR NEEDED TAKING MAY USE MEDICAL MARAJUANA DAILY TAKING DRISDOL 23922 UNIT CAPSULE 1 CAPSULE ORALLY EVERY OTHER WEEK TAKING CALCIUM + D3 600-800 MG-UNIT TABLET 1 TABLET WITH A MEAL ORALLY BID TAKING GABAPENTIN 600 MG TABLET 1 TABLET ORALLY DAILY TAKING TRAMADOL HCL 50 MG TABLET 1 TABLET NEEDED ORALLY Q6 HRS PRN MDD 4 TAKING NORCO 10-325 MG TABLET 1 TABLET NEEDED ORALLY EVERY 8 HRS PRN MDD 3 TAKING RANITIDINE 1 TAB ORAL NOT-TAKING RECLAST 5 MG/100ML SOLUTION DIRECTED INTRAVENOUS YEARLY DISCONTINUED FAMOTIDINE 20 MG TABLET 1 TABLET NEEDED ORALLY BID DISCONTINUED TERBINAFINE HCL 1 % CREAM 1 APPLICATION TO CHEST EXTERNALLY TWICE A DAY DISCONTINUED DIFLUCAN 10 MG/ML SUSPENSION RECONSTITUTED 5 ML SWISH & SWALLOW ORALLY EVERY 6 HOURS NEEDED MEDICATION LIST REVIEWED AND RECONCILED WITH THE PATIENT PAST MEDICAL HISTORY ANDREWS-MIGRAINES H/O DIVERTICULOSIS- DIVERTICULITIS NUMBNESS AND TINGLING TO FINGERS AND TOES DUE TO TOPAMAX 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 ARTHROSCOPIC TWICE ON L HYSTERECTOMY, PARTIAL & TOTAL; BLADDER REPAIR C 1ST ONE S/P LAP. CHOLECYSTECTOMY(-1999) S/P APPENDECTOMY BUNIONECTOMY BONE FUSION ON RT. 06-09-2016 LUMBAR SPINE FUSION S1-T12 06/17/18 S/P LUMPECTOMY LEFT BREAST 1994 MULTIPLE D&C'S, LAPAROSCOPIES FOR ENDOMETRIOSIS FAMILY HISTORY FATHER: ALIVE, DIAGNOSED WITH HYPERTENSION, UNSPECIFIED CEREBRAL ARTERY OCCLUSION WITH CEREBRAL INFARCTION MOTHER: ALIVE, DIABETES 2 SON(S) - HEALTHY. SOCIAL HISTORY GENERAL: TOBACCO USE ARE YOU A:CURRENT SMOKER ARE YOU INTERESTED IN QUITTING?READY TO QUIT COUNSELED THE PATIENT ON TOBACCO USE, CESSATION [id number]/25/2019 HOW MANY CIGARETTES A DAY DO YOU SMOKE?6-10 PATIENT COUNSELED ON THE DANGERS OF TOBACCO USE AND URGED TO QUIT:04/28/2019 HIV / HEP-C SCREENING HIV TEST OFFERED TO PATIENT:YES DATE OFFERED:01/09/2019 TEST ACCEPTED:NO HEP-C TEST OFFERED TO PATIENT:YES DATE OFFERED:01/09/2019 REASON:PATIENT DECLINED TEST ACCEPTED:NO REASON:PATIENT DECLINED BROCHURE PROVIDED TO PATIENTYES OTHERS AT HOME: SPOUSE, SON. LANGUAGE LANGUAGES SPOKEN:THAI DOMESTIC VIOLENCE DO YOU FEEL SAFE IN YOUR ENVIRONMENT?YES NEW PATIENT PAIN DIARY DO YOU TAKE ANY BLOOD THINNERS?NO ANY CHANGE IN BOWEL OR BLADDER CONTROL?YES HAS DIARRHEA FROM DIVERTICULOSIS ARE YOU ALLERGIC TO SHELLFISH OR IV DYE?NO ARE YOU DIABETIC?NO DO YOU HAVE A PACEMAKER OR DEFIBRILLATOR?NO ANY NEW PROBLEMS WITH MEDICINES OR NEW ALLERGIESNO HAVE YOU FALLEN IN THE LAST 6 MONTHS?YES TRIPPED LAST NIGHT NOT SURE WHAT HAPPENED. SLIPPED AND FELL ONTO KNEES DO YOU USE ANY TYPE OF TOBACCO (SMOKE, SMOKELESS, CHEW, ETC.)YES ARE YOU ABUSED, NEGLECTED, OR IN AN UNSAFE ENVIRONMENT?NO DO YOU HAVE THOUGHTS OF HURTING YOURSELF OR SOMEONE ELSE?NO RECREATIONAL DRUG USE: NEVER DRUG USE? NO. LEARNING BARRIERS / SPECIAL NEEDS CHANGE FROM LAST VISIT?NO BARRIERS TO LEARNING?NO HEARING IMPAIRED?NO VISION IMPAIRED?YES COGNITIVELY IMPAIRED?NO :CORRECTIVE LENSES READINESS TO LEARN?YES LEARNING PREFERENCES?NO LEARNING CAPABILITIES PRESENT?YES EMOTIONAL BARRIERS?NO SPECIAL DEVICES?YES HAS DENTURES TOP/BOTTOM PAINTER SUPERVISOR NEEDED?NO PAIN CLINIC PFS, CLERGY, PUBLIC HEALTH REFERRALS PFS REFERRAL NEEDED?NO CLERGY REFERRAL NEEDED?NO PUBLIC HEALTH REFERRAL NEEDED?NO WAS THE PROVIDER NOTIFIED OF ANY PERTINENT INFO?YES HAS THE PATIENT BEEN EDUCATED REGARDING HIS/HER PLAN OF CARE?YES HAS THE PATIENT BEEN EDUCATED REGARDING PAIN, THE RISK FOR PAIN, THE IMPORTANCE OF EFFECTIVE PAIN MANAGEMENT, AND THE PAIN ASSESSMENT PROCESS?YES LATEX QUESTIONNAIRE LATEX ALLERGY : HAVE YOU EVER DEVELOPED ANY TYPE OF REACTION AFTER HANDLING LATEX PRODUCTS SUCH RUBBER GLOVES, CONDOMS, DIAPHRAGMS, BALLOONS, SOCKS, OR UNDERWEAR?NO LATEX ALLERGY : HAVE YOU EVER DEVELOPED ANY TYPE OF REACTION DURING OR AFTER DENTAL APPOINTMENT, VAGINAL/RECTAL EXAMINATION, SURGICAL PROCEDURE, OR ANY OTHER EXPOSURE?NO DATE ASKED : 01/08/2019 LATEX RISK : HAVE YOU EVER HAD ANY DIFFICULTY BREATHING OR HIVES AFTER EATING OR HANDLING ANY FRUITS, OR VEGETABLES; SUCH KIWI, BANANAS, STONE FRUITS, OR CHESTNUTSNO LATEX RISK : DO YOU HAVE A PREVIOUS PERSONAL HISTORY OF MORE THAN NINE SURGERIES, SPINA BIFIDA, OR REPEATED CATHERIZATIONS? YES - PLEASE INDICATE : > 9 SURGERIES LATEX RISK : ARE YOU FREQUENTLY EXPOSED TO LATEX PRODUCTS IN YOUR OCCUPATION?NO CAFFEINE: YES CAFFEINE USE?YES HOW OFTEN AND HOW MUCH? 2 CUPS COFFEE, 2 LITERS COKE/DAY ADVANCE DIRECTIVE ADVANCE DIRECTIVE DISCUSSED WITH PATIENT:YES HCP-- , RODRIGUEZ [facility] [id number] RELIGIOUS MARITAL STATUS: . ALCOHOL SCREENING DID YOU HAVE A DRINK CONTAINING ALCOHOL IN THE PAST YEAR?NO POINTS0 INTERPRETATIONNEGATIVE OCCUPATION: DISABLED. SEXUAL HX HAD SEX IN THE LAST 12 MONTHS (VAGINAL, ORAL, OR ANAL)?NO HAVE YOU EVER HAD AN STD?NO REVIEWED WITH PT 08/14/18 1525 LAS. HOSPITALIZATION/MAJOR DIAGNOSTIC PROCEDURE DIVERTICULITIS SEVERAL TIMES 01/2017 BOWEL OBSTRUCTION BACK SURGERY 06/20 REVIEW OF SYSTEMS REVIEWED BY: PROVIDER: LINDA SALINAS . CONSTITUTIONAL: ANY CHANGE IN YOUR MEDICAL CONDITION? NO . CHILLS NO . FEVER NO . INFECTION: DO YOU HAVE NEW INFECTIONS? YES, C-DIFF RESOLVED . DO YOU HAVE HISTORY OF MRSA? YES, NASAL . MUSCULOSKELETAL: ANY NEW PATTERNS OF PAIN OR NUMBNESS? NO . GASTROENTEROLOGY: ANY NEW CHANGE IN BOWEL CONTROL? YES, C-DIFF RESOLVED . GENITOURINARY: ANY NEW CHANGE IN BLADDER CONTROL? NO . IS THERE A CHANCE YOU COULD BE ? NO . HEMATOLOGY/LYMPH: DO YOU TAKE ANY BLOOD THINNERS? (FOR EXAMPLE- COUMADIN, PLAVIX, AGGRENOX, PLATEL, PRADAXA, OR XARELTO) NO . WHEN WAS YOUR LAST DOSE? DATE: TIME: . NEUROLOGY: HAVE YOU FALLEN IN THE PAST 12 MONTHS? YES, PRIOR TO LAST VISIT . ANY NEW EXTREMITY NUMBNESS OR WEAKNESS? NO . CARDIOLOGY: DO YOU HAVE A PACEMAKER OR DEFIBRILLATOR? NO . RESPIRATORY: HAVE YOU BEEN SICK IN THE PAST WEEK? YES, C-DIFF RESOLVED . FEVER NO . FLU LIKE SYMPTOMS? NO . COUGH YES, PRODUCTIVE WHITE MUCOUS . INTEGUMENTARY: DO YOU HAVE ANY RASHES OR OPEN SORES? YES, RASH ON CHEST FUNGAL INFECTION RESOLVING . ALLERGIC/IMMUNO: ARE YOU ALLERGIC TO IV DYE? NO . ANY NEW ALLERGIES? NO . PSYCHIATRIC: DO YOU HAVE THOUGHTS OF HURTING YOURSELF OR SOMEONE ELSE? NO . ARE YOU ABUSED, NEGLECTED, OR IN AN UNSAFE ENVIRONMENT? NO . ENDOCRINOLOGY: ARE YOU DIABETIC? NO . OTHER: DO YOU NEED ANY PRESCRIPTIONS? YES, TRAMADOL, NORCO . IF YES, PLEASE LIST: ____ . ANY NEW PROBLEMS WITH YOUR MEDICATIONS? NO . WHEN DID YOU LAST EAT? ____ . WHEN DID YOU LAST DRINK? ____ . WHAT DID YOU LAST DRINK? ____ . NAME OF PERSON DRIVING YOU HOME? ____ . DO YOU HAVE ANY OTHER QUESTIONS OR CONCERNS YES, WAS SEEN @ [facility] ER 04/25/19 FOR C-DIFF . VITAL SIGNS WT 121.4 LBS, HT 60 IN, BMI 23.71 INDEX, BP 111/59 MM HG, HR 69 /MIN, RR 18 /MIN, TEMP 97.8 F, OXYGEN SAT % 99%, NA INITIALS AW 1111, REVIEWED BY: EM. EXAMINATION GENERAL EXAMINATION: GENERALAWAKE,ALERT ,PLEAASANT . PSYCHAFFECT NORMAL . LUNGS:LUNG BERMUDEZ ARE CLEAR TO AUSCULTATION BILATERALLY. GOOD MOVEMENT OF AIR . HEART:S1, S2 IN A REGULAR RATE AND RHYTHM. NO SIGNIFICANT MURMURS, RUBS OR GALLOPS NOTED . MUSCULOSKELETAL:WEAK OVER BILAT LEG. LUMBAR SACRAL SPINEPALPATION: SPECIFIC POINT TENDERNESS BILAT SIJ. NEUROLOGIC EXAM:NORMAL SENSATION LIGHT TOUCH BILAT. LOWER EXTREMITIES. ASSESSMENTS BILATERAL SACROILIITIS - M46.1 (PRIMARY) TREATMENT BILATERAL SACROILIITIS REFILL TRAMADOL HCL TABLET, 50 MG, 1 TABLET NEEDED, ORALLY, Q6 HRS PRN MDD 4, 30 DAYS, 120, REFILLS 2 REFILL NORCO TABLET, 10-325 MG, 1 TABLET NEEDED, ORALLY, EVERY 8 HRS PRN MDD 3, 30 DAYS, 90, REFILLS 0 NOTES: BILAT SIJ, ISTOP REGISTRY REVIEWED AND DEMONSTRATES COMPLLIANCE. BRINGS IN MEDICATIONS WHICH IS APPROPRIATE FOR WHAT WAS DISPENSED. RECENT URINE TOXICOLOGY REVIEWED. NO UNAUTHORIZED MEDICATIONS. NO ILLICIT SUBSTANCES AND PRESCRIBED MEDICATIONS WERE PRESENT. PROCEDURE CODES FA211 ESTABILISHED PATIENT [facility] FACILITY CHARGE DISPOSITION & COMMUNICATION FOLLOW UP POST (REASON: BILAT SIJ) ELECTRONICALLY SIGNED BY BRAD BERTRAND ON 06/12/2019 AT 01:53 PM EDT DISCLAIMER : THIS IS A VISIT SUMMARY EXTRACTED FROM THE [employer] CHART. IT IS NOT A COPY OF THE [employer] PROGRESS NOTE. IFTIKHAR
== END ==
LOC: M PAIN 10:45
PROVIDERS: ATTEND Nurse Practitioner Family
DX: M46.1 Sacroiliitis, not elsewhere classified (principal); G89.29 Other chronic pain; G43.909 Migraine, unspecified, not intractable, without status migrainosus; M79.7 Fibromyalgia; Z86.19 Personal history of other infectious and parasitic diseases; F17.210 Nicotine dependence, cigarettes, uncomplicated; Z88.8 Allergy status to other drugs, medicaments and biological substances; Z86.14 Personal history of Methicillin resistant Staphylococcus aureus infection; Z79.899 Other long term (current) drug therapy

== ENCOUNTER → 2019-06-10 | Outpatient (CLI) | payer BC, MEDICARE ==
[~2019-06-10] MED LIST changes: -DITR5TAB PO; +ISOVUE-370 76% 100ML VIAL (Q9967) As Ordered ONE; +MECL-68 PO; -MECL1TAB31 PO; +OMEP40CA2 PO; -OMEP40CA97 PO
--- NOTE | 2019-06-10 09:51 | REP ---
CT of the chest with IV contrast: Comparison is the low-dose lung screening chest CT of 12/02/2018. On the comparison study there were two new ground-glass densities, one in the left lower lobe and the other in the right upper lobe. Both of these ground-glass densities have resolved and are no longer present, therefore, likely transient atelectasis. There is a 5 mm pleural-based nodule in the right lower lobe on image 73. This is stable and unchanged from an abdomen/pelvis CT dated 10/22/2010, likely a granuloma. There are new curvilinear densities in the lower lobes bilaterally, likely atelectasis. In addition, there is a new pleural-based heterogeneous in density in the left lower lobe deep posterior sulcus measuring 4.2 x 5.7 cm as an interval change. This is likely focal atelectasis, however, follow-up to complete resolution is recommended for assurance this is not represent a new mass. I would recommend follow-up chest CT in 3 months. There is no mediastinal, hilar or axillary lymphadenopathy. The thoracic aorta is unremarkable. The cardiac size is normal. In the visualized upper abdomen. There are surgical clips in the gallbladder fossa. There is no adrenal mass. Impression: The two new ground-glass densities identified on 12/02/2018 have resolved, compatible with transient atelectasis. There is a stable five mm pleural-based nodule in the right lower lobe, unchanged from 08/21/2011, likely a granuloma. No curvilinear densities in the lower lobes bilaterally, likely atelectasis. New pleural-based heterogeneous density in the left lower lobe as described, likely atelectasis, however, follow-up to complete resolution is recommended for more assurance. I would recommend follow-up chest CT and 3 months for further evaluation. Electronically Signed by Juliano Weber MD 06/10/2019 09:44 A
== END ==
LOC: M RAD 08:51
PROVIDERS: ATTEND Nurse Practitioner Family
DX: D68.9 Coagulation defect, unspecified (principal); R91.8 Other nonspecific abnormal finding of lung field
CPT/HCPCS: 71260; Q9967

== ENCOUNTER → 2019-06-23 | Outpatient (REF) | payer BC, MEDICARE ==
[~2019-06-23] MED LIST changes: -ISOVUE-370 76% 100ML VIAL (Q9967) As Ordered ONE; -OMEP40CA2 PO; +OMEP40CA97 PO
[2019-06-23 12:32] LABS: ALBUMIN 3.8 GM/DL (3.2-5.2); ALT/SGPT 12 U/L (12-78); BILIRUBIN,TOTAL 0.4 MG/DL (0.2-1.0); BLOOD UREA NITROGEN 4 MG/DL (7-18); CALCIUM LEVEL 9.3 MG/DL (8.8-10.2); CARBON DIOXIDE LEVEL 28 MEQ/L (21-32); CHLORIDE LEVEL 108 MEQ/L (98-107); CHOLESTEROL LEVEL 219 MG/DL (<200); CHOLESTEROL RISK RATIO 3.711 (<5); CPK CREATINE PHOSPHOKINASE 92 U/L (26-192); CREATININE FOR GFR 0.85 MG/DL (0.55-1.30); GLOMERULAR FILTRATION RATE > 60.0 (>45); GLUCOSE, FASTING 93 MG/DL (70-100); HDL CHOLESTEROL 59 MG/DL (>40); LDL CHOLESTEROL 126 MG/DL (<100); NON-HDL-C 160 MG/DL; POTASSIUM SERUM 3.7 MEQ/L (3.5-5.1); SODIUM LEVEL 142 MEQ/L (136-145); TOTAL PROTEIN 7.2 GM/DL (6.4-8.2); TRIGLYCERIDES LEVEL 171 MG/DL (<150)
== END ==
LOC: M SFHCPLAZ 09:01
PROVIDERS: ATTEND Physician Assistant Medical
DX: E78.2 Mixed hyperlipidemia (principal)
CPT/HCPCS: 36415; 80053; 80061; 82550; G0463

== ENCOUNTER → 2019-07-10 | Outpatient (CLI) | payer BC, MEDICARE ==
[~2019-07-10] VITALS: Ht 160 cm; Wt 62.0 kg
[~2019-07-10] MED LIST changes: +ZOLEDRONIC ACID 5 MG in IV 1 EA IV ONE
[2019-07-10 16:30] VITALS: BP 116/62
[2019-07-10 17:20] VITALS: BP 118/63
== END ==
LOC: M INFU 16:24
PROVIDERS: ATTEND Family Medicine
DX: M81.0 Age-related osteoporosis without current pathological fracture (principal); Z78.0 Asymptomatic menopausal state

== ENCOUNTER → 2019-07-15 | Outpatient (CLI) | payer BC, MEDICARE ==
[~2019-07-15] MED LIST changes: +BUPIVACAINE HCL 0.25% 30 ML VIAL As Ordered ONE; +ISOVUE-M 300 61% 15ML VIAL (Q9967) As Ordered ONE; +LIDOCAINE 1% SDV INJ 30 ML VIAL As Ordered ONE; +TRIAMCINOLONE ACETONIDE SUSP 40 MG/ML VIAL (J3301) As Ordered ONE; -ZOLEDRONIC ACID 5 MG in IV 1 EA IV ONE; +diazePAM 5 MG TAB As Ordered ONE; +oxyCODONE 5MG TAB As Ordered ONE
--- NOTE | 2019-07-15 17:46 | REP ---
Bilateral SI joint series: Four views. History: Bilateral SI joint injection vein. 22 seconds of fluoroscopy time is reported. Findings: A sequence of four last image hold fluoroscopically obtained spot radiographs of the SI joints document needle position and contrast injection associated with bilateral SI joint injection. Electronically Signed by Nicola Mistry MD 07/15/2019 05:37 P
--- NOTE | 2019-07-23 02:26 | ECWPNPC ---
PATIENT NAME: ANDI SEXTON : 1960 GENDER: FEMALE VISIT DATE: 07/15/2019 DISCHARGE DATE: 07/15/191651 VISIT LOCKED DATE TIME: PHYSICIAN: FROY PAYAN MD RESOURCE: FROY PAYAN MD REASON FOR APPOINTMENT 1. XIAO BAIRD HISTORY OF PRESENT ILLNESS HISTORY OF PRESENT ILLNESS: PAIN THE PATIENT DESCRIBES THE PAIN... FALL RISK SCREENING: SCREENING :NO FALLS REPORTED IN THE LAST YEAR CURRENT MEDICATIONS TAKING HYDROXYZINE HCL 50 MG TABLET -2 TABLET ORALLY BEFORE BEDTIME PRN TAKING WELLBUTRIN XL 150 MG TABLET EXTENDED RELEASE 24 HOUR 1 TABLET IN THE MORNING ORALLY ONCE A DAY TAKING OMEPRAZOLE 40 MG CAPSULE DELAYED RELEASE 1 CAPSULE ORALLY BID TAKING ATORVASTATIN CALCIUM 40 MG TABLET 1 TABLET ORALLY ONCE A DAY TAKING DRISDOL 33424 UNIT CAPSULE 1 CAPSULE ORALLY EVERY OTHER WEEK TAKING CALCIUM + D3 600-800 MG-UNIT TABLET 1 TABLET WITH A MEAL ORALLY BID TAKING PROBIOTIC - CAPSULE DIRECTED ORALLY TAKING VITAMIN B 12 100 MCG LOZENGE DIRECTED ORALLY TAKING MAXALT 10 MG TABLET 1 TABLET NEEDED ONE TIME ORALLY ONCE A DAY TAKING ROPINIROLE HCL 5 MG TABLET 1 TABLET ORALLY TWO TIMES A DAY TAKING MECLIZINE HCL 25 MG TABLET 1 TABLET NEEDED ORALLY Q8 HR NEEDED TAKING MAY USE MEDICAL MARAJUANA DAILY TAKING GABAPENTIN 600 MG TABLET 1 TABLET ORALLY THREE TIMES DAILY TAKING RANITIDINE 1 TAB ORAL BID TAKING TRAMADOL HCL 50 MG TABLET 1 TABLET NEEDED ORALLY Q6 HRS PRN MDD 4, NOTES: 07/13 TAKING NORCO 10-325 MG TABLET 1 TABLET NEEDED ORALLY EVERY 8 HRS PRN MDD 3, NOTES: 07/15/19 0400 TAKING AIMOVIG 70 MG/ML SOLUTION AUTO-INJECTOR SUBCUTANEOUS ONCE A MONTH TAKING TRIAMCINOLONE ACETONIDE 0.1 % PASTE 1 APPLICATION AT BEDTIME MOUTH/THROAT ONCE A DAY TAKING CARAFATE 1 GM TABLET 1 TABLET ON AN EMPTY STOMACH ORALLY TWICE A DAY TAKING SERTRALINE HCL 100 MG TABLET 2 TABLET ORALLY ONCE A DAY NOT-TAKING NICODERM CQ 21 MG/24HR PATCH 24 HOUR 1 PATCH TO SKIN TRANSDERMAL ONCE A DAY NOT-TAKING NICOTINE POLACRILEX 2 MG GUM 1 PIECE NEEDED MOUTH/THROAT 5TIMES/ DAY MEDICATION LIST REVIEWED AND RECONCILED WITH THE PATIENT PAST MEDICAL HISTORY ANDREWS-MIGRAINES H/O DIVERTICULOSIS- DIVERTICULITIS NUMBNESS AND TINGLING TO FINGERS AND TOES DUE TO TOPAMAX 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 ARTHROSCOPIC TWICE ON L HYSTERECTOMY, PARTIAL & TOTAL; BLADDER REPAIR C 1ST ONE S/P LAP. CHOLECYSTECTOMY() S/P APPENDECTOMY BUNIONECTOMY BONE FUSION ON RT. 06-09-2016 LUMBAR SPINE FUSION S1-T12 06/17/18 S/P LUMPECTOMY LEFT BREAST 1994 MULTIPLE D&C'S, LAPAROSCOPIES FOR ENDOMETRIOSIS FAMILY HISTORY FATHER: ALIVE, DIAGNOSED WITH UNSPECIFIED CEREBRAL ARTERY OCCLUSION WITH CEREBRAL INFARCTION, HYPERTENSION MOTHER: ALIVE, DIABETES 2 SON(S) - HEALTHY. SOCIAL HISTORY GENERAL: TOBACCO USE ARE YOU A:CURRENT SMOKER HOW MANY CIGARETTES A DAY DO YOU SMOKE?6-10 ARE YOU INTERESTED IN QUITTING?READY TO QUIT PATIENT COUNSELED ON THE DANGERS OF TOBACCO USE AND URGED TO QUIT:04/28/2019 COUNSELED THE PATIENT ON TOBACCO USE, CESSATION [id number]/25/2019 HIV / HEP-C SCREENING HIV TEST OFFERED TO PATIENT:YES DATE OFFERED:01/09/2019 TEST ACCEPTED:NO HEP-C TEST OFFERED TO PATIENT:YES DATE OFFERED:01/09/2019 REASON:PATIENT DECLINED TEST ACCEPTED:NO REASON:PATIENT DECLINED BROCHURE PROVIDED TO PATIENTYES OTHERS AT HOME: SPOUSE, SON. LANGUAGE LANGUAGES SPOKEN:WOLOF DOMESTIC VIOLENCE DO YOU FEEL SAFE IN YOUR ENVIRONMENT?YES NEW PATIENT PAIN DIARY DO YOU TAKE ANY BLOOD THINNERS?NO ANY CHANGE IN BOWEL OR BLADDER CONTROL?YES HAS DIARRHEA FROM DIVERTICULOSIS ARE YOU ALLERGIC TO SHELLFISH OR IV DYE?NO ARE YOU DIABETIC?NO DO YOU HAVE A PACEMAKER OR DEFIBRILLATOR?NO ANY NEW PROBLEMS WITH MEDICINES OR NEW ALLERGIESNO HAVE YOU FALLEN IN THE LAST 6 MONTHS?YES TRIPPED LAST NIGHT NOT SURE WHAT HAPPENED. SLIPPED AND FELL ONTO KNEES DO YOU USE ANY TYPE OF TOBACCO (SMOKE, SMOKELESS, CHEW, ETC.)YES ARE YOU ABUSED, NEGLECTED, OR IN AN UNSAFE ENVIRONMENT?NO DO YOU HAVE THOUGHTS OF HURTING YOURSELF OR SOMEONE ELSE?NO RECREATIONAL DRUG USE: NEVER DRUG USE? NO. LEARNING BARRIERS / SPECIAL NEEDS CHANGE FROM LAST VISIT?NO BARRIERS TO LEARNING?NO HEARING IMPAIRED?NO VISION IMPAIRED?YES COGNITIVELY IMPAIRED?NO :CORRECTIVE LENSES READINESS TO LEARN?YES LEARNING PREFERENCES?NO LEARNING CAPABILITIES PRESENT?YES EMOTIONAL BARRIERS?NO SPECIAL DEVICES?YES HAS DENTURES TOP/BOTTOM PLUG PASTER NEEDED?NO PAIN CLINIC PFS, CLERGY, PUBLIC HEALTH REFERRALS PFS REFERRAL NEEDED?NO CLERGY REFERRAL NEEDED?NO PUBLIC HEALTH REFERRAL NEEDED?NO WAS THE PROVIDER NOTIFIED OF ANY PERTINENT INFO?YES HAS THE PATIENT BEEN EDUCATED REGARDING HIS/HER PLAN OF CARE?YES HAS THE PATIENT BEEN EDUCATED REGARDING PAIN, THE RISK FOR PAIN, THE IMPORTANCE OF EFFECTIVE PAIN MANAGEMENT, AND THE PAIN ASSESSMENT PROCESS?YES LATEX QUESTIONNAIRE LATEX ALLERGY : HAVE YOU EVER DEVELOPED ANY TYPE OF REACTION AFTER HANDLING LATEX PRODUCTS SUCH RUBBER GLOVES, CONDOMS, DIAPHRAGMS, BALLOONS, SOCKS, OR UNDERWEAR?NO LATEX ALLERGY : HAVE YOU EVER DEVELOPED ANY TYPE OF REACTION DURING OR AFTER DENTAL APPOINTMENT, VAGINAL/RECTAL EXAMINATION, SURGICAL PROCEDURE, OR ANY OTHER EXPOSURE?NO DATE ASKED : 01/08/2019 LATEX RISK : HAVE YOU EVER HAD ANY DIFFICULTY BREATHING OR HIVES AFTER EATING OR HANDLING ANY FRUITS, OR VEGETABLES; SUCH KIWI, BANANAS, STONE FRUITS, OR CHESTNUTSNO LATEX RISK : DO YOU HAVE A PREVIOUS PERSONAL HISTORY OF MORE THAN NINE SURGERIES, SPINA BIFIDA, OR REPEATED CATHERIZATIONS? YES - PLEASE INDICATE : > 9 SURGERIES LATEX RISK : ARE YOU FREQUENTLY EXPOSED TO LATEX PRODUCTS IN YOUR OCCUPATION?NO CAFFEINE: YES CAFFEINE USE?YES HOW OFTEN AND HOW MUCH? 2 CUPS COFFEE, 2 LITERS COKE/DAY ADVANCE DIRECTIVE ADVANCE DIRECTIVE DISCUSSED WITH PATIENT:YES HCP-- , RODRIGUEZ [phone] GNOSTICIST [id number] JAIN MARITAL STATUS: . ALCOHOL SCREENING DID YOU HAVE A DRINK CONTAINING ALCOHOL IN THE PAST YEAR?NO POINTS0 INTERPRETATIONNEGATIVE OCCUPATION: DISABLED. SEXUAL HX HAD SEX IN THE LAST 12 MONTHS (VAGINAL, ORAL, OR ANAL)?NO HAVE YOU EVER HAD AN STD?NO REVIEWED WITH PT 08/14/18 1525 LASREVIEWED WITH PATIENT 07/15/19 LAS. HOSPITALIZATION/MAJOR DIAGNOSTIC PROCEDURE DIVERTICULITIS SEVERAL TIMES 01/2017 BOWEL OBSTRUCTION BACK SURGERY 06/20 REVIEW OF SYSTEMS REVIEWED BY: PROVIDER: . CONSTITUTIONAL: ANY CHANGE IN YOUR MEDICAL CONDITION? NO . CHILLS NO . FEVER NO . INFECTION: DO YOU HAVE NEW INFECTIONS? NO . DO YOU HAVE HISTORY OF MRSA? YES PT REPORTS SHE HAS HAD POSITIVE NASAL SWABS DONE. . MUSCULOSKELETAL: ANY NEW PATTERNS OF PAIN OR NUMBNESS? NO . GASTROENTEROLOGY: ANY NEW CHANGE IN BOWEL CONTROL? NO . GENITOURINARY: ANY NEW CHANGE IN BLADDER CONTROL? YES PT REPORTS INCREASED URGENCY AND STRESS INCONTINENCE . IS THERE A CHANCE YOU COULD BE ? NO . HEMATOLOGY/LYMPH: DO YOU TAKE ANY BLOOD THINNERS? (FOR EXAMPLE- COUMADIN, PLAVIX, AGGRENOX, PLATEL, PRADAXA, OR XARELTO) NO . WHEN WAS YOUR LAST DOSE? DATE: TIME: . NEUROLOGY: HAVE YOU FALLEN IN THE PAST 12 MONTHS? NO . ANY NEW EXTREMITY NUMBNESS OR WEAKNESS? NO . CARDIOLOGY: DO YOU HAVE A PACEMAKER OR DEFIBRILLATOR? NO . RESPIRATORY: HAVE YOU BEEN SICK IN THE PAST WEEK? NO . FEVER NO . FLU LIKE SYMPTOMS? NO . COUGH NO . INTEGUMENTARY: DO YOU HAVE ANY RASHES OR OPEN SORES? NO . ALLERGIC/IMMUNO: ARE YOU ALLERGIC TO IV DYE? NO . ANY NEW ALLERGIES? NO . PSYCHIATRIC: DO YOU HAVE THOUGHTS OF HURTING YOURSELF OR SOMEONE ELSE? NO . ARE YOU ABUSED, NEGLECTED, OR IN AN UNSAFE ENVIRONMENT? NO . ENDOCRINOLOGY: ARE YOU DIABETIC? NO . OTHER: DO YOU NEED ANY PRESCRIPTIONS? NO . IF YES, PLEASE LIST: ____ . ANY NEW PROBLEMS WITH YOUR MEDICATIONS? NO . WHEN DID YOU LAST EAT? ____07/14/19 1700 . WHEN DID YOU LAST DRINK? ____07/14/19 2330 . WHAT DID YOU LAST DRINK? ____SODA . NAME OF PERSON DRIVING YOU HOME? ____AYLEEN OR EBONY . DO YOU HAVE ANY OTHER QUESTIONS OR CONCERNS NO . VITAL SIGNS WT 118.4 LBS, HT 60 IN, BMI 23.12 INDEX, BP 132/57 MM HG, HR 67 /MIN, RR 18 /MIN, TEMP 98.8 F, OXYGEN SAT % 98%, SAFE IN ENV? (Y/N) YES, NA INITIALS AW 1309, REVIEWED BY: ASSESSMENTS SACROILIITIS - M46.1 (PRIMARY) TREATMENT SACROILIITIS [facility] FLUORO GUIDANCE (PAIN)[id number] PROCEDURES PN SI PRE PROCEDURE DIAGNOSIS SACROILIITIS, SACROILIAC JOINT DYSFUNCTION POST PROCEDURE DIAGNOSIS SACROILIITIS, SACROILIAC JOINT DYSFUNCTION PROCEDURE BILATERAL SACROILIAC JOINT BLOCK SURGEON DR. FROY PAYAN ASBESTOS WIRE FINISHER NONE ANESTHESIA LOCAL PRE PROCEDURE NOTE PATIENT WITH HISTORY OF CHRONIC LOW BACK PAIN. I EVALUATED THE PATIENT AND REVIEWED THE CHART. I WENT OVER THE RISKS, ALTERNATIVES, AND BENEFITS ASSOCIATED WITH THIS PROCEDURE. THE PATIENT WOULD LIKE TO PROCEED AND GAVE CONSENT TO PERFORM THE PROCEDURE. THE PATIENT DENIES UNEXPLAINABLE WEIGHT LOSS, FEVER, CHILLS, OR NEW CHANGES IN URINARY OR BOWEL CONTROL DESCRIPTION OF PROCEDURE THE PATIENT WAS BROUGHT TO THE PROCEDURE ROOM AND PLACED IN THE PRONE POSITION. THE LUMBOSACRAL AREA WAS CLEANED WITH CHLORAPREP SOLUTION AND DRAPED ASEPTICALLY. THE PROCEDURE WAS DONE UNDER STERILE CONDITIONS. I CHECKED LATERALITY AND THE LEVEL WHERE THE PROCEDURE WAS GOING TO BE PERFORMED WITH THE PATIENT AND THE SUPPORTING STAFF AT THE MOMENT OF THE TIME OUT IN THE PROCEDURE ROOM. UNDER FLUOROSCOPIC GUIDANCE, TARGET POINT WAS SELECTED AT THE LOWER BORDER OF THE RIGHT AND LEFT SACROILIAC JOINT. TARGET POINT WAS SELECTED AFTER MEDIAL ROTATION AND TILT OF THE MAGNIFIER OF THE C-ARM. LIDOCAINE WAS USED TO NUMB THE SKIN AND SUBCUTANEOUS TISSUE BELOW IT. A SPINAL NEEDLE, 22-GAUGE, WAS ADVANCED UNDER FLUOROSCOPIC GUIDANCE AND FOLLOWING PATIENT FEEDBACK UNTIL THE TARGET AREA WAS TOUCHED. THE POSITION OF THE NEEDLE WAS VERIFIED WITH AP AND LATERAL VIEWS. AFTER PROPER POSITION OF THE NEEDLE WAS ACHIEVED, ISOVUE M DYE 30%, 0.25 ML, WAS INJECTED SHOWING SPREAD OF THE DYE. THEN, A SOLUTION OF 20 MG OF KENALOG WAS INJECTED IN RIGHT AND LEFT JOINT WITH 3 ML OF BUPIVACAINE 0.125%. THERE WAS NO EVIDENCE OF BLOOD, PARESTHESIA OR CEREBROSPINAL FLUID DURING THE PROCEDURE. THE PATIENT WAS SENT TO THE RECOVERY ROOM. THE PATIENT WAS MOVING THE EXTREMITIES AND DOING WELL. THERE WAS NO COMPLICATION DURING THE PROCEDURE. FLUOROSCOPY TIME WAS 22 SECONDS POST PROCEDURE NOTE THE PATIENT WILL BE SEEN IN A FOLLOW UP IN THE NEXT FEW WEEKS. INSTRUCTIONS WERE GIVEN, QUESTIONS WERE ANSWERED, AND THE PATIENT EXPRESSED UNDERSTANDING AND AGREED WITH THE PLAN. I, RD OLEA, DOCUMENTED THE ABOVE INFORMATION ACTING A SCRIBE FOR DR. PAYAN. I HAVE REVIEWED THE ABOVE DOCUMENT, WRITTEN BY RD MANUEL AND I VERIFY THAT IT IS ACCURATE. PROCEDURE CODES 24570 INJECT SACROILIAC JOINT, MODIFIERS: 50 [id number] RADXPS IN END [id number] PXD DISPOSITION & COMMUNICATION FOLLOW UP 3 WEEKS ELECTRONICALLY SIGNED BY FROY PAYAN MD, MD ON 07/22/2019 AT 03:18 PM EST DISCLAIMER : THIS IS A VISIT SUMMARY EXTRACTED FROM THE [employer] CHART. IT IS NOT A COPY OF THE [employer] PROGRESS NOTE. MTDD
== END ==
LOC: M PAIN 13:30
PROVIDERS: ATTEND Anesthesiology
DX: M46.1 Sacroiliitis, not elsewhere classified (principal); G43.909 Migraine, unspecified, not intractable, without status migrainosus; F32.9 Major depressive disorder, single episode, unspecified; K21.9 Gastro-esophageal reflux disease without esophagitis; M81.0 Age-related osteoporosis without current pathological fracture; J43.9 Emphysema, unspecified; F17.210 Nicotine dependence, cigarettes, uncomplicated; Z79.891 Long term (current) use of opiate analgesic; Z79.899 Other long term (current) drug therapy; Z88.8 Allergy status to other drugs, medicaments and biological substances
CPT/HCPCS: G0260; J3301; Q9967

== ENCOUNTER → 2019-07-29 | Outpatient (CLI) | payer BC, MEDICARE ==
[~2019-07-29] MED LIST changes: -BUPIVACAINE HCL 0.25% 30 ML VIAL As Ordered ONE; -ISOVUE-M 300 61% 15ML VIAL (Q9967) As Ordered ONE; -LIDOCAINE 1% SDV INJ 30 ML VIAL As Ordered ONE; -TRIAMCINOLONE ACETONIDE SUSP 40 MG/ML VIAL (J3301) As Ordered ONE; -diazePAM 5 MG TAB As Ordered ONE; -oxyCODONE 5MG TAB As Ordered ONE
--- NOTE | 2019-07-31 02:21 | ECWPNPC ---
PATIENT NAME: ANDI SEXTON : 1960 GENDER: FEMALE VISIT DATE: 07/29/2019 DISCHARGE DATE: 07/29/19 1031 VISIT LOCKED DATE TIME: PHYSICIAN: SIMRAN MACHUCA RESOURCE: SIMRAN MACHUCA REASON FOR APPOINTMENT 1. POST PROC HISTORY OF PRESENT ILLNESS HISTORY OF PRESENT ILLNESS: PAIN THE PATIENT DESCRIBES THE PAIN... 59-YEAR-OLD FEMALE IN FOR CHRONIC PAIN POST BILATERAL SIJ FOLLOW-UP. SHE FEELS THE PROCEDURE WAS INEFFECTIVE RATING HER PAIN PREPROCEDURE AT A 7 OUT OF 10 AND POSTPROCEDURE AT A 3 OUT OF 10X3 DAYS. HER PAIN IS CURRENTLY AT A 6 OUT OF 10 AND DESCRIBES IT ACHING, SHARP, AND SHOOTING. SHE FEELS HER MEDICATIONS ARE NOT EFFECTIVE THEY ONCE WERE AND DENIES MED SIDE EFFECTS AT THIS TIME. FALL RISK SCREENING: SCREENING :NO FALLS REPORTED IN THE LAST YEAR CURRENT MEDICATIONS TAKING HYDROXYZINE HCL 50 MG TABLET -2 TABLET ORALLY BEFORE BEDTIME PRN TAKING ATORVASTATIN CALCIUM 40 MG TABLET 1 TABLET ORALLY ONCE A DAY TAKING DRISDOL 32563 UNIT CAPSULE 1 CAPSULE ORALLY EVERY OTHER WEEK TAKING CALCIUM + D3 600-800 MG-UNIT TABLET 1 TABLET WITH A MEAL ORALLY BID TAKING PROBIOTIC - CAPSULE DIRECTED ORALLY DAILY TAKING VITAMIN B 12 100 MCG LOZENGE DIRECTED ORALLY ONCE A DAY TAKING MAXALT 10 MG TABLET 1 TABLET NEEDED ONE TIME ORALLY ONCE A DAY TAKING ROPINIROLE HCL 5 MG TABLET 1 TABLET ORALLY TWO TIMES A DAY TAKING MECLIZINE HCL 25 MG TABLET 1 TABLET NEEDED ORALLY Q8 HR NEEDED TAKING MAY USE MEDICAL MARAJUANA DAILY TAKING GABAPENTIN 600 MG TABLET 1 TABLET ORALLY THREE TIMES DAILY TAKING RANITIDINE 1 TAB 150 MG ORAL TWICE A DAY TAKING TRAMADOL HCL 50 MG TABLET 1 TABLET NEEDED ORALLY Q6 HRS PRN MDD 4, NOTES: 07/13 TAKING NORCO 10-325 MG TABLET 1 TABLET NEEDED ORALLY EVERY 8 HRS PRN MDD 3, NOTES: 07/15/19 0400 TAKING AIMOVIG 70 MG/ML SOLUTION AUTO-INJECTOR SUBCUTANEOUS ONCE A MONTH TAKING CARAFATE 1 GM TABLET 1 TABLET ON AN EMPTY STOMACH ORALLY TWICE A DAY TAKING SERTRALINE HCL 100 MG TABLET 2 TABLET ORALLY ONCE A DAY TAKING RECLAST 5 MG/100ML SOLUTION DIRECTED INTRAVENOUS NOT-TAKING WELLBUTRIN XL 150 MG TABLET EXTENDED RELEASE 24 HOUR 1 TABLET IN THE MORNING ORALLY ONCE A DAY NOT-TAKING OMEPRAZOLE 40 MG CAPSULE DELAYED RELEASE 1 CAPSULE ORALLY BID NOT-TAKING TRIAMCINOLONE ACETONIDE 0.1 % PASTE 1 APPLICATION AT BEDTIME MOUTH/THROAT ONCE A DAY NOT-TAKING NICODERM CQ 21 MG/24HR PATCH 24 HOUR 1 PATCH TO SKIN TRANSDERMAL ONCE A DAY NOT-TAKING NICOTINE POLACRILEX 2 MG GUM 1 PIECE NEEDED MOUTH/THROAT 5TIMES/ DAY MEDICATION LIST REVIEWED AND RECONCILED WITH THE PATIENT PAST MEDICAL HISTORY ANDREWS-MIGRAINES H/O DIVERTICULOSIS- DIVERTICULITIS NUMBNESS AND TINGLING TO FINGERS AND TOES DUE TO TOPAMAX 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 ARTHROSCOPIC TWICE ON L HYSTERECTOMY, PARTIAL & TOTAL; BLADDER REPAIR C 1ST ONE S/P LAP. CHOLECYSTECTOMY() S/P APPENDECTOMY BUNIONECTOMY BONE FUSION ON RT. 06-09-2016 LUMBAR SPINE FUSION S1-T12 06/17/18 S/P LUMPECTOMY LEFT BREAST 1995 MULTIPLE D&C'S, LAPAROSCOPIES FOR ENDOMETRIOSIS FAMILY HISTORY FATHER: ALIVE, DIAGNOSED WITH HYPERTENSION, UNSPECIFIED CEREBRAL ARTERY OCCLUSION WITH CEREBRAL INFARCTION MOTHER: ALIVE, DIABETES 2 SON(S) - HEALTHY. SOCIAL HISTORY GENERAL: TOBACCO USE ARE YOU A:CURRENT SMOKER HOW MANY CIGARETTES A DAY DO YOU SMOKE?6-10 ARE YOU INTERESTED IN QUITTING?READY TO QUIT PATIENT COUNSELED ON THE DANGERS OF TOBACCO USE AND URGED TO QUIT:04/28/2019 COUNSELED THE PATIENT ON TOBACCO USE, CESSATION [id number]/25/2019 HIV / HEP-C SCREENING HIV TEST OFFERED TO PATIENT:YES DATE OFFERED:01/09/2019 TEST ACCEPTED:NO HEP-C TEST OFFERED TO PATIENT:YES DATE OFFERED:01/09/2019 REASON:PATIENT DECLINED TEST ACCEPTED:NO REASON:PATIENT DECLINED BROCHURE PROVIDED TO PATIENTYES OTHERS AT HOME: SPOUSE, SON. LANGUAGE LANGUAGES SPOKEN:GABONESE DOMESTIC VIOLENCE DO YOU FEEL SAFE IN YOUR ENVIRONMENT?YES NEW PATIENT PAIN DIARY DO YOU TAKE ANY BLOOD THINNERS?NO ANY CHANGE IN BOWEL OR BLADDER CONTROL?YES HAS DIARRHEA FROM DIVERTICULOSIS ARE YOU ALLERGIC TO SHELLFISH OR IV DYE?NO ARE YOU DIABETIC?NO DO YOU HAVE A PACEMAKER OR DEFIBRILLATOR?NO ANY NEW PROBLEMS WITH MEDICINES OR NEW ALLERGIESNO HAVE YOU FALLEN IN THE LAST 6 MONTHS?YES TRIPPED LAST NIGHT NOT SURE WHAT HAPPENED. SLIPPED AND FELL ONTO KNEES DO YOU USE ANY TYPE OF TOBACCO (SMOKE, SMOKELESS, CHEW, ETC.)YES ARE YOU ABUSED, NEGLECTED, OR IN AN UNSAFE ENVIRONMENT?NO DO YOU HAVE THOUGHTS OF HURTING YOURSELF OR SOMEONE ELSE?NO RECREATIONAL DRUG USE: NEVER DRUG USE? 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 NEEDED?NO PAIN CLINIC PFS, CLERGY, PUBLIC HEALTH REFERRALS PFS REFERRAL NEEDED?NO CLERGY REFERRAL NEEDED?NO PUBLIC HEALTH REFERRAL NEEDED?NO WAS THE PROVIDER NOTIFIED OF ANY PERTINENT INFO?YES HAS THE PATIENT BEEN EDUCATED REGARDING HIS/HER PLAN OF CARE?YES HAS THE PATIENT BEEN EDUCATED REGARDING PAIN, THE RISK FOR PAIN, THE IMPORTANCE OF EFFECTIVE PAIN MANAGEMENT, AND THE PAIN ASSESSMENT PROCESS?YES LATEX QUESTIONNAIRE LATEX ALLERGY : HAVE YOU EVER DEVELOPED ANY TYPE OF REACTION AFTER HANDLING LATEX PRODUCTS SUCH RUBBER GLOVES, CONDOMS, DIAPHRAGMS, BALLOONS, SOCKS, OR UNDERWEAR?NO LATEX ALLERGY : HAVE YOU EVER DEVELOPED ANY TYPE OF REACTION DURING OR AFTER DENTAL APPOINTMENT, VAGINAL/RECTAL EXAMINATION, SURGICAL PROCEDURE, OR ANY OTHER EXPOSURE?NO LATEX RISK : HAVE YOU EVER HAD ANY DIFFICULTY BREATHING OR HIVES AFTER EATING OR HANDLING ANY FRUITS, OR VEGETABLES; SUCH KIWI, BANANAS, STONE FRUITS, OR CHESTNUTSNO LATEX RISK : DO YOU HAVE A PREVIOUS PERSONAL HISTORY OF MORE THAN NINE SURGERIES, SPINA BIFIDA, OR REPEATED CATHERIZATIONS? YES - PLEASE INDICATE : > 9 SURGERIES LATEX RISK : ARE YOU FREQUENTLY EXPOSED TO LATEX PRODUCTS IN YOUR OCCUPATION?NO DATE ASKED : 07/29/2019 CAFFEINE: YES CAFFEINE USE?YES HOW OFTEN AND HOW MUCH? 2 CUPS COFFEE, 2 LITERS COKE/DAY ADVANCE DIRECTIVE ADVANCE DIRECTIVE DISCUSSED WITH PATIENT:YES HCP-- , RODRIGUEZ RESTORATIONIST [id number] DENOMINATIONAL MARITAL STATUS: . ALCOHOL SCREENING DID YOU HAVE A DRINK CONTAINING ALCOHOL IN THE PAST YEAR?NO POINTS0 INTERPRETATIONNEGATIVE OCCUPATION: DISABLED. SEXUAL HX HAD SEX IN THE LAST 12 MONTHS (VAGINAL, ORAL, OR ANAL)?NO HAVE YOU EVER HAD AN STD?NO REVIEWED WITH PT 08/14/18 1525 LASREVIEWED WITH PATIENT 07/15/19 LAS. HOSPITALIZATION/MAJOR DIAGNOSTIC PROCEDURE DIVERTICULITIS SEVERAL TIMES 01/2017 BOWEL OBSTRUCTION BACK SURGERY 06/20 CHILDBIRTH X 2 REVIEW OF SYSTEMS REVIEWED BY: PROVIDER: MARCIE MACHUCA PATIENT PORTAL CONCIERGE-C . CONSTITUTIONAL: ANY CHANGE IN YOUR MEDICAL CONDITION? NO . CHILLS NO . FEVER NO . INFECTION: DO YOU HAVE NEW INFECTIONS? NO . DO YOU HAVE HISTORY OF MRSA? YES . MUSCULOSKELETAL: ANY NEW PATTERNS OF PAIN OR NUMBNESS? NO . GASTROENTEROLOGY: ANY NEW CHANGE IN BOWEL CONTROL? NO . GENITOURINARY: ANY NEW CHANGE IN BLADDER CONTROL? YES - STATES HAS PROLAPSE; HAS APPOINTMENT WITH A SURGEON TODAY . IS THERE A CHANCE YOU COULD BE ? NO . HEMATOLOGY/LYMPH: DO YOU TAKE ANY BLOOD THINNERS? (FOR EXAMPLE- COUMADIN, PLAVIX, AGGRENOX, PLATEL, PRADAXA, OR XARELTO) NO . WHEN WAS YOUR LAST DOSE? DATE: TIME: . NEUROLOGY: HAVE YOU FALLEN IN THE PAST 12 MONTHS? NO . ANY NEW EXTREMITY NUMBNESS OR WEAKNESS? NO . CARDIOLOGY: DO YOU HAVE A PACEMAKER OR DEFIBRILLATOR? NO . RESPIRATORY: HAVE YOU BEEN SICK IN THE PAST WEEK? NO . FEVER NO . FLU LIKE SYMPTOMS? NO . COUGH NO . INTEGUMENTARY: DO YOU HAVE ANY RASHES OR OPEN SORES? NO . ALLERGIC/IMMUNO: ARE YOU ALLERGIC TO IV DYE? NO . ANY NEW ALLERGIES? NO . PSYCHIATRIC: DO YOU HAVE THOUGHTS OF HURTING YOURSELF OR SOMEONE ELSE? NO . ARE YOU ABUSED, NEGLECTED, OR IN AN UNSAFE ENVIRONMENT? NO . ENDOCRINOLOGY: ARE YOU DIABETIC? NO . OTHER: DO YOU NEED ANY PRESCRIPTIONS? YES - TRAMADOL AND HYDROCODONE . IF YES, PLEASE LIST: ____ . ANY NEW PROBLEMS WITH YOUR MEDICATIONS? NO . WHEN DID YOU LAST EAT? ____ . WHEN DID YOU LAST DRINK? ____ . WHAT DID YOU LAST DRINK? ____ . NAME OF PERSON DRIVING YOU HOME? ____ . DO YOU HAVE ANY OTHER QUESTIONS OR CONCERNS NO . VITAL SIGNS WT 114.6 LBS, HT 60 IN, BMI 22.38 INDEX, BP 149/64 MM HG, HR 71 /MIN, RR 18 /MIN, TEMP 97.8 F, OXYGEN SAT % 99%, NA INITIALS SC 09:25, REVIEWED BY: ARDEN. EXAMINATION GENERAL EXAMINATION: GENERALNO ACUTE DISTRESS, WELL NOURISHED AND HYDRATED. PSYCHAPPROPRIATE MOOD AND AFFECT . LUNGS:CLEAR TO AUSCULTATION BILATERALLY, NO WHEEZES, RHONCHI, RALES. HEART:NO MURMURS, REGULAR RATE AND RHYTHM. ASSESSMENTS LUMBAR DISC DISPLACEMENT WITHOUT MYELOPATHY - M51.26 (PRIMARY) CHRONIC USE OF OPIATE FOR THERAPEUTIC PURPOSE - Z79.891 TREATMENT LUMBAR DISC DISPLACEMENT WITHOUT MYELOPATHY START TIZANIDINE HCL TABLET, 4 MG, 1 TABLET NEEDED, ORALLY, BID NEEDED, 30 DAYS, 60 REFILL TRAMADOL HCL TABLET, 50 MG, 1 TABLET NEEDED, ORALLY, Q6 HRS PRN MDD 4, 30 DAYS, 120, REFILLS 2, NOTES: 07/13 REFILL NORCO TABLET, 10-325 MG, 1 TABLET NEEDED, ORALLY, EVERY 8 HRS PRN MDD 3, 30 DAYS, 90, REFILLS 0, NOTES: 07/15/19 0400 CLINICAL NOTES: 59-YEAR-OLD FEMALE IN FOR CHRONIC PAIN POST BILATERAL SIJ FOLLOW-UP. GIVEN PRESENTING SYMPTOMS AND RESULTS OF PHYSICAL EXAMINATION RECOMMENDED STARTING TIZANIDINE 4 MG TWICE A DAY NEEDED WITH FOLLOW-UP IN ONE MONTH TO DETERMINE EFFICACY OF TREATMENT. PATIENT WILL HAVE A U TOX TODAY. PATIENT HAS EXPRESSED UNDERSTANDING OF AND WAS IN AGREEMENT WITH TREATMENT PLAN. GIVEN TIME TO ASK QUESTIONS AND EXPRESS CONCERNS., ISTOP REGISTRY REVIEWED AND DEMONSTRATES COMPLLIANCE. (REF # [id number] ) BRINGS IN MEDICATIONS WHICH IS APPROPRIATE FOR WHAT WAS DISPENSED. RECENT URINE TOXICOLOGY REVIEWED. NO UNAUTHORIZED MEDICATIONS. NO ILLICIT SUBSTANCES AND PRESCRIBED MEDICATIONS WERE PRESENT. PREVENTIVE MEDICINE PAIN CLINIC TEACHING: MEDICATIONS NEW MEDICATION TIZANIDINE INSTRUCTIONS PROVIDED VIA [employer]. STATES IS FAMILIAR WITH MEDICATION BECAUSE HAS PREVIOUSLY TAKEN IT.. PROCEDURE CODES FA211 ESTABILISHED PATIENT [facility] CHARGE DISPOSITION & COMMUNICATION FOLLOW UP 4 WEEKS (REASON: LOW BACK PAIN, NEW MEDICATION) ELECTRONICALLY SIGNED BY BRAD CHISHOLM ON 07/30/2019 AT 08:41 AM EST DISCLAIMER : THIS IS A VISIT SUMMARY EXTRACTED FROM THE [employer] CHART. IT IS NOT A COPY OF THE D-[employer] PROGRESS NOTE. MTDD
== END ==
LOC: M PAIN 09:00
PROVIDERS: ATTEND Family Medicine
DX: M51.26 Other intervertebral disc displacement, lumbar region (principal); G89.29 Other chronic pain; G43.909 Migraine, unspecified, not intractable, without status migrainosus; M79.7 Fibromyalgia; Z86.59 Personal history of other mental and behavioral disorders; Z86.14 Personal history of Methicillin resistant Staphylococcus aureus infection; Z86.19 Personal history of other infectious and parasitic diseases; F17.210 Nicotine dependence, cigarettes, uncomplicated; Z88.8 Allergy status to other drugs, medicaments and biological substances; Z79.899 Other long term (current) drug therapy

== ENCOUNTER → 2019-08-06 | Outpatient (CLI) | payer BC, MEDICARE ==
[~2019-08-06] MED LIST changes: +ISOVUE-370 76% 100ML VIAL (Q9967) As Ordered ONE
--- NOTE | 2019-08-06 16:10 | REP ---
O CT neck: 08/06/2019. Indication: Lymphadenopathy. Comparison: None. Technique: Axial images of the neck soft tissues were obtained following the administration of 75 ml IV Isovue 370. Coronal and sagittal reconstructions new were provided. Findings: There is a small hyperdense lesion likely representing calcification within the right thyroid gland. There are no significant abnormal solid soft tissue masses, abnormal fluid collections or cervical lymphadenopathy. The visualized paranasal sinuses and mastoid air cells are essentially clear. No significant ocular, intraorbital or intracranial abnormalities are detected. No significant vascular abnormalities are detected. The airway is patent. The submandibular and parotid glands are unremarkable. Impression: No cervical lymphadenopathy. Electronically Signed by Moises Hinson DO 08/06/2019 04:01 P
== END ==
LOC: M RAD 14:28
PROVIDERS: ATTEND Physician Assistant Medical
DX: R59.0 Localized enlarged lymph nodes (principal)
CPT/HCPCS: 70491; Q9967

== ENCOUNTER → 2019-09-04 | Outpatient (CLI) | payer MEDICARE, BC ==
[~2019-09-04] MED LIST changes: -ISOVUE-370 76% 100ML VIAL (Q9967) As Ordered ONE
--- NOTE | 2019-09-06 01:18 | ECWPNPC ---
PATIENT NAME: ANDI SEXTON : 1960 GENDER: FEMALE VISIT DATE: 09/04/2019 DISCHARGE DATE: 09/04/19 09 VISIT LOCKED DATE TIME: PHYSICIAN: SIMRAN MACHUCA RESOURCE: SIMRAN MACHUCA REASON FOR APPOINTMENT 1. LOW BACK PAIN, NEW MEDICATION HISTORY OF PRESENT ILLNESS HISTORY OF PRESENT ILLNESS: PAIN THE PATIENT DESCRIBES THE PAIN... 59-YEAR-OLD FEMALE IN FOR CHRONIC PAIN FOLLOW-UP. SHE RATES HER PAIN CURRENTLY AT A 6 OUT OF 10 AND DESCRIBES IT SHARP, STABBING, SHOOTING, AND TENDER. SHE WOULD LIKE TO DISCUSS PROCEDURES TO HELP ALLEVIATE HER SYMPTOMS. FALL RISK SCREENING: SCREENING :NO FALLS REPORTED IN THE LAST YEAR CURRENT MEDICATIONS TAKING HYDROXYZINE HCL 50 MG TABLET -2 TABLET ORALLY BEFORE BEDTIME PRN TAKING DRISDOL 44807 UNIT CAPSULE 1 CAPSULE ORALLY EVERY OTHER WEEK TAKING CALCIUM + D3 600-800 MG-UNIT TABLET 1 TABLET WITH A MEAL ORALLY BID TAKING VITAMIN B 12 100 MCG LOZENGE DIRECTED ORALLY ONCE A DAY TAKING MAXALT 10 MG TABLET 1 TABLET NEEDED ONE TIME ORALLY ONCE A DAY TAKING ROPINIROLE HCL 5 MG TABLET 1 TABLET ORALLY TWO TIMES A DAY TAKING MECLIZINE HCL 25 MG TABLET 1 TABLET NEEDED ORALLY Q8 HR NEEDED TAKING MAY USE MEDICAL MARAJUANA DAILY TAKING GABAPENTIN 600 MG TABLET 1 TABLET ORALLY THREE TIMES DAILY TAKING AIMOVIG 70 MG/ML SOLUTION AUTO-INJECTOR SUBCUTANEOUS ONCE A MONTH TAKING SERTRALINE HCL 100 MG TABLET 2 TABLET ORALLY ONCE A DAY TAKING RECLAST 5 MG/100ML SOLUTION DIRECTED INTRAVENOUS TAKING TIZANIDINE HCL 4 MG TABLET 1 TABLET NEEDED ORALLY BID NEEDED TAKING TRAMADOL HCL 50 MG TABLET 1 TABLET NEEDED ORALLY Q6 HRS PRN MDD 4, NOTES: 07/13 TAKING NORCO 10-325 MG TABLET 1 TABLET NEEDED ORALLY EVERY 8 HRS PRN MDD 3, NOTES: 07/15/19 0400 TAKING TRIAMCINOLONE ACETONIDE 0.1 % PASTE 1 APPLICATION AT BEDTIME MOUTH/THROAT ONCE A DAY TAKING ATORVASTATIN CALCIUM 40 MG TABLET 1 TABLET ORALLY ONCE A DAY TAKING DICLOFENAC SODIUM 1 % GEL 1 GRAM TRANSDERMAL , KNUCKLES, THUMBS FOUR TIMES A DAY TAKING PANTOPRAZOLE SODIUM 40 MG TABLET DELAYED RELEASE 1 TABLET ORALLY BID TAKING PROBIOTIC - CAPSULE DIRECTED ORALLY DAILY TAKING OXYBUTYNIN CHLORIDE 5 MG TABLET 1 TABLET ORALLY TWICE A DAY DISCONTINUED CARAFATE 1 GM TABLET 1 TABLET ON AN EMPTY STOMACH ORALLY TWICE A DAY MEDICATION LIST REVIEWED AND RECONCILED WITH THE PATIENT PAST MEDICAL HISTORY ANDREWS-MIGRAINES H/O DIVERTICULOSIS- DIVERTICULITIS NUMBNESS AND TINGLING TO FINGERS AND TOES DUE TO TOPAMAX 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 ARTHROSCOPIC TWICE ON L HYSTERECTOMY, PARTIAL & TOTAL; BLADDER REPAIR C 1ST ONE S/P LAP. CHOLECYSTECTOMY() S/P APPENDECTOMY BUNIONECTOMY BONE FUSION ON RT. 06-09-2016 LUMBAR SPINE FUSION S1-T12 06/17/18 S/P LUMPECTOMY LEFT BREAST 1994 MULTIPLE D&C'S, LAPAROSCOPIES FOR ENDOMETRIOSIS FAMILY HISTORY FATHER: ALIVE, DIAGNOSED WITH HYPERTENSION, UNSPECIFIED CEREBRAL ARTERY OCCLUSION WITH CEREBRAL INFARCTION MOTHER: ALIVE, DIABETES 2 SON(S) - HEALTHY. SONS- MITRAL VALVE, TACHYCARDIAMATERNAL AUNT- RA. SOCIAL HISTORY GENERAL: TOBACCO USE ARE YOU A:CURRENT SMOKER ARE YOU INTERESTED IN QUITTING?READY TO QUIT COUNSELED THE PATIENT ON TOBACCO USE, CESSATION [id number]/02/2020 HOW MANY CIGARETTES A DAY DO YOU SMOKE?6-10 HOW SOON AFTER YOU WAKE UP DO YOU SMOKE YOUR FIRST CIGARETTE?6-30 MIN HOW OFTEN DO YOU SMOKE CIGARETTES?EVERY DAY PATIENT COUNSELED ON THE DANGERS OF TOBACCO USE AND URGED TO QUIT:07/29/2019 SMOKING CESSATION INFORMATION GIVEN07/29/2019 HIV / HEP-C SCREENING HIV TEST OFFERED TO PATIENT:YES DATE OFFERED:01/09/2019 TEST ACCEPTED:NO HEP-C TEST OFFERED TO PATIENT:YES DATE OFFERED:01/09/2019 REASON:PATIENT DECLINED TEST ACCEPTED:NO REASON:PATIENT DECLINED BROCHURE PROVIDED TO PATIENTYES OTHERS AT HOME: SPOUSE, SON. LANGUAGE LANGUAGES SPOKEN:TU[place]UAN DOMESTIC VIOLENCE DO YOU FEEL SAFE IN YOUR ENVIRONMENT?YES NEW PATIENT PAIN DIARY DO YOU TAKE ANY BLOOD THINNERS?NO ANY CHANGE IN BOWEL OR BLADDER CONTROL?YES HAS DIARRHEA FROM DIVERTICULOSIS ARE YOU ALLERGIC TO SHELLFISH OR IV DYE?NO ARE YOU DIABETIC?NO DO YOU HAVE A PACEMAKER OR DEFIBRILLATOR?NO ANY NEW PROBLEMS WITH MEDICINES OR NEW ALLERGIESNO HAVE YOU FALLEN IN THE LAST 6 MONTHS?YES TRIPPED LAST NIGHT NOT SURE WHAT HAPPENED. SLIPPED AND FELL ONTO KNEES DO YOU USE ANY TYPE OF TOBACCO (SMOKE, SMOKELESS, CHEW, ETC.)YES ARE YOU ABUSED, NEGLECTED, OR IN AN UNSAFE ENVIRONMENT?NO DO YOU HAVE THOUGHTS OF HURTING YOURSELF OR SOMEONE ELSE?NO RECREATIONAL DRUG USE: NEVER DRUG USE? 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 NEEDED?NO PAIN CLINIC PFS, CLERGY, PUBLIC HEALTH REFERRALS PFS REFERRAL NEEDED?NO CLERGY REFERRAL NEEDED?NO PUBLIC HEALTH REFERRAL NEEDED?NO WAS THE PROVIDER NOTIFIED OF ANY PERTINENT INFO?YES HAS THE PATIENT BEEN EDUCATED REGARDING HIS/HER PLAN OF CARE?YES HAS THE PATIENT BEEN EDUCATED REGARDING PAIN, THE RISK FOR PAIN, THE IMPORTANCE OF EFFECTIVE PAIN MANAGEMENT, AND THE PAIN ASSESSMENT PROCESS?YES LATEX QUESTIONNAIRE LATEX ALLERGY : HAVE YOU EVER DEVELOPED ANY TYPE OF REACTION AFTER HANDLING LATEX PRODUCTS SUCH RUBBER GLOVES, CONDOMS, DIAPHRAGMS, BALLOONS, SOCKS, OR UNDERWEAR?NO LATEX ALLERGY : HAVE YOU EVER DEVELOPED ANY TYPE OF REACTION DURING OR AFTER DENTAL APPOINTMENT, VAGINAL/RECTAL EXAMINATION, SURGICAL PROCEDURE, OR ANY OTHER EXPOSURE?NO DATE ASKED : 08/06/2019 LATEX RISK : HAVE YOU EVER HAD ANY DIFFICULTY BREATHING OR HIVES AFTER EATING OR HANDLING ANY FRUITS, OR VEGETABLES; SUCH KIWI, BANANAS, STONE FRUITS, OR CHESTNUTSNO LATEX RISK : DO YOU HAVE A PREVIOUS PERSONAL HISTORY OF MORE THAN NINE SURGERIES, SPINA BIFIDA, OR REPEATED CATHERIZATIONS? YES - PLEASE INDICATE : > 9 SURGERIES LATEX RISK : ARE YOU FREQUENTLY EXPOSED TO LATEX PRODUCTS IN YOUR OCCUPATION?NO CAFFEINE: YES CAFFEINE USE?YES HOW OFTEN AND HOW MUCH? 2 CUPS COFFEE, 2 LITERS COKE/DAY ADVANCE DIRECTIVE ADVANCE DIRECTIVE DISCUSSED WITH PATIENT:YES HCP-- , RODRIGUEZ JAINISM [id number] LUTHERAN MARITAL STATUS: . ALCOHOL SCREENING DID YOU HAVE A DRINK CONTAINING ALCOHOL IN THE PAST YEAR?NO POINTS0 INTERPRETATIONNEGATIVE OCCUPATION: DISABLED. SEXUAL HX HAD SEX IN THE LAST 12 MONTHS (VAGINAL, ORAL, OR ANAL)?NO HAVE YOU EVER HAD AN STD?NO REVIEWED WITH PT 08/14/18 1525 LASREVIEWED WITH PATIENT 07/15/19 LAS. HOSPITALIZATION/MAJOR DIAGNOSTIC PROCEDURE DIVERTICULITIS SEVERAL TIMES 01/2017 BOWEL OBSTRUCTION BACK SURGERY 06/20 CHILDBIRTH X 2 REVIEW OF SYSTEMS REVIEWED BY: PROVIDER: MARCIE MACHUCA LINE WELDER-C . CONSTITUTIONAL: ANY CHANGE IN YOUR MEDICAL CONDITION? NO . CHILLS NO . FEVER NO . INFECTION: DO YOU HAVE NEW INFECTIONS? NO . DO YOU HAVE HISTORY OF MRSA? YES . MUSCULOSKELETAL: ANY NEW PATTERNS OF PAIN OR NUMBNESS? NO . GASTROENTEROLOGY: ANY NEW CHANGE IN BOWEL CONTROL? YES, PT C/O HARD TIME CONTROLLING BOWELS, PCP AWARE, PT TAKING OXYBUTINYN FOR THIS AND SHE SEES SOME IMPROVEMENT . GENITOURINARY: ANY NEW CHANGE IN BLADDER CONTROL? YES, , PT C/O URGENCY, PCP AWARE AND PT IS ON OXYBUTININ FOR THIS, PT SEES AN IMPROVEMENT . IS THERE A CHANCE YOU COULD BE ? NO . HEMATOLOGY/LYMPH: DO YOU TAKE ANY BLOOD THINNERS? (FOR EXAMPLE- COUMADIN, PLAVIX, AGGRENOX, PLATEL, PRADAXA, OR XARELTO) NO . WHEN WAS YOUR LAST DOSE? DATE: TIME: . NEUROLOGY: HAVE YOU FALLEN IN THE PAST 12 MONTHS? YES, PRIOR TO LAST VISIT . ANY NEW EXTREMITY NUMBNESS OR WEAKNESS? NO . CARDIOLOGY: DO YOU HAVE A PACEMAKER OR DEFIBRILLATOR? NO . RESPIRATORY: HAVE YOU BEEN SICK IN THE PAST WEEK? NO . FEVER NO . FLU LIKE SYMPTOMS? NO . COUGH YES, SOMETIMES PRODUCTIVE WHITE TO BROWN COLOR . INTEGUMENTARY: DO YOU HAVE ANY RASHES OR OPEN SORES? NO . ALLERGIC/IMMUNO: ARE YOU ALLERGIC TO IV DYE? NO . ANY NEW ALLERGIES? NO . PSYCHIATRIC: DO YOU HAVE THOUGHTS OF HURTING YOURSELF OR SOMEONE ELSE? NO . ARE YOU ABUSED, NEGLECTED, OR IN AN UNSAFE ENVIRONMENT? NO . ENDOCRINOLOGY: ARE YOU DIABETIC? NO . OTHER: DO YOU NEED ANY PRESCRIPTIONS? YES, TRAMADOL, NORCO. DISCUSS ALTERNATIVE TO MEDS, MAYBE GROWNING TOLERANT? . IF YES, PLEASE LIST: ____ . ANY NEW PROBLEMS WITH YOUR MEDICATIONS? NO . WHEN DID YOU LAST EAT? ____ . WHEN DID YOU LAST DRINK? ____ . WHAT DID YOU LAST DRINK? ____ . NAME OF PERSON DRIVING YOU HOME? ____ . DO YOU HAVE ANY OTHER QUESTIONS OR CONCERNS NO . VITAL SIGNS WT 113.4 LBS, HT 60 IN, BMI 22.14 INDEX, BP 132/61 MM HG, HR 79 /MIN, RR 18 /MIN, TEMP 97.6 F, OXYGEN SAT % 98%, NA INITIALS AW 0844, REVIEWED BY: EM. EXAMINATION GENERAL EXAMINATION: GENERALNO ACUTE DISTRESS, WELL NOURISHED AND HYDRATED. PSYCHAPPROPRIATE MOOD AND AFFECT . LUNGS:CLEAR TO AUSCULTATION BILATERALLY, NO WHEEZES, RHONCHI, RALES. HEART:NO MURMURS, REGULAR RATE AND RHYTHM. BACK:POINT TENDER ALONG LUMBAR AND SACRAL SPINE, SURROUNDING SKIN SHOWS NO ERYTHEMA, ECCHYMOSIS, INCREASED WARMTH, AND/OR SKIN ERUPTIONS NOTED. POSITIVE MODIFIED SLR ON THE RIGHT SIDE. . EXTREMITIES:EQUAL STRENGTH OF THE LOWER EXTREMITIES BILATERALLY . ASSESSMENTS INTERVERTEBRAL DISC DISORDER WITH RADICULOPATHY OF LUMBAR REGION - M51.16 (PRIMARY) TREATMENT INTERVERTEBRAL DISC DISORDER WITH RADICULOPATHY OF LUMBAR REGION REFILL TRAMADOL HCL TABLET, 50 MG, 1 TABLET NEEDED, ORALLY, Q6 HRS PRN MDD 4, 30 DAYS, 120, REFILLS 2, NOTES: 07/13 REFILL NORCO TABLET, 10-325 MG, 1 TABLET NEEDED, ORALLY, EVERY 8 HRS PRN MDD 3, 30 DAYS, 90, REFILLS 0, NOTES: 07/15/19 0400 NOTES: CAUDAL EPIDURAL. CLINICAL NOTES: 59-YEAR-OLD FEMALE IN FOR CHRONIC PAIN FOLLOW-UP. PATIENT NOTED TO BE ON BOTH MEDICAL MARIJUANA AND OPIATES WHICH WAS DISCUSSED WITH PATIENT TODAY. SHE WAS INFORMED THAT SHE HAS TO CHOOSE ONE OR THE OTHER THIS CLINIC DOES NOT PRESCRIBE OPIATES IN CONJUNCTION WITH MEDICAL MARIJUANA. PATIENT WAS AGREEABLE TO USING JUST OPIATES AND WAS ENCOURAGED TO TAKE TRAMADOL 4 TIMES DAILY NEEDED. PATIENT HAS EXPRESSED UNDERSTANDING OF AND WAS IN AGREEMENT WITH TREATMENT PLAN. GIVEN TIME TO ASK QUESTIONS AND EXPRESS CONCERNS., [employer]STOP REGISTRY REVIEWED AND DEMONSTRATES COMPLLIANCE. (REF # [id number] ) BRINGS IN MEDICATIONS WHICH IS APPROPRIATE FOR WHAT WAS DISPENSED. RECENT URINE TOXICOLOGY REVIEWED. NO UNAUTHORIZED MEDICATIONS. NO ILLICIT SUBSTANCES AND PRESCRIBED MEDICATIONS WERE PRESENT. PREVENTIVE MEDICINE PAIN CLINIC TEACHING: PROCEDURE TEACHING LUMBAR/CAUDAL EPIDURAL INFORMATION PRINTED. PROCEDURE CODES [id number] ESTABILISHED PATIENT [facility] CHARGE DISPOSITION & COMMUNICATION FOLLOW UP POSTPROCEDURE (REASON: CAUDAL EPIDURAL) ELECTRONICALLY SIGNED BY BRAD CHISHOLM ON 09/05/2019 AT 02:40 PM EST DISCLAIMER : THIS IS A VISIT SUMMARY EXTRACTED FROM THE [employer] CHART. IT IS NOT A COPY OF THE [employer] PROGRESS NOTE. [id number]
== END ==
LOC: M PAIN 08:45
PROVIDERS: ATTEND Family Medicine
DX: M51.16 Intervertebral disc disorders with radiculopathy, lumbar region (principal)

== ENCOUNTER → 2019-09-08 | Outpatient (CLI) | payer BC, MEDICARE ==
[~2019-09-08] MED LIST changes: +ISOVUE-370 76% 100ML VIAL (Q9967) As Ordered ONE
--- NOTE | 2019-09-08 21:46 | REP ---
Clinical: Follow-up pulmonary nodule for Technique: Axial contrast enhanced images from the lung bases to the thoracic inlet with coronal and sagittal re-formations using 100 ml Isovue 370 intravenous contrast material. Findings: Chronic stable interstitial changes are again appreciated along with small 5 mm subpleural nodule in the right lower lobe (image 72). Previously identified bibasilar atelectasis and ground-glass opacities have resolved. No new consolidation, significant nodule or mass lesion. No pleural effusion. No pneumothorax. Tracheobronchial tree is patent. No adenopathy. Mediastinum demonstrates normal thoracic aorta, pulmonary vasculature and heart/pericardium. Surrounding musculoskeletal structures are intact. Limited upper abdomen demonstrates normal bilateral adrenal glands. Impression: 1. Stable 5 mm subpleural nodule in the right lower lobe unchanged through 2010 requires no further investigation. 2. No significant mediastinal or pleuroparenchymal process otherwise appreciated. Electronically Signed by Amador Merrill MD 09/08/2019 09:38 P
== END ==
LOC: M RAD 12:19
PROVIDERS: ATTEND Internal Medicine Hematology & Oncology
DX: R91.1 Solitary pulmonary nodule (principal)
CPT/HCPCS: 71260; Q9967

== ENCOUNTER → 2019-09-24 | Outpatient (CLI) | payer BC, MEDICARE ==
[~2019-09-24] MED LIST changes: +DITR5TAB PO; +GASTROGRAFIN SOLUTION 30ML (Q9963) As Ordered ONE; -MECL-68 PO; +MECL1TAB31 PO
--- NOTE | 2019-09-25 04:27 | REP ---
Clinical: Weight loss. Technique: Axial contrast enhanced images from the lung bases to the pubic symphysis using oral (per protocol) and and 100 ml Isovue 370 intravenous contrast material with coronal and sagittal re-formations. Comparison: 11/11/2015. Findings: Lung bases demonstrate stable 3 mm subpleural nodule along the periphery of the right lower lobe (image 16). Visualized portions of the heart and pericardium are normal. Liver, spleen, pancreas, bilateral adrenal glands and kidneys are normal. Evidence of prior cholecystectomy. The enteric system is without obstruction or obvious acute inflammatory process. Pelvis demonstrates normal bladder and evidence for prior hysterectomy. Evidence of prior partial sigmoid resection suggested. No ascites. No free air. No adenopathy. Abdominal aorta and vasculature normal. Musculoskeletal structures demonstrate degenerative changes and evidence for prior posterior fixation. Impression: 1. No obvious acute abdominopelvic pathology appreciated. Electronically Signed by Amador Merrill MD 09/25/2019 04:19 A
== END ==
LOC: M RAD 13:58
PROVIDERS: ATTEND Internal Medicine Hematology & Oncology
DX: K52.9 Noninfective gastroenteritis and colitis, unspecified (principal); R63.4 Abnormal weight loss
CPT/HCPCS: 74177; Q9963; Q9967

== ENCOUNTER → 2019-09-26 | Outpatient (REF) | payer BC, MEDICARE ==
[~2019-09-26] MED LIST changes: -GASTROGRAFIN SOLUTION 30ML (Q9963) As Ordered ONE; -ISOVUE-370 76% 100ML VIAL (Q9967) As Ordered ONE
[2019-09-26 14:16] LABS: BASO # 0.1 10^3/uL (0.0-0.2); BASO % 0.7 % (0.0-1.0); EOS # 0.2 10^3/uL (0.0-0.5); EOS % 1.7 % (0.0-3.0); HEMATOCRIT 45.6 % (36.0-47.0); HEMOGLOBIN 14.7 g/dl (12.0-15.5); LYMPH # 3.4 10^3/uL (1.5-5.0); LYMPH % 33.4 % (24.0-44.0); MEAN CORPUSCULAR HEMOGLOBIN 29.6 pg (27.0-33.0); MEAN CORPUSCULAR HGB CONC 32.2 g/dl (32.0-36.5); MEAN CORPUSCULAR VOLUME 91.8 fl (80.0-96.0); MONO # 0.5 10^3/uL (0.0-0.8); MONO % 4.8 % (0.0-5.0); NEUTROPHILS # 5.9 10^3/uL (1.5-8.5); NEUTROPHILS % 59.1 % (36.0-66.0); PLATELET COUNT, AUTOMATED 388 10^3/uL (150-450); RED BLOOD COUNT 4.97 10^6/uL (4.00-5.40); WHITE BLOOD COUNT 10.1 10^3/uL (4.0-10.0)
[2019-09-26 14:22] LABS: FERRITIN 115 NG/ML (8-252); IRON (FE) 47 UG/DL (50-170)
[2019-09-26 14:24] LABS: H PYLORI QUALITATIVE IgG NEGATIVE (NEGATIVE)
[2019-09-28 00:06] LABS: H PYLORI SERUM QUANT IGM <9.0 units (0.0-8.9)
== END ==
LOC: M SFHCPLAZ 10:39
PROVIDERS: ATTEND Physician Assistant Medical
DX: K21.9 Gastro-esophageal reflux disease without esophagitis (principal)

== ENCOUNTER → 2019-09-27 | Outpatient (REF) | payer BC, MEDICARE | LOC: M SFHCPLAZ 13:48 | PROVIDERS: ATTEND Physician Assistant Medical | DX: K21.9 Gastro-esophageal reflux disease without esophagitis (principal); Z53.9 Procedure and treatment not carried out, unspecified reason ==

== ENCOUNTER → 2019-10-03 | Outpatient (REF) | payer BC, MEDICARE ==
[~2019-10-03] MED LIST changes: +ATOR40TA75 PO; +SUCR1TAB56 PO
== END ==
LOC: M SFHCPLAZ 11:21
PROVIDERS: ATTEND Physician Assistant Medical
DX: K21.9 Gastro-esophageal reflux disease without esophagitis (principal)

== ENCOUNTER → 2019-10-07 | Outpatient (CLI) | payer BC, MEDICARE ==
[~2019-10-07] MED LIST changes: +ISOVUE-M 300 61% 15ML VIAL (Q9967) As Ordered ONE; +LIDOCAINE 1% SDV INJ 30 ML VIAL As Ordered ONE; -ROPI1TAB PO; +ROPI1TAB3 PO; +diazePAM 5 MG TAB As Ordered ONE; +methylPREDNISolone SUSP 40 MG/ML (DEPO-medrol) VIAL (J1030) As Ordered ONE; +oxyCODONE 5MG TAB As Ordered ONE
--- NOTE | 2019-10-07 11:28 | REP ---
Sacrum and coccyx: Single view. History: Epidural steroid injection for pain. 12 seconds of fluoroscopy time is reported. Findings: A single last image hold fluoroscopically obtained spot radiograph of the lower sacrum and coccyx documents needle position and contrast injection associated with injection procedure. Electronically Signed by Nicola Mistry MD 10/07/2019 11:19 A
--- NOTE | 2019-10-17 04:35 | ECWPNPC ---
PATIENT NAME: ANDI SEXTON : 1960 GENDER: FEMALE VISIT DATE: 10/07/2019 DISCHARGE DATE: 10/07/19 1056 VISIT LOCKED DATE TIME: PHYSICIAN: FROY PAYAN MD RESOURCE: FROY PAYAN MD REASON FOR APPOINTMENT 1. MED AB- CAUDAL EPIDURAL. HISTORY OF PRESENT ILLNESS HISTORY OF PRESENT ILLNESS: PAIN THE PATIENT DESCRIBES THE PAIN... FALL RISK SCREENING: SCREENING :NO FALLS REPORTED IN THE LAST YEAR CURRENT MEDICATIONS TAKING OXYBUTYNIN CHLORIDE 5 MG TABLET 1 TABLET ORALLY TWICE A DAY, NOTES: 10/06/19 TAKING GABAPENTIN 600 MG TABLET 1 TABLET ORALLY THREE TIMES DAILY, NOTES: 10/07/19 AM TAKING DRISDOL 46516 UNIT CAPSULE 1 CAPSULE ORALLY EVERY OTHER WEEK, NOTES: SUNDAY TAKING CALCIUM + D3 600-800 MG-UNIT TABLET 1 TABLET WITH A MEAL ORALLY BID, NOTES: NONE LATELY TAKING VITAMIN B 12 100 MCG LOZENGE DIRECTED ORALLY ONCE A DAY, NOTES: 10/06/19 TAKING MAXALT 10 MG TABLET 1 TABLET NEEDED ONE TIME ORALLY ONCE A DAY, NOTES: NONE LATELY TAKING MECLIZINE HCL 25 MG TABLET 1 TABLET NEEDED ORALLY Q8 HR NEEDED, NOTES: NONE LATELY TAKING MAY USE MEDICAL MARAJUANA DAILY, NOTES: 10/05/19 TAKING SERTRALINE HCL 100 MG TABLET 2 TABLET ORALLY ONCE A DAY, NOTES: 10/07/19 AM TAKING RECLAST 5 MG/100ML SOLUTION DIRECTED INTRAVENOUS , NOTES: SEPTEMBER TAKING ATORVASTATIN CALCIUM 40 MG TABLET 1 TABLET ORALLY ONCE A DAY, NOTES: 10/06/19 TAKING TRAMADOL HCL 50 MG TABLET 1 TABLET NEEDED ORALLY Q6 HRS PRN MDD 4, NOTES: 10/06/19 TAKING PANTOPRAZOLE SODIUM 40 MG TABLET DELAYED RELEASE 1 TABLET ORALLY BID, NOTES: 10/07/19 TAKING PROBIOTIC - CAPSULE DIRECTED ORALLY DAILY, NOTES: 10/06/19 DISCONTINUED CITRUCEL 500 MG TABLET 2 TABLETS WITH A FULL GLASS OF WATER NEEDED ORALLY SIX TIMES A DAY DISCONTINUED HYDROXYZINE HCL 50 MG TABLET -2 TABLET ORALLY BEFORE BEDTIME PRN DISCONTINUED AIMOVIG 70 MG/ML SOLUTION AUTO-INJECTOR SUBCUTANEOUS ONCE A MONTH DISCONTINUED TIZANIDINE HCL 4 MG TABLET 1 TABLET NEEDED ORALLY BID NEEDED DISCONTINUED TRIAMCINOLONE ACETONIDE 0.1 % PASTE 1 APPLICATION AT BEDTIME MOUTH/THROAT ONCE A DAY DISCONTINUED DICLOFENAC SODIUM 1 % GEL 1 GRAM TRANSDERMAL , KNUCKLES, THUMBS FOUR TIMES A DAY MEDICATION LIST REVIEWED AND RECONCILED WITH THE PATIENT PAST MEDICAL HISTORY ANDREWS-MIGRAINES H/O DIVERTICULOSIS- DIVERTICULITIS NUMBNESS AND TINGLING TO FINGERS AND TOES DUE TO TOPAMAX 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 ARTHROSCOPIC TWICE ON L HYSTERECTOMY, PARTIAL & TOTAL; BLADDER REPAIR C 1ST ONE S/P LAP. CHOLECYSTECTOMY() S/P APPENDECTOMY BUNIONECTOMY BONE FUSION ON RT. 06-09-2016 LUMBAR SPINE FUSION S1-T12 06/17/18 S/P LUMPECTOMY LEFT BREAST 1994 MULTIPLE D&C'S, LAPAROSCOPIES FOR ENDOMETRIOSIS FAMILY HISTORY FATHER: ALIVE, DIAGNOSED WITH HYPERTENSION, UNSPECIFIED CEREBRAL ARTERY OCCLUSION WITH CEREBRAL INFARCTION MOTHER: ALIVE, DIABETES 2 SON(S) - HEALTHY. SONS- MITRAL VALVE, TACHYCARDIAMATERNAL AUNT- RA. SOCIAL HISTORY GENERAL: TOBACCO USE ARE YOU A:CURRENT SMOKER ARE YOU INTERESTED IN QUITTING?READY TO QUIT COUNSELED THE PATIENT ON TOBACCO USE, CESSATION [id number]/04/2020 HOW MANY CIGARETTES A DAY DO YOU SMOKE?6-10 HOW SOON AFTER YOU WAKE UP DO YOU SMOKE YOUR FIRST CIGARETTE?6-30 MIN HOW OFTEN DO YOU SMOKE CIGARETTES?EVERY DAY PATIENT COUNSELED ON THE DANGERS OF TOBACCO USE AND URGED TO QUIT:07/29/2019 SMOKING CESSATION INFORMATION GIVEN07/29/2019 HIV / HEP-C SCREENING HIV TEST OFFERED TO PATIENT:YES DATE OFFERED:01/09/2019 TEST ACCEPTED:NO HEP-C TEST OFFERED TO PATIENT:YES DATE OFFERED:01/09/2019 REASON:PATIENT DECLINED TEST ACCEPTED:NO REASON:PATIENT DECLINED BROCHURE PROVIDED TO PATIENTYES OTHERS AT HOME: SPOUSE, SON. LANGUAGE LANGUAGES SPOKEN:IRISH DOMESTIC VIOLENCE DO YOU FEEL SAFE IN YOUR ENVIRONMENT?YES NEW PATIENT PAIN DIARY DO YOU TAKE ANY BLOOD THINNERS?NO ANY CHANGE IN BOWEL OR BLADDER CONTROL?YES HAS DIARRHEA FROM DIVERTICULOSIS ARE YOU ALLERGIC TO SHELLFISH OR IV DYE?NO ARE YOU DIABETIC?NO DO YOU HAVE A PACEMAKER OR DEFIBRILLATOR?NO ANY NEW PROBLEMS WITH MEDICINES OR NEW ALLERGIESNO HAVE YOU FALLEN IN THE LAST 6 MONTHS?YES TRIPPED LAST NIGHT NOT SURE WHAT HAPPENED. SLIPPED AND FELL ONTO KNEES DO YOU USE ANY TYPE OF TOBACCO (SMOKE, SMOKELESS, CHEW, ETC.)YES ARE YOU ABUSED, NEGLECTED, OR IN AN UNSAFE ENVIRONMENT?NO DO YOU HAVE THOUGHTS OF HURTING YOURSELF OR SOMEONE ELSE?NO RECREATIONAL DRUG USE: NEVER DRUG USE? MEDICAL MARIJUANA LEARNING BARRIERS / SPECIAL NEEDS CHANGE FROM LAST VISIT?NO BARRIERS TO LEARNING?NO HEARING IMPAIRED?NO VISION IMPAIRED?YES COGNITIVELY IMPAIRED?NO :CORRECTIVE LENSES READINESS TO LEARN?YES LEARNING PREFERENCES?NO LEARNING CAPABILITIES PRESENT?YES EMOTIONAL BARRIERS?NO SPECIAL DEVICES?YES HAS DENTURES TOP/BOTTOM SPECIAL EDUCATION SECRETARY NEEDED?NO PAIN CLINIC PFS, CLERGY, PUBLIC HEALTH REFERRALS PFS REFERRAL NEEDED?NO CLERGY REFERRAL NEEDED?NO PUBLIC HEALTH REFERRAL NEEDED?NO WAS THE PROVIDER NOTIFIED OF ANY PERTINENT INFO?YES HAS THE PATIENT BEEN EDUCATED REGARDING HIS/HER PLAN OF CARE?YES HAS THE PATIENT BEEN EDUCATED REGARDING PAIN, THE RISK FOR PAIN, THE IMPORTANCE OF EFFECTIVE PAIN MANAGEMENT, AND THE PAIN ASSESSMENT PROCESS?YES LATEX QUESTIONNAIRE LATEX ALLERGY : HAVE YOU EVER DEVELOPED ANY TYPE OF REACTION AFTER HANDLING LATEX PRODUCTS SUCH RUBBER GLOVES, CONDOMS, DIAPHRAGMS, BALLOONS, SOCKS, OR UNDERWEAR?NO LATEX ALLERGY : HAVE YOU EVER DEVELOPED ANY TYPE OF REACTION DURING OR AFTER DENTAL APPOINTMENT, VAGINAL/RECTAL EXAMINATION, SURGICAL PROCEDURE, OR ANY OTHER EXPOSURE?NO DATE ASKED : 08/06/2019 LATEX RISK : HAVE YOU EVER HAD ANY DIFFICULTY BREATHING OR HIVES AFTER EATING OR HANDLING ANY FRUITS, OR VEGETABLES; SUCH KIWI, BANANAS, STONE FRUITS, OR CHESTNUTSNO LATEX RISK : DO YOU HAVE A PREVIOUS PERSONAL HISTORY OF MORE THAN NINE SURGERIES, SPINA BIFIDA, OR REPEATED CATHERIZATIONS? YES - PLEASE INDICATE : > 9 SURGERIES LATEX RISK : ARE YOU FREQUENTLY EXPOSED TO LATEX PRODUCTS IN YOUR OCCUPATION?NO CAFFEINE: YES CAFFEINE USE?YES HOW OFTEN AND HOW MUCH? 2 CUPS COFFEE, 2 LITERS COKE/DAY ADVANCE DIRECTIVE ADVANCE DIRECTIVE DISCUSSED WITH PATIENT:YES HCP-- , [facility] [id number] BAHAI MARITAL STATUS: . ALCOHOL SCREENING DID YOU HAVE A DRINK CONTAINING ALCOHOL IN THE PAST YEAR?NO POINTS0 INTERPRETATIONNEGATIVE OCCUPATION: DISABLED. SEXUAL HX HAD SEX IN THE LAST 12 MONTHS (VAGINAL, ORAL, OR ANAL)?NO HAVE YOU EVER HAD AN STD?NO REVIEWED WITH PT 08/14/18 1525 LASREVIEWED WITH PATIENT 07/15/19 LAS. HOSPITALIZATION/MAJOR DIAGNOSTIC PROCEDURE DIVERTICULITIS SEVERAL TIMES 01/2017 BOWEL OBSTRUCTION BACK SURGERY 06/20 CHILDBIRTH X 2 REVIEW OF SYSTEMS REVIEWED BY: PROVIDER: . CONSTITUTIONAL: ANY CHANGE IN YOUR MEDICAL CONDITION? NO . CHILLS NO . FEVER NO . INFECTION: DO YOU HAVE NEW INFECTIONS? NO . DO YOU HAVE HISTORY OF MRSA? YES . MUSCULOSKELETAL: ANY NEW PATTERNS OF PAIN OR NUMBNESS? NO . GASTROENTEROLOGY: ANY NEW CHANGE IN BOWEL CONTROL? NO . GENITOURINARY: ANY NEW CHANGE IN BLADDER CONTROL? NO . IS THERE A CHANCE YOU COULD BE ? NO . HEMATOLOGY/LYMPH: DO YOU TAKE ANY BLOOD THINNERS? (FOR EXAMPLE- COUMADIN, PLAVIX, AGGRENOX, PLATEL, PRADAXA, OR XARELTO) NO . WHEN WAS YOUR LAST DOSE? DATE: TIME: . NEUROLOGY: HAVE YOU FALLEN IN THE PAST 12 MONTHS? NO . ANY NEW EXTREMITY NUMBNESS OR WEAKNESS? NO . CARDIOLOGY: DO YOU HAVE A PACEMAKER OR DEFIBRILLATOR? NO . RESPIRATORY: HAVE YOU BEEN SICK IN THE PAST WEEK? NO . FEVER NO . FLU LIKE SYMPTOMS? NO . COUGH NO . INTEGUMENTARY: DO YOU HAVE ANY RASHES OR OPEN SORES? NO . ALLERGIC/IMMUNO: ARE YOU ALLERGIC TO IV DYE? NO . ANY NEW ALLERGIES? NO . PSYCHIATRIC: DO YOU HAVE THOUGHTS OF HURTING YOURSELF OR SOMEONE ELSE? NO . ARE YOU ABUSED, NEGLECTED, OR IN AN UNSAFE ENVIRONMENT? NO . ENDOCRINOLOGY: ARE YOU DIABETIC? NO . OTHER: DO YOU NEED ANY PRESCRIPTIONS? NO . IF YES, PLEASE LIST: ____ . ANY NEW PROBLEMS WITH YOUR MEDICATIONS? NO . WHEN DID YOU LAST EAT? 10/06/191929 . WHEN DID YOU LAST DRINK? 10/07/19 0535 . WHAT DID YOU LAST DRINK? WATER . NAME OF PERSON DRIVING YOU HOME? AYLEEN . DO YOU HAVE ANY OTHER QUESTIONS OR CONCERNS NO . VITAL SIGNS WT 115.2 LBS, HT 60 IN, BMI 22.50 INDEX, BP 125/71 MM HG, HR 68 /MIN, RR 18 /MIN, TEMP 96.0 F, OXYGEN SAT % 98%, NA INITIALS AW 0850, REVIEWED BY: EM. ASSESSMENTS INTERVERTEBRAL DISC DISORDERS WITH RADICULOPATHY, LUMBOSACRAL REGION - M51.17 (PRIMARY) PROCEDURES PN CAUDAL EPIDURALS PRE PROCEDURE DIAGNOSIS LUMBAR POST LAMINECTOMY PAIN SYNDROME, LUMBAR DISC DISORDER WITH RADICULOPATHY POST PROCEDURE DIAGNOSIS LUMBAR POST LAMINECTOMY PAIN SYNDROME, LUMBAR DISC DISORDER WITH RADICULOPATHY PROCEDURE CAUDAL EPIDURAL STEROID INJECTION UNDER FLUOROSCOPIC GUIDANCE. SURGEON DR. FROY PAYAN CHARGEMASTER SPECIALIST NONE ANESTHESIA LOCAL PRE PROCEDURE NOTE THE PATIENT HAS HISTORY OF CHRONIC LOW BACK PAIN. I EVALUATED THE PATIENT AND REVIEWED THE CHART. I WENT OVER THE RISKS, ALTERNATIVES, AND BENEFITS ASSOCIATED WITH THIS PROCEDURE. THE PATIENT WOULD LIKE TO PROCEED AND GIVES CONSENT TO PERFORM THE PROCEDURE. THE PATIENT DENIES UNEXPLAINABLE WEIGHT LOSS, FEVER, CHILLS, OR NEW CHANGES IN URINARY OR BOWEL CONTROL. DESCRIPTION OF PROCEDURE THE PATIENT WAS BROUGHT TO THE PROCEDURE ROOM AND PLACED IN THE PRONE POSITION. THE LUMBOSACRAL AREA WAS CLEANED WITH BETADINE SOLUTION AND DRAPED ASEPTICALLY. THE PROCEDURE WAS DONE UNDER STERILE CONDITIONS. I CHECKED LATERALITY AND THE LEVEL WHERE THE PROCEDURE WAS GOING TO BE PERFORMED WITH THE PATIENT AND THE SUPPORTING STAFF AT THE MOMENT OF THE TIME OUT IN THE PROCEDURE ROOM. UNDER FLUOROSCOPIC GUIDANCE, THE TARGET POINT WAS SELECTED AT THE EPIDURAL SPACE BELOW THE SACROCOCCYGEAL LIGAMENT. LIDOCAINE 0.5% WAS USE TO NUMB THE SKIN AND THE SUBCUTANEOUS TISSUE BELOW IT. AN EPIDURAL TUOHY NEEDLE, 17-GAUGE, WAS ADVANCED UNDER FLUOROSCOPIC GUIDANCE AND FOLLOWING PATIENT FEEDBACK UNTIL THE EPIDURAL SPACE WAS REACHED 6 CM DEEP INTO THE SKIN BY THE LOSS OF RESISTANCE TECHNIQUE. ISOVUE M DYE 30%, 0.25 ML, WAS INJECTED SHOWING ADEQUATE SPREAD OF THE DYE. THEN, A SOLUTION OF 6 ML OF NORMAL SALINE WITH DEPO-MEDROL 60 MG WAS INJECTED SLOWLY FOLLOWING THE PATIENT FEEDBACK. THERE WAS NO EVIDENCE OF BLOOD, PARESTHESIA OR CEREBROSPINAL FLUID DURING THE PROCEDURE. THE PATIENT WAS SENT TO THE RECOVERY ROOM. THE PATIENT WAS MOVING THE EXTREMITIES AND DOING WELL. THERE WAS NO COMPLICATION DURING THE PROCEDURE. FLUOROSCOPY TIME WAS 11 SECONDS POST PROCEDURE NOTE THE PATIENT WILL BE SEEN IN A FOLLOW UP IN THE NEXT FEW WEEKS. I AM LOOKING FOR LONG LASTING PAIN RELIEF WITH THIS INJECTION. DEPENDING ON THIS EPIDURAL'S RESULTS, I MAY CONSIDER REPEATING ANOTHER CAUDAL EPIDURAL WITH A CATHETER IN THE FUTURE. INSTRUCTIONS WERE GIVEN, QUESTIONS WERE ANSWERED, AND THE PATIENT EXPRESSED UNDERSTANDING AND AGREES WITH THE PLAN. I, RD OLEA, DOCUMENTED THE ABOVE INFORMATION ACTING A SCRIBE FOR DR. PAYAN. I HAVE REVIEWED THE ABOVE DOCUMENT, WRITTEN BY RD OLEA SCRIBAretha AND I VERIFY THAT IT IS ACCURATE. DIAGNOSTIC IMAG[facility] FLUORO GUIDE SPINE INJECTION (PAIN)[id number] PROCEDURE CODES 99831 LUMBAR/SACRAL W/ IMAGING 6045F RADXPS IN END [id number] PXD DISPOSITION & COMMUNICATION FOLLOW UP 3 WEEKS ELECTRONICALLY SIGNED BY FROY PAYAN MD, MD ON 10/16/2019 AT 12:00 PM EST DISCLAIMER : THIS IS A VISIT SUMMARY EXTRACTED FROM THE [employer] CHART. IT IS NOT A COPY OF THE [employer] PROGRESS NOTE. MTDD
== END ==
LOC: M PAIN 08:45
PROVIDERS: ATTEND Anesthesiology
DX: M51.17 Intervertebral disc disorders with radiculopathy, lumbosacral region (principal); G43.909 Migraine, unspecified, not intractable, without status migrainosus; M79.7 Fibromyalgia; K21.9 Gastro-esophageal reflux disease without esophagitis; Z86.59 Personal history of other mental and behavioral disorders; Z86.14 Personal history of Methicillin resistant Staphylococcus aureus infection; Z86.19 Personal history of other infectious and parasitic diseases; F17.210 Nicotine dependence, cigarettes, uncomplicated; Z88.8 Allergy status to other drugs, medicaments and biological substances; Z79.899 Other long term (current) drug therapy
CPT/HCPCS: 62323; J1030; Q9967

== ENCOUNTER → 2019-10-16 | Outpatient (CLI) | payer BC, MEDICARE ==
[~2019-10-16] MED LIST changes: -ISOVUE-M 300 61% 15ML VIAL (Q9967) As Ordered ONE; -LIDOCAINE 1% SDV INJ 30 ML VIAL As Ordered ONE; -diazePAM 5 MG TAB As Ordered ONE; -methylPREDNISolone SUSP 40 MG/ML (DEPO-medrol) VIAL (J1030) As Ordered ONE; -oxyCODONE 5MG TAB As Ordered ONE
--- NOTE | 2019-10-18 04:10 | ECWPNPC ---
PATIENT NAME: ANDI SEXTON : 1960 GENDER: FEMALE VISIT DATE: 10/16/2019 DISCHARGE DATE: 10/16/19 1019 VISIT LOCKED DATE TIME: PHYSICIAN: SIMRAN MACHUCA RESOURCE: SIMRAN MACHUCA REASON FOR APPOINTMENT 1. MED AB-POST CAUDAL HISTORY OF PRESENT ILLNESS HISTORY OF PRESENT ILLNESS: PAIN THE PATIENT DESCRIBES THE PAIN... 59-YEAR-OLD FEMALE IN FOR POST CAUDAL FOLLOW-UP. SHE FEELS THE PROCEDURE WORKED WELL OVERALL RATING HER PAIN PREPROCEDURE AT AN 8 OUT OF 10 AND POSTPROCEDURE AT A 5-6 OUT OF 10. SHE FURTHER STATES THE PROCEDURE CONTINUES TO HELP HER TODAY. SHE RATES HER PAIN CURRENTLY AT A 5 OUT OF 10 AND DESCRIBES IT SHARP, SORE, AND SHOOTING. FALL RISK SCREENING: SCREENING :NO FALLS REPORTED IN THE LAST YEAR CURRENT MEDICATIONS TAKING GABAPENTIN 600 MG TABLET 1 TABLET ORALLY THREE TIMES DAILY TAKING DRISDOL 93473 UNIT CAPSULE 1 CAPSULE ORALLY EVERY OTHER WEEK TAKING VITAMIN B 12 100 MCG LOZENGE DIRECTED ORALLY ONCE A DAY TAKING MAXALT 10 MG TABLET 1 TABLET NEEDED ONE TIME ORALLY ONCE A DAY TAKING MECLIZINE HCL 25 MG TABLET 1 TABLET NEEDED ORALLY Q8 HR NEEDED TAKING MAY USE MEDICAL MARAJUANA DAILY TAKING SERTRALINE HCL 100 MG TABLET 2 TABLET ORALLY ONCE A DAY TAKING RECLAST 5 MG/100ML SOLUTION DIRECTED INTRAVENOUS YEARLY TAKING TRAMADOL HCL 50 MG TABLET 1 TABLET NEEDED ORALLY Q6 HRS PRN MDD 4 TAKING PROBIOTIC - CAPSULE DIRECTED ORALLY DAILY TAKING OXYBUTYNIN CHLORIDE 5 MG TABLET 1 TABLET ORALLY TWICE A DAY TAKING PANTOPRAZOLE SODIUM 40 MG TABLET DELAYED RELEASE 1 TABLET ORALLY BID TAKING ATORVASTATIN CALCIUM 40 MG TABLET 1 TABLET ORALLY ONCE A DAY TAKING SUCRALFATE 1 GM TABLET 1 TABLET ON AN EMPTY STOMACH ORALLY TWICE A DAY TAKING NORCO 10-325 MG TABLET 1 TABLET NEEDED ORALLY EVERY 6 HRS NOT-TAKING CALCIUM + D3 600-800 MG-UNIT TABLET 1 TABLET WITH A MEAL ORALLY BID MEDICATION LIST REVIEWED AND RECONCILED WITH THE PATIENT PAST MEDICAL HISTORY ANDREWS-MIGRAINES H/O DIVERTICULOSIS- DIVERTICULITIS NUMBNESS AND TINGLING TO FINGERS AND TOES DUE TO TOPAMAX 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 ARTHROSCOPIC TWICE ON L HYSTERECTOMY, PARTIAL & TOTAL; BLADDER REPAIR C 1ST ONE S/P LAP. CHOLECYSTECTOMY(-1999) S/P APPENDECTOMY BUNIONECTOMY BONE FUSION ON RT. 06-09-2016 LUMBAR SPINE FUSION S1-T12 06/17/18 S/P LUMPECTOMY LEFT BREAST 1994 MULTIPLE D&C'S, LAPAROSCOPIES FOR ENDOMETRIOSIS FAMILY HISTORY FATHER: ALIVE, DIAGNOSED WITH HYPERTENSION, UNSPECIFIED CEREBRAL ARTERY OCCLUSION WITH CEREBRAL INFARCTION MOTHER: ALIVE, DIABETES 2 SON(S) - HEALTHY. SONS- MITRAL VALVE, TACHYCARDIAMATERNAL AUNT- RA. SOCIAL HISTORY GENERAL: TOBACCO USE ARE YOU A:CURRENT SMOKER ARE YOU INTERESTED IN QUITTING?READY TO QUIT HAS CUT DOWN TO 5 OR LESS A DAY PREVIOUS QUIT ATTEMPTS?YES, MORE THAN 6 MONTHS AGO. COUNSELED THE PATIENT ON TOBACCO USE, CESSATION [id number]/13/2020 HOW MANY CIGARETTES A DAY DO YOU SMOKE?5 OR LESS HOW SOON AFTER YOU WAKE UP DO YOU SMOKE YOUR FIRST CIGARETTE?6-30 MIN HOW OFTEN DO YOU SMOKE CIGARETTES?EVERY DAY PATIENT COUNSELED ON THE DANGERS OF TOBACCO USE AND URGED TO QUIT:10/16/2019 SMOKING CESSATION INFORMATION GIVEN07/29/2019 HIV / HEP-C SCREENING HIV TEST OFFERED TO PATIENT:YES DATE OFFERED:01/09/2019 TEST ACCEPTED:NO HEP-C TEST OFFERED TO PATIENT:YES DATE OFFERED:01/09/2019 REASON:PATIENT DECLINED TEST ACCEPTED:NO REASON:PATIENT DECLINED BROCHURE PROVIDED TO PATIENTYES OTHERS AT HOME: SPOUSE, SON. LANGUAGE LANGUAGES SPOKEN:SETSWANA DOMESTIC VIOLENCE DO YOU FEEL SAFE IN YOUR ENVIRONMENT?YES NEW PATIENT PAIN DIARY DO YOU TAKE ANY BLOOD THINNERS?NO ANY CHANGE IN BOWEL OR BLADDER CONTROL?YES HAS DIARRHEA FROM DIVERTICULOSIS ARE YOU ALLERGIC TO SHELLFISH OR IV DYE?NO ARE YOU DIABETIC?NO DO YOU HAVE A PACEMAKER OR DEFIBRILLATOR?NO ANY NEW PROBLEMS WITH MEDICINES OR NEW ALLERGIESNO HAVE YOU FALLEN IN THE LAST 6 MONTHS?YES TRIPPED LAST NIGHT NOT SURE WHAT HAPPENED. SLIPPED AND FELL ONTO KNEES DO YOU USE ANY TYPE OF TOBACCO (SMOKE, SMOKELESS, CHEW, ETC.)YES ARE YOU ABUSED, NEGLECTED, OR IN AN UNSAFE ENVIRONMENT?NO DO YOU HAVE THOUGHTS OF HURTING YOURSELF OR SOMEONE ELSE?NO RECREATIONAL DRUG USE: NEVER DRUG USE? MEDICAL MARIJUANA LEARNING BARRIERS / SPECIAL NEEDS CHANGE FROM LAST VISIT?NO BARRIERS TO LEARNING?NO HEARING IMPAIRED?NO VISION IMPAIRED?YES :CORRECTIVE LENSES COGNITIVELY IMPAIRED?NO READINESS TO LEARN?YES LEARNING PREFERENCES?NO LEARNING CAPABILITIES PRESENT?YES EMOTIONAL BARRIERS?NO SPECIAL DEVICES?YES HAS DENTURES TOP/BOTTOM TELEVISION PRESENTER NEEDED?NO PAIN CLINIC PFS, CLERGY, PUBLIC HEALTH REFERRALS PFS REFERRAL NEEDED?NO CLERGY REFERRAL NEEDED?NO PUBLIC HEALTH REFERRAL NEEDED?NO HAS THE PATIENT BEEN EDUCATED REGARDING HIS/HER PLAN OF CARE?YES HAS THE PATIENT BEEN EDUCATED REGARDING PAIN, THE RISK FOR PAIN, THE IMPORTANCE OF EFFECTIVE PAIN MANAGEMENT, AND THE PAIN ASSESSMENT PROCESS?YES LATEX QUESTIONNAIRE LATEX ALLERGY : HAVE YOU EVER DEVELOPED ANY TYPE OF REACTION AFTER HANDLING LATEX PRODUCTS SUCH RUBBER GLOVES, CONDOMS, DIAPHRAGMS, BALLOONS, SOCKS, OR UNDERWEAR?NO LATEX ALLERGY : HAVE YOU EVER DEVELOPED ANY TYPE OF REACTION DURING OR AFTER DENTAL APPOINTMENT, VAGINAL/RECTAL EXAMINATION, SURGICAL PROCEDURE, OR ANY OTHER EXPOSURE?NO LATEX RISK : HAVE YOU EVER HAD ANY DIFFICULTY BREATHING OR HIVES AFTER EATING OR HANDLING ANY FRUITS, OR VEGETABLES; SUCH KIWI, BANANAS, STONE FRUITS, OR CHESTNUTSNO LATEX RISK : DO YOU HAVE A PREVIOUS PERSONAL HISTORY OF MORE THAN NINE SURGERIES, SPINA BIFIDA, OR REPEATED CATHERIZATIONS? YES - PLEASE INDICATE : > 9 SURGERIES LATEX RISK : ARE YOU FREQUENTLY EXPOSED TO LATEX PRODUCTS IN YOUR OCCUPATION?NO DATE ASKED : 10/16/2019 CAFFEINE: YES CAFFEINE USE?YES HOW OFTEN AND HOW MUCH? 2 CUPS COFFEE, 2 LITERS COKE/DAY ADVANCE DIRECTIVE ADVANCE DIRECTIVE DISCUSSED WITH PATIENT:YES HCP-- , RODRIGUEZ RASTAFARIAN [id number] ALEVISM MARITAL STATUS: . ALCOHOL SCREENING DID YOU HAVE A DRINK CONTAINING ALCOHOL IN THE PAST YEAR?NO POINTS0 INTERPRETATIONNEGATIVE OCCUPATION: DISABLED. SEXUAL HX HAD SEX IN THE LAST 12 MONTHS (VAGINAL, ORAL, OR ANAL)?NO HAVE YOU EVER HAD AN STD?NO REVIEWED WITH PT 08/14/18 1525 LASREVIEWED WITH PATIENT 07/15/19 LAS10/16/2019 0954 REVIEWED WITH PT. AD. HOSPITALIZATION/MAJOR DIAGNOSTIC PROCEDURE DIVERTICULITIS SEVERAL TIMES 01/2017 BOWEL OBSTRUCTION BACK SURGERY 06/20 CHILDBIRTH X 2 REVIEW OF SYSTEMS REVIEWED BY: PROVIDER: MARCIE SALINAS-C . CONSTITUTIONAL: ANY CHANGE IN YOUR MEDICAL CONDITION? NO . CHILLS NO . FEVER NO . INFECTION: DO YOU HAVE NEW INFECTIONS? NO . DO YOU HAVE HISTORY OF MRSA? YES, FOUND IN WORK UP FOR BACK SURGERY IN 07/21 . MUSCULOSKELETAL: ANY NEW PATTERNS OF PAIN OR NUMBNESS? NO . GASTROENTEROLOGY: ANY NEW CHANGE IN BOWEL CONTROL? NO . GENITOURINARY: ANY NEW CHANGE IN BLADDER CONTROL? NO . IS THERE A CHANCE YOU COULD BE ? NO . HEMATOLOGY/LYMPH: DO YOU TAKE ANY BLOOD THINNERS? (FOR EXAMPLE- COUMADIN, PLAVIX, AGGRENOX, PLATEL, PRADAXA, OR XARELTO) NO . WHEN WAS YOUR LAST DOSE? DATE: TIME: . NEUROLOGY: HAVE YOU FALLEN IN THE PAST 12 MONTHS? YES, COUPLE OF TIMES. LOC X 1 WAS NOT EVALUATED AFTER . ANY NEW EXTREMITY NUMBNESS OR WEAKNESS? NO . CARDIOLOGY: DO YOU HAVE A PACEMAKER OR DEFIBRILLATOR? NO . RESPIRATORY: HAVE YOU BEEN SICK IN THE PAST WEEK? NO . FEVER NO . FLU LIKE SYMPTOMS? NO . COUGH NO . INTEGUMENTARY: DO YOU HAVE ANY RASHES OR OPEN SORES? NO . ALLERGIC/IMMUNO: ARE YOU ALLERGIC TO IV DYE? NO . ANY NEW ALLERGIES? NO WAS MARKED WRONG ON SCREENING FORM, SHE STATE NO NEW ALLERGIES . PSYCHIATRIC: DO YOU HAVE THOUGHTS OF HURTING YOURSELF OR SOMEONE ELSE? NO . ARE YOU ABUSED, NEGLECTED, OR IN AN UNSAFE ENVIRONMENT? NO . ENDOCRINOLOGY: ARE YOU DIABETIC? NO . OTHER: DO YOU NEED ANY PRESCRIPTIONS? NO . IF YES, PLEASE LIST: ____ . ANY NEW PROBLEMS WITH YOUR MEDICATIONS? NO . WHEN DID YOU LAST EAT? ____ . WHEN DID YOU LAST DRINK? ____ . WHAT DID YOU LAST DRINK? ____ . NAME OF PERSON DRIVING YOU HOME? ____ . DO YOU HAVE ANY OTHER QUESTIONS OR CONCERNS NO . VITAL SIGNS WT 113.4 LBS, HT 60 IN, BMI 22.14 INDEX, BP 125/58 MM HG, HR 80 /MIN, RR 18 /MIN, TEMP 97.6 F, OXYGEN SAT % 98%, SAFE IN ENV? (Y/N) Y, NA INITIALS AW 0945, REVIEWED BY: AD. EXAMINATION GENERAL EXAMINATION: GENERALNO ACUTE DISTRESS, WELL NOURISHED AND HYDRATED. PSYCHAPPROPRIATE MOOD AND AFFECT . LUNGS:CLEAR TO AUSCULTATION BILATERALLY, NO WHEEZES, RHONCHI, RALES. HEART:NO MURMURS, REGULAR RATE AND RHYTHM. ASSESSMENTS INTERVERTEBRAL DISC DISORDER WITH RADICULOPATHY OF LUMBAR REGION - M51.16 (PRIMARY) TREATMENT INTERVERTEBRAL DISC DISORDER WITH RADICULOPATHY OF LUMBAR REGION CLINICAL NOTES: 59-YEAR-OLD FEMALE IN FOR POST CAUDAL EPIDURAL FOLLOW-UP. GIVEN PRESENTING SYMPTOMS AND RESULTS OF PHYSICAL EXAMINATION RECOMMEND FOLLOW-UP IN 2 MONTHS. PATIENT HAS EXPRESSED UNDERSTANDING OF AND WAS IN AGREEMENT WITH TREATMENT PLAN. GIVEN TIME TO ASK QUESTIONS AND EXPRESS CONCERNS., ISTOP REGISTRY REVIEWED AND DEMONSTRATES COMPLLIANCE. (REF # [id number] ) BRINGS IN MEDICATIONS WHICH IS APPROPRIATE FOR WHAT WAS DISPENSED. RECENT URINE TOXICOLOGY REVIEWED. NO UNAUTHORIZED MEDICATIONS. NO ILLICIT SUBSTANCES AND PRESCRIBED MEDICATIONS WERE PRESENT. PROCEDURE CODES FA211 ESTABILISHED PATIENT [facility] CHARGE DISPOSITION & COMMUNICATION FOLLOW UP 2 MONTHS (REASON: LOW BACK PAIN) ELECTRONICALLY SIGNED BY BRAD CHISHOLM ON 10/17/2019 AT 08:31 AM EST DISCLAIMER : THIS IS A VISIT SUMMARY EXTRACTED FROM THE [employer] CHART. IT IS NOT A COPY OF THE [employer] PROGRESS NOTE. IFTIKHAR
== END ==
LOC: M PAIN 09:30
PROVIDERS: ATTEND Family Medicine
DX: M51.16 Intervertebral disc disorders with radiculopathy, lumbar region (principal); Z79.891 Long term (current) use of opiate analgesic; Z79.899 Other long term (current) drug therapy; F17.210 Nicotine dependence, cigarettes, uncomplicated; Z88.8 Allergy status to other drugs, medicaments and biological substances

== ENCOUNTER → 2019-10-21 | Outpatient (CLI) | payer BC, MEDICARE ==
[~2019-10-21] MED LIST changes: +E-Z-GAS II EFFERVESCENT PACKET (SODIUM BICARB./CITRIC ACID/SIMETHICONE) As Ordered ONE; +E-Z-HD 98% w/w 340GM SUSP BTL As Ordered ONE; +E-Z-PAQUE 96% w/w SUSP 176GM BTL As Ordered ONE
--- NOTE | 2019-10-21 16:55 | REP ---
Upper GI Air Contrast with SBFT The procedure was performed by AKBAR Abbasi, under the the direct supervision of Dr. Mistry. The images were reviewed with Dr. Mistry. The commercial baker helper film shows no organomegaly or pathological masses. The intestinal gas pattern appears normal. There are surgical janes in the right upper quadrant. There is a lumbar spine fusion. There is degenerative disc disease of the cervical spine. Liquid barium and gas producing crystals were given in the erect position as well as liquid barium in the prone position in order to perform a double contrast upper GI examination. The oral and pharyngeal stages of deglutition were unremarkable. There is an anterior osteophyte of C5-6 indenting the posterior wall of the esophagus. Esophageal transport is efficient and there is no esophagitis, stricture, or mucosal ring noted. There is no hiatal hernia. Gastroesophageal reflux as visualized to the level of the burton. The stomach mackenzie are normally outlined. The rugal folds are smooth and regular. There is no gastritis, neoplasm, or ulcer disease noted. The duodenal mackenzie are normally outlined. The mucosal folds are smooth and regular. There is no duodenitis, peptic ulcer disease, or neoplasm noted. The visualized portion of the proximal small bowel appears normal in course and caliber. The barium column was followed through the small bowel to the level of the terminal ileum. Small bowel transit time was approximately 265 minutes. During fluoroscopy gentle palpation shows all loops are freely mobile and pliable. There are no fixed or angulated loops. The small bowel mucosal pattern is normal in course and caliber. There is no transition to set suggest a partial small-bowel obstruction. Spot filming of the terminal ileum was extremely limited due to it is positioned deep in the pelvis and overlying bowel, however it appears to be unremarkable. Impression: 1. Anterior osteophyte of C5-6 indenting the posterior wall of the esophagus. 2. Gastroesophageal reflux to the level of the burton. 3. Limited visualization of the terminal ileum, otherwise unremarkable. 4. Small bowel transit time of 265 minutes. 1.0 minutes of fluoroscopy time was utilized for this procedure. Some fluoroscopic images are performed with last image hold technology. These images require no additional radiation. Reviewed by AKBAR Banks 10/21/2019 04:12 P Electronically Signed by Nicola Mistry MD 10/21/2019 04:46 P
== END ==
LOC: M RAD 09:47
PROVIDERS: ATTEND Physician Assistant Medical
DX: K21.9 Gastro-esophageal reflux disease without esophagitis (principal); M25.78 Osteophyte, vertebrae

== ENCOUNTER → 2019-12-15 | Outpatient (CLI) | payer BC, MEDICARE ==
[~2019-12-15] MED LIST changes: -E-Z-GAS II EFFERVESCENT PACKET (SODIUM BICARB./CITRIC ACID/SIMETHICONE) As Ordered ONE; -E-Z-HD 98% w/w 340GM SUSP BTL As Ordered ONE; -E-Z-PAQUE 96% w/w SUSP 176GM BTL As Ordered ONE
--- NOTE | 2019-12-17 04:37 | ECWPNPC ---
PATIENT NAME: ANDI SEXTON : 1960 GENDER: FEMALE VISIT DATE: 12/15/2019 DISCHARGE DATE: 12/15/19 1603 VISIT LOCKED DATE TIME: PHYSICIAN: SIMRAN MACHUCA RESOURCE: SIMRAN MACHUCA REASON FOR APPOINTMENT 1. [id number] HISTORY OF PRESENT ILLNESS HISTORY OF PRESENT ILLNESS: PAIN THE PATIENT DESCRIBES THE PAIN... PERMISSION REQUESTED AND RECEIVED FROM PATIENT TO PERFORM TELEHEALTH VISIT. 59-YEAR-OLD FEMALE IN FOR CHRONIC PAIN FOLLOW-UP. SHE RATES HER PAIN CURRENTLY AT A 5 OUT OF 10 AND DESCRIBES IT ACHING. SHE FEELS HER MEDICATIONS ARE HELPFUL AND DENIES MED SIDE EFFECTS AT THIS TIME. FALL RISK SCREENING: SCREENING :NO FALLS REPORTED IN THE LAST YEAR CURRENT MEDICATIONS TAKING GABAPENTIN 600 MG TABLET 1 TABLET ORALLY THREE TIMES DAILY TAKING VITAMIN B 12 100 MCG LOZENGE DIRECTED ORALLY ONCE A DAY TAKING MAXALT 10 MG TABLET 1 TABLET NEEDED ONE TIME ORALLY ONCE A DAY TAKING MECLIZINE HCL 25 MG TABLET 1 TABLET NEEDED ORALLY Q8 HR NEEDED TAKING MAY USE MEDICAL MARAJUANA DAILY TAKING RECLAST 5 MG/100ML SOLUTION DIRECTED INTRAVENOUS YEARLY TAKING PROBIOTIC - CAPSULE DIRECTED ORALLY DAILY TAKING OXYBUTYNIN CHLORIDE 5 MG TABLET 1 TABLET ORALLY TWICE A DAY TAKING PANTOPRAZOLE SODIUM 40 MG TABLET DELAYED RELEASE 1 TABLET ORALLY BID TAKING ATORVASTATIN CALCIUM 40 MG TABLET 1 TABLET ORALLY ONCE A DAY TAKING SERTRALINE HCL 100 MG TABLET 2 TABLET ORALLY ONCE A DAY TAKING TRAMADOL HCL 50 MG TABLET 1 TABLET NEEDED ORALLY Q6 HRS PRN MDD 4 TAKING NORCO 10-325 MG TABLET 1 TABLET NEEDED ORALLY EVERY 6 HRS TAKING SUCRALFATE 1 GM TABLET 1 TABLET ON AN EMPTY STOMACH ORALLY TWICE A DAY TAKING DRISDOL 70060 UNIT CAPSULE 1 CAPSULE ORALLY EVERY OTHER WEEK NOT-TAKING DIFICID 200 MG TABLET 1 TABLET ORALLY TWICE A DAY NOT-TAKING NIZATIDINE 300 MG CAPSULE 1 CAPSULE AT BEDTIME ORALLY ONCE A DAY NOT-TAKING CALCIUM + D3 600-800 MG-UNIT TABLET 1 TABLET WITH A MEAL ORALLY BID MEDICATION LIST REVIEWED AND RECONCILED WITH THE PATIENT PAST MEDICAL HISTORY ANDREWS-MIGRAINES H/O DIVERTICULOSIS- DIVERTICULITIS NUMBNESS AND TINGLING TO FINGERS AND TOES DUE TO TOPAMAX 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 ARTHROSCOPIC TWICE ON L HYSTERECTOMY, PARTIAL & TOTAL; BLADDER REPAIR C 1ST ONE S/P LAP. CHOLECYSTECTOMY() S/P APPENDECTOMY BUNIONECTOMY BONE FUSION ON RT. 06-09-2016 LUMBAR SPINE FUSION S1-T12 06/17/18 S/P LUMPECTOMY LEFT BREAST 1994 MULTIPLE D&C'S, LAPAROSCOPIES FOR ENDOMETRIOSIS FAMILY HISTORY FATHER: ALIVE, DIAGNOSED WITH HYPERTENSION, UNSPECIFIED CEREBRAL ARTERY OCCLUSION WITH CEREBRAL INFARCTION MOTHER: ALIVE, DIABETES 2 SON(S) - HEALTHY. SONS- MITRAL VALVE, TACHYCARDIAMATERNAL AUNT- RA. SOCIAL HISTORY GENERAL: TOBACCO USE ARE YOU A:CURRENT SMOKER ARE YOU INTERESTED IN QUITTING?READY TO QUIT HAS CUT DOWN TO 5 OR LESS A DAY PREVIOUS QUIT ATTEMPTS?YES, MORE THAN 6 MONTHS AGO. COUNSELED THE PATIENT ON TOBACCO USE, CESSATION [id number]/13/2020 HOW MANY CIGARETTES A DAY DO YOU SMOKE?5 OR LESS HOW SOON AFTER YOU WAKE UP DO YOU SMOKE YOUR FIRST CIGARETTE?6-30 MIN HOW OFTEN DO YOU SMOKE CIGARETTES?EVERY DAY PATIENT COUNSELED ON THE DANGERS OF TOBACCO USE AND URGED TO QUIT:10/16/2019 SMOKING CESSATION INFORMATION GIVEN07/29/2019 HIV / HEP-C SCREENING HIV TEST OFFERED TO PATIENT:YES DATE OFFERED:01/09/2019 TEST ACCEPTED:NO HEP-C TEST OFFERED TO PATIENT:YES DATE OFFERED:01/09/2019 REASON:PATIENT DECLINED TEST ACCEPTED:NO REASON:PATIENT DECLINED BROCHURE PROVIDED TO PATIENTYES OTHERS AT HOME: SPOUSE, SON. LANGUAGE LANGUAGES SPOKEN:CROATIAN DOMESTIC VIOLENCE DO YOU FEEL SAFE IN YOUR ENVIRONMENT?YES NEW PATIENT PAIN DIARY PATIENT DESCRIBES PAIN :ACHING, HAVE IT ALL THE TIME, SHARP FROM 0-10, WHAT LEVEL IS YOUR PAIN TODAY?5 PRECIPITATING FACTORS LIFTING, VACCUUMING, LAUNDRY ALLEVIATING FACTORS LAY DOWN, SITTING, WALKING IMPACT ON FUNCTION YES DO YOU TAKE ANY BLOOD THINNERS?NO ANY CHANGE IN BOWEL OR BLADDER CONTROL?YES HAS DIARRHEA FROM DIVERTICULOSIS ARE YOU ALLERGIC TO SHELLFISH OR IV DYE?NO ARE YOU DIABETIC?NO DO YOU HAVE A PACEMAKER OR DEFIBRILLATOR?NO ANY NEW PROBLEMS WITH MEDICINES OR NEW ALLERGIESNO HAVE YOU FALLEN IN THE LAST 6 MONTHS?YES TRIPPED LAST NIGHT NOT SURE WHAT HAPPENED. SLIPPED AND FELL ONTO KNEES DO YOU USE ANY TYPE OF TOBACCO (SMOKE, SMOKELESS, CHEW, ETC.)YES ARE YOU ABUSED, NEGLECTED, OR IN AN UNSAFE ENVIRONMENT?NO DO YOU HAVE THOUGHTS OF HURTING YOURSELF OR SOMEONE ELSE?NO RECREATIONAL DRUG USE: NEVER DRUG USE? MEDICAL MARIJUANA LEARNING BARRIERS / SPECIAL NEEDS CHANGE FROM LAST VISIT?NO BARRIERS TO LEARNING?NO HEARING IMPAIRED?NO VISION IMPAIRED?YES COGNITIVELY IMPAIRED?NO :CORRECTIVE LENSES READINESS TO LEARN?YES LEARNING PREFERENCES?NO LEARNING CAPABILITIES PRESENT?YES EMOTIONAL BARRIERS?NO SPECIAL DEVICES?YES HAS DENTURES TOP/BOTTOM HUMAN FACTORS SCIENTIST NEEDED?NO PAIN CLINIC PFS, CLERGY, PUBLIC HEALTH REFERRALS PFS REFERRAL NEEDED?NO CLERGY REFERRAL NEEDED?NO PUBLIC HEALTH REFERRAL NEEDED?NO HAS THE PATIENT BEEN EDUCATED REGARDING HIS/HER PLAN OF CARE?YES HAS THE PATIENT BEEN EDUCATED REGARDING PAIN, THE RISK FOR PAIN, THE IMPORTANCE OF EFFECTIVE PAIN MANAGEMENT, AND THE PAIN ASSESSMENT PROCESS?YES LATEX QUESTIONNAIRE LATEX ALLERGY : HAVE YOU EVER DEVELOPED ANY TYPE OF REACTION AFTER HANDLING LATEX PRODUCTS SUCH RUBBER GLOVES, CONDOMS, DIAPHRAGMS, BALLOONS, SOCKS, OR UNDERWEAR?NO LATEX ALLERGY : HAVE YOU EVER DEVELOPED ANY TYPE OF REACTION DURING OR AFTER DENTAL APPOINTMENT, VAGINAL/RECTAL EXAMINATION, SURGICAL PROCEDURE, OR ANY OTHER EXPOSURE?NO DATE ASKED : 10/16/2019 LATEX RISK : HAVE YOU EVER HAD ANY DIFFICULTY BREATHING OR HIVES AFTER EATING OR HANDLING ANY FRUITS, OR VEGETABLES; SUCH KIWI, BANANAS, STONE FRUITS, OR CHESTNUTSNO LATEX RISK : DO YOU HAVE A PREVIOUS PERSONAL HISTORY OF MORE THAN NINE SURGERIES, SPINA BIFIDA, OR REPEATED CATHERIZATIONS? YES - PLEASE INDICATE : > 9 SURGERIES LATEX RISK : ARE YOU FREQUENTLY EXPOSED TO LATEX PRODUCTS IN YOUR OCCUPATION?NO CAFFEINE: YES CAFFEINE USE?YES HOW OFTEN AND HOW MUCH? 2 CUPS COFFEE, 2 LITERS COKE/DAY ADVANCE DIRECTIVE ADVANCE DIRECTIVE DISCUSSED WITH PATIENT:YES HCP-- , RODRIGUEZ CHURCH [id number] ISLAM MARITAL STATUS: . ALCOHOL SCREENING DID YOU HAVE A DRINK CONTAINING ALCOHOL IN THE PAST YEAR?NO POINTS0 INTERPRETATIONNEGATIVE OCCUPATION: DISABLED. SEXUAL HX HAD SEX IN THE LAST 12 MONTHS (VAGINAL, ORAL, OR ANAL)?NO HAVE YOU EVER HAD AN STD?NO REVIEWED WITH PT 08/14/18 1525 LASREVIEWED WITH PATIENT 07/15/19 LAS10/16/2019 0954 REVIEWED WITH PT. AD. HOSPITALIZATION/MAJOR DIAGNOSTIC PROCEDURE DIVERTICULITIS SEVERAL TIMES 01/2017 BOWEL OBSTRUCTION BACK SURGERY 06/20 CHILDBIRTH X 2 REVIEW OF SYSTEMS REVIEWED BY: PROVIDER: MARCIE RODAS . CONSTITUTIONAL: ANY CHANGE IN YOUR MEDICAL CONDITION? NO . CHILLS NO . FEVER NO . INFECTION: DO YOU HAVE NEW INFECTIONS? NO . DO YOU HAVE HISTORY OF MRSA? NO . MUSCULOSKELETAL: ANY NEW PATTERNS OF PAIN OR NUMBNESS? NO . GASTROENTEROLOGY: ANY NEW CHANGE IN BOWEL CONTROL? NO . GENITOURINARY: ANY NEW CHANGE IN BLADDER CONTROL? NO . IS THERE A CHANCE YOU COULD BE ? NO . HEMATOLOGY/LYMPH: DO YOU TAKE ANY BLOOD THINNERS? (FOR EXAMPLE- COUMADIN, PLAVIX, AGGRENOX, PLATEL, PRADAXA, OR XARELTO) NO . WHEN WAS YOUR LAST DOSE? DATE: TIME: . NEUROLOGY: HAVE YOU FALLEN IN THE PAST 12 MONTHS? NO . ANY NEW EXTREMITY NUMBNESS OR WEAKNESS? NO . CARDIOLOGY: DO YOU HAVE A PACEMAKER OR DEFIBRILLATOR? NO . RESPIRATORY: HAVE YOU BEEN SICK IN THE PAST WEEK? NO . FEVER NO . FLU LIKE SYMPTOMS? NO . COUGH NO . INTEGUMENTARY: DO YOU HAVE ANY RASHES OR OPEN SORES? NO . ALLERGIC/IMMUNO: ARE YOU ALLERGIC TO IV DYE? NO . ANY NEW ALLERGIES? NO . PSYCHIATRIC: DO YOU HAVE THOUGHTS OF HURTING YOURSELF OR SOMEONE ELSE? NO . ARE YOU ABUSED, NEGLECTED, OR IN AN UNSAFE ENVIRONMENT? NO . ENDOCRINOLOGY: ARE YOU DIABETIC? NO . OTHER: DO YOU NEED ANY PRESCRIPTIONS? NO . IF YES, PLEASE LIST: ____ . ANY NEW PROBLEMS WITH YOUR MEDICATIONS? NO . WHEN DID YOU LAST EAT? ____ . WHEN DID YOU LAST DRINK? ____ . WHAT DID YOU LAST DRINK? ____ . NAME OF PERSON DRIVING YOU HOME? ____ . DO YOU HAVE ANY OTHER QUESTIONS OR CONCERNS NO . EXAMINATION GENERAL EXAMINATION: GENERALNO ACUTE DISTRESS, WELL NOURISHED AND HYDRATED. PSYCHAPPROPRIATE MOOD AND AFFECT , ORIENTED X 3. ASSESSMENTS LUMBAR DISC DISPLACEMENT WITHOUT MYELOPATHY - M51.26 (PRIMARY) INTERVERTEBRAL DISC DISORDERS WITH RADICULOPATHY, LUMBOSACRAL REGION - M51.17 TREATMENT LUMBAR DISC DISPLACEMENT WITHOUT MYELOPATHY CLINICAL NOTES: 59-YEAR-OLD FEMALE IN FOR CHRONIC PAIN FOLLOW-UP. GIVEN PRESENTING SYMPTOMS RECOMMENDED CONTINUATION OF CURRENT MEDICATION REGIMEN WITH FOLLOW-UP IN 3 MONTHS. PATIENT HAS EXPRESSED UNDERSTANDING OF AND WAS IN AGREEMENT WITH TREATMENT PLAN. GIVEN TIME TO ASK QUESTIONS AND EXPRESS CONCERNS., ISTOP REGISTRY REVIEWED AND DEMONSTRATES COMPLLIANCE. (REF # [id number] ) BRINGS IN MEDICATIONS WHICH IS APPROPRIATE FOR WHAT WAS DISPENSED. RECENT URINE TOXICOLOGY REVIEWED. NO UNAUTHORIZED MEDICATIONS. NO ILLICIT SUBSTANCES AND PRESCRIBED MEDICATIONS WERE PRESENT. TELEHEALTH VISIT PERFORMED VIA ZOOM. TIME SPENT WITH PATIENT 7 MINUTES. DISPOSITION & COMMUNICATION FOLLOW UP 3 MONTHS (REASON: BACK PAIN) ELECTRONICALLY SIGNED BY BRAD CHISHOLM ON 12/16/2019 AT 08:34 AM EDT DISCLAIMER : THIS IS A VISIT SUMMARY EXTRACTED FROM THE [employer] CHART. IT IS NOT A COPY OF THE [employer] PROGRESS NOTE. IFTIKHAR
== END ==
LOC: M PAIN 11:15
PROVIDERS: ATTEND Family Medicine
DX: M51.26 Other intervertebral disc displacement, lumbar region (principal); M51.17 Intervertebral disc disorders with radiculopathy, lumbosacral region; F17.210 Nicotine dependence, cigarettes, uncomplicated; Z79.891 Long term (current) use of opiate analgesic; Z79.899 Other long term (current) drug therapy; Z88.8 Allergy status to other drugs, medicaments and biological substances

== ENCOUNTER → 2019-12-18 | Outpatient (REF) | payer BC, MEDICARE | LOC: M LAB REF 16:29 | PROVIDERS: ATTEND Surgery | DX: R19.7 Diarrhea, unspecified (principal) ==

== ENCOUNTER → 2020-03-11 | Outpatient (CLI) | payer BC, MEDICARE ==
[~2020-03-11] MED LIST changes: +PANT40TA29 PO; +RECL5INJ2 IV
[2020-03-11 11:27] LABS: BLOOD UREA NITROGEN 5 MG/DL (7-18); CREATININE FOR GFR 0.82 MG/DL (0.55-1.30); GLOMERULAR FILTRATION RATE > 60.0 (>45)
[2020-03-15 17:05] LABS: CHROMOGRANIN A 114.2 ng/mL (0.0-101.8); GASTRIN 83 pg/mL (0-115); TISSUE TRANSGLUTAMINASE IgA <2 U/mL (0-3)
== END ==
LOC: M LAB 10:23
PROVIDERS: ATTEND Internal Medicine Gastroenterology
DX: R63.4 Abnormal weight loss (principal); A04.71 Enterocolitis due to Clostridium difficile, recurrent

== ENCOUNTER → 2020-03-12 | Outpatient (CLI) | payer BC, MEDICARE | LOC: M LABSMTC 14:03 | PROVIDERS: ATTEND Anesthesiology | DX: Z01.818 Encounter for other preprocedural examination (principal); Z11.59 Encounter for screening for other viral diseases | CPT/HCPCS: C9803; U0003 ==

== ENCOUNTER 2020-03-16 12:28 | Day surgery (SDC) | payer BC, MEDICARE ==
[~2020-03-16] VITALS: Ht 157.5 cm; Wt 48.5 kg
[~2020-03-16 12:28] MED LIST changes: +FECAL MICROBIOTA PREPARATION 250 ML BTL (J3590) XX ONE; +LIDOCAINE 2% 100MG/5ML SDV (FOR ANES.) As Ordered ONE; +NS 1,000 ML IV ONE; -PANT40TA29 PO; -RECL5INJ2 IV; +propofoL 200 MG/20 ML VIAL As Ordered ONE
[2020-03-16] MEDS ORDERED: fentaNYL 100 MCG/2 ML INJECTION (J3010) As Ordered ONE (13:44)
--- NOTE | 2020-03-16 13:59 | ROOR ---
Patient Name: Skip Manzo Procedure Date: 03/16/2020 1:49 PM Date of : 1960 Age: 59 Room: [facility] [place] Gender: Female Note Status: Finalized Procedure: Upper GI endoscopy Indications: Surveillance for malignancy due to personal history of Webber's esophagus, Diarrhea, presumed infectious, Endoscopy to assess diarrhea in patient suspected of having disease of the small-bowel Providers: Aleksandr FARMER MD Referring MD: Cristina BECK Requesting Provider: Medicines: Monitored Anesthesia Care Complications: No immediate complications. Procedure: Pre-Anesthesia Assessment: - The heart rate, respiratory rate, oxygen saturations, blood pressure, adequacy of pulmonary ventilation, and response to care were monitored throughout the procedure. The Endoscope was introduced through the mouth, and advanced to the third part of duodenum. The upper GI endoscopy was accomplished without difficulty. The patient tolerated the procedure well. Findings: The Z-line was variable and was found 38 cm from the incisors. This was biopsied with a cold forceps for histology. The exam of the esophagus was otherwise normal. The entire examined stomach was normal. The examined duodenum was normal. Biopsies for histology were taken with a cold forceps for evaluation of celiac disease. Impression: -Normal Esophagus with Z-line variable, 38 cm from the incisors. Biopsied. - Normal stomach. - Normal examined duodenum. Biopsied. Recommendation: - Return to my office at appointment to be scheduled. Aleksandr Farmer MD Aleksandr FARMER MD 03/16/2020 1:59:15 PM Electronically signed by Aleksandr FARMER MD Number of Addenda: 0 Note Initiated On: 03/16/2020 1:49 PM Estimated Blood Loss: Estimated blood loss: none.
--- NOTE | 2020-03-16 14:46 | ROOR ---
Patient Name: Skip Manzo Procedure Date: 03/16/2020 1:49 PM Date of : 1960 Age: 59 Room: [facility] Gender: Female Note Status: Finalized Procedure: FMT via colonoscopy Indications: Fecal transplant for treatment of recurrent Clostridium difficile diarrhea, Chronic diarrhea, Diarrhea of presumed infectious origin, Weight loss Providers: Aleksandr DUBOSE MD Referring MD: Cristina BECK Requesting Provider: Medicines: Monitored Anesthesia Care Complications: No immediate complications. Procedure: Pre-Anesthesia Assessment: - The heart rate, respiratory rate, oxygen saturations, blood pressure, adequacy of pulmonary ventilation, and response to care were monitored throughout the procedure. The Colonoscope was introduced through the anus and advanced to 10 cm into the ileum. The colonoscopy was performed without difficulty. The patient tolerated the procedure well. The quality of the bowel preparation was fair. Findings: The perianal and digital rectal examinations were normal. There was evidence of a prior functional end-to-end colo-colonic anastomosis in the distal sigmoid colon. This was patent. Biopsies for histology were taken with a cold forceps from the entire colon for evaluation of microscopic colitis. The decision was made to proceed with fecal microbiota transplant (bacteriotherapy). Donor stool was supplied by [employer] (purchased frozen stool) as per protocol. Approximately 250 mL of the donor stool was instilled in the cecum. A detailed colonoscopic exam could not be performed upon scope withdrawal secondary to limited visibility from the instilled stool. This precludes the ability to screen for colon cancer, and the patient was made aware of this prior to the procedure. Impression: - A detailed colonoscopic exam could not be performed upon scope withdrawal secondary to limited visibility from the instilled stool. This precludes the ability to screen for colon cancer, and the patient was made aware of this prior to the procedure. - I see a patent functional end-to-end colo-colonic anastomosis, few scattered diverticula, and the colon mucosa is grossly normal as is the terminal ileum. - Fecal Microbiota Transplant (Bacteriotherapy) performed in the cecum. - Biopsies were taken with a cold forceps from the entire colon for evaluation of microscopic colitis. Recommendation: - Return to my office in 1 month. - To discuss todays findings, my office will call you in the next few days to schedule a follow up appointment. Aleksandr Dubose MD Aleksandr DUBOSE MD 03/16/2020 2:45:40 PM Electronically signed by Aleksandr DUBOSE MD Number of Addenda: 0 Note Initiated On: 03/16/2020 1:49 PM Estimated Blood Loss: Estimated blood loss: none.
[2020-03-16 14:49] VITALS: BP 142/62
== END 2020-03-16 14:58 | disposition home or self-care (01) ==
LOC: M OPP 12:28
PROVIDERS: ATTEND Internal Medicine Gastroenterology
DX: K52.9 Noninfective gastroenteritis and colitis, unspecified (principal); A04.71 Enterocolitis due to Clostridium difficile, recurrent; Z98.0 Intestinal bypass and anastomosis status; R63.4 Abnormal weight loss; K22.8 Other specified diseases of esophagus; K22.70 Barrett's esophagus without dysplasia; J44.9 Chronic obstructive pulmonary disease, unspecified; F17.210 Nicotine dependence, cigarettes, uncomplicated; I34.1 Nonrheumatic mitral (valve) prolapse; Z79.891 Long term (current) use of opiate analgesic; Z79.899 Other long term (current) drug therapy; Z88.8 Allergy status to other drugs, medicaments and biological substances
CPT/HCPCS: 45380; 88305; J3010

== ENCOUNTER → 2020-04-06 | Outpatient (CLI) | payer BC, MEDICARE ==
[~2020-04-06] MED LIST changes: -FECAL MICROBIOTA PREPARATION 250 ML BTL (J3590) XX ONE; -LIDOCAINE 2% 100MG/5ML SDV (FOR ANES.) As Ordered ONE; -NS 1,000 ML IV ONE; +PANT40TA29 PO; +RECL5INJ2 IV; -propofoL 200 MG/20 ML VIAL As Ordered ONE
--- NOTE | 2020-04-28 10:23 | REPMRS ---
Patient History The patient states she has not had a clinical breast exam in over a year. Patient is postmenopausal and has history of other cancer at age 20. Family history of breast cancer under age 50 in maternal aunt, breast cancer under age 50 in maternal aunt. Benign excisional biopsy of the left breast, 2007. No Hormone Replacement Therapy Digital Woman Screen Mammo: April 06, 2020 - Exam #: [id number] Bilateral CC and MLO view(s) were taken. Technologist: Marline Fraser, Technologist Prior study comparison: January 17, 2019, bilateral digital woman screen mammo performed at [facility]. 2016, bilateral digital mammo screening bilat, performed at [facility]. January 29, 2015, bilateral digital woman screen mammo, performed at [facility]. FINDINGS: The breast tissue is heterogeneously dense. This may lower the sensitivity of mammography. The Volpara volumetric breast density category is: C. There is a needle biopsy marker clip in the left breast. There is a moderate amount of heterogeneously dense fibroglandular tissue which is fairly symmetric. There is no interval development of dominant mass, architectural distortion, or grouped microcalcification typical of malignancy. There has been no change in the appearance of the mammogram from the prior studies. 3-D tomosynthesis shows no additional findings. Report was delayed due to a protracted computer network disruption experienced by this facility. Assessment: BI-RADS/ACR category 2 mammogram. Benign Findings. Recommendation Routine screening mammogram of both breasts in 1 year (for women over age 40). This patient's Lifetime Breast Cancer RIsk is estimated at 6.3 %. This mammogram was interpreted with the aid of an FDA-approved computer-aided dectection system. Electronically Signed By: Chong Mistry MD 04/28/20 [id number]
== END ==
LOC: M WHC 17:01
PROVIDERS: ATTEND Physician Assistant Medical
DX: Z12.31 Encounter for screening mammogram for malignant neoplasm of breast (principal)

== ENCOUNTER → 2020-04-22 | Outpatient (CLI) | payer BC | LOC: M LAB 10:01 | PROVIDERS: ATTEND Internal Medicine Gastroenterology | DX: R63.4 Abnormal weight loss (principal); R19.7 Diarrhea, unspecified; R97.8 Other abnormal tumor markers ==

== ENCOUNTER → 2020-04-29 | Outpatient (CLI) | payer BC, MEDICARE ==
[~2020-04-29] MED LIST changes: +GLUCAGON INJ 1MG VIAL As Ordered ONE; +ISOVUE-370 76% 100ML VIAL As Ordered ONE; +VoLumen 0.1% SUSPENSION 450ML BOTTLE As Ordered ONE
--- NOTE | 2020-06-01 08:20 | REP ---
CT ENTEROGRAPHY WITH CONTRAST COMPARISON: Standard contrast CT abdomen and pelvis of 09/24/2019. CT CONTRAST DOSE: 100 mL of Isovue-370. FINDINGS: There is no change in the lung bases. There was a stable pleural-based nodule in the right lower lobe. There is cylindrical bronchiectasis status quo. There are no pleural or pericardial effusions. The liver and spleen are unchanged and again seen to be within normal limits. There are surgical clips seen in the gallbladder fossa from previous cholecystectomy. The pancreas, adrenal glands, and kidneys are again seen to be within normal limits. The abdominal aorta and paraaortic regions are unchanged and again seen to be within normal limits. There was no free fluid or free air. The bowel loops and their mesenteries are within normal limits. There was no evidence of an obvious transition. There was no evidence of a small bowel mucosal abnormality. There was no bowel wall edema. There was no mass or adenopathy. Bone window technique throughout the examination shows the osseous structures to be unchanged. Postoperative changes again seen involving the lumbar spine status quo. IMPRESSION: No evidence of acute disease. Findings as described above. MTDD
== END ==
LOC: M RAD 11:26
PROVIDERS: ATTEND Internal Medicine Gastroenterology
DX: R63.4 Abnormal weight loss (principal); R19.7 Diarrhea, unspecified; R10.84 Generalized abdominal pain
CPT/HCPCS: 74177; J1610; Q9967

== ENCOUNTER → 2020-05-17 | Outpatient (CLI) | payer BC ==
[~2020-05-17] MED LIST changes: -GLUCAGON INJ 1MG VIAL As Ordered ONE; -ISOVUE-370 76% 100ML VIAL As Ordered ONE; -VoLumen 0.1% SUSPENSION 450ML BOTTLE As Ordered ONE
--- NOTE | 2020-06-03 08:10 | REP ---
OCTREOSCAN NUCLEAR SCINTIGRAPHY WITH SPECT IMAGING HISTORY: Abnormal tumor markers. Elevate chromogranin A, rule out neuroendocrine tumor. Patient with diarrhea and weight loss. TECHNIQUE: 6.4 mCi of Indium-111 Octreoscan is injected. 24 hour uptake images of the abdomen and pelvis are acquired. SPECT acquisition is included. Reconstructed axial, coronal, and sagittal images are generated. SCINTIGRAPHIC FINDINGS: Images demonstrate normal physiologic uptake in the liver, spleen, and kidneys. Physiologic uptake is seen in the bowel. There is no intrahepatic retroperitoneal or other abdominal focus suggestive of neuroendocrine disease. SPECT imaging shows no additional abnormality. IMPRESSION: Negative Octreoscan nuclear scintigraphy. No evidence of neuroendocrine neoplasm. ADDENDUM: Whole body imaging is also acquired as part of this octreotide nuclear scintigraphy with 4, 24, and 48 hour images. These show physiologic uptake. No abnormal uptake is seen in the neck, chest, or elsewhere. MTDD
== END ==
LOC: M RAD 09:16
PROVIDERS: ATTEND Internal Medicine Gastroenterology
DX: R97.8 Other abnormal tumor markers (principal)
CPT/HCPCS: 78803; 78804; A9572

== ENCOUNTER 2020-05-19 13:39 | Outpatient (CLI) | payer BC ==
[~2020-05-19] VITALS: Ht 154.9 cm; Wt 53.5 kg
[~2020-05-19 13:39] MED LIST changes: -PANT40TA29 PO; -RECL5INJ2 IV
[2020-05-19 13:45] VITALS: BP 117/66
[2020-05-19] MEDS ORDERED: ZOLEDRONIC ACID 5 MG 100ML IVBAG (RECLAST)(J3489 PER 1MG) As Ordered ONE (13:48)
[2020-05-19] MEDS ORDERED: ZOLEDRONIC ACID 5 MG in IV 1 EA IV ONE (14:00)
[2020-05-19] MEDS ORDERED: PANT40TA29 PO (14:34)
[2020-05-19] MEDS ORDERED: RECL5INJ2 IV (14:34)
[2020-05-19 14:55] VITALS: BP 118/80
== END 2020-05-19 14:55 | disposition home or self-care (01) ==
LOC: M INFU 13:39
PROVIDERS: ATTEND Family Medicine
DX: M81.0 Age-related osteoporosis without current pathological fracture (principal); Z88.8 Allergy status to other drugs, medicaments and biological substances

== ENCOUNTER → 2020-07-07 | Outpatient (CLI) | payer BC, MEDICARE ==
[~2020-07-07] MED LIST changes: +PANT40TA29 PO; +RECL5INJ2 IV
--- NOTE | 2020-07-13 00:09 | ECWPNPC ---
PATIENT NAME: ANDI SEXTON : 1960 GENDER: FEMALE VISIT DATE: 07/07/2020 DISCHARGE DATE: 07/07/20 1025 VISIT LOCKED DATE TIME: PHYSICIAN: SIMRAN MACHUCA PHYSICIAN PAGER NO: ACTIVE RESOURCE: SIMRAN MACHUCA REASON FOR APPOINTMENT 1. LOW BACK HISTORY OF PRESENT ILLNESS DEPRESSION SCREENING: PHQ-9 LITTLE INTEREST OR PLEASURE IN DOING THINGSNEARLY EVERY DAY FEELING DOWN, DEPRESSED, OR HOPELESSNEARLY EVERY DAY TROUBLE FALLING OR STAYING ASLEEP, OR SLEEPING TOO MUCHNEARLY EVERY DAY FEELING TIRED OR HAVING LITTLE ENERGYNEARLY EVERY DAY POOR APPETITE OR OVEREATING NEARLY EVERY DAY FEELING BAD ABOUT YOURSELF-OR THAT YOU ARE A FAILURE OR HAVE LET YOURSELF OR YOUR FAMILY DOWN NOT AT ALL TROUBLE CONCENTRATING ON THINGS, SUCH READING THE NEWSPAPER OR WATCHING TELEVISION SEVERAL DAYS MOVING OR SPEAKING SO SLOWLY THAT OTHER PEOPLE COULD HAVE NOTICED. OR THE OPPOSITE- BEING SO FIDGETY OR RESTLESS THAT YOU HAVE BEEN MOVING AROUND A LOT MORE THAN USUALNOT AT ALL THOUGHTS THAT YOU WOULD BE BETTER OFF , OR OF HURTING YOURSELF IN SOME WAY?NOT AT ALL TOTAL SCORE:16 INTERPRETATIONMODERATELY SEVERE DEPRESSION PHQ-2 (2015 EDITION) LITTLE INTEREST OR PLEASURE IN DOING THINGS?SEVERAL DAYS FEELING DOWN, DEPRESSED, OR HOPELESS?NEARLY EVERY DAY TOTAL SCORE4 59-YEAR-OLD FEMALE IN FOR CHRONIC PAIN FOLLOW-UP. 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 SHE RATES HER PAIN CURRENTLY AT A 5 OUT OF 10 AND DESCRIBES IT CONTINUOUS, SHARP, STABBING, TENDER, THROBBING, SORE, AND SHOOTING. GENERAL: -. FALL RISK SCREENING: SCREENING :TWO OR MORE FALLS WITH INJURY IN THE PAST YEAR BRUISING, NO SIGNIFICANT INJURY, NO MEDICAL ATTENTION REQUIRED PAIN SCREENING: PATIENT HAS A COMPLAINT OF ACUTE OR CHRONIC PAIN :YES LOCATION OF PAIN:LOW BACK INTENSITY OF PAIN (SCALE OF 1 TO 10):5 WHAT DOES YOUR PAIN FEEL LIKE:CONTINOUS, SHARP, STABBING, TENDER, THROBBING, SORE, SHOOTING DURATION:RHYTHMIC, PERIODIC PAIN IS INCREASED BY:ACTIVITIES PAIN IS DECREASED BY:SITTING, OTHERS RESTING, SLEEP NURSING NOTE: -. PAIN CENTER INTAKE QUESTIONS: DO YOU HAVE A HISTORY OF MRSA? :YES 2018, POSITIVE NASAL MRSA SWAB DO YOU TAKE A BLOOD THINNERS? :NO DO YOU HAVE ANY BLEEDING DISORDERS? :NO ANY NEW NUMBNESS OR WEAKNESS IN YOUR LEGS OR ARMS? :YES LEFT AND RIGHT THUMBS, INDEX AND MIDDLE FINGERS HAVE INTERMITTENT NUMBNESS FOR LAST YEAR ANY PACEMAKER,DEFIBRILLATOR, OR DORSAL COLUMN STIMULATOR? :NO DO YOU HAVE ANY RASHES OR OPEN SORES? :NO ARE YOU ALLERGIC TO IV DYE? :NO ARE YOU DIABETIC? :NO ANY NEW PROBLEMS WITH YOUR MEDICATIONS? :NO HAVE YOU RECEIVED A VACCINE IN THE PAST 30 DAYS? :NO DO YOU PLAN TO RECEIVE A VACCINE IN THE NEXT 21 DAYS? :NO DO YOU NEED ANY PRESCRIPTION? :YES TRAMADOL AND HYDROCODONE DO YOU TAKE ANY IMMUNOSUPPRESSIVE MEDICATIONS? :NO IS THERE A CHANCE YOU COULD BE ? :NO ARE YOU BREAST FEEDING? :NO CURRENT MEDICATIONS TAKING GABAPENTIN 600 MG TABLET 1 TABLET ORALLY THREE TIMES DAILY TAKING VITAMIN B 12 100 MCG LOZENGE DIRECTED ORALLY ONCE A DAY TAKING MAXALT 10 MG TABLET 1 TABLET NEEDED ONE TIME ORALLY ONCE A DAY TAKING MECLIZINE HCL 25 MG TABLET 1 TABLET NEEDED ORALLY Q8 HR NEEDED TAKING MAY USE MEDICAL MARAJUANA DAILY TAKING RECLAST 5 MG/100ML SOLUTION DIRECTED INTRAVENOUS YEARLY TAKING PROBIOTIC - CAPSULE DIRECTED ORALLY DAILY TAKING PANTOPRAZOLE SODIUM 40 MG TABLET DELAYED RELEASE 1 TABLET ORALLY BID TAKING ATORVASTATIN CALCIUM 40 MG TABLET 1 TABLET ORALLY ONCE A DAY TAKING SERTRALINE HCL 100 MG TABLET 2 TABLET ORALLY ONCE A DAY TAKING SUCRALFATE 1 GM TABLET 1 TABLET ON AN EMPTY STOMACH ORALLY TWICE A DAY TAKING FLUTICASONE PROPIONATE 50 MCG/ACT SUSPENSION 1 SPRAY IN EACH NOSTRIL NASALLY ONCE A DAY TAKING OXYBUTYNIN CHLORIDE ER 10 MG TABLET EXTENDED RELEASE 24 HOUR 1 TABLET ORALLY ONCE A DAY TAKING DRISDOL 88973 UNIT CAPSULE 1 CAPSULE ORALLY EVERY OTHER WEEK TAKING TRAMADOL HCL 50 MG TABLET 1 TABLET NEEDED ORALLY Q6 HRS PRN MDD 4 TAKING NORCO 10-325 MG TABLET 1 TABLET NEEDED ORALLY EVERY 6 HRS NOT-TAKING DIFICID 200 MG TABLET 1 TABLET ORALLY TWICE A DAY NOT-TAKING NIZATIDINE 300 MG CAPSULE 1 CAPSULE AT BEDTIME ORALLY ONCE A DAY NOT-TAKING CALCIUM + D3 600-800 MG-UNIT TABLET 1 TABLET WITH A MEAL ORALLY BID MEDICATION LIST REVIEWED AND RECONCILED WITH THE PATIENT PAST MEDICAL HISTORY ANDREWS-MIGRAINES H/O DIVERTICULOSIS- DIVERTICULITIS NUMBNESS AND TINGLING TO FINGERS AND TOES DUE TO TOPAMAX 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 ARTHROSCOPIC TWICE ON L HYSTERECTOMY, PARTIAL & TOTAL; BLADDER REPAIR C 1ST ONE S/P LAP. CHOLECYSTECTOMY() S/P APPENDECTOMY BUNIONECTOMY BONE FUSION ON RT. 06-09-2016 LUMBAR SPINE FUSION S1-T12 06/17/18 S/P LUMPECTOMY LEFT BREAST 1994 MULTIPLE D&C'S, LAPAROSCOPIES FOR ENDOMETRIOSIS FECAL TRANSPLANT DUE TO C-DIFF 04/2020 FAMILY HISTORY FATHER: ALIVE, DIAGNOSED WITH HYPERTENSION, UNSPECIFIED CEREBRAL ARTERY OCCLUSION WITH CEREBRAL INFARCTION MOTHER: ALIVE, DIABETES 2 SON(S) - HEALTHY. SONS- MITRAL VALVE, TACHYCARDIAMATERNAL AUNT- RA. SOCIAL HISTORY GENERAL: TOBACCO USE ARE YOU A:CURRENT SMOKER ARE YOU INTERESTED IN QUITTING?READY TO QUIT HAS CUT DOWN TO 5 OR LESS A DAY PREVIOUS QUIT ATTEMPTS?YES, MORE THAN 6 MONTHS AGO. COUNSELED THE PATIENT ON TOBACCO USE, CESSATION [id number] HOW MANY CIGARETTES A DAY DO YOU SMOKE?5 OR LESS HOW SOON AFTER YOU WAKE UP DO YOU SMOKE YOUR FIRST CIGARETTE?6-30 MIN HOW OFTEN DO YOU SMOKE CIGARETTES?EVERY DAY PATIENT COUNSELED ON THE DANGERS OF TOBACCO USE AND URGED TO QUIT:07/07/2020 SMOKING CESSATION INFORMATION GIVEN07/29/2019 LATEX QUESTIONNAIRE LATEX ALLERGY : HAVE YOU EVER DEVELOPED ANY TYPE OF REACTION AFTER HANDLING LATEX PRODUCTS SUCH RUBBER GLOVES, CONDOMS, DIAPHRAGMS, BALLOONS, SOCKS, OR UNDERWEAR?NO LATEX ALLERGY : HAVE YOU EVER DEVELOPED ANY TYPE OF REACTION DURING OR AFTER DENTAL APPOINTMENT, VAGINAL/RECTAL EXAMINATION, SURGICAL PROCEDURE, OR ANY OTHER EXPOSURE?NO LATEX RISK : HAVE YOU EVER HAD ANY DIFFICULTY BREATHING OR HIVES AFTER EATING OR HANDLING ANY FRUITS, OR VEGETABLES; SUCH KIWI, BANANAS, STONE FRUITS, OR CHESTNUTSNO LATEX RISK : DO YOU HAVE A PREVIOUS PERSONAL HISTORY OF MORE THAN NINE SURGERIES, SPINA BIFIDA, OR REPEATED CATHERIZATIONS? YES - PLEASE INDICATE : > 9 SURGERIES LATEX RISK : ARE YOU FREQUENTLY EXPOSED TO LATEX PRODUCTS IN YOUR OCCUPATION?NO DATE ASKED : 07/07/2020 ALCOHOL SCREENING DID YOU HAVE A DRINK CONTAINING ALCOHOL IN THE PAST YEAR?NO POINTS0 INTERPRETATIONNEGATIVE RECREATIONAL DRUG USE: NEVER DRUG USE? MEDICAL MARIJUANA CAFFEINE: YES CAFFEINE USE?YES HOW OFTEN AND HOW MUCH? 2 CUPS COFFEE, 2 LITERS COKE/DAY SEXUAL HX HAD SEX IN THE LAST 12 MONTHS (VAGINAL, ORAL, OR ANAL)?NO HAVE YOU EVER HAD AN STD?NO HIV / HEP-C SCREENING HIV TEST OFFERED TO PATIENT:YES DATE OFFERED:01/09/2019 TEST ACCEPTED:NO HEP-C TEST OFFERED TO PATIENT:YES DATE OFFERED:01/09/2019 REASON:PATIENT DECLINED TEST ACCEPTED:NO REASON:PATIENT DECLINED BROCHURE PROVIDED TO PATIENTYES BUDDHIST [id number] PENTECOSTALISM LANGUAGE LANGUAGES SPOKEN:INDONESIAN LEARNING BARRIERS / SPECIAL NEEDS CHANGE FROM LAST VISIT?NO BARRIERS TO LEARNING?NO HEARING IMPAIRED?NO VISION IMPAIRED?YES :CORRECTIVE LENSES COGNITIVELY IMPAIRED?NO READINESS TO LEARN?YES LEARNING PREFERENCES?NO LEARNING CAPABILITIES PRESENT?YES EMOTIONAL BARRIERS?NO SPECIAL DEVICES?YES HAS DENTURES 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 MARITAL STATUS: . OTHERS AT HOME: SPOUSE, SON. PAIN CLINIC PFS, CLERGY, PUBLIC HEALTH REFERRALS PFS REFERRAL NEEDED?NO CLERGY REFERRAL NEEDED?NO PUBLIC HEALTH REFERRAL NEEDED?NO HAS THE PATIENT BEEN EDUCATED REGARDING HIS/HER PLAN OF CARE?YES HAS THE PATIENT BEEN EDUCATED REGARDING PAIN, THE RISK FOR PAIN, THE IMPORTANCE OF EFFECTIVE PAIN MANAGEMENT, AND THE PAIN ASSESSMENT PROCESS?YES ADVANCE DIRECTIVE ADVANCE DIRECTIVE DISCUSSED WITH PATIENT:YES HCP-- , [facility] DIAGNOSTIC PROCEDURE DIVERTICULITIS SEVERAL TIMES 01/2017 BOWEL OBSTRUCTION BACK SURGERY 06/20 CHILDBIRTH X 2 REVIEW OF SYSTEMS CONSTITUTIONAL: ANY RECENT FEVER NO . CHILLS NO . WEIGHT CHANGE OF UNKNOWN REASONS NO . GASTROENTEROLOGY: NEW UNEXPLAINABLE CHANGES IN BOWEL CONTROL NO . CONSTIPATION NO . GENITOURINARY: ANY NEW CHANGE IN BLADDER CONTROL? NO . NEUROLOGY: NEW ONSET DIZZINESS OR NEUROLOGICAL CHANGES NOT MENTIONED NO . NEW NUMBNESS OR PAIN PATTERNS NOT MENTIONED AND PERTINENT TO TODAY'S VISIT NO . CARDIOLOGY: NEW CHEST PRESSURE NO . NEW CHEST PAIN NO . RESPIRATORY: UNEXPLAINABLE COUGH NO . NEW SHORTNESS OF BREATH NO . VITAL SIGNS WT 110.8 LBS, HT 60 IN, BMI 21.64 INDEX, BP 121/75 MM HG, HR 68 /MIN, RR 18 /MIN, TEMP 98.4 F, OXYGEN SAT % 97%, SAFE IN ENV? (Y/N) Y, NA INITIALS AW 0959, REVIEWED BY: SUBHASH, RN 1015. EXAMINATION GENERAL EXAMINATION: GENERALNO ACUTE DISTRESS, WELL NOURISHED AND HYDRATED. PSYCHAPPROPRIATE MOOD AND AFFECT . LUNGS:CLEAR TO AUSCULTATION BILATERALLY, NO WHEEZES, RHONCHI, RALES. HEART:NO MURMURS, REGULAR RATE AND RHYTHM. ASSESSMENTS INTERVERTEBRAL DISC DISORDER WITH RADICULOPATHY OF LUMBAR REGION - M51.16 (PRIMARY) TREATMENT INTERVERTEBRAL DISC DISORDER WITH RADICULOPATHY OF LUMBAR REGION REFILL TRAMADOL HCL TABLET, 50 MG, 1 TABLET NEEDED, ORALLY, 1 TAB TWICE DAILY X 1 WEEK THEN 1 TAB DAILY X 1 WEEK THEN 1 TAB EVERY OTHER DAY X 1 WEEK THEN STOP, 21 DAYS, 25 REFILL NORCO TABLET, 10-325 MG, 1 TABLET NEEDED, ORALLY, 1 TAB TWICE DAILY X 1 WEEK THEN 1 TAB DAILY X 1 WEEK THEN 1 TAB EVERY OTHER DAY X 1 WEEK THEN STOP, 21 DAYS, 25 NOTES: 59-YEAR-OLD FEMALE IN FOR CHRONIC PAIN FOLLOW-UP. GIVEN PRESENTING SYMPTOMS RECOMMEND TAPERING DOSE OF TRAMADOL AND HYDROCODONE WITH FOLLOW-UP IN 2 MONTHS. PATIENT HAS EXPRESSED UNDERSTANDING OF AND WAS IN AGREEMENT WITH TREATMENT PLAN. GIVEN TIME TO ASK QUESTIONS AND EXPRESS CONCERNS. , [employer] REGISTRY REVIEWED AND DEMONSTRATES COMPLLIANCE. (REF # [id number] ) BRINGS IN MEDICATIONS WHICH IS APPROPRIATE FOR WHAT WAS DISPENSED. RECENT URINE TOXICOLOGY REVIEWED. NO UNAUTHORIZED MEDICATIONS. NO ILLICIT SUBSTANCES AND PRESCRIBED MEDICATIONS WERE PRESENT. EDUCATED PT REGARDING TAPERING DOSES OF MEDICATIONS AND TREATMENT PLAN, PT ACKNOWLEDGED UNDERSTANDING, SUBHASH. PROCEDURE CODES FA211 ESTABILISHED PATIENT [facility] CHARGE DISPOSITION & COMMUNICATION FOLLOW UP 2 MONTHS (REASON: BACK PAIN ) ELECTRONICALLY SIGNED BY BRAD CHISHOLM ON 07/12/2020 AT 01:32 PM EST DISCLAIMER : THIS IS A VISIT SUMMARY EXTRACTED FROM THE [employer] CHART. IT IS NOT A COPY OF THE [employer] PROGRESS NOTE. [id number]
== END ==
LOC: M PAIN 10:00
PROVIDERS: ATTEND Family Medicine
DX: M51.16 Intervertebral disc disorders with radiculopathy, lumbar region (principal); G89.29 Other chronic pain; G43.909 Migraine, unspecified, not intractable, without status migrainosus; M79.7 Fibromyalgia; K21.9 Gastro-esophageal reflux disease without esophagitis; F17.210 Nicotine dependence, cigarettes, uncomplicated; Z86.14 Personal history of Methicillin resistant Staphylococcus aureus infection; Z86.59 Personal history of other mental and behavioral disorders; Z88.8 Allergy status to other drugs, medicaments and biological substances; Z79.899 Other long term (current) drug therapy

== ENCOUNTER → 2020-07-14 | Outpatient (REF) | payer BC, MEDICARE ==
[2020-07-14 11:23] LABS: URINE TOTAL PROTEIN < 5.0 MG/DL (0-12)
[2020-07-14 14:24] LABS: TOTAL VOLUME, URINE 2250 ML
== END ==
LOC: M SFHCPLAZ 10:23
PROVIDERS: ATTEND Physician Assistant Medical
DX: D3A.8 Other benign neuroendocrine tumors (principal)

== ENCOUNTER → 2020-08-19 | Outpatient (REF) | payer BC, MEDICARE ==
[2020-08-19 15:53] LABS: BASO # 0.1 10^3/uL (0.0-0.2); BASO % 1.1 % (0.0-1.0); EOS # 0.2 10^3/uL (0.0-0.5); HEMATOCRIT 38.5 % (36.0-47.0); HEMOGLOBIN 12.5 g/dl (12.0-15.5); LYMPH # 3.4 10^3/uL (1.5-5.0); LYMPH % 43.1 % (24.0-44.0); MEAN CORPUSCULAR HEMOGLOBIN 28.8 pg (27.0-33.0); MEAN CORPUSCULAR HGB CONC 32.5 g/dl (32.0-36.5); MEAN CORPUSCULAR VOLUME 88.7 fl (80.0-96.0); MONO # 0.5 10^3/uL (0.0-0.8); MONO % 6.5 % (0.0-5.0); NEUTROPHILS # 3.7 10^3/uL (1.5-8.5); NEUTROPHILS % 46.9 % (36.0-66.0); PLATELET COUNT, AUTOMATED 438 10^3/uL (150-450); RED BLOOD COUNT 4.34 10^6/uL (4.00-5.40)
[2020-08-19 16:13] LABS: ALBUMIN 3.2 GM/DL (3.2-5.2); ALT/SGPT 17 U/L (12-78); BILIRUBIN,TOTAL 0.2 MG/DL (0.2-1.0); BLOOD UREA NITROGEN 5 MG/DL (7-18); CALCIUM LEVEL 9.2 MG/DL (8.8-10.2); CARBON DIOXIDE LEVEL 32 MEQ/L (21-32); CHLORIDE LEVEL 103 MEQ/L (98-107); CREATININE FOR GFR 0.77 MG/DL (0.55-1.30); GLOMERULAR FILTRATION RATE > 60.0 (>45); GLUCOSE, FASTING 81 MG/DL (70-100); IRON (FE) 50 UG/DL (50-170); LIPASE 189 U/L (73-393); POTASSIUM SERUM 3.3 MEQ/L (3.5-5.1); SODIUM LEVEL 138 MEQ/L (136-145); TOTAL PROTEIN 6.4 GM/DL (6.4-8.2)
== END ==
LOC: M SFHCPLAZ 14:43
PROVIDERS: ATTEND Physician Assistant Medical
DX: D50.8 Other iron deficiency anemias (principal); R14.0 Abdominal distension (gaseous)

== ENCOUNTER → 2020-10-25 | Outpatient (CLI) | payer BC, MEDICARE ==
[2020-10-27 18:07] LABS: ANTI-PARIETAL CELL ANTIBODY 5.7 Units (0.0-20.0); CHROMOGRANIN A 120.9 ng/mL (0.0-101.8)
== END ==
LOC: M LAB 13:19
PROVIDERS: ATTEND Internal Medicine Gastroenterology
DX: R97.8 Other abnormal tumor markers (principal)

== ENCOUNTER → 2020-11-09 | Outpatient (REF) | payer BC | LOC: M LAB REF 14:04 | PROVIDERS: ATTEND Internal Medicine Gastroenterology | DX: R97.8 Other abnormal tumor markers (principal) ==

== ENCOUNTER → 2020-11-25 | Outpatient (CLI) | payer BC ==
--- NOTE | 2020-11-27 07:21 | ECWPNPC ---
PATIENT NAME: ANDI SEXTON : 1960 GENDER: FEMALE VISIT DATE: 11/25/2020 DISCHARGE DATE: 11/25/20 1046 VISIT LOCKED DATE TIME: PHYSICIAN: SIMRAN MACHUCA PHYSICIAN PAGER NO: ACTIVE RESOURCE: SIMRAN MACHUCA REASON FOR APPOINTMENT 1. LOW BACK HISTORY OF PRESENT ILLNESS GENERAL: -60-YEAR-OLD FEMALE IN FOR CHRONIC PAIN FOLLOW-UP. SHE RATES HER PAIN CURRENTLY AT A 6 OUT OF 10 AND DESCRIBES IT ACHING, THROBBING, AND SHOOTING. PATIENT WAS ON NARCOTICS TO HELP WITH HER PAIN IN THE PAST HOWEVER WE DISCONTINUED USE SHE DECIDED TO GO WITH [facility]. SHE ADMITS TODAY THAT SHE HAS DISCONTINUED USE OF MEDICAL MARIJUANA WOULD LIKE TO RETURN TO [facility] FOR PAIN MANAGEMENT THEY BETTER MANAGE HER PAIN. FALL RISK SCREENING: SCREENING : NO FALLS REPORTED IN THE LAST YEAR. PAIN SCREENING: PATIENT HAS A COMPLAINT OF ACUTE OR CHRONIC PAIN :YES LOCATION OF PAIN:LOW BACK INTENSITY OF PAIN (SCALE OF 1 TO 10):6 WHAT DOES YOUR PAIN FEEL LIKE:ACHING, THROBBING, SHOOTING MOSTY IN LEFT LEG BUT BOTH DURATION:CONTINOUS, CONSTANT, ALL DAY PAIN IS INCREASED BY:ACTIVITIES PAIN IS DECREASED BY:USE OF PAIN MEDICATIONS NURSING NOTE: -. PAIN CENTER INTAKE QUESTIONS: DO YOU HAVE A HISTORY OF MRSA? :YES 2018, POSITIVE NASAL MRSA SWAB DO YOU TAKE A BLOOD THINNERS? :NO DO YOU HAVE ANY BLEEDING DISORDERS? :NO ANY NEW NUMBNESS OR WEAKNESS IN YOUR LEGS OR ARMS? :YES LEFT AND RIGHT THUMBS, INDEX AND MIDDLE FINGERS HAVE INTERMITTENT NUMBNESS FOR LAST YEAR ANY PACEMAKER,DEFIBRILLATOR, OR DORSAL COLUMN STIMULATOR? :NO DO YOU HAVE ANY RASHES OR OPEN SORES? :NO ARE YOU ALLERGIC TO IV DYE? :NO ARE YOU DIABETIC? :NO ANY NEW PROBLEMS WITH YOUR MEDICATIONS? :NO HAVE YOU RECEIVED A VACCINE IN THE PAST 30 DAYS? :NO DO YOU PLAN TO RECEIVE A VACCINE IN THE NEXT 21 DAYS? :NO DO YOU NEED ANY PRESCRIPTION? :NO DO YOU TAKE ANY IMMUNOSUPPRESSIVE MEDICATIONS? :NO IS THERE A CHANCE YOU COULD BE ? :NO ARE YOU BREAST FEEDING? :NO CURRENT MEDICATIONS TAKING DICYCLOMINE HCL 20 MG TABLET 1 TABLET ORALLY THREE TIMES A DAY TAKING MAXALT 10 MG TABLET 1 TABLET NEEDED ONE TIME ORALLY ONCE A DAY TAKING MECLIZINE HCL 25 MG TABLET 1 TABLET NEEDED ORALLY Q8 HR NEEDED TAKING RECLAST 5 MG/100ML SOLUTION DIRECTED INTRAVENOUS YEARLY TAKING ATORVASTATIN CALCIUM 40 MG TABLET 1 TABLET ORALLY ONCE A DAY TAKING OXYBUTYNIN CHLORIDE ER 10 MG TABLET EXTENDED RELEASE 24 HOUR 1 TABLET ORALLY ONCE A DAY TAKING SERTRALINE HCL 100 MG TABLET 2 TABLET ORALLY DAILY TAKING TIZANIDINE HCL 4 MG TABLET 2 TABLET NEEDED ORALLY THREE TIMES A DAY TAKING GABAPENTIN 800 MG TABLET 1 TABLET ORALLY THREE TIMES DAILY TAKING PANTOPRAZOLE SODIUM 40 MG TABLET DELAYED RELEASE 1 TABLET ORALLY BID TAKING MOUTHWASH COMPOUNDING BASE - LIQUID 5ML-EQUAL PARTS BENADRYL, MAALOX & VISCOUS LIDOCAINE ORALLY EVERY 2HOURS PRN SWISH & SPIT TAKING CARAFATE 1 GM TABLET 1 TABLET ON AN EMPTY STOMACH ORALLY TWICE A DAY TAKING CREON 15344 UNIT CAPSULE DELAYED RELEASE PARTICLES DIRECTED ORALLY NOT-TAKING MAY USE MEDICAL MARAJUANA DAILY NOT-TAKING FLUTICASONE PROPIONATE 50 MCG/ACT SUSPENSION 1 SPRAY IN EACH NOSTRIL NASALLY ONCE A DAY NOT-TAKING DRISDOL 98677 UNIT CAPSULE 1 CAPSULE ORALLY EVERY OTHER WEEK NOT-TAKING TRAMADOL HCL 50 MG TABLET 1 TABLET NEEDED ORALLY Q6 HRS PRN MDD 4 NOT-TAKING PANTOPRAZOLE SODIUM 40 MG TABLET DELAYED RELEASE 1 TABLET ORALLY TWICE DAILY NOT-TAKING PROBIOTIC - CAPSULE DIRECTED ORALLY DAILY MEDICATION LIST REVIEWED AND RECONCILED WITH THE PATIENT PAST MEDICAL HISTORY ANDREWS-MIGRAINES H/O DIVERTICULOSIS- DIVERTICULITIS NUMBNESS AND TINGLING TO FINGERS AND TOES DUE TO TOPAMAX 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 ARTHROSCOPIC TWICE ON L HYSTERECTOMY, PARTIAL & TOTAL; BLADDER REPAIR C 1ST ONE S/P LAP. CHOLECYSTECTOMY() S/P APPENDECTOMY BUNIONECTOMY BONE FUSION ON RT. 06-09-2016 LUMBAR SPINE FUSION S1-T12 06/17/18 S/P LUMPECTOMY LEFT BREAST 1994 MULTIPLE D&C'S, LAPAROSCOPIES FOR ENDOMETRIOSIS FECAL TRANSPLANT DUE TO C-DIFF 04/2020 COLONOSCOPY- [facility] 04/2020 SOCIAL HISTORY GENERAL: TOBACCO USE ARE YOU A:CURRENT SMOKER ARE YOU INTERESTED IN QUITTING?READY TO QUIT HAS CUT DOWN TO 5 OR LESS A DAY PREVIOUS QUIT ATTEMPTS?YES, MORE THAN 6 MONTHS AGO. COUNSELED THE PATIENT ON TOBACCO USE, CESSATION [id number]/25/2021 HOW MANY CIGARETTES A DAY DO YOU SMOKE?5 OR LESS HOW SOON AFTER YOU WAKE UP DO YOU SMOKE YOUR FIRST CIGARETTE?6-30 MIN HOW OFTEN DO YOU SMOKE CIGARETTES?EVERY DAY PATIENT COUNSELED ON THE DANGERS OF TOBACCO USE AND URGED TO QUIT:07/12/2020 SMOKING CESSATION INFORMATION GIVEN07/12/2020 LATEX QUESTIONNAIRE LATEX ALLERGY : HAVE YOU EVER DEVELOPED ANY TYPE OF REACTION AFTER HANDLING LATEX PRODUCTS SUCH RUBBER GLOVES, CONDOMS, DIAPHRAGMS, BALLOONS, SOCKS, OR UNDERWEAR?NO LATEX ALLERGY : HAVE YOU EVER DEVELOPED ANY TYPE OF REACTION DURING OR AFTER DENTAL APPOINTMENT, VAGINAL/RECTAL EXAMINATION, SURGICAL PROCEDURE, OR ANY OTHER EXPOSURE?NO LATEX RISK : HAVE YOU EVER HAD ANY DIFFICULTY BREATHING OR HIVES AFTER EATING OR HANDLING ANY FRUITS, OR VEGETABLES; SUCH KIWI, BANANAS, STONE FRUITS, OR CHESTNUTSNO LATEX RISK : DO YOU HAVE A PREVIOUS PERSONAL HISTORY OF MORE THAN NINE SURGERIES, SPINA BIFIDA, OR REPEATED CATHERIZATIONS? YES - PLEASE INDICATE : > 9 SURGERIES LATEX RISK : ARE YOU FREQUENTLY EXPOSED TO LATEX PRODUCTS IN YOUR OCCUPATION?NO DATE ASKED : 11/25/2020 ALCOHOL USE: NO. ALCOHOL SCREENING DID YOU HAVE A DRINK CONTAINING ALCOHOL IN THE PAST YEAR?NO POINTS0 INTERPRETATIONNEGATIVE RECREATIONAL DRUG USE: NEVER DRUG USE?NO CAFFEINE: YES CAFFEINE USE?YES HOW OFTEN AND HOW MUCH? 2 CUPS COFFEE, 2 LITERS COKE/DAY SEXUAL HX HAD SEX IN THE LAST 12 MONTHS (VAGINAL, ORAL, OR ANAL)?NO HAVE YOU EVER HAD AN STD?NO HIV / HEP-C SCREENING HIV TEST OFFERED TO PATIENT:YES DATE OFFERED:01/09/2019 TEST ACCEPTED:NO HEP-C TEST OFFERED TO PATIENT:YES DATE OFFERED:01/09/2019 REASON:PATIENT DECLINED TEST ACCEPTED:NO REASON:PATIENT DECLINED BROCHURE PROVIDED TO PATIENTYES SIKH [id number] MOSQUE LANGUAGE LANGUAGES SPOKEN:SALVADOREAN LEARNING BARRIERS / SPECIAL NEEDS CHANGE FROM LAST VISIT?YES BARRIERS TO LEARNING?NO HEARING IMPAIRED?NO VISION IMPAIRED?YES :CORRECTIVE LENSES COGNITIVELY IMPAIRED?NO READINESS TO LEARN?YES LEARNING PREFERENCES?NO LEARNING CAPABILITIES PRESENT?YES EMOTIONAL BARRIERS?NO SPECIAL DEVICES?YES HAS DENTURES TOP/BOTTOM :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 MARITAL STATUS: . OTHERS AT HOME: SPOUSE, SON. - PFS REFERRAL NEEDED?NO CLERGY REFERRAL NEEDED?NO PUBLIC HEALTH REFERRAL NEEDED?NO HAS THE PATIENT BEEN EDUCATED REGARDING HIS/HER PLAN OF CARE?YES HAS THE PATIENT BEEN EDUCATED REGARDING PAIN, THE RISK FOR PAIN, THE IMPORTANCE OF EFFECTIVE PAIN MANAGEMENT, AND THE PAIN ASSESSMENT PROCESS?YES ADVANCE DIRECTIVE ADVANCE DIRECTIVE DISCUSSED WITH PATIENT:YES HCP-- , RODRIGUEZ HOSPITALIZATION/MAJOR DIAGNOSTIC PROCEDURE DIVERTICULITIS SEVERAL TIMES 01/2017 BOWEL OBSTRUCTION BACK SURGERY 06/20 CHILDBIRTH X 2 REVIEW OF SYSTEMS CONSTITUTIONAL: ANY RECENT FEVER NO . CHILLS NO . WEIGHT CHANGE OF UNKNOWN REASONS NO . GASTROENTEROLOGY: NEW UNEXPLAINABLE CHANGES IN BOWEL CONTROL NO . CONSTIPATION NO . GENITOURINARY: ANY NEW CHANGE IN BLADDER CONTROL? NO . NEUROLOGY: NEW ONSET DIZZINESS OR NEUROLOGICAL CHANGES NOT MENTIONED NO . NEW NUMBNESS OR PAIN PATTERNS NOT MENTIONED AND PERTINENT TO TODAY'S VISIT NO . CARDIOLOGY: NEW CHEST PRESSURE NO . PATIENT DENIES NO . RESPIRATORY: UNEXPLAINABLE COUGH NO . NEW SHORTNESS OF BREATH NO . VITAL SIGNS WT 102 LBS, HT 60 IN, BMI 19.92 INDEX, BP 120/55 MM HG, HR 89 /MIN, RR 16 /MIN, TEMP 98.3 F, OXYGEN SAT % 99%, SAFE IN ENV? (Y/N) YEST.TARIQ SPENCE. EXAMINATION GENERAL EXAMINATION: GENERALNO ACUTE DISTRESS, WELL NOURISHED AND HYDRATED. PSYCHAPPROPRIATE MOOD AND AFFECT . LUNGS:CLEAR TO AUSCULTATION BILATERALLY, NO WHEEZES, RHONCHI, RALES. HEART:NO MURMURS, REGULAR RATE AND RHYTHM. ASSESSMENTS USE OF OPIATES FOR THERAPEUTIC PURPOSES - Z79.891 (PRIMARY) SPONDYLOSIS WITHOUT MYELOPATHY OR RADICULOPATHY, LUMBOSACRAL REGION - M47.817 TREATMENT USE OF OPIATES FOR THERAPEUTIC PURPOSES LAB: URINE TEST GROUP MILI MEJIA 11/25/2020 10:42:07 AM > TRAMADOL ONE MONTH AGO, MEDICAL MARIJUANA- 3 MONTHS AGO NOTES: 60-YEAR-OLD FEMALE IN FOR CHRONIC PAIN FOLLOW-UP. GIVEN PRESENTING SYMPTOMS RECOMMEND RESTARTING HYDROCODONE AND ACETAMINOPHEN 5/325 MG TWICE A DAY WITH FOLLOW-UP IN ONE MONTH TO DETERMINE EFFICACY OF TREATMENT. PATIENT HAS EXPRESSED UNDERSTANDING OF AND WAS IN AGREEMENT WITH TREATMENT PLAN. GIVEN TIME TO ASK QUESTIONS AND EXPRESS CONCERNS. , ISTOP REGISTRY REVIEWED AND DEMONSTRATES COMPLLIANCE. (REF # [id number] ). OTHERS START HYDROCODONE-ACETAMINOPHEN TABLET, 5-325 MG, 1 TABLET NEEDED, ORALLY, EVERY 12 HRS NEEDED FOR PAIN MDD 2, 30 DAYS, 60 PROCEDURE CODES FA211 ESTABILISHED PATIENT [facility] CHARGE DISPOSITION & COMMUNICATION FOLLOW UP 4 WEEKS (REASON: MEDS) ELECTRONICALLY SIGNED BY BRAD CHISHOLM ON 11/26/2020 AT 09:28 AM EDT DISCLAIMER : THIS IS A VISIT SUMMARY EXTRACTED FROM THE [employer] CHART. IT IS NOT A COPY OF THE [employer] PROGRESS NOTE. IFTIKHAR
== END ==
LOC: M PAIN 10:15
PROVIDERS: ATTEND Family Medicine
DX: M47.817 Spondylosis without myelopathy or radiculopathy, lumbosacral region (principal); Z79.891 Long term (current) use of opiate analgesic; G43.909 Migraine, unspecified, not intractable, without status migrainosus; M79.7 Fibromyalgia; K21.9 Gastro-esophageal reflux disease without esophagitis; F32.9 Major depressive disorder, single episode, unspecified; M81.0 Age-related osteoporosis without current pathological fracture; Z85.828 Personal history of other malignant neoplasm of skin; L28.1 Prurigo nodularis; F17.210 Nicotine dependence, cigarettes, uncomplicated; Z88.8 Allergy status to other drugs, medicaments and biological substances

== ENCOUNTER → 2020-12-27 | Outpatient (CLI) | payer BC, MEDICARE ==
--- NOTE | 2020-12-29 03:18 | ECWPNPC ---
PATIENT NAME: ANDI SEXTON : 1960 GENDER: FEMALE VISIT DATE: 12/27/2020 DISCHARGE DATE: 12/27/20 1108 VISIT LOCKED DATE TIME: PHYSICIAN: SIMRAN MACHUCA PHYSICIAN PAGER NO: ACTIVE RESOURCE: SIMRAN MACHUCA REASON FOR APPOINTMENT 1. LOW BACK HISTORY OF PRESENT ILLNESS GENERAL: -60-YEAR-OLD FEMALE IN FOR CHRONIC PAIN FOLLOW-UP. AT LAST CLINIC VISIT PATIENT WAS RESTARTED ON HYDROCODONE AND SHE ADMITS TODAY THAT THE CURRENT DOSAGE HAS NOT BEEN HELPFUL WITH HER PAIN. SHE RATES HER PAIN CURRENTLY AT A 6 OUT OF 10 AND DESCRIBES IT TENDER, SORE, AND SHOOTING. FALL RISK SCREENING: SCREENING : NO FALLS REPORTED IN THIS YEAR. PAIN SCREENING: PATIENT HAS A COMPLAINT OF ACUTE OR CHRONIC PAIN :YES LOCATION OF PAIN:LOW BACK PAIN GOES DOWN BOTH LEG INTENSITY OF PAIN (SCALE OF 1 TO 10):6 WHAT DOES YOUR PAIN FEEL LIKE:TENDER, SORE, SHOOTING DURATION:CONTINOUS, CONSTANT, ALL DAY PAIN IS INCREASED BY:ACTIVITIES, OTHERS WHEATER PAIN IS DECREASED BY:USE OF PAIN MEDICATIONS NURSING NOTE: -. PAIN CENTER INTAKE QUESTIONS: DO YOU HAVE A HISTORY OF MRSA? :YES 2018, POSITIVE NASAL MRSA SWAB DO YOU TAKE A BLOOD THINNERS? :NO DO YOU HAVE ANY BLEEDING DISORDERS? :NO ANY NEW NUMBNESS OR WEAKNESS IN YOUR LEGS OR ARMS? :YES LEFT AND RIGHT THUMBS, INDEX AND MIDDLE FINGERS HAVE INTERMITTENT NUMBNESS FOR LAST YEAR ANY PACEMAKER,DEFIBRILLATOR, OR DORSAL COLUMN STIMULATOR? :NO DO YOU HAVE ANY RASHES OR OPEN SORES? :NO ARE YOU ALLERGIC TO IV DYE? :NO ARE YOU DIABETIC? :NO ANY NEW PROBLEMS WITH YOUR MEDICATIONS? :YES 5MG [facility] IS NOT WORKING HAVE YOU RECEIVED A VACCINE IN THE PAST 30 DAYS? :NO DO YOU PLAN TO RECEIVE A VACCINE IN THE NEXT 21 DAYS? :NO DO YOU NEED ANY PRESCRIPTION? :YES HYDROCODONE DO YOU TAKE ANY IMMUNOSUPPRESSIVE MEDICATIONS? :NO IS THERE A CHANCE YOU COULD BE ? :NO ARE YOU BREAST FEEDING? :NO CURRENT MEDICATIONS TAKING DICYCLOMINE HCL 20 MG TABLET 1 TABLET ORALLY THREE TIMES A DAY TAKING MAXALT 10 MG TABLET 1 TABLET NEEDED ONE TIME ORALLY ONCE A DAY TAKING MECLIZINE HCL 25 MG TABLET 1 TABLET NEEDED ORALLY Q8 HR NEEDED TAKING RECLAST 5 MG/100ML SOLUTION DIRECTED INTRAVENOUS YEARLY TAKING ATORVASTATIN CALCIUM 40 MG TABLET 1 TABLET ORALLY ONCE A DAY TAKING OXYBUTYNIN CHLORIDE ER 10 MG TABLET EXTENDED RELEASE 24 HOUR 1 TABLET ORALLY ONCE A DAY TAKING SERTRALINE HCL 100 MG TABLET 2 TABLET ORALLY DAILY TAKING GABAPENTIN 800 MG TABLET 1 TABLET ORALLY THREE TIMES DAILY TAKING PANTOPRAZOLE SODIUM 40 MG TABLET DELAYED RELEASE 1 TABLET ORALLY BID TAKING CARAFATE 1 GM TABLET 1 TABLET ON AN EMPTY STOMACH ORALLY TWICE A DAY TAKING HYDROCODONE-ACETAMINOPHEN 5-325 MG TABLET 1 TABLET NEEDED ORALLY EVERY 12 HRS NEEDED FOR PAIN MDD 2 TAKING TIZANIDINE HCL 4 MG TABLET 2 TABLET NEEDED ORALLY THREE TIMES A DAY NOT-TAKING MOUTHWASH COMPOUNDING BASE - LIQUID 5ML-EQUAL PARTS BENADRYL, MAALOX & VISCOUS LIDOCAINE ORALLY EVERY 2HOURS PRN SWISH & SPIT NOT-TAKING CREON [id number] UNIT CAPSULE DELAYED RELEASE PARTICLES DIRECTED ORALLY NOT-TAKING MAY USE MEDICAL MARAJUANA DAILY NOT-TAKING FLUTICASONE PROPIONATE 50 MCG/ACT SUSPENSION 1 SPRAY IN EACH NOSTRIL NASALLY ONCE A DAY NOT-TAKING DRISDOL 95998 UNIT CAPSULE 1 CAPSULE ORALLY EVERY OTHER WEEK NOT-TAKING TRAMADOL HCL 50 MG TABLET 1 TABLET NEEDED ORALLY Q6 HRS PRN MDD 4 NOT-TAKING PANTOPRAZOLE SODIUM 40 MG TABLET DELAYED RELEASE 1 TABLET ORALLY TWICE DAILY NOT-TAKING PROBIOTIC - CAPSULE DIRECTED ORALLY DAILY MEDICATION LIST REVIEWED AND RECONCILED WITH THE PATIENT PAST MEDICAL HISTORY ANDREWS-MIGRAINES H/O DIVERTICULOSIS- DIVERTICULITIS NUMBNESS AND TINGLING TO FINGERS AND TOES DUE TO TOPAMAX 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 ARTHROSCOPIC TWICE ON L HYSTERECTOMY, PARTIAL & TOTAL; BLADDER REPAIR C 1ST ONE S/P LAP. CHOLECYSTECTOMY() S/P APPENDECTOMY BUNIONECTOMY BONE FUSION ON RT. 06-09-2016 LUMBAR SPINE FUSION S1-T12 06/17/18 S/P LUMPECTOMY LEFT BREAST 1995 MULTIPLE D&C'S, LAPAROSCOPIES FOR ENDOMETRIOSIS FECAL TRANSPLANT DUE TO C-DIFF 04/2020 COLONOSCOPY- [facility] 04/2020 SOCIAL HISTORY GENERAL: TOBACCO USE ARE YOU A:CURRENT SMOKER ARE YOU INTERESTED IN QUITTING?READY TO QUIT HAS CUT DOWN TO 5 OR LESS A DAY PREVIOUS QUIT ATTEMPTS?YES, MORE THAN 6 MONTHS AGO. COUNSELED THE PATIENT ON TOBACCO USE, CESSATION [id number]/26/2021 HOW MANY CIGARETTES A DAY DO YOU SMOKE?5 OR LESS HOW SOON AFTER YOU WAKE UP DO YOU SMOKE YOUR FIRST CIGARETTE?6-30 MIN HOW OFTEN DO YOU SMOKE CIGARETTES?EVERY DAY PATIENT COUNSELED ON THE DANGERS OF TOBACCO USE AND URGED TO QUIT:07/12/2020 SMOKING CESSATION INFORMATION GIVEN07/12/2020 LATEX QUESTIONNAIRE LATEX ALLERGY : HAVE YOU EVER DEVELOPED ANY TYPE OF REACTION AFTER HANDLING LATEX PRODUCTS SUCH RUBBER GLOVES, CONDOMS, DIAPHRAGMS, BALLOONS, SOCKS, OR UNDERWEAR?NO LATEX ALLERGY : HAVE YOU EVER DEVELOPED ANY TYPE OF REACTION DURING OR AFTER DENTAL APPOINTMENT, VAGINAL/RECTAL EXAMINATION, SURGICAL PROCEDURE, OR ANY OTHER EXPOSURE?NO LATEX RISK : HAVE YOU EVER HAD ANY DIFFICULTY BREATHING OR HIVES AFTER EATING OR HANDLING ANY FRUITS, OR VEGETABLES; SUCH KIWI, BANANAS, STONE FRUITS, OR CHESTNUTSNO LATEX RISK : DO YOU HAVE A PREVIOUS PERSONAL HISTORY OF MORE THAN NINE SURGERIES, SPINA BIFIDA, OR REPEATED CATHERIZATIONS? YES - PLEASE INDICATE : > 9 SURGERIES LATEX RISK : ARE YOU FREQUENTLY EXPOSED TO LATEX PRODUCTS IN YOUR OCCUPATION?NO DATE ASKED : 12/27/2020 ALCOHOL USE: NO. ALCOHOL SCREENING DID YOU HAVE A DRINK CONTAINING ALCOHOL IN THE PAST YEAR?NO POINTS0 INTERPRETATIONNEGATIVE RECREATIONAL DRUG USE: NEVER DRUG USE?NO CAFFEINE: YES CAFFEINE USE?YES HOW OFTEN AND HOW MUCH? 2 CUPS COFFEE, 2 LITERS COKE/DAY SEXUAL HX HAD SEX IN THE LAST 12 MONTHS (VAGINAL, ORAL, OR ANAL)?NO HAVE YOU EVER HAD AN STD?NO HIV / HEP-C SCREENING HIV TEST OFFERED TO PATIENT:YES DATE OFFERED:01/09/2019 TEST ACCEPTED:NO HEP-C TEST OFFERED TO PATIENT:YES DATE OFFERED:01/09/2019 REASON:PATIENT DECLINED TEST ACCEPTED:NO REASON:PATIENT DECLINED BROCHURE PROVIDED TO PATIENTYES ANGLICAN [id number] MORAVIAN LANGUAGE LANGUAGES SPOKEN:FRISIAN LEARNING BARRIERS / SPECIAL NEEDS CHANGE FROM LAST VISIT?YES BARRIERS TO LEARNING?NO HEARING IMPAIRED?NO VISION IMPAIRED?YES :CORRECTIVE LENSES COGNITIVELY IMPAIRED?NO READINESS TO LEARN?YES LEARNING PREFERENCES?NO LEARNING CAPABILITIES PRESENT?YES EMOTIONAL BARRIERS?NO SPECIAL DEVICES?YES HAS DENTURES TOP/BOTTOM :CANE NEEDED ACETYLENE 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 MARITAL STATUS: . OTHERS AT HOME: SPOUSE, SON. - PFS REFERRAL NEEDED?NO CLERGY REFERRAL NEEDED?NO PUBLIC HEALTH REFERRAL NEEDED?NO HAS THE PATIENT BEEN EDUCATED REGARDING HIS/HER PLAN OF CARE?YES HAS THE PATIENT BEEN EDUCATED REGARDING PAIN, THE RISK FOR PAIN, THE IMPORTANCE OF EFFECTIVE PAIN MANAGEMENT, AND THE PAIN ASSESSMENT PROCESS?YES ADVANCE DIRECTIVE ADVANCE DIRECTIVE DISCUSSED WITH PATIENT:YES HCP-- , RODRIGUEZ [phone] REVIEW OF SYSTEMS CONSTITUTIONAL: ANY RECENT FEVER NO . CHILLS NO . WEIGHT CHANGE OF UNKNOWN REASONS NO . GASTROENTEROLOGY: NEW UNEXPLAINABLE CHANGES IN BOWEL CONTROL NO . CONSTIPATION NO . GENITOURINARY: ANY NEW CHANGE IN BLADDER CONTROL? NO . NEUROLOGY: NEW ONSET DIZZINESS OR NEUROLOGICAL CHANGES NOT MENTIONED NO . NEW NUMBNESS OR PAIN PATTERNS NOT MENTIONED AND PERTINENT TO TODAY'S VISIT NO . CARDIOLOGY: NEW CHEST PRESSURE NO . PATIENT DENIES NO . RESPIRATORY: UNEXPLAINABLE COUGH NO . NEW SHORTNESS OF BREATH NO . VITAL SIGNS WT 102.0 LBS, HT 60 IN, BMI 19.92 INDEX, BP 125/60 MM HG, HR 78 /MIN, RR 18 /MIN, TEMP 98.8 F, OXYGEN SAT % 97%, SAFE IN ENV? (Y/N) YES, NA INITIALS AW 1041T.TARIQ SPENCE. EXAMINATION GENERAL EXAMINATION: GENERALNO ACUTE DISTRESS, WELL NOURISHED AND HYDRATED. PSYCHAPPROPRIATE MOOD AND AFFECT . LUNGS:CLEAR TO AUSCULTATION BILATERALLY, NO WHEEZES, RHONCHI, RALES. HEART:NO MURMURS, REGULAR RATE AND RHYTHM. ASSESSMENTS LUMBAR DISC DISPLACEMENT WITHOUT MYELOPATHY - M51.26 (PRIMARY), RISK: (NULL) USE OF OPIATES FOR THERAPEUTIC PURPOSES - Z79.891 TREATMENT LUMBAR DISC DISPLACEMENT WITHOUT MYELOPATHY INCREASE HYDROCODONE-ACETAMINOPHEN TABLET, 7.5-325 MG, 1 TABLET NEEDED, ORALLY, EVERY 12 HRS NEEDED FOR PAIN MDD 2, 30 DAY(S), 60 LAB: URINE TEST GROUP CINDY POTTER 12/27/2020 11:06:52 AM > LAST DOSE: GABAPENTIN 12/27/2020, HYDROCODONE 12/13/2020 NOTES: 60-YEAR-OLD FEMALE IN FOR CHRONIC PAIN FOLLOW-UP. GIVEN PRESENTING SYMPTOMS RECOMMEND INCREASING HYDROCODONE TO 7.5 MG WITH FOLLOW-UP IN 3 MONTHS. PATIENT HAS EXPRESSED UNDERSTANDING OF AND WAS IN AGREEMENT WITH TREATMENT PLAN. GIVEN TIME TO ASK QUESTIONS AND EXPRESS CONCERNS. , ISTOP REGISTRY REVIEWED AND DEMONSTRATES COMPLLIANCE. (REF # [id number] ) BRINGS IN MEDICATIONS WHICH IS APPROPRIATE FOR WHAT WAS DISPENSED. RECENT URINE TOXICOLOGY REVIEWED. NO UNAUTHORIZED MEDICATIONS. NO ILLICIT SUBSTANCES AND PRESCRIBED MEDICATIONS WERE PRESENT. PROCEDURE CODES FA211 ESTABILISHED PATIENT [facility] CHARGE DISPOSITION & COMMUNICATION FOLLOW UP 3 MONTHS (REASON: LOW BACK PAIN ) ELECTRONICALLY SIGNED BY BRAD CHISHOLM ON 12/28/2020 AT 08:35 AM EDT DISCLAIMER : THIS IS A VISIT SUMMARY EXTRACTED FROM THE [employer] CHART. IT IS NOT A COPY OF THE [employer] PROGRESS NOTE. IFTIKHAR
== END ==
LOC: M PAIN 10:45
PROVIDERS: ATTEND Family Medicine
DX: M51.26 Other intervertebral disc displacement, lumbar region (principal); G89.29 Other chronic pain; G43.909 Migraine, unspecified, not intractable, without status migrainosus; M79.7 Fibromyalgia; K21.9 Gastro-esophageal reflux disease without esophagitis; F17.210 Nicotine dependence, cigarettes, uncomplicated; Z86.14 Personal history of Methicillin resistant Staphylococcus aureus infection; Z88.8 Allergy status to other drugs, medicaments and biological substances; Z79.899 Other long term (current) drug therapy

== ENCOUNTER → 2021-03-24 | Outpatient (CLI) | payer BC, MEDICARE ==
[~2021-03-24] MED LIST changes: +OMEP40CA4 PO; -OMEP40CA97 PO
[2021-03-24 13:38] LABS: FERRITIN 108 NG/ML (8-252); IRON (FE) 89 UG/DL (50-170); VITAMIN B12 LEVEL 841 PG/ML (247-911)
== END ==
LOC: M LAB 11:52
PROVIDERS: ATTEND Physician Assistant Medical
DX: K14.6 Glossodynia (principal); D50.8 Other iron deficiency anemias

== ENCOUNTER 2021-04-28 08:58 | Emergency (ER) | payer BC, MEDICARE ==
[~2021-04-28] VITALS: Ht 160 cm; Wt 48.8 kg
[2021-04-28] MEDS ORDERED: CREO3600 PO (09:09)
[2021-04-28] MEDS ORDERED: KETOROLAC 30 MG/ML 1ML VIAL IV ONE (09:35)
[2021-04-28 09:42] LABS: BASO # 0.1 10^3/uL (0.0-0.2); BASO % 1.1 % (0.0-1.0); EOS # 0.3 10^3/uL (0.0-0.5); EOS % 2.3 % (0.0-3.0); HEMATOCRIT 39.7 % (36.0-47.0); HEMOGLOBIN 13.1 g/dl (12.0-15.5); LYMPH # 3.1 10^3/uL (1.5-5.0); MEAN CORPUSCULAR HEMOGLOBIN 29.6 pg (27.0-33.0); MEAN CORPUSCULAR VOLUME 89.8 fl (80.0-96.0); MONO # 0.6 10^3/uL (0.0-0.8); MONO % 5.4 % (2.0-8.0); NEUTROPHILS % 62.8 % (36.0-66.0); PLATELET COUNT, AUTOMATED 420 10^3/uL (150-450); RED BLOOD COUNT 4.42 10^6/uL (4.00-5.40); WHITE BLOOD COUNT 11.1 10^3/uL (4.0-10.0)
--- NOTE | 2021-04-28 09:51 | REP ---
INDICATION: CHEST PAIN COMPARISON: 11/04/2014 TECHNIQUE: Portable AP view of the chest FINDINGS: The mediastinum and cardiac silhouette are stable and within normal limits for portable technique. The lung piper are clear without acute consolidation, effusion, or pneumothorax. Skeletal structures are intact. IMPRESSION: No acute cardiopulmonary process appreciated. <Electronically signed by Amador Merrill > 04/28/21 0962
[2021-04-28 10:30] LABS: ALBUMIN 3.3 GM/DL (3.2-5.2); ALT/SGPT 15 U/L (12-78); BILIRUBIN,DIRECT < 0.1 MG/DL (0.0-0.2); BILIRUBIN,TOTAL 0.3 MG/DL (0.2-1.0); CK-MB VALUE MASS 1.3 NG/ML (<3.6); CPK CREATINE PHOSPHOKINASE 92 U/L (26-192); LIPASE 97 U/L (73-393); MB/CK RELATIVE INDEX 1.41 (< OR =4); TOTAL PROTEIN 6.8 GM/DL (6.4-8.2); TROPONIN I < 0.02 NG/ML (< 0.10)
[2021-04-28] MEDS ORDERED: ISOVUE-370 76% 100ML VIAL As Ordered ONE (10:40)
--- NOTE | 2021-04-28 11:18 | REP ---
INDICATION: r/o PE COMPARISON: Chest CT dated 09/08/2019 TECHNIQUE: Axial contrast enhanced images from the thoracic inlet to the upper abdomen using pulmonary embolus technique with multiplanar re-formations. 75 ml Isovue 370 intravenous contrast material administered without complication. This CT examination was performed using the following dose reduction techniques: Automated exposure control, adjustment of mA and/or kv according to the patient's size, and use of iterative reconstruction technique. FINDINGS: Satisfactory enhancement of the pulmonary vasculature is achieved and no filling defects are identified to suggest pulmonary embolus. Further evaluation of the mediastinum demonstrates normal thoracic aorta, heart and pericardium. The bilateral lung piper are well aerated and demonstrate trace basilar atelectasis and dependent changes. Tracheobronchial tree is patent. No adenopathy noted. Surrounding musculoskeletal structures intact IMPRESSION: No evidence for pulmonary embolus. Trace basilar atelectasis (left greater than right). <Electronically signed by Amador Merrill > 04/28/21 1118
[2021-04-28 12:44] VITALS: BP 146/63
--- NOTE | 2021-04-28 18:58 | ECGEPIP ---
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
--- NOTE | 2021-04-28 19:01 | ECGEPIP ---
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
== END 2021-04-28 12:51 | disposition home or self-care (01) ==
LOC: M ED 08:58
DX: R07.89 Other chest pain (principal); R00.1 Bradycardia, unspecified; F32.9 Major depressive disorder, single episode, unspecified; G43.909 Migraine, unspecified, not intractable, without status migrainosus; F17.200 Nicotine dependence, unspecified, uncomplicated; Z82.49 Family history of ischemic heart disease and other diseases of the circulatory system; Z88.8 Allergy status to other drugs, medicaments and biological substances
CPT/HCPCS: 71045; 71275; 80047; 80076; 82550; 82553; 83690; 84484; 85025; 93005; 93041; 94760; 96374; 99285; J1885; Q9967

== ENCOUNTER → 2021-05-17 | Outpatient (CLI) | payer BC, MEDICARE ==
[~2021-05-17] MED LIST changes: +CREO3600 PO; -KLOR10TA76 PO; +POTA-136 PO
--- NOTE | 2021-05-17 14:03 | REPMRS ---
Patient History The patient states she has not had a clinical breast exam in over a year. Family history of breast cancer under age 50 in maternal aunt, breast cancer under age 50 in maternal aunt. Benign excisional biopsy of the left breast, 2007. No Hormone Replacement Therapy Patient states no breast complaints today. Patient has signed MRS History Sheet. Digital Woman Screen Mammo: May 17, 2021 - Exam #: [id number] Bilateral CC and MLO view(s) were taken. Technologist: Pat Salas, Technologist Prior study comparison: April 06, 2020, bilateral digital woman screen mammo performed at [facility]. January 17, 2019, bilateral digital woman screen mammo performed at [facility]. FINDINGS: The breast tissue is extremely dense which could obscure a lesion on mammography. Screening. Digital screening (2D) mammography was performed bilaterally in the CC and MLO projections. Additionally, breast tomosynthesis (3D mammography) was performed bilaterally in the CC and MLO projections. Todays exam was compared to the prior exam/exams. By history, the patient has no complaints of a palpable breast abnormality or other significant breast complaints. The breasts are unchanged in size and shape. Once again, dense heterogenous fibroglandular elements are seen bilaterally in a stable appearing pattern but to such a degree that the sensitivity of the mammogram in detecting cancer is decreased.There are no koki-soft tissue densities or spiculated masses.There is stable post-procedural internal architectural distortion. There is no new internal architectural distortion. Once again, stable benign appearing calcifications are seen.There are no suspicious koki-calcific clusters. Skin thickening or nipple retraction is not present. IMPRESSION: BI-RADS Category 2- Benign Findings. There is no evidence of malignant alteration of the breasts. Followup examination recommended in one year. The Volpara volumetric breast density category is D, the breasts are extremely dense which lowers the sensitivity of mammography. This mammogram was read with the assistance of [employer],an FDA approved computer aided detection system for mammography. The lifetime Tyrer-Cuzick score is 6.1 % Due to the density of the breasts or Tyrer Cuzick score of 20% or greater, MRI/whole breast screening ultrasound is warranted. Negative x-ray reports should not delay surgical consultation if a dominant or clinically suspicious mass is present. Not all breast cancers can be identified by mammography. Therefore, we recommend that you continue to perform regular breast self-examination and physical examination and then promptly contact your physician of any concerns or changes. Adenosis and dense breasts may obscure an underlying neoplasm. Assessment: BI-RADS/ACR category 2 mammogram. Benign Findings. Recommendation Routine screening mammogram of both breasts in 1 year. Electronically Signed By: Joseph Lepe DO 05/17/21 [id number]
== END ==
LOC: M WHC 13:16
PROVIDERS: ATTEND Physician Assistant Medical
DX: Z12.31 Encounter for screening mammogram for malignant neoplasm of breast (principal); Z80.3 Family history of malignant neoplasm of breast; R92.1 Mammographic calcification found on diagnostic imaging of breast

== ENCOUNTER → 2021-06-24 | Outpatient (CLI) | payer BC, MEDICARE ==
[2021-06-24 13:33] LABS: ALBUMIN 3.7 GM/DL (3.2-5.2); ALT/SGPT 14 U/L (12-78); BILIRUBIN,TOTAL 0.2 MG/DL (0.2-1.0); BLOOD UREA NITROGEN 7 MG/DL (7-18); CALCIUM LEVEL 9.5 MG/DL (8.8-10.2); CARBON DIOXIDE LEVEL 29 MEQ/L (21-32); CHLORIDE LEVEL 107 MEQ/L (98-107); CREATININE FOR GFR 0.85 MG/DL (0.55-1.30); GLOMERULAR FILTRATION RATE > 60.0 (>45); GLUCOSE, FASTING 91 MG/DL (70-100); POTASSIUM SERUM 3.9 MEQ/L (3.5-5.1); SODIUM LEVEL 139 MEQ/L (136-145); TOTAL PROTEIN 7.2 GM/DL (6.4-8.2)
== END ==
LOC: M LAB 12:34
PROVIDERS: ATTEND Physician Assistant Medical
DX: K21.9 Gastro-esophageal reflux disease without esophagitis (principal)

== ENCOUNTER → 2021-08-30 | Outpatient (CLI) | payer BC, MEDICARE ==
[~2021-08-30] MED LIST changes: +CARB10TACH; +CELE1CAP7; +DIVA125C6 PO; -DIVA1CAP PO; +LIDVISCBTL; +POTA-151 PO; -POTA20TA6 PO
== END ==
LOC: M WHC 09:33
PROVIDERS: ATTEND Physician Assistant Medical
DX: R59.0 Localized enlarged lymph nodes (principal)

== ENCOUNTER → 2021-10-05 | Outpatient (CLI) | payer BC, MEDICARE | LOC: M PLAIMG 15:06 | PROVIDERS: ATTEND Physician Assistant Medical | DX: M25.512 Pain in left shoulder (principal); M50.321 Other cervical disc degeneration at C4-C5 level; M50.31 Other cervical disc degeneration, high cervical region; M50.322 Other cervical disc degeneration at C5-C6 level; M50.323 Other cervical disc degeneration at C6-C7 level; M19.012 Primary osteoarthritis, left shoulder ==

== ENCOUNTER → 2021-11-14 | Outpatient (REF) | payer BC, MEDICARE ==
[~2021-11-14] MED LIST changes: -CARB10TACH; +CARB10TACH PO; -CELE1CAP7; +CELE1CAP7 PO; +FLUO1SOL TOP; +SERT200C PO
== END ==
LOC: M SFHCDERM 13:46
PROVIDERS: ATTEND Nurse Practitioner Family
DX: L82.1 Other seborrheic keratosis (principal); D22.71 Melanocytic nevi of right lower limb, including hip

== ENCOUNTER → 2022-01-04 | Outpatient (CLI) | payer BC, MEDICARE | LOC: M PLALAB 15:56 | PROVIDERS: ATTEND Physician Assistant Medical | DX: E55.9 Vitamin D deficiency, unspecified (principal) ==

== ENCOUNTER → 2022-01-06 | Outpatient (REF) | payer BC, MEDICARE | LOC: M SFHCDERM 13:55 | PROVIDERS: ATTEND Nurse Practitioner Family | DX: D18.01 Hemangioma of skin and subcutaneous tissue (principal); L57.0 Actinic keratosis; D23.5 Other benign neoplasm of skin of trunk ==

== ENCOUNTER → 2022-02-23 | Outpatient (CLI) | payer BC, MEDICARE ==
[~2022-02-23] MED LIST changes: +ERGO500029 PO; +RIZA10TA2 PO
== END ==
LOC: M LABSMTC 11:47
PROVIDERS: ATTEND Anesthesiology
DX: Z01.812 Encounter for preprocedural laboratory examination (principal); Z20.822 Contact with and (suspected) exposure to COVID-19

== ENCOUNTER 2022-02-28 08:16 | Day surgery (SDC) | payer BC, MEDICARE ==
[~2022-02-28] VITALS: Ht 157.5 cm; Wt 56.6 kg
[~2022-02-28 08:16] MED LIST changes: +NS 1,000 ML IV ONE
[2022-02-28] MEDS ORDERED: propofoL 200 MG/20 ML VIAL As Ordered ONE (10:43)
[2022-02-28] MEDS ORDERED: ePHEDrine SULFATE 25 MG/5 ML(5MG/ML) SYRINGE As Ordered ONE (10:43)
[2022-02-28 11:15] VITALS: BP 114/54
== END 2022-02-28 11:34 | disposition home or self-care (01) ==
LOC: M OPP 08:16
PROVIDERS: ATTEND Internal Medicine Gastroenterology
DX: Z86.010 Personal history of colon polyps (principal); K63.5 Polyp of colon; D12.2 Benign neoplasm of ascending colon; K57.30 Diverticulosis of large intestine without perforation or abscess without bleeding; K64.8 Other hemorrhoids; Z79.891 Long term (current) use of opiate analgesic; Z79.899 Other long term (current) drug therapy; Z88.8 Allergy status to other drugs, medicaments and biological substances; F17.210 Nicotine dependence, cigarettes, uncomplicated

== ENCOUNTER → 2022-03-23 | Outpatient (CLI) | payer BC ==
[~2022-03-23] MED LIST changes: +GASTROGRAFIN SOLUTION 30ML (Q9963) As Ordered ONE; +ISOVUE-370 76% 100ML VIAL As Ordered ONE; -NS 1,000 ML IV ONE
== END ==
LOC: M RAD 14:10
PROVIDERS: ATTEND Specialist
DX: C7A.094 Malignant carcinoid tumor of the foregut, unspecified (principal); R79.89 Other specified abnormal findings of blood chemistry; I70.0 Atherosclerosis of aorta; I25.10 Atherosclerotic heart disease of native coronary artery without angina pectoris; J43.9 Emphysema, unspecified; R91.8 Other nonspecific abnormal finding of lung field
CPT/HCPCS: 71260; 74177; Q9963; Q9967

== ENCOUNTER → 2022-06-13 | Outpatient (CLI) | payer BC, MEDICARE ==
[~2022-06-13] MED LIST changes: -GASTROGRAFIN SOLUTION 30ML (Q9963) As Ordered ONE; -ISOVUE-370 76% 100ML VIAL As Ordered ONE; -MAXA10TA14 PO; +RIZA10TA64 PO
== END ==
LOC: M PAIN 08:30
PROVIDERS: ATTEND Nurse Practitioner Family
DX: M50.10 Cervical disc disorder with radiculopathy, unspecified cervical region (principal); G89.29 Other chronic pain; G43.909 Migraine, unspecified, not intractable, without status migrainosus; M79.7 Fibromyalgia; K21.9 Gastro-esophageal reflux disease without esophagitis; F17.210 Nicotine dependence, cigarettes, uncomplicated; Z86.14 Personal history of Methicillin resistant Staphylococcus aureus infection; Z86.59 Personal history of other mental and behavioral disorders; Z88.8 Allergy status to other drugs, medicaments and biological substances; Z79.899 Other long term (current) drug therapy

== ENCOUNTER → 2022-07-07 | Outpatient (CLI) | payer BC | LOC: M PLARAD 12:21 | PROVIDERS: ATTEND Nurse Practitioner Family | DX: M50.122 Cervical disc disorder at C5-C6 level with radiculopathy (principal); M47.812 Spondylosis without myelopathy or radiculopathy, cervical region; M50.123 Cervical disc disorder at C6-C7 level with radiculopathy; M51.24 Other intervertebral disc displacement, thoracic region ==

== ENCOUNTER → 2022-07-10 | Outpatient (CLI) | payer BC, MEDICARE | LOC: M PLARAD 13:15 | PROVIDERS: ATTEND Physician Assistant Medical | DX: R59.0 Localized enlarged lymph nodes (principal); K14.6 Glossodynia; R68.89 Other general symptoms and signs; R93.3 Abnormal findings on diagnostic imaging of other parts of digestive tract | CPT/HCPCS: 78815; A9552 ==

== ENCOUNTER → 2022-08-17 | Outpatient (CLI) | payer BC | LOC: M SLEEP 07-10 12:18 → M SLEEP HO 10:23 | PROVIDERS: ATTEND Internal Medicine Critical Care Medicine | DX: G47.33 Obstructive sleep apnea (adult) (pediatric) (principal) ==

== ENCOUNTER → 2022-09-18 | Outpatient (CLI) | payer BC | LOC: M RAD 08:18 | PROVIDERS: ATTEND Specialist | DX: C7A.00 Malignant carcinoid tumor of unspecified site (principal) | CPT/HCPCS: 78803; 78804; A9572 ==

== ENCOUNTER → 2022-10-05 | Outpatient (CLI) | payer BC, MEDICARE ==
[2022-10-05 15:14] LABS: BASO # 0.1 10^3/uL (0.0-0.2); BASO % 1.7 % (0.0-1.0); EOS # 0.2 10^3/uL (0.0-0.5); EOS % 3.2 % (0.0-3.0); HEMATOCRIT 41.2 % (36.0-47.0); HEMOGLOBIN 13.1 g/dl (12.0-15.5); LYMPH # 2.8 10^3/uL (1.5-5.0); LYMPH % 39.6 % (24.0-44.0); MEAN CORPUSCULAR HEMOGLOBIN 29.2 pg (27.0-33.0); MEAN CORPUSCULAR HGB CONC 31.8 g/dl (32.0-36.5); MEAN CORPUSCULAR VOLUME 91.8 fl (80.0-96.0); MONO # 0.5 10^3/uL (0.0-0.8); MONO % 7.6 % (2.0-8.0); NEUTROPHILS # 3.4 10^3/uL (1.5-8.5); NEUTROPHILS % 47.5 % (36.0-66.0); PLATELET COUNT, AUTOMATED 404 10^3/uL (150-450); RED BLOOD COUNT 4.49 10^6/uL (4.00-5.40); WHITE BLOOD COUNT 7.1 10^3/uL (4.0-10.0)
[2022-10-05 15:42] LABS: ALBUMIN 3.7 G/DL (3.2-5.2); ALKALINE PHOSPHATASE 88 U/L (46-116); ALT/SGPT 11 U/L (7.0-40); AST/SGOT 17 U/L (<34); BILIRUBIN,TOTAL 0.3 MG/DL (0.3-1.2); BLOOD UREA NITROGEN 8 MG/DL (9-23); CALCIUM LEVEL 8.9 MG/DL (8.3-10.6); CARBON DIOXIDE LEVEL 27 MMOL/L (20-31); CHLORIDE LEVEL 108 MMOL/L (98-107); CREATININE FOR GFR 0.95 MG/DL (0.55-1.30); GLOMERULAR FILTRATION RATE > 60.0 (>45); GLUCOSE, FASTING 87 MG/DL (74-106); POTASSIUM SERUM 4.6 MMOL/L (3.5-5.1); SODIUM LEVEL 138 MMOL/L (136-145); TOTAL PROTEIN 6.7 G/DL (5.7-8.2)
== END ==
LOC: M PLALAB 12:04
PROVIDERS: ATTEND Physician Assistant Medical
DX: E87.6 Hypokalemia (principal); J10.1 Influenza due to other identified influenza virus with other respiratory manifestations

== ENCOUNTER → 2022-10-19 | Outpatient (CLI) | payer BC | LOC: M WHC 12:45 | PROVIDERS: ATTEND Physician Assistant Medical | DX: Z12.31 Encounter for screening mammogram for malignant neoplasm of breast (principal) ==

== ENCOUNTER → 2023-01-18 | Outpatient (CLI) | payer MEDICARE, BC | LOC: M SLEEP 07:29 | PROVIDERS: ATTEND Physician Assistant Medical | DX: R55 Syncope and collapse (principal) ==